=== PATIENT | female | born 1970 | race Caucasian/White ===

== ENCOUNTER 2016-09-30 12:48 | Inpatient (IN) | payer OTHER ==
[2016-09-30] MEDS: NS 0.9% 1000 ML* 2,000 ML IV ONE (15:22)
--- NOTE | 2016-09-30 15:54 | HP ---
H&P (Free Text) History and Physical: CRITICAL CARE MEDICINE DATE: 09/30/16 TIME: 1530 PRIMARY CARE PROVIDER: None REFERRING PROVIDER: Sydney Rios ([place]) REASON/CHIEF COMPLAINT: abd pain HISTORY OF PRESENT ILLNESS: 46 F with h/o anxiety, etoh abuse with prior abd pain aliments in the past (with CT scan abd 2013) presenting with [place] secondary to [place], vertigo, with poor po intake. Eval at [place] revealed High AG met acidosis without clear identification. Unable to perform serum osm and given her dynamics, [place] [facility], Na there 125, ph 7.4, HCO3 8, Cl 89, BUN 10, Cr 0.8, neg etoh level. Ua neg ketones, trace blood, sp g 1.004. Lipase 344. CT abd releatively benign. Placed on HCO3 gtt and transferred. Arrival she is stable. Awake, conversive. A bit shaky but states she feels better. morphine helped abd discomfort. hungry and able to drink water in front of me. REVIEW OF SYSTEMS: As per HPI. no etoh since friday. Steatohepatitis vs imaging history. PAST MEDICAL HISTORY: As per HPI. MEDICATIONS: Reviewed with her: Ativan 2 mg prn Effexor xr 150mg daily Clonidine 01mg daily Trazodone 100mg daily Wellbutrin 100mg daily ALLERGIES: NKDA SOCIAL HISTORY: Reviewed. h/o etoh (beer). doesn't work. FAMILY HISTORY: Noncontributory at present. PHYSICAL EXAM: Vital Signs: Reviewed. Neurologic: communicating. mild encephalopathy. [place] commands. Tremulous vs astrexis. No direct clonus. HEENT: mild icterus. mm dry Cardiovascular: Reg, S1, S2 Respiratory: clear bl Abdomen: overnight, soft; c/o tenderness to mid palpation, no r/g/r Extremities: warm Access: piv LABS: Reviewed. IMAGING: Reviewed. MEDICATIONS: Reviewed. ASSESSMENT: 46 F High AG metablic acidosis Need to eval serum osm for any gap discrepancies for alternative alcohols. She denies other ingestions. Renal function looks ok and would use crystalloid to wash out. F/u labs now on admission. pH was ok and may not need buffer as renal function well but may need some replacement. Hyponatremia associated - question polydipsia. PLAN: Neurologic: mild metabolic encephalpathy. should clear in time. will likely need her outpt meds back soon, but hold off today and just use prn ativan. Cardiovascular: Perfusing. Na/cl deficient. NS for now and f/u. Respiratory: tolerating without wob. O2 fine. Gastrointestinal: po diet. CT neg for any real acute pancreatitis. Lipase up in association with her acute volume depletion state. Can have po. Checking lipids , but otherwise just underlying fatty liver sec to chronic alcohol abuse. Renal/Metabolic: cr well. good uout thusfar. May again hae ingested additional etoh and check osmolarity but otherwise is tolerating fine with NS and may not need any antidotal or alternative needs other then fluids. etoh level neg. ketones neg. checking LA but likely neg. Glucose mildly up but not the ailment- No glucosuria. Infectious Disease: no infective burden. Hematology: stable numbers. hsq Endocrine: started on insulin gtt for concern for lipidemia and pancreatitis. can hold off now and check lipids. Musculoskeletal: oob. Psych/Social: pt expressed understanding. Supportive and preventative care as ordered. SUP: po VTE prophylaxis: heparin Disposition: ICU Code Status: Full Critical Care Time: 45min FMelissa Dunham DO
[2016-09-30 16:28] LABS: Red Cell Distribution Width 14 % (10.5-15)
[2016-09-30 16:39] LABS: Hematocrit 29 % (35-47); Mean Corpuscular HGB Conc 38 g/dl (31-36); Mean Corpuscular Hemoglobin 34 pg (27-31); Mean Corpuscular Volume 90 fL (80-97); Mean Platelet Volume 8 um3 (7.4-10.4); Red Blood Count 3.19 10^6/ul (4.0-5.4); White Blood Count 7.9 10^3/ul (3.5-10.8)
[2016-09-30 16:40] LABS: Comments Flag Yes
[2016-09-30 16:45] LABS: Albumin 3.8 g/dL (3.2-5.2); Calcium 8.2 mg/dL (8.6-10.3); EGFR African American 119.8 (>60); EGFR Non-African American 93.2 (>60); Globulin 2.8 g/dL (2-4); HDL Cholesterol 17.7 mg/dL; Magnesium 2.3 mg/dL (1.9-2.7); Phosphorus 2.5 mg/dL (2.5-5.0); Potassium 4.4 mmol/L (3.5-5.0); Total Bilirubin 1.6 mg/dL (0.2-1.0); Total Protein 6.6 g/dL (6.4-8.9)
[2016-09-30 17:15] LABS: BUN/Creatinine Ratio 11.8 (8-20)
[2016-09-30 17:33] LABS: Acetaminophen < 15 mcg/mL; Salicylate < 2.50 mg/dL (<30)
[2016-09-30] MEDS: NS 0.9% 1000 ML* 1,000 ML IV SCH ×2 (17:41→23:37)
[2016-09-30] MEDS: Morphine INJ* 2 MG/ML 1 ML SYRINGE IV PRN ×2 (18:37→22:02)
[2016-09-30] MEDS: Enoxaparin(*) 40 MG/0.4 ML SYR SUBCUT SCH (18:37)
[2016-09-30] MEDS: LORazepam INJ* 2 MG/ML 1 ML VIAL IV PUSH PRN (22:01)
[2016-09-30] MEDS: traZODone TAB* 100 MG PO PRN (23:37)
[2016-10-01] MEDS: Morphine INJ* 2 MG/ML 1 ML SYRINGE IV PRN ×5 (02:16→20:47)
[2016-10-01] MEDS: LORazepam INJ* 2 MG/ML 1 ML VIAL IV PUSH PRN ×3 (05:09→18:33)
[2016-10-01 05:19] LABS: BUN/Creatinine Ratio 10.8 (8-20); Blood Urea Nitrogen 7 mg/dL (6-24); CO2 Carbon Dioxide 23 mmol/L (22-32); Calcium 8.3 mg/dL (8.6-10.3); Chloride 97 mmol/L (101-111); EGFR African American 126.2 (>60); EGFR Non-African American 98.1 (>60); Glucose 79 mg/dL (70-100); Phosphorus 2.5 mg/dL (2.5-5.0); Sodium 130 mmol/L (133-145)
[2016-10-01 06:47] LABS: Magnesium 1.6 mg/dL (1.9-2.7)
[2016-10-01] MEDS ORDERED: Magnesium Sulfate 2 GM IV* 2 GM/50 ML BAG IVPB ONE (08:58)
[2016-10-01] MEDS ORDERED: Potassium Chlor TAB* 20 MEQ TAB.ER PO ONE ×2 (08:59→11:00)
[2016-10-01] MEDS ORDERED: NS 0.9% 1000 ML* 1,000 ML IV SCH (10:00)
--- NOTE | 2016-10-01 10:37 | PN ---
Progress Note - Progress Note Note: CRITICAL CARE MEDICINE DATE: 10/01/16 TIME: 935 SUBJECTIVE: Patient seen and examined. c/o llq discomfort. feels constipated. PHYSICAL EXAM: Vital Signs: Reviewed. Neurologic: communicating. better from encephalopathy. Less tremulous HEENT: mild icterus. mmm Cardiovascular: Reg, S1, S2 Respiratory: clear bl Abdomen: soft, no masses Extremities: warm Access: piv LABS: Reviewed. IMAGING: Reviewed. MEDICATIONS: Reviewed. ASSESSMENT: 46 F High AG metablic acidosis Hyponatremia associated - question polydipsia component or beer potomania. Pancreatitis associated with hypertriglyceridemia. Anxiety/depression PLAN: Neurologic: encephalpathy cleared. prn ativan. Cardiovascular: Perfusing. better vol status and can leave fluid today to avoid rebound. Respiratory: O2 fine. Gastrointestinal: abd pain more associated with metabolics and dehydration; +/- constipation. CT neg for any real acute pancreatitis. Lipase coming down and no real pancreatitis. can f/u clearance. able to carleen po fine. Numbers still indicative of etoh related steatosis. Renal/Metabolic: better balance. replace lytes. ns and k for now Infectious Disease: no infective burden. Hematology: stable numbers. hsq Endocrine: check tsh. gemfibrozil. no need for insulin gtt. Musculoskeletal: oob. ambulate. Psych/Social: pt expressed understanding. will add back effexor and wellbutrin. Supportive and preventative care as ordered. SUP: po VTE prophylaxis: lovenox Disposition: of for floor. needs another day or so. Code Status: Full Critical Care Time: 25min Arian Dunham DO
[2016-10-01] MEDS: Venlafaxine EXT RELEASE CAP* 75 MG PO SCH (11:01)
[2016-10-01] MEDS: Gemfibrozil TAB* 600 MG PO SCH ×2 (11:01→21:50)
[2016-10-01] MEDS: buPROPion TAB* 100 MG PO SCH (11:01)
[2016-10-01] MEDS: NS 0.9% w/ 40 Meq KCL 1000 ML* 1,000 ML IV SCH ×2 (11:03→21:50)
[2016-10-01] MEDS: Enoxaparin(*) 40 MG/0.4 ML SYR SUBCUT SCH (16:39)
[2016-10-01] MEDS: traZODone TAB* 100 MG PO PRN ×2 (20:47→21:50)
[2016-10-02] MEDS: LORazepam INJ* 2 MG/ML 1 ML VIAL IV PUSH PRN ×4 (00:54→20:54)
[2016-10-02] MEDS: Morphine INJ* 2 MG/ML 1 ML SYRINGE IV PRN ×2 (00:55→08:23)
[2016-10-02 06:52] LABS: Hematocrit 32 % (35-47); Hemoglobin 10.7 g/dl (12.0-16.0); Mean Corpuscular HGB Conc 34 g/dl (31-36); Mean Corpuscular Hemoglobin 31 pg (27-31); Mean Corpuscular Volume 91 fL (80-97); Mean Platelet Volume 8 um3 (7.4-10.4); Red Blood Count 3.45 10^6/ul (4.0-5.4); Red Cell Distribution Width 14 % (10.5-15); White Blood Count 9.9 10^3/ul (3.5-10.8)
[2016-10-02 07:10] LABS: BUN/Creatinine Ratio 6.5 (8-20); Calcium 8.9 mg/dL (8.6-10.3); EGFR African American 133.3 (>60); EGFR Non-African American 103.6 (>60); Magnesium 2.3 mg/dL (1.9-2.7); Potassium 4.3 mmol/L (3.5-5.0)
[2016-10-02] MEDS: Venlafaxine EXT RELEASE CAP* 75 MG PO SCH (08:24)
[2016-10-02] MEDS: Gemfibrozil TAB* 600 MG PO SCH ×2 (08:25→20:31)
[2016-10-02] MEDS: buPROPion TAB* 100 MG PO SCH (08:25)
[2016-10-02] MEDS ORDERED: Magnesium Hydroxide LIQ* 30 ML UDC PO PRN (10:05)
[2016-10-02] MEDS: oxyCODONE/Acetamin 5/325 MG* TAB PO PRN ×3 (11:38→20:32)
[2016-10-02] MEDS: Senna TAB PO SCH (12:49)
[2016-10-02] MEDS: Docusate CAP* 100 MG PO SCH ×2 (12:49→20:31)
[2016-10-02] MEDS: Polyethylene Glycol 3350* 17 GM PACKET PO SCH (12:49)
--- NOTE | 2016-10-02 16:11 | PN ---
Subjective Date of Service: 10/02/16 Interval History: Patient seen this morning. Reports pain seems to be improving, morphine is helping, willing to try oral alternative. Has been eating and this does not seem to worsen the pain. Has not had BM yet. Family History: Unchanged from Admission Social History: Unchanged from Admission Past Medical History: Unchanged from Admission Objective Active Medications: Bupropion HCl (Wellbutrin Sr Tab*) 100 mg PO DAILY [facility] Docusate Sodium (Colace Cap*) 100 mg PO BID KJ Enoxaparin Sodium (Lovenox(*)) 40 mg SUBCUT Q24H KJ Gemfibrozil (Lopid Tab*) 600 mg PO BID KJ Potassium Chloride/Sodium Chloride (Ns 0.9% W/ 40 Meq Kcl 1000 Ml*) 1,000 mls @ 100 mls/hr IV PER RATE KJ Lorazepam (Ativan Inj*) 1 mg IV PUSH Q6H PRN Magnesium Hydroxide (Milk Of Magnesia Liq*) 30 ml PO Q4H PRN Oxycodone/Acetaminophen (Percocet 5/325 Tab*) 1 tab PO Q4H PRN Polyethylene Glycol/Electrolytes (Miralax*) 17 gm PO DAILY KJ Senna (Senokot Tab*) 1 tab PO DAILY KJ Trazodone HCl (Desyrel Tab*) 100 mg PO BEDTIME PRN Venlafaxine HCl (Effexor Xr Cap*) 150 mg PO DAILY [facility] Vital Signs 10/01/16 10/01/16 10/01/16 16:19 17:19 18:33 Temperature Pulse Rate Respiratory 18 18 18 Rate Blood Pressure (mmHg) O2 Sat by Pulse Oximetry 10/02/16 10/02/16 10/02/16 01:55 07:07 08:23 Temperature 98.1 F Pulse Rate 75 Respiratory 16 16 12 Rate Blood Pressure 140/79 (mmHg) O2 Sat by Pulse 96 Oximetry 10/02/16 10/02/16 10/02/16 13:38 14:53 15:27 Temperature 98.3 F Pulse Rate 82 Respiratory 14 14 16 Rate Blood Pressure 138/89 (mmHg) O2 Sat by Pulse 97 Oximetry Oxygen Devices in Use Now: None Appearance: Middle-aged, F, laying in bed in NAD Eyes: No Scleral Icterus Ears/Nose/Mouth/Throat: Mucous Membranes Moist Neck: NL Appearance and Movements; NL JVP Respiratory: Symmetrical Chest Expansion and Respiratory Effort, Clear to Auscultation Cardiovascular: NL Sounds; No Murmurs; No JVD, RRR Abdominal: - - Soft, non-distended, mild TTP in periumbilical area, no rebound/ guarding, BS hypoactive Lymphatic: No Cervical Adenopathy Extremities: No Edema Skin: No Rash or Ulcers Neurological: Alert and Oriented x 3 Result Diagrams: 10/02/16 06:14 10/02/16 06:14 Microbiology and Other Data: Microbiology 10/01/16 21:57 Nasal Screen MRSA (PCR)(JIMMIE) - Final Nasal Mrsa Negative 09/30/16 15:00 Nasal Screen MRSA (PCR)(JIMMIE) - Final Nasal Mrsa Negative Assess/Plan/Problems-Billing Assessment: AGMA, hypertriglyceridemia associated pancreatitis, hyponatremia in a 46 yo F with hx of anxiety, depression, EtOH abuse - Patient Problems (1) Pancreatitis Current Visit: Yes Comment: 2/2 hypertriglyceridemia. Not much on CT imaging but some increase in lipase which has resolved. Low fat diet. Continue Gemfibrozil. Some of the abdominal pain may be due to consiptation, will start bowel regimen. (2) High anion gap metabolic acidosis Current Visit: Yes Comment: Resolved (3) Hyponatremia Current Visit: Yes Comment: Resolved (4) Depression Current Visit: Yes Comment: Continue Effexor and Wellbutrin (5) Alcohol abuse Current Visit: Yes Comment: Appreciate SW consult. Declines further treatment , attends AA infrequently (6) DVT prophylaxis Current Visit: Yes Comment: Lovenox SQ
[2016-10-02] MEDS: Enoxaparin(*) 40 MG/0.4 ML SYR SUBCUT SCH (16:15)
[2016-10-03] MEDS: traZODone TAB* 100 MG PO PRN (00:31)
[2016-10-03] MEDS: oxyCODONE/Acetamin 5/325 MG* TAB PO PRN ×2 (00:31→09:05)
[2016-10-03] MEDS ORDERED: Magnesium CITRATE* 300 ML BTL PO ONE (07:57)
[2016-10-03] MEDS ORDERED: buPROPion SR TAB.SR* 100 MG PO SCH (09:00)
[2016-10-03] MEDS: Venlafaxine EXT RELEASE CAP* 75 MG PO SCH (09:05)
[2016-10-03] MEDS: Docusate CAP* 100 MG PO SCH (09:05)
[2016-10-03] MEDS: Polyethylene Glycol 3350* 17 GM PACKET PO SCH (09:07)
[2016-10-03] MEDS: Senna TAB PO SCH (09:07)
[2016-10-03] MEDS: Gemfibrozil TAB* 600 MG PO SCH (09:07)
[2016-10-03] MEDS: LORazepam INJ* 2 MG/ML 1 ML VIAL IV PUSH PRN (09:42)
--- NOTE | 2016-10-03 09:50 | DCNOTE ---
Patient feeling better today. Pain improving although still no BM. Has been ambulating. Good PO intake. On exam, mild TTP in periumbilcal area, RRR, s1 and s2 present, no m/g/r, no LE edema Discharge home today, continue low-fat diet for now. F/U with PCP. Will continue Gemfibrozil as outpatient.
[2016-10-03 10:19] VITALS: BP 122/70
--- NOTE | 2016-10-04 05:12 | DS ---
DISCHARGE SUMMARY: DATE OF ADMISSION: 09/30/16 DATE OF DISCHARGE: 10/03/16 PRIMARY CARE PHYSICIAN: Dr. Anurag Gross. PRINCIPAL DISCHARGE DIAGNOSES: 1. Anion gap metabolic acidosis. 2. Hyponatremia. 3. Hypertriglyceridemia. 4. Biochemical pancreatitis. DISCHARGE MEDICATION REGIMEN: 1. Colace 100 mg by mouth 2 times daily. 2. Gemfibrozil 600 mg by mouth 2 times daily. 3. MiraLAX 17 g by mouth daily. 4. Senna 1 tablet by mouth daily. 5. Percocet 5/325, 1 tablet by mouth every 6 hours as needed for pain. 6. Effexor 150 mg by mouth daily. 7. Lorazepam 2 mg by mouth 2 times daily as needed for anxiety. 8. Wellbutrin 100 mg by mouth daily. 9. Trazodone 100 mg by mouth at bedtime. 10. Clonidine 0.1 mg by mouth 2 times daily. HISTORY OF PRESENT ILLNESS AND HOSPITAL SUMMARY: Please see the full history and physical by Dr. Gaetano Dunham for full details. Briefly, Ms. Gutierrez is a 46 -year- old female with past medical history of depression, anxiety, and alcohol abuse, who presented initially to [facility] with headache, vertigo and abdominal pain. The patient is found to have significantly high anion gap metabolic acidosis there with a bicarb of 8 as well as an elevated lipase. The patient was started on a bicarb drip and transferred to the ICU here at [facility]. The patient had a CT of the abdomen that did not show any signs of pancreatitis; however, showed some stool in the abdomen and some stool in the colon. The patient was also noted to be hyponatremic with sodium of 125. Etiology of the patient's metabolic acidosis was unclear. It was initially felt that she may have ingested another form of alcohol besides ethanol. The patient was fluid resuscitated and had resolution of her anion gap metabolic acidosis as well as with her sodium she may have had some element of beer potomania and perhaps was fairly dehydrated on her initial presentation. The patient's lipase trended down and normalized. She had mild hepatitis just likely due to alcohol use. The patient's abdominal pain improved over the course of the hospitalization; however, was still present on discharge. She will be continued on low fat diet. She was given an aggressive bowel management and will be discharged with this too, as well as she did not have a bowel movement in the hospital. She will continue on gemfibrozil, which was started for her hypertriglyceridemia which was found to be elevated at 3000. This may be the underlying etiology for her pancreatitis. She will continue on this medication in addition to her home medications and bowel regimen. She will need to follow up with her PCP as an outpatient. TIME SPENT: Total time spent on this discharge, 45 minutes. This is a summary of the hospitalization. Please see the full medical record for further details. CC: Dr. Anurag Gross* [id number]/CPS #: [id number] MTDD
== END 2016-10-03 13:15 | disposition home or self-care (01) | DRG 282 ==
LOC: ICU 14:51 → MED 10-01 11:46
PROVIDERS: ADMIT Internal Medicine Critical Care Medicine; ATTEND Hospitalist
DX: K85.90 Acute pancreatitis without necrosis or infection, unspecified (principal); G93.40 Encephalopathy, unspecified; E87.2 Acidosis; K70.0 Alcoholic fatty liver; K70.10 Alcoholic hepatitis without ascites; E87.1 Hypo-osmolality and hyponatremia; F41.9 Anxiety disorder, unspecified; F10.10 Alcohol abuse, uncomplicated; K59.00 Constipation, unspecified; E78.1 Pure hyperglyceridemia; F32.9 Major depressive disorder, single episode, unspecified; E86.0 Dehydration
CPT/HCPCS: 36415; 80048; 80053; 80061; 80329; 82140; 82330; 82803; 83605; 83690; 83735; 83930; 84100; 84443; 84478; 85025; 87641; A9270-GY; G0480; J1650; J2060; J2270

== ENCOUNTER 2017-04-17 16:09 | Emergency (ER) | payer OTHER ==
[2017-04-17] MEDS ORDERED: HYDROmorphone INJ* 1 MG/ML CARPUJECT SYRINGE IV SLOW PU ONE (19:38)
[2017-04-17] MEDS ORDERED: NS 0.9% 1000 ML* 1,000 ML IV ONE (19:38)
[2017-04-17] MEDS ORDERED: Ondansetron INJ* 2 MG/ML VIAL IV ONE (19:38)
[2017-04-17 20:04] LABS: Hematocrit 32 % (35-47); Hemoglobin 11.1 g/dl (12.0-16.0); Mean Corpuscular HGB Conc 35 g/dl (31-36); Mean Corpuscular Hemoglobin 33 pg (27-31); Mean Corpuscular Volume 94 fL (80-97); Mean Platelet Volume 7 um3 (7.4-10.4); Red Blood Count 3.38 10^6/ul (4.0-5.4); Red Cell Distribution Width 14 % (10.5-15); White Blood Count 8.5 10^3/ul (3.5-10.8)
[2017-04-17 20:21] LABS: ALT 21 U/L (7-52); AST 29 U/L (13-39); Albumin 4.3 g/dL (3.2-5.2); Alkaline Phosphatase 69 U/L (34-104); Anion Gap 6 mmol/L (2-11); Blood Urea Nitrogen 12 mg/dL (6-24); C Reactive Protein < 1.00 mg/L (< 5.00); CO2 Carbon Dioxide 26 mmol/L (22-32); Calcium 9.1 mg/dL (8.6-10.3); Chloride 102 mmol/L (101-111); EGFR African American 138.4 (>60); EGFR Non-African American 107.6 (>60); Globulin 3.1 g/dL (2-4); Glucose 100 mg/dL (70-100); Lipase 49 U/L (11.0-82.0); Potassium 3.4 mmol/L (3.5-5.0); Sodium 134 mmol/L (133-145); Total Protein 7.4 g/dL (6.4-8.9)
[2017-04-17] MEDS ORDERED: Pantoprazole IV* 40 MG IV ONE (20:26)
[2017-04-17 20:48] LABS: Urine Bilirubin Negative (Negative); Urine Glucose Negative (Negative); Urine Nitrite Negative (Negative)
--- NOTE | 2017-04-17 20:59 | ED ---
Gustabo Bradford Nilda, scribed for Berta Cristobal MD on 04/17/17 at 1932 . Abdominal Pain/Female - HPI Summary HPI Summary: This patient is a 46 year old F presenting to [facility] with a chief complaint of constant sharp epigastric pain since 1.5 week ago. The patient rates the pain 8/ 10 in severity. Symptoms aggravated and alleviated by nothing including Tramadol. Patient reports nausea and diarrhea (today). PMHx includes pancreatitis (August 2016). - History of Current Complaint Chief Complaint: EDAbdPain Stated Complaint: ABD PAIN Time Seen by Provider: 04/17/17 19:10 Hx Obtained From: Patient Onset/Duration: Lasting Weeks - 1.5 weeks, Still Present Timing: Constant Severity Currently: Severe Pain Intensity: 8 Pain Scale Used: 0-10 Numeric Location: Epigastric Radiates: No Character: Sharp Aggravating Factor(s): Nothing Alleviating Factor(s): Nothing Associated Signs and Symptoms: Positive: Nausea, Diarrhea Allergies/Adverse Reactions: Allergies Allergy/AdvReac Type Severity Reaction Status Date / Time No Known Allergies Allergy Verified 11/07/12 23:30 PMH/Surg Hx/FS Hx/Imm Hx Endocrine/Hematology History: Denies: Hx Anticoagulant Therapy, Hx Diabetes, Hx Thyroid Disease Cardiovascular History: Reports: Hx Hypertension Denies: Hx Pacemaker/ICD Respiratory History: Denies: Hx Asthma, Hx Chronic Obstructive Pulmonary Disease (COPD) GI History: Reports: Other GI Disorders History: Denies: Hx Renal Disease Musculoskeletal History: Reports: Hx Arthritis - right hip, Hx Gout Sensory History: Denies: Hx Contacts or Glasses, Hx Hearing Aid Opthamlomology History: Denies: Hx Contacts or Glasses Neurological History: Denies: Hx Dementia, Hx Seizures Psychiatric History: Reports: Hx Anxiety, Hx Depression, Hx Panic Disorder, Hx Post Traumatic Stress Disorder, Hx Substance Abuse Denies: Hx Eating Disorder, Hx of Violent Episodes Against Others - Surgical History Surgery Procedure, Year, and Place: right hip x2 - Immunization History Date of Tetanus Vaccine: unsure Date of Influenza Vaccine: fall 2012 Infectious Disease History: No Infectious Disease History: Denies: Hx Clostridium Difficile, Hx Hepatitis, Hx Human Immunodeficiency Virus (HIV), Hx of Known/Suspected MRSA, Hx Shingles, Hx Tuberculosis, History Other Infectious Disease, Traveled Outside the [place] in Last 30 Days - Family History Known Family History: Positive: Diabetes Negative: Hypertension - Social History Lives: With Family Alcohol Use: Daily Alcohol Amount: 1-2 beers daily Substance Use Type: Reports: None Smoking Status (MU): Never Smoked Tobacco Type: Cigarettes Have You Smoked in the Last Year: No Review of Systems Negative: Shortness Of Breath Positive: Abdominal Pain - sharp epigastric, Diarrhea, Nausea All Other Systems Reviewed And Are Negative: Yes Physical Exam Triage Information Reviewed: Yes Vital Signs On Initial Exam: Initial Vitals Temp Pulse Resp BP Pulse Ox 98.9 F 86 20 152/102 100 04/17/17 16:31 04/17/17 16:31 04/17/17 16:31 04/17/17 16:31 04/17/17 16:31 Vital Signs Reviewed: Yes Appearance: Positive: Well-Appearing, No Pain Distress Skin: Positive: Warm, Skin Color Reflects Adequate Perfusion, Dry Eyes: Positive: EOMI, PINA ENT: Positive: Pharynx normal, TMs normal Neck: Positive: Supple, Nontender Respiratory/Lung Sounds: Positive: Clear to Auscultation, Breath Sounds Present. Negative: Rales, Rhonchi, Wheezes Cardiovascular: Positive: RRR, Other - no gallop. Negative: Murmur, Rub Abdomen Description: Positive: Soft, Other: - no rebound; LUQ and epigastric tenderness.. Negative: Distended, Guarding Bowel Sounds: Positive: Present Musculoskeletal: Positive: Strength/ROM Intact. Negative: Edema Left, Edema Right Neurological: Positive: Sensory/Motor Intact, Alert, Oriented to Person Place, Time, CN Intact II-III Psychiatric: Positive: Affect/Mood Appropriate - [place] Coma Scale Coma Scale Total: 15 Diagnostics - Vital Signs Vital Signs Temp Pulse Resp BP Pulse Ox 04/17/17 18:42 97.9 F 97 16 147/87 100 04/17/17 16:31 98.9 F 86 20 152/102 100 - Laboratory Lab Results: Lab Results 04/17/17 04/17/17 04/17/17 Range/Units 19:58 19:58 20:32 WBC 8.5 (3.5-10.8) 10^3/ul RBC 3.38 L (4.0-5.4) 10^6/ul Hgb 11.1 L (12.0-16.0) g/dl Hct 32 L (35-47) % MCV 94 (80-97) fL MCH 33 H (27-31) pg MCHC 35 (31-36) g/dl RDW 14 (10.5-15) % Plt Count 286 (150-450) 10^3/ul MPV 7 L (7.4-10.4) um3 Neut % (Auto) 52.3 (38-83) % Lymph % (Auto) 35.7 (25-47) % [place] % (Auto) 8.9 (1-9) % Eos % (Auto) 2.2 (0-6) % Baso % (Auto) 0.9 (0-2) % Absolute Neuts (auto) 4.4 (1.5-7.7) 10^3/ul Absolute Lymphs (auto) 3.0 (1.0-4.8) 10^3/ul Absolute Monos (auto) 0.8 (0-0.8) 10^3/ul Absolute Eos (auto) 0.2 (0-0.6) 10^3/ul Absolute Basos (auto) 0.1 (0-0.2) 10^3/ul Absolute Nucleated RBC 0 10^3/ul Nucleated RBC % 0 Sodium 134 (133-145) mmol/L Potassium 3.4 L (3.5-5.0) mmol/L Chloride 102 (101-111) mmol/L Carbon Dioxide 26 (22-32) mmol/L Anion Gap 6 (2-11) mmol/L BUN 12 (6-24) mg/dL Creatinine 0.60 (0.51-0.95) mg/dL Est GFR ( Amer) 138.4 (>60) Est GFR (Non-Af Amer) 107.6 (>60) BUN/Creatinine Ratio 20.0 (8-20) Glucose 100 (70-100) mg/dL Calcium 9.1 (8.6-10.3) mg/dL Total Bilirubin 0.50 (0.2-1.0) mg/dL AST 29 (13-39) U/L ALT 21 (7-52) U/L Alkaline Phosphatase 69 (34-104) U/L C-Reactive Protein < 1.00 (< 5.00) mg/L Total Protein 7.4 (6.4-8.9) g/dL Albumin 4.3 (3.2-5.2) g/dL Globulin 3.1 (2-4) g/dL Albumin/Globulin Ratio 1.4 (1-3) Lipase 49 (11.0-82.0) U/L Urine Color Straw Urine Appearance Clear Urine pH 6.0 (5-9) Ur Specific [place] 1.003 L (1.010-1.030) Urine Protein Negative (Negative) Urine Ketones Negative (Negative) Urine Blood Negative (Negative) Urine Nitrate Negative (Negative) Urine Bilirubin Negative (Negative) Urine Urobilinogen Negative (Negative) Ur Leukocyte Esterase Negative (Negative) Urine Glucose Negative (Negative) Result Diagrams: 04/17/17 19:58 04/17/17 19:58 Lab Statement: Any lab studies that have been ordered have been reviewed, and results considered in the medical decision making process. Abdominal Pain Fem Course/Dx - Course Course Of Treatment: 46 yo female with history of pancreatitis here with luq pain after eating fatty fried food and having a beer pain has been there for a week. Pt's labs are normal she is being started on a ppi and given pain meds at home. She does describe some issues with alcohol but denies any issues with narcotic abuse but her she says does tend to hold the meds - Diagnoses Provider Diagnoses: Gastritis Discharge - Discharge Plan Condition: Stable Disposition: HOME Prescriptions: Pantoprazole Sodium [Protonix] 20 mg PO DAILY #14 tab The documentation as recorded by the Gustabo dixon Nilda accurately reflects the service I personally performed and the decisions made by me, Berta Cristobal MD.
[2017-04-17 21:16] VITALS: BP 140/84
== END 2017-04-17 21:42 | disposition home or self-care (01) ==
LOC: ED 16:09
DX: K29.70 Gastritis, unspecified, without bleeding (principal); F41.9 Anxiety disorder, unspecified; F32.9 Major depressive disorder, single episode, unspecified
CPT/HCPCS: 36415; 80053; 81003; 83690; 85025; 86140; 96360; 96374; 96375; 99284; J1170; J2405

== ENCOUNTER 2017-09-03 05:38 | Emergency (ER) | payer OTHER ==
[2017-09-03] MEDS ORDERED: LORazepam INJ* 2 MG/ML 1 ML VIAL ONE (05:49)
[2017-09-03] MEDS ORDERED: diPHENhydraMINE IV* 50 MG/ML 1 ml VIAL (BENADRYL) ONE (05:49)
[2017-09-03] MEDS ORDERED: Haloperidol INJ IV/IM* 5 MG/ML AMP ONE (05:49)
[2017-09-03 06:49] LABS: ABS Basophils 0.1 10^3/ul (0-0.2); ABS Eosinophils 0.2 10^3/ul (0-0.6); ABS Monocytes 0.6 10^3/ul (0-0.8); ABS Neutrophils 2.6 10^3/ul (1.5-7.7); ABS Nucleated RBC 0 10^3/ul; Eosinophil % 3.3 % (0-6); Hematocrit 38 % (35-47); Lymphocyte % 46.2 % (25-47); Mean Corpuscular HGB Conc 34 g/dl (31-36); Mean Corpuscular Hemoglobin 34 pg (27-31); Mean Corpuscular Volume 99 fL (80-97); Mean Platelet Volume 7 um3 (7.4-10.4); Nucleated Red Blood Cells % 0.1; Platelet Count 255 10^3/ul (150-450); Red Blood Count 3.84 10^6/ul (4.0-5.4); Red Cell Distribution Width 14 % (10.5-15); White Blood Count 6.6 10^3/ul (3.5-10.8)
--- NOTE | 2017-09-03 07:05 | ED ---
Aj Bradford Abhishek, scribed for Sakina Womack MD on 09/03/17 at 0610 . Substance Abuse/Use - HPI Summary HPI Summary: LEVEL 5 - CAVEAT: Altered Mental state The pt is a 47 y/o F with a chief complaint of substance abuse. The pt was not compliant and was restrained upon arrival to the [facility]. She is combative, agitated and in a very emotional state. Pt was seen "crying" and "laughing." The substance taken by the pt is unknown. - History Of Current Complaint Chief Complaint: EDSubstanceAbuse Stated Complaint: MHE Time Seen by Provider: 09/03/17 05:39 Hx From Patient Unobtainable Due To: Altered Mental Status Aggravating Factor(s): Nothing Alleviating Factor(s): Nothing Associated Signs And Symptoms: Hostile, Agitated, Other: - "crying and laughing " - Allergies/Home Medications Allergies/Adverse Reactions: Allergies Allergy/AdvReac Type Severity Reaction Status Date / Time No Known Allergies Allergy Verified 11/07/12 23:30 PMH/Surg Hx/FS Hx/Imm Hx Endocrine/Hematology History: Denies: Hx Anticoagulant Therapy, Hx Diabetes, Hx Thyroid Disease Cardiovascular History: Reports: Hx Hypertension Denies: Hx Pacemaker/ICD Respiratory History: Denies: Hx Asthma, Hx Chronic Obstructive Pulmonary Disease (COPD) GI History: Reports: Other GI Disorders History: Denies: Hx Renal Disease Musculoskeletal History: Reports: Hx Arthritis - right hip, Hx Gout Sensory History: Denies: Hx Contacts or Glasses, Hx Hearing Aid Opthamlomology History: Denies: Hx Contacts or Glasses Neurological History: Denies: Hx Dementia, Hx Seizures Psychiatric History: Reports: Hx Anxiety, Hx Depression, Hx Panic Disorder, Hx Post Traumatic Stress Disorder, Hx Substance Abuse Denies: Hx Eating Disorder, Hx of Violent Episodes Against Others - Surgical History Surgery Procedure, Year, and Place: right hip x2 - Immunization History Date of Tetanus Vaccine: unsure Date of Influenza Vaccine: fall 2012 Infectious Disease History: No Infectious Disease History: Denies: Hx Clostridium Difficile, Hx Hepatitis, Hx Human Immunodeficiency Virus (HIV), Hx of Known/Suspected MRSA, Hx Shingles, Hx Tuberculosis, History Other Infectious Disease, Traveled Outside the [place] in Last 30 Days - Family History Known Family History: Positive: Diabetes Negative: Hypertension - Social History Alcohol Use: Daily Alcohol Amount: 1-2 beers daily Substance Use Type: Reports: None Smoking Status (MU): Never Smoked Tobacco Type: Cigarettes Have You Smoked in the Last Year: No Review of Systems - ROS Summary Review of Systems Summary: LEVEL 5 CAVEAT Constitutional: Negative Eyes: Negative ENT: Negative Cardiovascular: Negative Respiratory: Negative Gastrointestinal: Negative Genitourinary: Negative Musculoskeletal: Negative Skin: Negative Neurological: Other - Altered Mental State: substance abuse (Unknown substance) Psychological: Other - Hostile; combative; emotional state All Other Systems Reviewed And Are Negative: Yes Physical Exam - Summary Physical Exam Summary: Patient's physical exam performed post-sedation VITAL SIGNS: Reviewed. GENERAL: ~Patient is a well-developed and nourished (FEMALE) who is lying comfortable in the stretcher. Patient is not in any acute respiratory distress. Pt is sleeping and is arousable HEAD AND FACE: No signs of trauma. No ecchymosis, hematomas or skull depressions. No sinus tenderness. EYES: PERRLA, EOMI x 2, No injected conjunctiva, no nystagmus. EARS: Hearing grossly intact. Ear canals and tympanic membranes are within normal limits. MOUTH: Oropharynx within normal limits. NECK: Supple, trachea is midline, no adenopathy, no JVD, no carotid bruit, no c- spine tenderness, neck with full ROM. CHEST: Symmetric, no tenderness at palpation LUNGS: Clear to auscultation bilaterally. No wheezing or crackles. CVS: Regular rate and rhythm, S1 and S2 present, no murmurs or gallops appreciated. ABDOMEN: Soft, non-tender. No signs of distention. No rebound no guarding, and no masses palpated. Bowel sounds are normal. EXTREMITIES: FROM in all major joints, no edema, no cyanosis or clubbing. NEURO: Unable to access because pt is sedated SKIN: Dry and warm Triage Information Reviewed: Yes Vital Signs On Initial Exam: Initial Vitals Temp Pulse Resp BP Pulse Ox 98.7 F 116 16 140/82 100 09/03/17 05:43 09/03/17 05:43 09/03/17 05:43 09/03/17 05:43 09/03/17 05:43 Vital Signs Reviewed: Yes Diagnostics - Vital Signs Vital Signs Temp Pulse Resp BP Pulse Ox 09/03/17 05:43 98.7 F 116 16 140/82 100 - Laboratory Result Diagrams: 09/03/17 06:10 Lab Statement: Any lab studies that have been ordered have been reviewed, and results considered in the medical decision making process. Course/Dx - Course Course Of Treatment: LEVEL 5 CAVEAT - Altered Mental State. The pt is a 47 F presenting to the [facility] with a chief complaint of substance abuse. Pt was sedated while in the [facility] and evaluation was performed post sedation due to the pt's combative behavior. The pt will be signed out to Dr. Vargas and the dx will be substance abuse. - Diagnoses Provider Diagnoses: Substance abuse Discharge - Discharge Plan Condition: Stable Disposition: OTHER Discharge Disposition Comment: Pt is signed out to Dr. Vargas, awaiting disposition. Referrals: Marlo Menchaca MD [Primary Care Provider] - The documentation as recorded by the Aj dixon Abhishek accurately reflects the service I personally performed and the decisions made by me, Sakina Womack MD.
[2017-09-03 08:04] LABS: EGFR Non-African American 81.6 (>60)
[2017-09-03] MEDS ORDERED: LORazepam INJ* 2 MG/ML 1 ML VIAL IV PUSH ONE (15:12)
[2017-09-03] MEDS ORDERED: LORazepam TAB(*) 1 MG PO ONE ×2 (15:18→18:12)
[2017-09-03] MEDS ORDERED: Potassium Chlor TAB* 20 MEQ TAB.ER PO ONE (18:14)
[2017-09-04] MEDS ORDERED: LORazepam TAB(*) 1 MG PO ONE (00:20)
[2017-09-04] MEDS ORDERED: LORazepam TAB(*) 1 MG ONE (00:23)
[2017-09-04 04:55] VITALS: BP 138/89
--- NOTE | 2017-09-04 06:28 | ED ---
Vadim Bradford Stephanie, scribed for Sakina Womack MD on 09/03/17 at 2022 . Progress - Progress Note Progress Note: The pt was a sign out from Dr. Vargas at shift change (19:00) pending ETOH metabolism and MHE. - Consult/PCP Time Called: 10:40 Course/Dx - Course Course Of Treatment: LEVEL 5 CAVEAT - Altered Mental State. The pt is a 47 F presenting to the [facility] with a chief complaint of substance abuse. Pt was sedated while in the [facility] and evaluation was performed post sedation due to the pt's combative behavior. The pt will be signed out to Dr. Vargas and the dx will be substance abuse. Condition: STABLE, Disposition: Discharge home - Diagnoses Provider Diagnoses: Alcohol intoxication, Mood disorder, Adjustment disorder The documentation as recorded by the Vadim dixon Stephanie accurately reflects the service I personally performed and the decisions made by me, Sakina Womack MD.
--- NOTE | 2017-09-04 08:23 | ED ---
Pankaj Bradford Angela, scribed for Nikolas Vargas MD on 09/03/17 at 0735 . Progress - Progress Note Progress Note: This pt was signed out by Dr. Womack, pending disposition, awaiting MHE. Pt is a 47 y/o female presenting to [facility] via EMS for substance abuse. On re- evaluation, pt is sleeping comfortably and is stable. She is in no distress. Physical Exam: GENERAL: Patient is a well-developed and nourished female who is lying comfortable in the stretcher. Patient is not in any acute respiratory distress. HEAD AND FACE: No signs of trauma. No ecchymosis, hematomas or skull depressions. No sinus tenderness. EYES: PERRLA, EOMI x 2, No injected conjunctiva, no nystagmus. EARS: Hearing grossly intact. Ear canals and tympanic membranes are within normal limits. MOUTH: Oropharynx within normal limits. NECK: Supple, trachea is midline, no adenopathy, no JVD, no carotid bruit, no c- spine tenderness, neck with full ROM. CHEST: Symmetric, no tenderness at palpation LUNGS: Clear to auscultation bilaterally. No wheezing or crackles. CVS: Regular rate and rhythm, S1 and S2 present, no murmurs or gallops appreciated. ABDOMEN: Soft, non-tender. No signs of distention. No rebound no guarding, and no masses palpated. Bowel sounds are normal. EXTREMITIES: FROM in all major joints, no edema, no cyanosis or clubbing. NEURO: Alert and oriented x 3. No acute neurological deficits. Speech is normal and follows commands. SKIN: Dry and warm Test results show potassium of 3.3. Toxicology shows serum alcohol of 531. In the ED course the pt was given potassium chloride and Ativan for anxiety. Pt remains stable. She will probably be medically cleared by 21:00 and will have a repeat alcohol level test. After pt is medically cleared she will have a mental health evaluation. She will be signed out to Dr. Womack, pending disposition, awaiting MHE. Condition: Stable Disposition: Other - signed out to Dr. Womack. Re-Evaluation - Re-Evaluation First Eval Re-Evaluation Time: 07:39 Comment: Pt is sleeping comfortably and is stable. She is in no distress. Course/Dx - Diagnoses Provider Diagnoses: Alcohol intoxication The documentation as recorded by the Pankaj dixon Angela accurately reflects the service I personally performed and the decisions made by me, Nikolas Vargas MD.
== END 2017-09-04 04:49 ==
LOC: ED 05:38
DX: F10.129 Alcohol abuse with intoxication, unspecified (principal); F39 Unspecified mood [affective] disorder; F43.20 Adjustment disorder, unspecified
CPT/HCPCS: 36415; 80053; 80320; 80329; 84443; 84702; 85025; 96374; 96375; 99285; A9270-GY; G0480; J1200; J1630; J2060

== ENCOUNTER 2017-12-21 14:39 | Inpatient (IN) | payer OTHER ==
[2017-12-21] MEDS ORDERED: Bupivacaine 0.25% SDV* 30 ML INJ ONE (15:09)
[2017-12-21] MEDS ORDERED: Lidocaine 2% PF * 5 ML VIAL ONE ×3 (15:10→15:29)
[2017-12-21] MEDS ORDERED: Bacitracin OINTMENT* 0.5% 0.5 oz TUBE ONE (16:11)
[2017-12-21 17:13] LABS: EGFR Non-African American 70.7 (>60)
[2017-12-21 17:31] LABS: ABS Basophils 0.1 10^3/ul (0-0.2); ABS Eosinophils 0.1 10^3/ul (0-0.6); ABS Lymphocytes 2.8 10^3/ul (1.0-4.8); ABS Monocytes 0.3 10^3/ul (0-0.8); ABS Neutrophils 3.6 10^3/ul (1.5-7.7); ABS Nucleated RBC 0 10^3/ul; Lymphocyte % 40.6 % (25-47); Nucleated Red Blood Cells % 0.1; Red Blood Count 3.78 10^6/ul (4.00-5.40); White Blood Count 6.9 10^3/ul (3.5-10.8)
[2017-12-21 17:32] LABS: Hematocrit 35 % (35-47); Mean Corpuscular Volume 93 fL (80-97); Platelet Count 238 10^3/ul (150-450); Red Cell Distribution Width 16 % (10.5-15)
[2017-12-21 17:33] LABS: Hemoglobin 11.8 g/dl (12.0-16.0); Mean Corpuscular HGB Conc 34 g/dl (31-36); Mean Corpuscular Hemoglobin 31 pg (27-31)
[2017-12-21] MEDS ORDERED: traMADol TAB* 50 MG PO ONE (21:08)
[2017-12-21] MEDS ORDERED: traZODone TAB* 50 MG TAB PO ONE (21:09)
[2017-12-21] MEDS ORDERED: Zolpidem TAB* 10 MG PO PRN (21:10)
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
[2017-12-21 22:34] LABS: Urine Appearance Clear; Urine Blood 1+ (Negative); Urine Color Yellow; Urine Ketones Negative (Negative); Urine Protein Negative (Negative); Urine Specific Gravity 1.011 (1.010-1.030); Urine Urobilinogen Negative (Negative)
[2017-12-22] MEDS ORDERED: traZODone TAB* 50 MG TAB PO PRN (03:17)
[2017-12-22] MEDS: Acetaminophen TAB* 325 MG PO PRN ×2 (05:05→09:43)
[2017-12-22] MEDS: Ibuprofen TAB* 400 MG PO PRN (05:54)
[2017-12-22] MEDS ORDERED: Venlafaxine EXT RELEASE CAP* 75 MG PO SCH (09:00)
[2017-12-22] MEDS: Gabapentin CAP(*) 300 MG PO SCH ×3 (09:08→21:25)
[2017-12-22] MEDS: cloNIDine TAB* 0.1 MG PO SCH ×2 (09:08→21:26)
[2017-12-22] MEDS: Gemfibrozil TAB* 600 MG PO SCH ×2 (09:08→21:26)
[2017-12-22] MEDS: Vitamin THERAPEUTIC TAB PO SCH (09:08)
[2017-12-22] MEDS: traMADol TAB* 50 MG PO PRN (16:22)
[2017-12-22] MEDS ORDERED: Gabapentin CAP(*) 400 MG PO SCH (21:00)
[2017-12-22] MEDS: Prazosin CAP* 1 MG PO SCH (21:25)
[2017-12-22] MEDS: Mirtazapine TAB* 15 MG PO SCH (21:26)
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
[2017-12-23 08:39] LABS: EGFR Non-African American 97.7 (>60)
[2017-12-23] MEDS: Venlafaxine EXT RELEASE CAP* 75 MG PO SCH (08:54)
[2017-12-23] MEDS: Gabapentin CAP(*) 300 MG PO SCH ×2 (08:54→21:38)
[2017-12-23] MEDS: Vitamin THERAPEUTIC TAB PO SCH (08:54)
[2017-12-23] MEDS: cloNIDine TAB* 0.1 MG PO SCH ×2 (08:54→21:37)
[2017-12-23] MEDS: Gemfibrozil TAB* 600 MG PO SCH ×2 (08:57→21:40)
[2017-12-23] MEDS: traMADol TAB* 50 MG PO PRN ×2 (12:44→18:48)
[2017-12-23] MEDS: Acetaminophen TAB* 325 MG PO PRN ×2 (12:45→17:02)
[2017-12-23] MEDS: clonazePAM TAB(*) 1 MG PO PRN ×2 (14:06→21:36)
[2017-12-23] MEDS: Al Hydrox/Mg Hydrox/Simet LIQ* 30 ML UDC PO PRN (14:07)
--- NOTE | 2017-12-23 16:28 | PN ---
Subjective - Subjective Date of Service: 12/23/17 Service Type: 47226 Hosp care 25 min moderate complexity Subjective: patient reports sleeping very well last night but feeling tired this morning. She denies withdrawal symptoms. She continues to endorse excessive guilt over her self injury. Under Cutter and Zarina Gan LMSW discussed concern regarding alcohol use and recommendation for inpatient substance use treatment. Patient admitted that she has been in denial regarding alcoholism. She vascillates between agreeing with recommendation and justifying alcohol use. Objective - Appearance Appearance: Well Developed/Nourished Dysmorphic Features: Yes Hygiene: Normal Grooming: Fairly Well Kept - Behavior Psychomotor Activities: Normal Exhibits Abnormal Movement: No - Attitude and Relatedness Attitude and Relatedness: Cooperative Eye Contact: Good - Speech Quality: Unpressured Latencies: Normal Quantity: Appropriate - Mood Patient's Decription of Mood: "tired" - Affect Observed Affect: Depressed Affect Consistent with: Dysphoria - Thought Process Patient's Thought Process: Coherent, Circumstantial Thought Content: No Passive Wish, No Suicidal Planning, No Homicidal Ideation, No Paranoid Ideation - Sensorium Experiencing Hallucinations: No, Sensorium is Clear Type of Hallucinations: Visual: No, Auditory: No, Command: No - Level of Consciousness Level of Consciousness: Alert Orientation: Yes Intact, Yes Orientated to Time, Yes Orientated to Place, Yes Orientated to Person - Impulse Control Impulse Control: Poor - Insight and Judgement Insight and Judgement: Poor - Group Participation Particating in Group Activities: Yes - Medication Management Medication Management Adherence: Yes Assessment - Assessment Merits Inpatient Hospitalization: For Immediate Safety, For Stabilization, For Ongoing Evaluation, Consolidate Improvements Inpatient DSM-V Dx: F39 Clinical Impression: 47yo white female, domiciled, unemployed who presented to ED via EMS with self- inflicted lacerations requiring sutures. She has an extensive trauma and alcohol use history. She merits hospitalization for immediate safety and stabilization. Plan - Plan Treatment Plan: Name: NANCY PACE Birthdate: 1970 [id number] continue acute intensive psychiatric treatment. may decrease to q30min observation and allow staff pass. complete BLANCA packet. consider referral to inpatient substance use treatment. Continued Medication Management: Start Medication Medications: Current Medications Acetaminophen (Tylenol Tab*) 650 mg PO Q4H PRN PRN Reason: PAIN or TEMP > 101 F Last Admin: 12/23/17 12:45 Dose: 650 mg Al Hydrox/Mg Hydrox/Simethicone (Maalox Plus*) 30 ml PO Q4H PRN PRN Reason: INDIGESTION Last Admin: 12/23/17 14:07 Dose: 30 ml Clonazepam (Klonopin Tab(*)) 1 mg PO TID PRN PRN Reason: ANXIETY Last Admin: 12/23/17 14:06 Dose: 1 mg Clonidine HCl (Catapres Tab*) 0.1 mg PO BID [facility] Last Admin: 12/23/17 08:54 Dose: 0.1 mg Gabapentin (Neurontin Cap(*)) 600 mg PO BID [facility] Last Admin: 12/23/17 08:54 Dose: 600 mg Gemfibrozil (Lopid Tab*) 600 mg PO BID [facility] Last Admin: 12/23/17 08:57 Dose: 600 mg Ibuprofen (Motrin Tab*) 400 mg PO Q6H PRN PRN Reason: PAIN Last Admin: 12/22/17 05:54 Dose: 400 mg Mirtazapine (Remeron Tab*) 15 mg PO BEDTIME [facility] Last Admin: 12/22/17 21:26 Dose: 15 mg Multivitamins (Theragran Tab*) 1 tab PO DAILY [facility] Last Admin: 12/23/17 08:54 Dose: 1 tab Prazosin HCl (Minipress Cap*) 1 mg PO BEDTIME [facility] Last Admin: 12/22/17 21:25 Dose: 1 mg Tramadol HCl (Ultram*) 50 mg PO Q6H PRN PRN Reason: PAIN Last Admin: 12/23/17 12:44 Dose: 50 mg Venlafaxine HCl (Effexor Xr Cap*) 225 mg PO DAILY [facility] Last Admin: 12/23/17 08:54 Dose: 225 mg - Discharge Plan Discharge Plan: Drug/Alcohol Rehab
[2017-12-23] MEDS: Ibuprofen TAB* 400 MG PO PRN (16:36)
[2017-12-23] MEDS: Mirtazapine TAB* 15 MG PO SCH (21:40)
[2017-12-23] MEDS: Prazosin CAP* 1 MG PO SCH (21:40)
[2017-12-24] MEDS: Vitamin THERAPEUTIC TAB PO SCH (08:58)
[2017-12-24] MEDS: cloNIDine TAB* 0.1 MG PO SCH ×2 (08:58→20:42)
[2017-12-24] MEDS: Gemfibrozil TAB* 600 MG PO SCH ×2 (08:58→21:53)
[2017-12-24] MEDS: Venlafaxine EXT RELEASE CAP* 75 MG PO SCH (08:59)
[2017-12-24] MEDS: Gabapentin CAP(*) 300 MG PO SCH ×2 (08:59→21:54)
[2017-12-24] MEDS: traMADol TAB* 50 MG PO PRN ×2 (09:23→16:30)
[2017-12-24] MEDS: clonazePAM TAB(*) 1 MG PO PRN ×2 (09:23→16:31)
[2017-12-24] MEDS: Ibuprofen TAB* 400 MG PO PRN ×2 (12:25→19:36)
[2017-12-24] MEDS: Acetaminophen TAB* 325 MG PO PRN (14:47)
--- NOTE | 2017-12-24 15:07 | PN ---
Subjective - Subjective Date of Service: 12/24/17 Service Type: 09732 Hosp care 25 min moderate complexity Subjective: Patient is cooperative and generally pleasant to be around. She states she "needs to start dealing with emotions instead of running." [place], relationship with her boyfriend and his mother. She expresses desire to continue treatment in this unit then be discharged home with outpatient treatment. She states that her recent self- injury is a reminder of why she should stop drinking alcohol. She is accepting of offer of looking into available outpatient substance use treatment options. She is very agreeable to trial of naltrexone for alcohol use d/o. Objective - Appearance Appearance: Well Developed/Nourished Dysmorphic Features: Yes Hygiene: Normal Grooming: Fairly Well Kept - Behavior Psychomotor Activities: Normal Exhibits Abnormal Movement: No - Attitude and Relatedness Attitude and Relatedness: Superficially Cooperative Eye Contact: Fair - Speech Quality: Unpressured Latencies: Normal Quantity: Appropriate - Mood Patient's Decription of Mood: "Fine" - Affect Observed Affect: Depressed Affect Consistent with: Dysphoria - Thought Process Patient's Thought Process: Coherent, Circumstantial Thought Content: No Passive Wish, No Suicidal Planning, No Homicidal Ideation, No Paranoid Ideation - Sensorium Experiencing Hallucinations: No, Sensorium is Clear Type of Hallucinations: Visual: No, Auditory: No, Command: No - Level of Consciousness Level of Consciousness: Alert Orientation: Yes Intact, Yes Orientated to Time, Yes Orientated to Place, Yes Orientated to Person - Impulse Control Impulse Control: Poor - Insight and Judgement Insight and Judgement: Poor - Group Participation Particating in Group Activities: Yes - Medication Management Medication Management Adherence: Yes Assessment - Assessment Merits Inpatient Hospitalization: For Immediate Safety, For Stabilization, For Ongoing Evaluation, Consolidate Improvements Inpatient DSM-V Dx: F39 Clinical Impression: 47yo white female, domiciled, unemployed who presented to ED via EMS with self- inflicted lacerations requiring sutures. She has an extensive trauma and alcohol use history. She merits hospitalization for immediate safety and stabilization. Plan - Plan Treatment Plan: Name: NANCY PACE Birthdate: 1970 [id number] continue acute intensive psychiatric treatment. may decrease to q30min observation and allow staff pass. complete BLANCA packet. consider referral to inpatient substance use treatment. Continued Medication Management: Start Medication Medications: Current Medications Acetaminophen (Tylenol Tab*) 650 mg PO Q4H PRN PRN Reason: PAIN or TEMP > 101 F Last Admin: 12/24/17 14:47 Dose: 650 mg Al Hydrox/Mg Hydrox/Simethicone (Maalox Plus*) 30 ml PO Q4H PRN PRN Reason: INDIGESTION Last Admin: 12/23/17 14:07 Dose: 30 ml Clonazepam (Klonopin Tab(*)) 1 mg PO TID PRN PRN Reason: ANXIETY Last Admin: 12/24/17 09:23 Dose: 1 mg Clonidine HCl (Catapres Tab*) 0.1 mg PO BID [facility] Last Admin: 12/24/17 08:58 Dose: 0.1 mg Gabapentin (Neurontin Cap(*)) 600 mg PO BID [facility] Last Admin: 12/24/17 08:59 Dose: 600 mg Gemfibrozil (Lopid Tab*) 600 mg PO BID [facility] Last Admin: 12/24/17 08:58 Dose: 600 mg Ibuprofen (Motrin Tab*) 400 mg PO Q6H PRN PRN Reason: PAIN Last Admin: 12/24/17 12:25 Dose: 400 mg Mirtazapine (Remeron Tab*) 15 mg PO BEDTIME [facility] Last Admin: 12/23/17 21:40 Dose: 15 mg Multivitamins (Theragran Tab*) 1 tab PO DAILY [facility] Last Admin: 12/24/17 08:58 Dose: 1 tab Prazosin HCl (Minipress Cap*) 1 mg PO BEDTIME [facility] Last Admin: 12/23/17 21:40 Dose: 1 mg Tramadol HCl (Ultram*) 50 mg PO Q6H PRN PRN Reason: PAIN Last Admin: 12/24/17 09:23 Dose: 50 mg Venlafaxine HCl (Effexor Xr Cap*) 225 mg PO DAILY [facility] Last Admin: 12/24/17 08:59 Dose: 225 mg - Discharge Plan Discharge Plan: Outpatient Follow Up Outpatient Program: [facility]
[2017-12-24] MEDS: Prazosin CAP* 1 MG PO SCH (20:39)
[2017-12-24] MEDS ORDERED: Naltrexone TAB* 50 MG TAB PO SCH (21:00)
[2017-12-24] MEDS: Mirtazapine TAB* 15 MG PO SCH (21:53)
[2017-12-25] MEDS ORDERED: clonazePAM TAB(*) 1 MG PO PRN (00:01)
[2017-12-25] MEDS: traMADol TAB* 50 MG PO PRN ×3 (08:23→20:17)
[2017-12-25] MEDS: Gabapentin CAP(*) 300 MG PO SCH ×2 (08:24→20:14)
[2017-12-25] MEDS: Venlafaxine EXT RELEASE CAP* 75 MG PO SCH (08:24)
[2017-12-25] MEDS: Vitamin THERAPEUTIC TAB PO SCH (08:24)
[2017-12-25] MEDS: cloNIDine TAB* 0.1 MG PO SCH ×2 (08:24→21:34)
[2017-12-25] MEDS: Gemfibrozil TAB* 600 MG PO SCH ×2 (08:38→20:15)
[2017-12-25] MEDS: Ibuprofen TAB* 400 MG PO PRN ×2 (10:32→19:39)
[2017-12-25] MEDS ORDERED: Ondansetron TAB* 4 MG PO PRN (10:34)
[2017-12-25] MEDS: Carisoprodol TAB* 350 MG PO PRN (10:42)
[2017-12-25] MEDS ORDERED: clonazePAM TAB(*) 1 MG PO ONE (11:00)
[2017-12-25] MEDS: clonazePAM TAB(*) 1 MG PO SCH ×2 (14:04→20:12)
--- NOTE | 2017-12-25 16:51 | PN ---
Subjective - Subjective Service Type: 62933 Hosp care 25 min moderate complexity Subjective: This morning, patient reported intense withdrawal effects: "feeling like crawling out of my skin," generalized pain, nausea and was observed vomiting. She was given a one-time dose of clonazepam and ondanestron with good effect. Patient joined milieu and reported relief from above symptoms. She continues to experience guilt and shame in regards to alcohol use and self-inflicted laceration. Cellars Supervisor phoned [facility] and obtained intake for outpatient CD program. Cellars Supervisor phoned patient's partner, Edgar, but there was no answer. Objective - Appearance Appearance: Well Developed/Nourished Dysmorphic Features: Yes Hygiene: Normal Grooming: Well Kept - Behavior Psychomotor Activities: Normal Exhibits Abnormal Movement: No - Attitude and Relatedness Attitude and Relatedness: Cooperative Eye Contact: Good - Speech Quality: Unpressured Latencies: Normal Quantity: Appropriate - Mood Patient's Decription of Mood: "Terrible" - Affect Observed Affect: Expansive Affect Consistent with: Dysphoria - Thought Process Patient's Thought Process: Coherent, Circumstantial Thought Content: No Passive Wish, No Suicidal Planning, No Homicidal Ideation, No Paranoid Ideation - Sensorium Experiencing Hallucinations: No, Sensorium is Clear Type of Hallucinations: Visual: No, Auditory: No, Command: No - Level of Consciousness Level of Consciousness: Alert Orientation: Yes Intact, Yes Orientated to Time, Yes Orientated to Place, Yes Orientated to Person - Impulse Control Impulse Control: Tenuous - Insight and Judgement Insight and Judgement: Fair - Group Participation Particating in Group Activities: Yes - Medication Management Medication Management Adherence: Yes Assessment - Assessment Merits Inpatient Hospitalization: For Immediate Safety, For Stabilization, Consolidate Improvements, For Discharge Planning Inpatient DSM-V Dx: F39 Clinical Impression: 47yo white female, domiciled, unemployed who presented to ED via EMS with self- inflicted lacerations requiring sutures. She has an extensive trauma and alcohol use history. She merits hospitalization for immediate safety and stabilization. Plan - Plan Treatment Plan: Name: NANCY PACE Birthdate: 1970 [id number] continue acute intensive psychiatric treatment. DC naltrexone. add ondansetron for nausea r/t withdrawal. continue clonazepam taper. add trazodone prn for sleep per patient request. continue to reach out to partner for discharge planning. Continued Medication Management: Different Medication Medications: Current Medications Acetaminophen (Tylenol Tab*) 650 mg PO Q4H PRN PRN Reason: PAIN or TEMP > 101 F Last Admin: 12/24/17 14:47 Dose: 650 mg Al Hydrox/Mg Hydrox/Simethicone (Maalox Plus*) 30 ml PO Q4H PRN PRN Reason: INDIGESTION Last Admin: 12/23/17 14:07 Dose: 30 ml Carisoprodol (Soma Tab*) 350 mg PO Q8H PRN PRN Reason: PAIN Last Admin: 12/25/17 10:42 Dose: 350 mg Clonazepam (Klonopin Tab(*)) 1 mg PO TID [facility] Last Admin: 12/25/17 14:04 Dose: 1 mg Clonidine HCl (Catapres Tab*) 0.1 mg PO BID [facility] Last Admin: 12/25/17 08:24 Dose: 0.1 mg Gabapentin (Neurontin Cap(*)) 600 mg PO BID [facility] Last Admin: 12/25/17 08:24 Dose: 600 mg Gemfibrozil (Lopid Tab*) 600 mg PO BID [facility] Last Admin: 12/25/17 08:38 Dose: 600 mg Ibuprofen (Motrin Tab*) 400 mg PO Q6H PRN PRN Reason: PAIN Last Admin: 12/25/17 10:32 Dose: 400 mg Mirtazapine (Remeron Tab*) 15 mg PO BEDTIME [facility] Last Admin: 12/24/17 21:53 Dose: 15 mg Multivitamins (Theragran Tab*) 1 tab PO DAILY [facility] Last Admin: 12/25/17 08:24 Dose: 1 tab Ondansetron HCl (Zofran Tab*) 4 mg PO Q6H PRN PRN Reason: NAUSEA Last Admin: 12/25/17 10:42 Dose: 4 mg Prazosin HCl (Minipress Cap*) 1 mg PO BEDTIME [facility] Last Admin: 12/24/17 20:39 Dose: 1 mg Tramadol HCl (Ultram*) 50 mg PO Q6H PRN PRN Reason: PAIN Last Admin: 12/25/17 14:04 Dose: 50 mg Venlafaxine HCl (Effexor Xr Cap*) 225 mg PO DAILY [facility] Last Admin: 12/25/17 08:24 Dose: 225 mg trazodone 100mg qhs prn insomnia - Discharge Plan Discharge Plan: Outpatient Follow Up
--- NOTE | 2017-12-25 17:29 | PN ---
MHU: Group Therapy Note - Service Type Service Type: 67597 Group Psychotherapy - Medication Education Group: Patient was attentive and participatory in group, and remained in good behavioral control. Patient expressed positive insights regarding relevant treatment interventions. Patient stated understanding of material discussed and had appropriate questions.
[2017-12-25] MEDS: Mirtazapine TAB* 15 MG PO SCH (20:16)
[2017-12-25] MEDS: Prazosin CAP* 1 MG PO SCH (20:17)
[2017-12-26] MEDS: Venlafaxine EXT RELEASE CAP* 75 MG PO SCH (08:33)
[2017-12-26] MEDS: clonazePAM TAB(*) 1 MG PO SCH ×2 (08:34→21:11)
[2017-12-26] MEDS: Gabapentin CAP(*) 300 MG PO SCH ×2 (08:34→21:11)
[2017-12-26] MEDS: cloNIDine TAB* 0.1 MG PO SCH ×2 (08:34→21:12)
[2017-12-26] MEDS: Vitamin THERAPEUTIC TAB PO SCH (08:34)
[2017-12-26] MEDS: traMADol TAB* 50 MG PO PRN ×3 (08:34→21:09)
[2017-12-26] MEDS: Gemfibrozil TAB* 600 MG PO SCH ×2 (09:50→21:12)
[2017-12-26] MEDS: Carisoprodol TAB* 350 MG PO PRN (09:53)
[2017-12-26] MEDS: Al Hydrox/Mg Hydrox/Simet LIQ* 30 ML UDC PO PRN (13:38)
[2017-12-26] MEDS: clonazePAM TAB(*) 0.5 MG PO SCH (13:38)
--- NOTE | 2017-12-26 16:22 | PN ---
Subjective - Subjective Date of Service: 12/26/17 Service Type: 04915 Hosp care 15 min low complexity Subjective: Patient reports much improvement in mood. She denies withdrawal symptoms. She states she had a positive phone call with her grandmother. She states that she and her boyfriend, Edgar, had a very positive visit last evening. Medical Technician informed her of brief discussion while he was entering unit and that he appears loving and supportive. Patient tearful and expressed gratitude for his support. She continues to endorse desire to taper benzodiazepine and pursue outpatient treatment after discharge. She is agreeable to PT consult due to hip pain. Objective - Appearance Appearance: Well Developed/Nourished Dysmorphic Features: Yes Hygiene: Normal Grooming: Well Kept - Behavior Psychomotor Activities: Normal Exhibits Abnormal Movement: No - Attitude and Relatedness Attitude and Relatedness: Cooperative Eye Contact: Good - Speech Quality: Unpressured Latencies: Normal Quantity: Appropriate - Mood Patient's Decription of Mood: "Good" - Affect Observed Affect: Good Affect Consistent with: Euthymia - Thought Process Patient's Thought Process: Coherent, Goal Directed Thought Content: No Passive Wish, No Suicidal Planning, No Homicidal Ideation, No Paranoid Ideation - Sensorium Experiencing Hallucinations: No, Sensorium is Clear Type of Hallucinations: Visual: No, Auditory: No, Command: No - Level of Consciousness Level of Consciousness: Alert Orientation: Yes Intact, Yes Orientated to Time, Yes Orientated to Place, Yes Orientated to Person - Impulse Control Impulse Control: Tenuous - Insight and Judgement Insight and Judgement: Fair - Group Participation Particating in Group Activities: Yes - Medication Management Medication Management Adherence: Yes Assessment - Assessment Merits Inpatient Hospitalization: For Immediate Safety, For Stabilization, To Initiate Treatment, Consolidate Improvements Inpatient DSM-V Dx: F39 Clinical Impression: 47yo white female, domiciled, unemployed who presented to ED via EMS with self- inflicted lacerations requiring sutures. She has an extensive trauma and alcohol use history. She merits hospitalization for immediate safety and stabilization while tapering from benzodiazpines. Plan - Plan Treatment Plan: Name: NANCY PACE Birthdate: 1970 [id number] continue acute intensive psychiatric treatment. continue current medications and taper use of clonazepam. PT consult for bilateral hip pain. discharge planning to include significant other and outpatient referrals. Continued Medication Management: Start Medication Medications: Current Medications Acetaminophen (Tylenol Tab*) 650 mg PO Q4H PRN PRN Reason: PAIN or TEMP > 101 F Last Admin: 12/24/17 14:47 Dose: 650 mg Al Hydrox/Mg Hydrox/Simethicone (Maalox Plus*) 30 ml PO Q4H PRN PRN Reason: INDIGESTION Last Admin: 12/26/17 13:38 Dose: 30 ml Bacitracin (Bacitracin Ointment*) 1 applic TOPICAL BID [facility] Carisoprodol (Soma Tab*) 350 mg PO Q8H PRN PRN Reason: PAIN Last Admin: 12/26/17 09:53 Dose: 350 mg Clonazepam (Klonopin Tab(*)) 0.5 mg PO 1400 [facility] Last Admin: 12/26/17 13:38 Dose: 0.5 mg Clonazepam (Klonopin Tab(*)) 1 mg PO BID [facility] Clonidine HCl (Catapres Tab*) 0.1 mg PO BID [facility] Last Admin: 12/26/17 08:34 Dose: 0.1 mg Gabapentin (Neurontin Cap(*)) 600 mg PO BID [facility] Last Admin: 12/26/17 08:34 Dose: 600 mg Gemfibrozil (Lopid Tab*) 600 mg PO BID [facility] Last Admin: 12/26/17 09:50 Dose: 600 mg Ibuprofen (Motrin Tab*) 400 mg PO Q6H PRN PRN Reason: PAIN Last Admin: 12/25/17 19:39 Dose: 400 mg Mirtazapine (Remeron Tab*) 15 mg PO BEDTIME [facility] Last Admin: 12/25/17 20:16 Dose: 15 mg Multivitamins (Theragran Tab*) 1 tab PO DAILY [facility] Last Admin: 12/26/17 08:34 Dose: 1 tab Ondansetron HCl (Zofran Tab*) 4 mg PO Q6H PRN PRN Reason: NAUSEA Last Admin: 12/25/17 10:42 Dose: 4 mg Prazosin HCl (Minipress Cap*) 1 mg PO BEDTIME [facility] Last Admin: 12/25/17 20:17 Dose: 1 mg Tramadol HCl (Ultram*) 50 mg PO Q8H PRN PRN Reason: PAIN Trazodone HCl (Desyrel Tab*) 100 mg PO BEDTIME PRN PRN Reason: INSOMNIA Venlafaxine HCl (Effexor Xr Cap*) 225 mg PO DAILY [facility] Last Admin: 12/26/17 08:33 Dose: 225 mg - Discharge Plan Discharge Plan: Outpatient Follow Up
[2017-12-26] MEDS: Mirtazapine TAB* 15 MG PO SCH (21:06)
[2017-12-26] MEDS: Bacitracin OINTMENT* 0.5% 0.5 oz TUBE TOPICAL SCH (21:11)
[2017-12-26] MEDS: Prazosin CAP* 1 MG PO SCH (21:58)
[2017-12-26] MEDS: traZODone TAB* 100 MG PO PRN (23:03)
[2017-12-27] MEDS: Venlafaxine EXT RELEASE CAP* 75 MG PO SCH (08:48)
[2017-12-27] MEDS: cloNIDine TAB* 0.1 MG PO SCH ×2 (08:48→23:03)
[2017-12-27] MEDS: Gemfibrozil TAB* 600 MG PO SCH ×2 (08:49→23:03)
[2017-12-27] MEDS: clonazePAM TAB(*) 1 MG PO SCH ×2 (08:49→20:41)
[2017-12-27] MEDS: traMADol TAB* 50 MG PO PRN ×2 (08:49→20:40)
[2017-12-27] MEDS: Gabapentin CAP(*) 300 MG PO SCH ×2 (08:50→23:03)
[2017-12-27] MEDS: Vitamin THERAPEUTIC TAB PO SCH (08:50)
[2017-12-27] MEDS: Bacitracin OINTMENT* 0.5% 0.5 oz TUBE TOPICAL SCH ×2 (09:59→23:04)
[2017-12-27] MEDS: clonazePAM TAB(*) 0.5 MG PO SCH (14:06)
[2017-12-27] MEDS: Carisoprodol TAB* 350 MG PO PRN (14:07)
[2017-12-27] MEDS: Ibuprofen TAB* 400 MG PO PRN (17:24)
[2017-12-27] MEDS: Acetaminophen TAB* 325 MG PO PRN (17:24)
[2017-12-27] MEDS: Prazosin CAP* 1 MG PO SCH (23:03)
[2017-12-27] MEDS: Mirtazapine TAB* 15 MG PO SCH (23:04)
[2017-12-27] MEDS: traZODone TAB* 100 MG PO PRN (23:05)
[2017-12-28] MEDS: Gabapentin CAP(*) 300 MG PO SCH ×2 (08:54→22:04)
[2017-12-28] MEDS: Vitamin THERAPEUTIC TAB PO SCH (08:54)
[2017-12-28] MEDS: Venlafaxine EXT RELEASE CAP* 75 MG PO SCH (08:55)
[2017-12-28] MEDS: Gemfibrozil TAB* 600 MG PO SCH ×2 (08:55→22:05)
[2017-12-28] MEDS: Bacitracin OINTMENT* 0.5% 0.5 oz TUBE TOPICAL SCH ×2 (08:56→22:06)
[2017-12-28] MEDS: clonazePAM TAB(*) 1 MG PO SCH ×2 (08:56→21:02)
[2017-12-28] MEDS: cloNIDine TAB* 0.1 MG PO SCH ×2 (08:56→22:04)
[2017-12-28] MEDS: traMADol TAB* 50 MG PO PRN ×2 (08:58→21:02)
[2017-12-28] MEDS: Carisoprodol TAB* 350 MG PO PRN (14:12)
[2017-12-28] MEDS: Ibuprofen TAB* 400 MG PO PRN (14:12)
[2017-12-28] MEDS: clonazePAM TAB(*) 0.5 MG PO SCH (14:13)
[2017-12-28] MEDS: Prazosin CAP* 1 MG PO SCH (22:05)
[2017-12-28] MEDS: Mirtazapine TAB* 15 MG PO SCH (22:05)
[2017-12-28] MEDS: traZODone TAB* 100 MG PO PRN (22:06)
[2017-12-29] MEDS ORDERED: clonazePAM TAB(*) 1 MG PO PRN (08:41)
[2017-12-29] MEDS ORDERED: traMADol TAB* 50 MG PO PRN (08:41)
[2017-12-29 08:55] VITALS: BP 117/65
[2017-12-29] MEDS: cloNIDine TAB* 0.1 MG PO SCH (09:05)
[2017-12-29] MEDS: Venlafaxine EXT RELEASE CAP* 75 MG PO SCH (09:05)
[2017-12-29] MEDS: Vitamin THERAPEUTIC TAB PO SCH (09:05)
[2017-12-29] MEDS: Gemfibrozil TAB* 600 MG PO SCH (09:05)
[2017-12-29] MEDS: Gabapentin CAP(*) 300 MG PO SCH (09:06)
[2017-12-29] MEDS: Bacitracin OINTMENT* 0.5% 0.5 oz TUBE TOPICAL SCH ×2 (09:55→10:03)
[2017-12-29] MEDS ORDERED: ValACYclovir (*) 1 GM TAB PO ONE (11:49)
--- NOTE | 2017-12-29 11:57 | PN ---
MHU: Group Therapy Note - Service Type Service Type: 98270 Group Psychotherapy - Cognitive Behavioral Group Therapy ( CBT):Patient was attentive and participatory in CBT programming this morning, and remained in good behavioral control. Patient expressed positive insights regarding relevant treatment interventions and goals.
--- NOTE | 2017-12-29 15:26 | CONS ---
PSYCHOLOGICAL REPORT: DATE OF CONSULT: 12/29/17 REASON FOR REFERRAL: Yadira was referred for personality testing to assist with diagnostic impression with concerns regarding possible hypomanic experiences. The patient also impresses as having significant posttraumatic stress syndrome type symptomatology as well. TEST ADMINISTERED: Yadira completed the [place] Multiphasic Personality Inventory-2 (MMPI-2) shortly after her admission. 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 She cites financial duress as they have not been successful in terms of business efforts to date on the farm, but have a lot of crops in the ground. She described how her boyfriend recently built a substantial greenhouse and they hope to be able to begin making money through their efforts between growing crops and raising animals but are not there yet. She describes encroaching problems secondary to financial duress, citing how they have difficulty keeping a working car on the road and she has become increasingly socially isolated due to limitations in what they can do for recreational interest. [place] live in [place] and she identifies as being somewhat socially isolated due to their locale as she has spent many of her adult years in larger metropolitan areas such as [place] , [facility] and [place], [place]. She describes moving in with her boyfriend, Edgar, after they met in [place], where he was able to move on to a family property near [place], [place]. 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 She describes how she had enjoyed the experience to great extent when younger, but has noticed encroaching difficulties with alcohol consumption as she ages. She describes how the lifestyle became very difficult typically leaving for work around 3 and completing a shift around midnight and then often going out socially during much of the evening. She cites how this has led to at times drinking problems and encroaching concerns as she ages. She also cites difficulties with a hip as restricting her ability to work productively in a competitive environment as well as limiting what she is able to accomplish on the farm. BEHAVIORAL OBSERVATIONS: Yadira is a 47-year-old woman who is living with her boyfriend of the past several years. They do not have any children. Yadira describes remote historical traumas including being a [place] of the [place] when she was young secondary to her mother's addictions and instability. She denied having any substantial contact with the biological father. Yadira did not elaborate upon her childhood experiences other than that she went through a great deal of chaos and separation from her mother and subsequent movement frequently. Presently, Yadira presents with positive affect and is future oriented. She spontaneously describes her interest in with their work on the farm and describes being hopeful of being able to eventually be financially successful with their efforts. She was spontaneous in speech both in individual conversation as well as in the group psychotherapy context, responding positively to educational interventions addressing depression and how to manage negative emotions. She is empathic with staff and peers and describes benefitting from her experience here. She was expressing gratitude for staff services and is determined to follow through with recommended followup treatment post discharge. TEST RESULTS: Yadira provides a fairly exaggerated endorsement style on this administration of the MMPI-2, having elevated all 3 of the emotional duress scales with an emphasis on situational problems as a driving force behind her current problems. She elevates the 2 situational stressor scales to a T score of 115 and of 95 on the latter. She subsequently elevates 6 of the 10 clinical indices with very profound elevations occurring on the relational scales ( paranoia = 100 and schizophrenia = 95). She also elevates the hypomania scale ( = 75). The depression scale is elevated to a similar degree. IMPRESSION AND RECOMMENDATIONS: Given her presentation and lack of presenting hypomanic difficulties, it is thought her clinical scales are more reflective of posttraumatic stress difficulties secondary to relational problems. Although her depression scale is elevated, it impresses as being manageable at this point in time. Continuing therapy should assess for possible hypomanic difficulties, but presently Yadira only endorses some periodic difficulties with sleep and does not endorse a forrester set of clinical symptoms that would rise to diagnostic level presently. Yadira seems to have been reacting to chronic emotional stress and exhausted her resources and ability to feel as though she could cope with her difficulties. Ongoing treatment should also address her sense of regret regarding current life situation and historical choices. As mentioned, she described feeling regretful that she has not remained in school and follow a professional tract and instead is struggling financially and is seeing limited possibilities secondary to her physical limitations and trying to make the farm a successful financial endeavor. Discussion also addressed importance of following up with medical treatments and possible physical therapies to help rehabilitate her hip, which might prove beneficial both in terms of function and in improving affect. [id number]/[facility] #: [id number] KLAUDIA
--- NOTE | 2017-12-30 11:46 | DS ---
CC: Cy Goldberg, [facility]; [facility], [place]; Dr. Renuka Rubio, [place]; Dr. Anurag Gross, [place] DISCHARGE SUMMARY: DATE OF ADMISSION: 12/21/17 DATE OF DISCHARGE: 12/29/17 SUPERVISING PSYCHIATRIST: Dr. Darnell Ferro. DISCHARGE DIAGNOSES: 1. Major depressive disorder. 2. Alcohol use disorder. CONDITION AT THE TIME OF DISCHARGE: Improved. The patient had made tremendous progress over the course of hospitalization, she has detoxed from alcohol and tapered significantly in regards to benzodiazepine use. She denies suicidal ideation. She has declined offer of referral to inpatient substance abuse treatment, but accepted offer for outpatient substance abuse treatment and has been referred to [facility] [place]. The patient has exhibited improved mood and affect. She denies suicidal ideation, HI, or . Today, she reports feeling "great" and is excited to be discharged and pursue continuing aftercare. MENTAL STATUS EXAM: The patient is a tall, thin-framed white female, who appears slightly younger than stated age. She is well groomed and dressed in her own casual clothing. The patient is cooperative and answers questions fully. She is alert and oriented x3. Her eye contact is good. Her mood is euthymic with bright affect. Thought process is logical and goal directed. Thought content is negative for SI, passive wish, or cravings to use alcohol. Insight and judgment are good at this time. Fund of knowledge is excellent. INSTRUCTIONS GIVEN TO THE PATIENT: A. Medications: 1. Clonazepam 1 mg one-half to 1 tab b.i.d. p.r.n. anxiety. 2. Clonidine 0.1 mg p.o. b.i.d. 3. Gabapentin 600 mg p.o. b.i.d. 4. Gemfibrozil 600 mg p.o. b.i.d. 5. Mirtazapine 15 mg p.o. q.h.s. 6. Prazosin 1 mg p.o. q.h.s. 7. Tramadol 50 mg p.o. b.i.d. p.r.n. pain, MDD 2 tabs. 8. Trazodone 100 mg p.o. q.h.s. p.r.n. insomnia. 9. Venlafaxine XR 225 mg p.o. daily. The above were electronically prescribed to [facility] in [place]. The patient received a month's supply with the exception of the controlled substances for which she received a week's worth supply. B. Diet: Low fat, low cholesterol. C. Activities: Ambulation as tolerated. Tobacco cessation is not applicable and there are no pending labs or diagnostic studies at the time of discharge. D. Followup care: The patient will follow up with her current outpatient therapist, Cy Goldberg, and has an appointment on 12/30/17, at 2 p.m. She will follow up with [facility] in [place], has an intake scheduled for 01/02/18, at 2:15 p.m. and she is instructed to follow up her primary care provider, Dr. Renuka Rubio, in [place]. This telegraphic typewriter mechanic called a followup appointment and was instructed that the office will call the patient with a followup appointment. HOSPITAL COURSE: Part-A. Reason for admission: The patient presented to the emergency department via EMS after her partner, Edgar, called 911. She had been drinking, and in a state of intoxication and desperation, she cut herself with a kitchen knife superficially on both forearms and more deeply on her abdomen requiring sutures. The patient reported an increase in depression and anxiety over the past few months. She also was experiencing significant stressors including 2 dogs that had to be euthanized and farm animals. She also expressed isolation due to her living situation along with financial strain due to unemployment. In the emergency room, the patient's alcohol level was 131, urine drug screen was only positive for benzodiazepines, which is consistent with the patient's report. CBC showed a slightly low RBC and hemoglobin. CMP was noteworthy for a low potassium, chloride, carbon dioxide. TSH was normal at 4.36. HCG was negative. Psychiatric treatment rendered: The patient was admitted to the adult behavioral services unit on 39 status. Her code status was full. She was placed on 15- minute checks for safety. Encouraged to participate in supportive milieu, individual sessions with staff and psychoeducational group. The patient completed an MMPI and this was forwarded by Dr. Christian Mccarthy, psychologist. Please see his report. Upon admission, the patient was receptive to suggestions for medication changes. She reported feeling overmedicated with current controlled substances. She also had not disclosed extensive alcohol use to the prescribing provider. The following blood work was added on to the patient's lab assessment: Lipid profile was not fasting, therefore, falsely elevated. We repeated this and obtained a fasting specimen. Hemoglobin A1c was 5.5. Triglycerides over 1000, cholesterol over 300. This information was shared with the patient and she was notified that alcohol use was pertinent along with other factors. When discussing this and other sequelae due to alcohol use, the patient identified that she has been drinking alcohol excessively including hiding her alcohol use from her partner and binging on a daily basis. We discussed that she has been to the emergency department multiple times for either mental health evaluation or physical problems and trend of high alcohol level was noted. The patient was agreeable to this information and receptive to therapeutic suggestion. During hospital admission, medication changes remained as follows: We stopped Ambien and trazodone due to likely worsening nightmares, decreased the gabapentin per the patient's request. She had not been taking Wellbutrin and, therefore, we did not reinstate this. We stopped Xanax and utilized clonazepam to start a benzodiazepine taper. The patient agreed to start mirtazapine and prazosin for sleep specifically to target PTSD symptoms. The patient tolerated these changes well with the exception of stopping trazodone. The patient requested to reinstate this; therefore, we did at a lower dose 100 mg. This with the combination of mirtazapine at 15 mg provided the patient with good effect. We discussed the use of naltrexone for alcohol use disorder. The patient was very much agreeing with this. She received 1 dose of naltrexone and due to her consistent use of tramadol, the patient experienced significant and quick withdrawal symptoms the night that she took the first dose of naltrexone. She reported generalized muscle aches, feeling like she wanted to jump out of her skin, pain all over her body. She was tearful and increasingly upset the next morning. While talking with this telegraphic typewriter mechanic, she became nauseous and vomited. We utilized one time extra dose of clonazepam, Zofran, and Soma to help the patient's relief of withdrawal symptoms. These all provided good effect. Psychoeducation done in regards to use of naltrexone with tramadol. The patient encouraged to discuss with her primary care provider an alternate pain medication should she want to utilize naltrexone in the future. As stated above, the patient was recommended to participate in inpatient substance use rehab. She declined citing that she would prefer to be home and she had disclosed that she had been inpatient at [facility] in [place] in 2014. Therefore, she had some hesitation in regards to go on inpatient treatment again. She accepted offer of intensive outpatient and the patient lives in [facility]. This telegraphic typewriter mechanic called the [facility], identified that she could have an intake there and continue to see her mental health therapist, Cy Goldberg. Over the course of admission, the patient was safe on all checks. She declined suicidal ideation. She reported that her self- injurious behavior was a reminder of her need for treatment. This was assessed daily by self and nursing staff and noted to be healing well. The patient tolerated beginning of taper of benzodiazepine. She was encouraged to use this sparingly after discharge and given 2 weeks' supply to take half tab to 1 tab up to twice daily, MDD 2 tabs. Also, during admission, telegraphic typewriter mechanic spoke briefly with the patient's partner when he was visiting her on the unit. He is very supportive and agreed with recommendation for inpatient treatment and stated understanding that that would be a voluntary option. He was notified the patient has accepted the offer of referral to outpatient substance use treatment. He was agreeable with the discharge plan and looked forward to have the patient home when she was stabilized. On day of discharge, as stated above, the patient was euthymic and in good spirit. She was excited for discharge and looking forward to pursuing mental health and chemical dependency recovery. We hope that Yadira does well and calls or return if she has any crisis or concern. BETTINA VALERO, [place] [id number]/CPS #: [id number] KLAUDIA
== END 2017-12-29 16:00 | disposition home or self-care (01) | DRG 754 ==
LOC: ED 14:39 → BSU 22:11
PROVIDERS: ADMIT Psychiatry & Neurology Psychiatry; ATTEND Psychiatry & Neurology Psychiatry
PROC: 0HQ7XZZ Repair Abdomen Skin, External Approach (ICD-10-PCS; principal; 2017-12-21)
PROC: GZHZZZZ Group Psychotherapy (ICD-10-PCS; 2017-12-25)
DX: F32.9 Major depressive disorder, single episode, unspecified (principal); X78.1XXA Intentional self-harm by knife, initial encounter; S31.010A Laceration without foreign body of lower back and pelvis without penetration into retroperitoneum, initial encounter; M10.9 Gout, unspecified; G62.9 Polyneuropathy, unspecified; F41.9 Anxiety disorder, unspecified; F39 Unspecified mood [affective] disorder; Y90.6 Blood alcohol level of 120-199 mg/100 ml; F19.90 Other psychoactive substance use, unspecified, uncomplicated; Y92.009 Unspecified place in unspecified non-institutional (private) residence as the place of occurrence of the external cause; Z87.891 Personal history of nicotine dependence; Z81.1 Family history of alcohol abuse and dependence; Z72.89 Other problems related to lifestyle
CPT/HCPCS: 36415; 80048; 80053; 80061; 80076; 80307; 80320; 80329; 81003; 81015; 83036; 83721; 84443; 84702; 85025; 87086; 90853; 96102; 99222; 99231; 99232; 99238; 99284; A9270-GY; G0480

== ENCOUNTER 2018-04-08 05:52 | Day surgery (SDC) | payer OTHER ==
--- NOTE | 2018-04-06 16:38 | HP ---
PREOPERATIVE HISTORY AND PHYSICAL: DATE OF ADMISSION: 04/08/18 ATTENDING PROVIDER: Zita Fisher MD * (DICTATED BY FRANCESCO DUBOIS) CHIEF COMPLAINT: Left hip pain. HISTORY OF PRESENT ILLNESS: Ms. Gutierrez is a 47-year-old female who has been followed by Dr. Fisher for bilateral hip pain. She had an MR arthrogram of both hips and did get some relief after an injection into the left hip. She is interested in surgical intervention now for correction of the problem. She presents for history and physical for her left hip arthroscopy today. PAST MEDICAL HISTORY: Anxiety. PAST SURGICAL HISTORY: Right hip bursectomy, right hip labral repair. She reports no complications with anesthesia. CURRENT MEDICATIONS: 1. Aleve 220 mg as needed for pain. 2. Venlafaxine HCl ER 75 mg 3 tabs p.o. daily. 3. Clonidine 0.1 mg 1 tab p.o. b.i.d. 4. Tramadol 50 mg 2 tabs p.o. t.i.d. p.r.n. 5. Ativan 1 mg b.i.d. p.r.n. 6. Zolpidem tartrate 10 mg 1 tab p.o. every evening p.r.n. 7. Trazodone 100 mg 1 tab p.o. q.h.s. p.r.n. 8. Gemfibrozil 600 mg p.o. b.i.d. 9. Gabapentin 300 mg 2 tabs b.i.d. ALLERGIES: No known drug allergies. FAMILY HISTORY: Positive for diabetes in her grandmother, cancer in her aunt. SOCIAL HISTORY: The patient lives with her spouse. 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 She quit smoking 7 years ago. She drinks 1 to 2 beers or glasses of wine per week. She exercises occasionally. REVIEW OF SYSTEMS: A 14-point review of systems was discussed with the patient and all systems were negative except discussed in the HPI. PHYSICAL EXAMINATION GENERAL: She is a well-developed, well-nourished, pleasant female, in no acute distress at rest. She is alert and oriented x3 with appropriate mood and affect. Gait: She ambulates with an antalgic gait. No obvious balance or coordination deficits. VITAL SIGNS: The patient is 5 feet 10 inches, 171 pounds. Blood pressure 152/ 92, pulse is 80, temperature 97.2. HEENT: Normocephalic, atraumatic. Hearing and vision are grossly intact. NECK: Her trachea is midline. RESPIRATORY: Lungs are clear to auscultation bilaterally. No wheezes, rales, or rhonchi. CARDIOVASCULAR: Regular rate and rhythm. No murmurs, rubs, or gallops. Normal S1, S2. ABDOMEN: Soft, nondistended, nontender. Normal bowel sounds. EXTREMITIES: Exam of the left hip: Skin is intact. There is no erythema or warmth. She is tender with flexion to 120 degrees. Positive FADIR test. Negative GOSIA test. Pain with passive abduction. Calf is soft and nontender. Sensation to light touch is intact distally. Brisk capillary refill. She has minimal tenderness about the trochanteric bursa. IMAGING: MRI of the left hip, arthrogram shows a labral tear with cam impingement. IMPRESSION: Left hip labral tear with cam impingement. PLAN: The patient is to undergo left hip arthroscopic labral repair with osteoplasty and psoas lengthening by Dr. Fisher on 04/08/18. The risks, benefits, and postoperative course were discussed with the patient at length and she would like to proceed. All of her questions were answered to her full satisfaction. She will follow up in the office 10 to 14 days postoperatively. FRANCESCO DUBOIS [id number]/[facility] #: [id number] KLAUDIA
[~2018-04-08 05:52] MED LIST: Buffered Lidocaine 0.9% SYRIN* 5 ML/SYR SYRINGE INTRADERM ONE
[2018-04-08] MEDS ORDERED: Dexamethasone IV* 4 MG/ML 1 ML (4 MG) IV SLOW PU ONE (06:00)
[2018-04-08] MEDS ORDERED: Famotidine IV* 10 MG/ML 2 ML (20 mg) IV ONE (06:00)
[2018-04-08] MEDS ORDERED: Buffered Lidocaine 0.9% SYRIN* 5 ML/SYR SYRINGE ONE (06:07)
[2018-04-08] MEDS ORDERED: Dexamethasone IV* 4 MG/ML 1 ML (4 MG) ONE (06:07)
[2018-04-08] MEDS ORDERED: Famotidine IV* 10 MG/ML 2 ML (20 mg) ONE (06:07)
[2018-04-08] MEDS ORDERED: ceFAZolin 2 GM PREMIX in ORs 2 GM/50 ML BAG IVPB ONE (06:07)
[2018-04-08] MEDS ORDERED: fentaNYL* 50 MCG/ML 2 ML VIAL (100 MCG VIAL) ONE ×5 (07:13→09:55)
[2018-04-08] MEDS ORDERED: Midazolam* 1 MG/ML 5 ML VIAL (5 MG) ONE (07:13)
[2018-04-08] MEDS ORDERED: Propofol* 10 MG/ML 20 ML BTL IV PUSH ONE (07:14)
[2018-04-08] MEDS ORDERED: Mivacurium Chloride* 20 MG/10 ML VIAL IV ONE (07:14)
[2018-04-08] MEDS ORDERED: Ropivacaine* 2 MG/ML 20 ML VIAL (0.2%) ONE (07:17)
[2018-04-08] MEDS ORDERED: Ketorolac INJ* 30 MG/ML 1 ML VIAL ONE ×2 (07:17→07:43)
[2018-04-08] MEDS ORDERED: Naloxone* 0.4 MG/ML 1 ML VIAL IV PRN (07:23)
[2018-04-08] MEDS ORDERED: DiMENhydriNATE IV* 50 MG/ML VIAL IV PUSH PRN (07:23)
[2018-04-08] MEDS ORDERED: HYDROcodone/ACETAMIN 5-325 MG* 1 TAB PO PRN (07:23)
[2018-04-08] MEDS ORDERED: Lidocaine 2% PF * 5 ML VIAL ONE (07:30)
[2018-04-08] MEDS ORDERED: Ondansetron INJ* 2 MG/ML VIAL ONE (09:14)
[2018-04-08] MEDS: fentaNYL* 50 MCG/ML 2 ML VIAL (100 MCG VIAL) IV PRN ×4 (09:45→10:05)
[2018-04-08] MEDS ORDERED: Morphine VIAL* 10 MG/ML 1 ML VIAL ONE (09:45)
[2018-04-08] MEDS ORDERED: oxyCODONE/Acetamin 5/325 MG* TAB ONE (09:47)
[2018-04-08] MEDS: oxyCODONE/Acetamin 5/325 MG* TAB PO PRN ×2 (09:48→09:49)
[2018-04-08] MEDS ORDERED: Morphine INJ* 2 MG/ML 1 ML SYRINGE (TWO MG - NEW SYRINGE VERSION) IV PRN (09:57)
[2018-04-08] MEDS ORDERED: Morphine VIAL* 4 MG/ML VIAL (1 ml vial) IV ONE (10:08)
[2018-04-08 12:01] VITALS: BP 147/83
--- NOTE | 2018-04-08 14:52 | RAD ---
INDICATION: Left hip arthroscopic labral repair, M 24.852 COMPARISONS: MRI dated March 06, 2018 TECHNIQUE: Fluoroscopy was provided for a surgical procedure. Total fluoroscopy time is: 59.7 seconds FINDINGS: Spot images demonstrate trochars overlying the left hip. IMPRESSION: FLUOROSCOPY WAS PROVIDED FOR A SURGICAL PROCEDURE CPT II Codes: G9500
--- NOTE | 2018-04-09 02:45 | OP ---
DATE OF OPERATION: 04/08/18 - [facility] DATE OF : 70 SURGEON: Zita Fisher MD MOTION PICTURE EQUIPMENT MACHINIST: FRANCESCO Michel. An commercial assistant was needed for the entirety of the case to help with retraction and was utilized throughout all portions of the case. ANESTHESIOLOGIST: Dr. Vega. ANESTHESIA: General anesthesia. 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 OPERATIVE PROCEDURE: 1. Left hip arthroscopy with labral debridement. 2. Pincer osteoplasty. 3. Cam osteoplasty. 4. Psoas lengthening. INDICATIONS: Yadira Gutierrez is a 47-year-old female, who has persistent hip pain that is refractory to conservative management. She does have other issues such as back issue, which was assessed and evaluated preoperatively by another surgeon. She has failed physical therapy. She has responded to injection. She does have some mild OA. We did discuss that she may have limited relief from this surgery. Risks and benefits were discussed at length including, but not limited to, bleeding; infection; damage to nerves, vessels, and surrounding structures; wound nonhealing; persistent pain; need for further surgery; scarring; stiffness; incomplete relief of symptoms; risk of anesthesia. COMPLICATIONS: None. ESTIMATED BLOOD LOSS: Minimal. TRACTION TIME: 48 minutes. IMPLANTS: None. DESCRIPTION OF PROCEDURE: The patient was greeted in the preoperative area by the attending surgeon. Correct extremity was marked and the consent was confirmed. The patient was brought back to the operating suite, where she was placed in supine position on the operating table. She had a previously placed thigh-high MIGUELITO stocking on the nonoperative leg. The patient underwent general anesthesia and endotracheal intubation, after which she was appropriately positioned in the Caicedo and Nephew traction bed with a large well-padded perineal post. The nonoperative side was placed in a Caicedo and Nephew traction bed and the operative side was placed into the dynamic leg pascual. Gentle traction was applied to the nonoperative side to balance the pelvis and then traction was applied to the operative side, which was placed in slight flexion, internal rotation, and abduction. The left hip was then prepped and draped in the usual sterile fashion beginning with chlorhexidine soap, scrub, and alcohol wipe. After miniature surgical pause, gross traction was applied to the operative extremity. Under sterile condition, an 18-gauge spinal needle was introduced to break the acetabular seal. Once this was done, traction was applied to the hip to distract the hip by 1.5 cm. This was appreciated using the C-arm. The traction was then taken down and the seal was broken. The hip was then prepped with a final prep of ChloraPrep. After appropriate surgical pause indicating side, site, procedure and administration of antibiotics, the traction was re-performed in the operative side and traction clock began. Again, total traction time was 48 minutes. First the anterolateral peritrochanteric portal was accessed using a spinal needle which was confirmed under fluoroscopy. The portal was then made. Cannulas were then introduced atraumatically into the joint. The mid anterior portal was then made in a similar fashion. Once the cannulae were placed, the 70-degree scope was then used to confirm that none violated the labrum, although her labrum did sublux into the joint. The pump was then set to 40 mmHg for constant stable pressure throughout the entirety of the case. At this point, the shaver was used to debride back of the flapped labrum and the capsulotomy was made using a greenville blade. Attention was directed to the labrum. Synovectomy and labral debridement was done using the full radius shaver. Electrocautery device was used to maintain hemostasis. There was abundant synovitis present as well. She had a thickened capsule as well. The rim of the acetabulum was carefully visualized. There was a small pincer overgrowth with a cross-over sign. The rim was exposed all the way to the AIIS. A 5-mm bur was then used to do rim trimming beginning superolaterally and then anteriorly to remove cross-over sign. There were some areas of grade 2 changes to the acetabulum, but no large full-thickness flaps. There were grade 1 and 2 changes to the femoral head. The labrum was not able to be repaired because of the poor quality of the tissue. The psoas was then visualized. There was abundant synovitis with thickened capsule about that. The decision was made preoperatively to do psoas lengthening. The synovitis was controlled with electrocautery device. The greenville blade as well as the electrocautery was used to lengthen the psoas tendon. Images were obtained. After the labral debridement and pincer osteoplasty and the psoas lengthening were completed, traction was taken down. The joint was examined and found to be fully reduced. Attention was directed to the small cam deformity. At this point, the femoral head and neck were visualized, capsulotomy was then T 'd to allow for exposure of the cam lesion. Preoperative templating was used as a guide for femoral neck osteoplasty. This was a [id number] cam lesion. The 5.5-mm bur was then used to do a cam resection which was done beginning superiorly to laterally and inferior to medially. This was done using C-arm to make sure as much elimination of the femoral sided impingement/ CAM lesion was possible. Femoral head and neck angle were normalized. Care was taken to prevent iatrogenic injury to the vessels. Post resection dynamic testing was done under visualization arthroscopically to make sure the cam was removed. At this point, meticulous hemostasis was obtained. Fluid was evacuated from the joint after a spinal needle was placed under arthroscopic visualization. Injectable Toradol and saline were placed in the joint. The wounds were copiously irrigated with sterile saline. The skin incisions were closed in layers of 2-0 Vicryl and 3-0 nylon. Portals were injected with 0.25% Marcaine plain. Sterile dressings were applied as well as Cryo/Cuff and MIGUELITO stockings. She was awoken from anesthesia and transferred to PACU in stable condition. POSTOPERATIVE PLAN: She will be partial weightbearing for 2 weeks with crutches. No hip flexion past 90 degrees. MIGUELITO stockings for 2 weeks. She will be discharged on pain medication as well as naproxen 500 mg p.o. b.i.d. for 30 days to prevent heterotopic ossification. DVT prophylaxis was considered, but deferred due to no previous personal or family history. I will see the patient back in 10 to 14 days to repeat x-ray including a Lockett lateral of the hip. [id number]/[facility] #: [id number] [facility] HEALTHDottie
== END 2018-04-08 11:50 | disposition home or self-care (01) ==
LOC: OR 05:52
PROVIDERS: ATTEND Orthopaedic Surgery
DX: S73.192A Other sprain of left hip, initial encounter (principal); M25.852 Other specified joint disorders, left hip; F41.9 Anxiety disorder, unspecified; I10 Essential (primary) hypertension; X58.XXXA Exposure to other specified factors, initial encounter; Y92.9 Unspecified place or not applicable
CPT/HCPCS: 76001; 81025; A9270-GY; J0690; J1100; J1885; J2250; J2270; J2405; J2704; J2795; J3010

== ENCOUNTER 2018-12-03 18:24 | Inpatient (IN) | payer OTHER ==
--- NOTE | 2018-12-03 18:39 | ED ---
Substance Abuse/Use - HPI Summary HPI Summary: Patient is a 48 y/o F presenting to ED via EMS for suicide attempt via medication overdose. Patient reports that she took a "handful of pills" around four hours ago today. Patient states that took around 15 tablets of Ambien and a "handful" of alprazolam tablets. She is unsure of the amount of alprazolam. Patient additionally took extra tramadol pills, but states she did not take "that many". Patient additionally has lacerations to left forearm and neck, bleeding is controlled. She claims that these lacerations are not from today. Patient notes that she drank three beers yesterday and two beers this morning. She states that she is depressed and is currently sleeping on the couch of her ex-boyfriend. Patient does not give any further story as to why she attempted to by suicide today. Pt does not report any fever, chills, erythema of eyes , sore throat, CP, SOB, cough, abdominal pain, N/V, dysuria, hematuria, myalgia , edema, rash, or dizziness. On triage, pain is rated 0/10, nothing is noted to aggravate/alleviate Sx. Home medications and allergies are reviewed. - History Of Current Complaint Chief Complaint: EDSuicidal Stated Complaint: MHE PER EMS Time Seen by Provider: 12/03/18 18:30 Hx Obtained From: Patient Onset/Duration of Drug/ETOH Abuse: Hours - four hours ago Ingestion History: Type/Name Of Drug - ambien and alprazolam Overdose Characteristics: Oral Severity Currently: None Character: Depressed Aggravating Factor(s): Nothing Alleviating Factor(s): Nothing Associated Signs And Symptoms: Negative, Other: - does not report any fever, chills, erythema of eyes, sore throat, CP, SOB, cough, abdominal pain, N/V, dysuria, hematuria, myalgia, edema, rash, or dizziness Related Hx: Suicidal - Allergies/Home Medications Allergies/Adverse Reactions: Allergies Allergy/AdvReac Type Severity Reaction Status Date / Time No Known Allergies Allergy Verified 04/08/18 06:15 PMH/Surg Hx/FS Hx/Imm Hx Endocrine/Hematology History: Reports: Hx Anemia - SLIGHT PER PATIENT Denies: Hx Anticoagulant Therapy, Hx Diabetes, Hx Thyroid Disease Cardiovascular History: Reports: Hx Hypercholesterolemia, Hx Hypertension - ON MEDICATION FOR Denies: Hx Pacemaker/ICD Respiratory History: Denies: Hx Asthma, Hx Chronic Obstructive Pulmonary Disease (COPD) GI History: Reports: Other GI Disorders - LIVER ENZYMES ELEVATED AT TIMES// CHRONIC PANCREATITIS-STATES NO PROB RECENT History: Denies: Hx Renal Disease Musculoskeletal History: Reports: Hx Arthritis - HIPS, Hx Bursitis - RIGHT HIP- HAD SURGERY FOR, Hx Gout Sensory History: Reports: Hx Contacts or Glasses - READING GLASSES Denies: Hx Hearing Aid Opthamlomology History: Reports: Hx Contacts or Glasses - READING GLASSES Neurological History: Reports: Hx Migraine - states that she can tap her right restorationist to alleviate Denies: Hx Dementia, Hx Seizures Psychiatric History: Reports: Hx Anxiety - ON MEDICATION FOR, Hx Depression - ON MEDICATION FOR, Hx Panic Disorder - ANXIETY, Hx Post Traumatic Stress Disorder, Hx Inpatient Treatment, Hx Community Mental Health Tx, Hx Substance Abuse Denies: Hx Eating Disorder, Hx Suicide Attempt - patient denies, Hx of Violent Episodes Against Others - Surgical History Surgery Procedure, Year, and Place: right hip x2. ANAL FISSURE. ECTOPIC . COLONOSCOPIES X 2- 2013 & 2018 FOR POLYPS Hx Anesthesia Reactions: No - Immunization History Date of Tetanus Vaccine: unsure Date of Influenza Vaccine: fall 2012 Infectious Disease History: No Infectious Disease History: Denies: Hx Clostridium Difficile, Hx Hepatitis, Hx Human Immunodeficiency Virus (HIV), Hx of Known/Suspected MRSA, Hx Shingles, Hx Tuberculosis, History Other Infectious Disease, Traveled Outside the [place] in Last 30 Days - Family History Known Family History: Positive: Diabetes Negative: Hypertension - Social History Alcohol Use: Weekly Alcohol Amount: 1 GLASS OF WINE WEEKLY Substance Use Type: Reports: Prescribed Substance Use Comment - Amount & Last Used: prescribed benzodiazapines Smoking Status (MU): Former Smoker Type: Cigarettes Amount Used/How Often: 2-7 CIGARETTES PER DAY OR NONE X OFF AND ON SOCIALLY ~15 YEARS AGO Have You Smoked in the Last Year: No Review of Systems Negative: Fever, Chills Negative: Erythema Negative: Sore Throat Negative: Chest Pain Negative: Shortness Of Breath, Cough Negative: Abdominal Pain, Vomiting, Nausea Negative: dysuria, hematuria Negative: Myalgia, Edema Negative: Rash Neurological: Other - NEGATIVE - DIZZINESS Psychological: Other - POSITIVE - OVERDOSE ATTEMPT Positive: Depressed All Other Systems Reviewed And Are Negative: Yes Physical Exam - Summary Physical Exam Summary: Constitutional: Well-developed, Well-nourished, Alert. (-) Distressed (+) Drowsy Skin: Warm, Dry; Patient has a 1 cm linear laceration to left forearm along with multiple abrasions HENT: Normocephalic; Atraumatic Eyes: Conjunctiva normal Neck: Musculoskeletal ROM normal neck. (-) JVD, (-) Stridor, (-) Tracheal deviation Cardio: Rhythm regular, rate normal, Heart sounds normal; Intact distal pulses; The pedal pulses are 2+ and symmetric. Radial pulses are 2+ and symmetric. (-) Murmur Pulmonary/Chest wall: Effort normal. (-) Respiratory distress, (-) Wheezes, (-) Rales Abd: Soft, (-) tenderness, (-) Distension, (-) Guarding, (-) Rebound Musculoskeletal: (-) Edema Lymph: (-) Cervical adenopathy Neuro: Alert, Oriented x3 Psych: Mood and affect Normal Triage Information Reviewed: Yes Vital Signs On Initial Exam: Initial Vitals Temp Pulse Resp BP Pulse Ox 98.3 F 74 18 118/81 93 12/03/18 18:29 12/03/18 18:29 12/03/18 18:29 12/03/18 18:29 12/03/18 18:29 Vital Signs Reviewed: Yes Procedures - Procedure Summary Procedure Summary: Patient has a 1 cm linear laceration to left forearm with no foreign body. Laceration was irrigated; patient was given chlorhexidine, 2 ml of 1% of lido. 3 4.0 ethilon sutures were applied, single layer with closure and no complications. - Laceration/Wound Repair 1 Location: upper extremity - left forearm Description: Linear Anesthesia: Local, 1.0%, Lido Length, Depth and Shape: 1 cm linear Laceration/Wound Explored: no foreign body removed Closure: Single Layer Suture Type: Nylon - ethilon 4.0 Number of Sutures: 3 Layer Closure?: Yes Sterile Dressing Applied?: Yes Diagnostics - Vital Signs Vital Signs Temp Pulse Resp BP Pulse Ox 12/03/18 18:29 98.3 F 74 18 118/81 93 - Laboratory Result Diagrams: 12/03/18 18:58 12/03/18 18:59 Lab Statement: Any lab studies that have been ordered have been reviewed, and results considered in the medical decision making process. - EKG 184 Cardiac Rate: NL - rate of 76 BPM EKG Rhythm: Sinus Rhythm Summary of EKG Findings: EKG showed sinus rhythm with rate of 76 BPM, QTc 457, no STEMI Re-Evaluation - Re-Evaluation First Eval Re-Evaluation Time: 19:16 Comment: Poison control was contacted, they recommend 12 hour monitoring of patient and activated charcoal. They caution about BLUNGER depression and suggest monitoring for elevated temp and serotonin syndrome Course/Dx - Course Course Of Treatment: Patient is a 48 y/o F presenting to ED via EMS for suicide attempt via medication overdose. Patient reports that she took a "handful of pills" around four hours ago today. Patient states that took around 15 tablets of ambien and a "handful" of alprazolam tablets. She is unsure of the amount of alprazolam. Patient additionally took extra tramadol pills, but states she did not take "that many". Patient additionally has lacerations to left forearm and neck, bleeding is controlled. She claims that these lacerations are not from today. Patient notes that she drank three beers yesterday and two beers this morning. She states that she is depressed and is currently sleeping on the couch of her ex-boyfriend. Patient does not give any further story as to why she attempted to by suicide today. On physical exam, Patient has a 1 cm linear laceration to left forearm along with multiple abrasions. Patient is drowsy. EKG showed sinus rhythm with rate of 76 BPM, QTc 457, no STEMI. Labs showed RBC 3.64, MCH 34, MPV 7.2, AST 43, TSH 0.42. UA showed 1+ blood, present squamous epith cells. Tox screen showed serum alcohol 291. Patient has a 1 cm linear laceration to left forearm with no foreign body. Laceration was irrigated ; patient was given chlorhexidine, 2 ml of 1% of lido. 3 4.0 ethilon sutures were applied, single layer with closure and no complications. Poison control was contacted, they recommend 12 hour monitoring of patient and activated charcoal. They caution about BLUNGER depression and suggest monitoring for elevated temp and serotonin syndrome. During ED course, patient received 75 gm charcoal. Patient's case was discussed with Dr. Elmore, Dr. Elmore accepts for admission. - Diagnoses Provider Diagnoses: Polysubstance overdose - Physician Notifications Discussed Care Of Patient With: Damion Elmore Time Discussed With Above Provider: 19:45 Instructed by Provider To: Other - Patient's case was discussed with Dr. Elmore , Dr. Elmore accepts for admission. - Critical Care Time Critical Care Time: 30-74 min - 60 minutes Discharge - Sign-Out/Discharge Documenting (check all that apply): Patient Departure - admit Patient Received Moderate/Deep Sedation with Procedure: No - Discharge Plan Condition: Good Disposition: ADMITTED TO [facility] Referrals: Renuka Rubio MD [Primary Care Provider] - - Attestation Statements Document Initiated by Scribe: Yes Documenting Scribe: MAGDALENO ANDRADE Provider For Whom Scribe is Documenting (Include Credential): ANTELMO NGUYEN MD Scribe Attestation: MAGDALENO Bradford, scribed for ANTELMO NGUYEN MD on 12/03/18 at 2206. Status of Scribe Document: Ready
[2018-12-03 19:06] LABS: ABS Basophils 0.1 10^3/ul (0-0.2); ABS Eosinophils 0.1 10^3/ul (0-0.6); ABS Lymphocytes 3.1 10^3/ul (1.0-4.8); ABS Monocytes 0.5 10^3/ul (0-0.8); ABS Neutrophils 2.9 10^3/ul (1.5-7.7); Eosinophil % 0.9 %; Hematocrit 35 % (35-47); Hemoglobin 12.3 g/dL (12.0-16.0); Lymphocyte % 46.8 %; Mean Corpuscular HGB Conc 35 g/dL (31-36); Mean Corpuscular Hemoglobin 34 pg (27-31); Mean Corpuscular Volume 96 fL (80-97); Mean Platelet Volume 7.2 fL (7.4-10.4); Nucleated Red Blood Cells % 0.2; Platelet Count 255 10^3/uL (150-450); Red Blood Count 3.64 10^6 /uL (3.70-4.87); Red Cell Distribution Width 14 % (10-15); White Blood Count 6.5 10^3/uL (3.5-10.8)
[2018-12-03 19:20] LABS: Albumin 4.1 g/dL (3.2-5.2); CO2 Carbon Dioxide 28 mmol/L (22-32); Calcium 9.2 mg/dL (8.6-10.3); Chloride 104 mmol/L (101-111); Sodium 140 mmol/L (135-145)
[2018-12-03 19:26] LABS: ALT 28 U/L (7-52); Albumin/Globulin Ratio 1.2 (1-3); Alkaline Phosphatase 81 U/L (34-104); BUN/Creatinine Ratio 9.8 (8-20); Blood Urea Nitrogen 6 mg/dL (6-24); EGFR African American 126.7 (>60); EGFR Non-African American 104.7 (>60); Globulin 3.3 g/dL (2-4); Glucose 82 mg/dL (70-100); Total Protein 7.4 g/dL (6.4-8.9)
[2018-12-03 19:31] LABS: AST 43 U/L (13-39); Anion Gap 8 mmol/L (2-11); Potassium 4.1 mmol/L (3.5-5.0)
[2018-12-03] MEDS ORDERED: Charcoal ACTIVATED* 25 GM/120 ML BTL PO ONE (19:36)
[2018-12-03 19:43] LABS: Alcohol 291 mg/dL (<10); Salicylate < 2.50 mg/dL (<30)
[2018-12-03 19:43] LABS: Urine Appearance Cloudy; Urine Bacteria Absent (Absent); Urine Bilirubin Negative (Negative); Urine Blood 1+ (Negative); Urine Color Straw; Urine Glucose Negative (Negative); Urine Ketones Negative (Negative); Urine Nitrite Negative (Negative); Urine Protein Negative (Negative); Urine Red Blood Cell Trace(0-2/hpf) (Absent); Urine Specific Gravity 1.005 (1.010-1.030); Urine Squamous Epithelial Cell Present (Absent); Urine Urobilinogen Negative (Negative); Urine White Blood Cell Trace(0-5/hpf) (Absent)
[2018-12-03 19:44] LABS: Acetaminophen < 15 mcg/mL
[2018-12-03 19:52] LABS: Urine Benzodiazepine Screen None Detected (None Detect); Urine Opiates Screen None Detected (None Detect)
[2018-12-03 19:55] LABS: TSH (Thyroid Stimulating Horm) 0.42 mcIU/mL (0.34-5.60)
[2018-12-03] MEDS ORDERED: Ondansetron INJ* 2 MG/ML VIAL IV PRN (21:50)
--- NOTE | 2018-12-04 00:13 | HP ---
HISTORY AND PHYSICAL: DATE OF ADMISSION: 12/03/18 PRIMARY CARE PHYSICIAN: Dr. Samra Rubio in [place]. PSYCHIATRIST: Dr. Anurag Gross in [place]. HEALTH CARE PROXY: Edgar Campbell. CODE STATUS: Full. SOURCE OF INFORMATION: History obtained from interview of the patient, review of past medical records and reliability is fair. CHIEF COMPLAINT: Suicide attempt with Ambien, Ativan, and Xanax. HISTORY OF PRESENT ILLNESS: This is a 48-year-old undomiciled woman for the last 5 months has been staying with friends, most recently with her friend for the last 3 days prior to admission who then kicked her out because of her "depression." She also notes that her ex-boyfriend "wants nothing to do with her" because of her depression and she "needed some place to go where people are feeling the same feelings." She notes she has a disability hearing on 12/23/18 which will "change my whole life" and give her "freedom." Today, she was with her boyfriend and she "wanted the pain to go away," but she also noted that she was too strong to kill herself. She took 3 medications she listed as lorazepam, Ambien, and the third I am unfamiliar with "zaralopam" which is likely a different medication that she is pronouncing incorrectly that I do not have from her medication reconciliation. It is also possible that she is reporting Ambien as Zolpidem instead of Ambien, but she does list 3 different medications including Ambien. She reports taking a "hand full" at 4 p.m. which is 6 hours prior to my interview. She chose these medications because they would "put her to sleep faster." She preformed cutting of her left wrist and her neck after because she thought it would not hurt after she fell asleep. She definitely additionally notes that she has not been drinking alcohol, but for the last 2 days she has been drinking heavily of an unclear amount that included beer and [employer]. I note in previous admissions to the unit, she has not been truthful with the amounts and duration of her active drinking. She denied current drinking in the setting of presenting to the emergency room several times previously with alcohol levels and detoxing. So it is unclear how much or how long she has been drinking at this time. In the emergency room, she received activated charcoal, was placed on a one-to-one, hospitalist was consulted for admission. The Poison Control recommended 12 hours of monitoring. PAST MEDICAL HISTORY: Does include alcohol abuse, chronic hip pain, lower extremity neuropathy, depression, anxiety, PTSD, pancreatitis, psoriasis, gout, HSV. She has had a right hip bursectomy and labral repair. She has had a left hip surgery as well. MEDICATIONS: Include: 1. Effexor 225 daily. 2. Trazodone 150 mg in the evening. 3. Ambien in the evening. 4. Prazosin. 5. Hydrochlorothiazide. 6. Clonidine 0.1 mg twice daily. 7. Tramadol 50 mg twice daily. 8. Gabapentin 300 mg prescribed 3 times a day, although she notes she takes it 1 to 2 times. 9. Valacyclovir, she notes she takes daily. 10. Lorazepam 2 mg twice daily. ALLERGIES: No known drug allergies. FAMILY HISTORY: Significant for depression. SOCIAL HISTORY: Incudes alcoholism. Denies any tobacco or other illicits. REVIEW OF SYSTEMS: As per HPI, otherwise all other systems negative. PHYSICAL EXAMINATION GENERAL: She is lying flat in bed. She is interactive. She is in no apparent distress. VITAL SIGNS: Blood pressure 131/85, heart rate is 86, respiratory rate is 16. She is 98% on 2 L. HEENT: Oropharynx is clear. She has moist mucous membranes. Sclerae anicteric. LUNGS: Clear. HEART: She has a regular rate and rhythm. ABDOMEN: Soft, nontender, nondistended. EXTREMITIES: Warm and well perfused. NEUROLOGIC: She is alert and oriented x3. Her cranial nerves are intact. Her left arm shows multiple cuts with one deeper laceration that has been repaired in the emergency room and her neck similarly shows multiple small lacerations, none deep enough to need suturing. Her affect is blunted and depressed with some psychomotor slowing, although she is interactive and pleasant. LABORATORY DATA: Labs reviewed. Notable for AST of 43, urine is benign. Her serum alcohol is 291. Notably her urine benzodiazepine screen is negative despite reporting that she was taking lorazepam at home and overdosed on lorazepam today purposely. Data reviewed, EKG: Normal sinus rhythm. Normal axis. QTc is 457. No ST or T - wave changes. ASSESSMENT AND PLAN: This is a 48-year-old female with past medical history of depression, anxiety, and posttraumatic stress disorder, presents with polysubstance overdose. 1. Polysubstance overdose in the setting of suicidal attempt associated with left arm and neck cutting. The patient will be placed on one-to-one overnight, psychiatric consultation in the morning. She will be maintained on telemetry. It is unclear exactly what she has taken. Therefore, there is concern for unknown consequences including serotonin syndrome and/or arrhythmias. I will place her on neurologic checks q.4 hours, although she has become more alert in the emergency room and has a lower threshold for increasing cognitive or respiratory depression at this point. Because of the nature of her presentation and unknown substance use, I am reticent to restart a majority of her medications, have careful attention to withdrawal symptoms in the next 24 hours if many are not restarted as indicated below. 2. Alcohol abuse. Unclear whether she will suffer withdrawal. I am not placing her on a WAM protocol at this point as I do not want her to receive additional benzodiazepines. 3. Chronic anxiety. Reportedly receives lorazepam at home. I am holding as indicated above. Again as noted above, no benzodiazepines in the urine screen. Careful attention to withdrawal if not restarted. 4. Depression. Similarly holding medications including Effexor and trazodone, restart tomorrow if stable. 5. Herpes simplex virus. The patient notes she takes valacyclovir daily. I am unclear why this would be, I am holding at this time until a formal medication reconciliation could be completed when her pharmacy is open. 6. Hypertension. Continue clonidine, holding hydrochlorothiazide. 7. DVT prophylaxis: Low risk. Rod gross. [id number]/[facility] #: [id number] [facility] HOSPITALDottie
[2018-12-04] MEDS: cloNIDine TAB* 0.1 MG PO SCH ×2 (08:18→20:16)
[2018-12-04] MEDS ORDERED: Pneumococcal *Vac Polyvalent 0.5 ML VIAL IM ONE (09:00)
[2018-12-04] MEDS ORDERED: Al Hydrox/Mg Hydrox/Simet LIQ* 30 ML UDC PO PRN (14:16)
[2018-12-04] MEDS ORDERED: LORazepam TAB(*) 1 MG PO ONE (17:18)
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
[2018-12-04] MEDS ORDERED: LORazepam TAB(*) 1 MG ONE (17:34)
[2018-12-04] MEDS: Acetaminophen TAB* 325 MG PO PRN (17:38)
--- NOTE | 2018-12-04 19:19 | PN ---
Subjective Date of Service: 12/04/18 Interval History: Pt is feeling anxious. She thinks she is withdrawing from benzodiazepines. She is very tearful and states her depression right now is very uncontrolled. Objective Active Medications: Acetaminophen (Tylenol Tab*) 650 mg PO Q4H PRN PRN Reason: FEVER/PAIN Last Admin: 12/04/18 17:38 Dose: 650 mg Al Hydrox/Mg Hydrox/Simethicone (Maalox Plus*) 30 ml PO Q4H PRN PRN Reason: INDIGESTION Clonidine HCl (Catapres Tab*) 0.1 mg PO BID KJ Last Admin: 12/04/18 08:18 Dose: 0.1 mg Gabapentin (Neurontin Cap(*)) 600 mg PO TID KJ Gemfibrozil (Lopid Tab*) 600 mg PO QAM [facility] Multivitamins (Theragran Tab*) 1 tab PO DAILY KJ Neomycin/Polymyxin/Bacitracin (Neosporin Top Oint Tube*) 1 applic TOPICAL BID KJ Prazosin HCl (Minipress Cap*) 1 mg PO BEDTIME KJ Trazodone HCl (Desyrel Tab*) 100 mg PO BEDTIME PRN PRN Reason: INSOMNIA Venlafaxine HCl (Effexor Xr Cap*) 225 mg PO QAM [facility] Vital Signs - 8 hr 12/04/18 12/04/18 12/04/18 11:50 15:26 17:35 Temperature 97.6 F 98.2 F Pulse Rate 82 94 Respiratory 14 20 16 Rate Blood Pressure 136/84 145/94 (mmHg) O2 Sat by Pulse 93 99 Oximetry 12/04/18 12/04/18 17:55 19:09 Temperature 98.8 F Pulse Rate 82 82 Respiratory 16 Rate Blood Pressure 170/100 162/98 (mmHg) O2 Sat by Pulse 100 Oximetry Oxygen Devices in Use Now: None Appearance: Middle aged female sitting on the edge of the bed, NAD Eyes: No Scleral Icterus Ears/Nose/Mouth/Throat: Mucous Membranes Moist Respiratory: Symmetrical Chest Expansion and Respiratory Effort, Clear to Auscultation Cardiovascular: NL Sounds; No Murmurs; No JVD, RRR, No Edema Abdominal: NL Sounds; No Tenderness; No Distention Extremities: No Clubbing, Cyanosis Skin: No Nodules or Sclerosis Neurological: Alert and Oriented x 3, - - tearful Result Diagrams: 12/03/18 18:58 12/03/18 18:59 Assess/Plan/Problems-Billing Ms Gutierrez is a 48 yo F who has a h/o depression who attempted suicide by overdose. - Patient Problems (1) Suicide attempt Current Visit: Yes Status: Acute Comment: Overdosed on several medications. Scratched neck and L arm during this attempt. She does have 3 small sutures in the L forearm. These can be removed in 10 days. The patient is stable for transfer to [facility] today. (2) DVT prophylaxis Current Visit: Yes Status: Acute Code(s): [id number] - SNOMED Code(s): 484331106 Comment: ambulation (3) Depression Current Visit: No Status: Acute Code(s): F32.9 - MAJOR DEPRESSIVE DISORDER, SINGLE EPISODE, UNSPECIFIED SNOMED Code(s): 92718880 Comment: Continue Effexor and Wellbutrin
[2018-12-04] MEDS: Neomycin/Polym/Bacit TOP OINT* 15 GM TOPICAL SCH (21:42)
[2018-12-04] MEDS: Prazosin CAP* 1 MG PO SCH (21:45)
[2018-12-04] MEDS: Gabapentin CAP(*) 300 MG PO SCH (21:45)
[2018-12-04] MEDS: traZODone TAB* 100 MG PO PRN (22:25)
[2018-12-05 06:29] LABS: HDL Cholesterol 34.2 mg/dL
[2018-12-05] MEDS: Gabapentin CAP(*) 300 MG PO SCH ×3 (08:35→20:20)
[2018-12-05] MEDS: Venlafaxine EXT RELEASE CAP* 75 MG PO SCH (08:35)
[2018-12-05] MEDS: Vitamin THERAPEUTIC TAB PO SCH (08:35)
[2018-12-05] MEDS: cloNIDine TAB* 0.1 MG PO SCH ×2 (08:35→20:20)
[2018-12-05] MEDS: Gemfibrozil TAB* 600 MG PO SCH (09:24)
[2018-12-05] MEDS: Acetaminophen TAB* 325 MG PO PRN ×2 (11:59→18:53)
[2018-12-05] MEDS: Neomycin/Polym/Bacit TOP OINT* 15 GM TOPICAL SCH ×2 (13:38→21:47)
[2018-12-05] MEDS: hydrOXYzine HCL TAB* 50 MG PO PRN (16:07)
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
[2018-12-05] MEDS: traZODone TAB* 100 MG PO PRN (21:42)
[2018-12-05] MEDS: Prazosin CAP* 1 MG PO SCH (21:42)
[2018-12-06] MEDS: hydrOXYzine HCL TAB* 50 MG PO PRN ×3 (03:17→18:18)
[2018-12-06] MEDS: Levothyroxine TAB* 50 MCG TAB PO SCH (06:45)
[2018-12-06] MEDS: Neomycin/Polym/Bacit TOP OINT* 15 GM TOPICAL SCH ×3 (06:46→22:08)
[2018-12-06] MEDS: Acetaminophen TAB* 325 MG PO PRN ×3 (08:14→18:20)
[2018-12-06] MEDS: Gabapentin CAP(*) 300 MG PO SCH ×3 (08:14→21:13)
[2018-12-06] MEDS: Gemfibrozil TAB* 600 MG PO SCH (08:15)
[2018-12-06] MEDS: Venlafaxine EXT RELEASE CAP* 75 MG PO SCH (08:15)
[2018-12-06] MEDS: Vitamin THERAPEUTIC TAB PO SCH (08:15)
[2018-12-06] MEDS: cloNIDine TAB* 0.1 MG PO SCH ×2 (08:15→21:13)
[2018-12-06] MEDS ORDERED: Diazepam TAB(*) 10 MG ONE (15:34)
[2018-12-06] MEDS ORDERED: Diazepam TAB(*) 10 MG PO ONE (15:45)
[2018-12-06] MEDS: Prazosin CAP* 1 MG PO SCH (21:14)
[2018-12-07] MEDS: hydrOXYzine HCL TAB* 50 MG PO PRN ×2 (00:50→08:15)
[2018-12-07] MEDS: traZODone TAB* 100 MG PO PRN ×2 (00:50→22:13)
[2018-12-07] MEDS: Neomycin/Polym/Bacit TOP OINT* 15 GM TOPICAL SCH ×2 (07:45→19:58)
[2018-12-07] MEDS: cloNIDine TAB* 0.1 MG PO SCH ×2 (08:14→21:26)
[2018-12-07] MEDS: Levothyroxine TAB* 50 MCG TAB PO SCH (08:15)
[2018-12-07] MEDS: Acetaminophen TAB* 325 MG PO PRN ×2 (08:15→14:54)
[2018-12-07] MEDS: Venlafaxine EXT RELEASE CAP* 75 MG PO SCH (08:15)
[2018-12-07] MEDS: Gemfibrozil TAB* 600 MG PO SCH (08:15)
[2018-12-07] MEDS: Gabapentin CAP(*) 300 MG PO SCH ×3 (08:15→21:44)
[2018-12-07] MEDS: Vitamin THERAPEUTIC TAB PO SCH (08:15)
[2018-12-07] MEDS ORDERED: LORazepam TAB(*) 1 MG PO ONE (14:01)
[2018-12-07] MEDS ORDERED: LORazepam TAB(*) 1 MG ONE (14:05)
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
[2018-12-07 16:24] LABS: ABS Lymphocytes 1.5 10^3/ul (1.0-4.8); ABS Monocytes 0.7 10^3/ul (0-0.8); ABS Neutrophils 6.5 10^3/ul (1.5-7.7); Eosinophil % 0.4 %; Hematocrit 35 % (35-47); Hemoglobin 12.4 g/dL (12.0-16.0); Lymphocyte % 17.3 %; Mean Corpuscular HGB Conc 35 g/dL (31-36); Mean Corpuscular Hemoglobin 34 pg (27-31); Mean Corpuscular Volume 97 fL (80-97); Mean Platelet Volume 7.5 fL (7.4-10.4); Nucleated Red Blood Cells % 0.1; Platelet Count 246 10^3/uL (150-450); Red Blood Count 3.65 10^6 /uL (3.70-4.87); Red Cell Distribution Width 14 % (10-15); White Blood Count 8.8 10^3/uL (3.5-10.8)
[2018-12-07] MEDS: clonazePAM TAB(*) 0.5 MG PO SCH ×2 (16:38→21:42)
[2018-12-07 17:08] LABS: Albumin 4.8 g/dL (3.2-5.2); Albumin/Globulin Ratio 1.3 (1-3); BUN/Creatinine Ratio 13.3 (8-20); Calcium 10.1 mg/dL (8.6-10.3); EGFR African American 99.8 (>60); EGFR Non-African American 82.5 (>60); Globulin 3.7 g/dL (2-4); Potassium 3.7 mmol/L (3.5-5.0); Total Bilirubin 0.6 mg/dL (0.2-1.0); Total Protein 8.5 g/dL (6.4-8.9)
--- NOTE | 2018-12-07 21:41 | PN ---
Progress Note - Progress Note Date of Service: 12/07/18 Note: Another CAT call this evening for similar event. Patient out in [place] area asymptomatic. [place] her tongue start to twitch and developed full body twitching lasting a few minutes. Patient was aware of it happening. No injury. No urinary incontinence. On my arrival symptoms resolved, patient alert and not post ictal appearing. C/O H/A, BP elevated. Clonidine due to be given now. Discussed with information assurance Psychiatrist who was not aware of the patient. Will do neuro checks q4 hours, seizure precations. Patient was started on scheduled clonazepam this afternoon after first CAT call. Do not think this is benzo withdraw. Suspect pseudoseizures. Labs earlier were unremarkable. F/U with Dr. Ferro in AM. Consider neuro consultation.
[2018-12-07] MEDS: Prazosin CAP* 1 MG PO SCH (21:45)
[2018-12-08] MEDS: Acetaminophen TAB* 325 MG PO PRN ×2 (00:05→07:59)
[2018-12-08] MEDS: hydrOXYzine HCL TAB* 50 MG PO PRN (02:50)
[2018-12-08] MEDS: Levothyroxine TAB* 50 MCG TAB PO SCH (07:03)
[2018-12-08] MEDS: cloNIDine TAB* 0.1 MG PO SCH ×2 (08:00→21:58)
[2018-12-08] MEDS: Gabapentin CAP(*) 300 MG PO SCH ×3 (08:00→21:58)
[2018-12-08] MEDS: clonazePAM TAB(*) 0.5 MG PO SCH ×3 (08:01→22:05)
[2018-12-08] MEDS: Venlafaxine EXT RELEASE CAP* 75 MG PO SCH (08:01)
[2018-12-08] MEDS: Gemfibrozil TAB* 600 MG PO SCH (08:02)
[2018-12-08] MEDS: Vitamin THERAPEUTIC TAB PO SCH (08:03)
[2018-12-08 11:55] LABS: Magnesium 2.2 mg/dL (1.9-2.7)
[2018-12-08] MEDS: Thiamine TAB* 100 MG TAB PO SCH (12:24)
[2018-12-08] MEDS: Neomycin/Polym/Bacit TOP OINT* 15 GM TOPICAL SCH ×2 (12:25→23:38)
--- NOTE | 2018-12-08 14:44 | PN ---
Subjective - Subjective Date of Service: 12/08/18 Service Type: 23273 Hosp care 35 min high complexity Subjective: Patient exhibited seizure activity during evening shift last evening and and CAT code was called. Patient reports poor sleep last night, r/t decrease in benzodiazepine dose that she typically takes. Patient reports understanding of likely benzodiazepine withdrawal and states "I had a feeling." She reports agrees to continue with benzo taper and to continue with non-controlled medications for anxiety. Patient being seen by neurologist, Dr Pathak, per consult request. Objective - General Observations Appearance: Neat Stature: WNL Posture: WNL Eye Contact: Average Behavior/Activity: WNL - Interaction Observations Attitude Towards Examiner: Cooperative, Anxious Stated Mood: Euthymic, Anxious Affect: Full Speech Pattern/Tone: Clear, Appropriate, Normal Volume Thought Process: Coherent, Goal Directed, Racing Perception: WNL Thought Content: Depressive, Self-Deprecatory Thought Process: Lethality: Passive Wish Hallucination Type: Denies Delusion Type: Denies - Cognitive Function Orientation: A&O x 4 Level of Consciousness: Alert Cognition: WNL Estimated Intelligence: Normal Insight: WNL Judgment Within Normal Limits: No Ability to Make Reasonable Decisions: Moderately Impaired - Medication Compliance Cooperative with Inpatient Medication Regimen: Yes - Group Participation Participates in Group Activities: Yes Assessment - Assessment Merits Inpatient Hospitalization: For Immediate Safety, For Stabilization 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 , homeless, white female with a history of alcohol and benzodiazepine abuse, prior suicide attempt, depression and anxiety transferred from the Hospitalist service following medical stabilization of a polydrug intentional, suicidal overdose on an unknown quantity of lorazepam and zolpidem. She has exhibited seizure activity in the absence of benzodiazepine and is being monitored for withdrawal. Plan - Plan Treatment Plan: Name: NANCY PACE Birthdate: 1970 [id number] Continue acute intensive psychiatric treatment. The patient has been resumed on gabapentin, venlafaxine XR, prazosin and clonidine. decrease clonazepam 0.25mg to TID due to benzodiazepine withdrawal; will taper prior to DC. increase hydroxyzine 100mg q6h prn anxiety. consider referral for inpatient substance use treatment, per patient consent. Medications: Current Medications Acetaminophen (Tylenol Tab*) 650 mg PO Q4H PRN PRN Reason: FEVER/PAIN Last Admin: 12/08/18 07:59 Dose: 650 mg Al Hydrox/Mg Hydrox/Simethicone (Maalox Plus*) 30 ml PO Q4H PRN PRN Reason: INDIGESTION Last Admin: 12/05/18 09:43 Dose: 30 ml Clonazepam (Klonopin Tab(*)) 0.25 mg PO QID [facility] Last Admin: 12/08/18 12:24 Dose: 0.25 mg Clonidine HCl (Catapres Tab*) 0.1 mg PO BID [facility] Last Admin: 12/08/18 08:00 Dose: 0.1 mg Gabapentin (Neurontin Cap(*)) 600 mg PO TID [facility] Last Admin: 12/08/18 14:08 Dose: 600 mg Gemfibrozil (Lopid Tab*) 600 mg PO QAM [facility] Last Admin: 12/08/18 08:02 Dose: Not Given Hydroxyzine HCl (Atarax Tab*) 50 mg PO Q6H PRN PRN Reason: ANXIETY Last Admin: 12/08/18 02:50 Dose: 50 mg Levothyroxine Sodium (Synthroid Tab*) 50 mcg PO DAILY@0600 [facility] Last Admin: 12/08/18 07:03 Dose: 50 mcg Multivitamins (Theragran Tab*) 1 tab PO DAILY [facility] Last Admin: 12/08/18 08:03 Dose: 1 tab Neomycin/Polymyxin/Bacitracin (Neosporin Top Oint Tube*) 1 applic TOPICAL BID [facility] Last Admin: 12/08/18 12:25 Dose: Not Given Prazosin HCl (Minipress Cap*) 1 mg PO BEDTIME [facility] Last Admin: 12/07/18 21:45 Dose: 1 mg Thiamine HCl (Vitamin B-1 Tab*) 200 mg PO DAILY [facility] Last Admin: 12/08/18 12:24 Dose: 200 mg Trazodone HCl (Desyrel Tab*) 200 mg PO BEDTIME PRN PRN Reason: INSOMNIA Venlafaxine HCl (Effexor Xr Cap*) 225 mg PO QAM [facility] Last Admin: 12/08/18 08:01 Dose: 225 mg - Discharge Plan Discharge Plan: Inpatient Hospitalization
--- NOTE | 2018-12-08 16:02 | EEG ---
ELECTROENCEPHALOGRAPHY: DATE OF STUDY: 12/08/18 DATE READ: 12/08/18 CLINICAL PROBLEM: Ms. Gutierrez is a 48-year-old female who had seizure-like activity yesterday. The EEG was requested to evaluate for epileptiform abnormalities. MEDICATIONS: 1. Acetaminophen. 2. Gabapentin. 3. Clonazepam. 4. Clonidine. 5. Levothyroxine. 6. Gemfibrozil. 7. Venlafaxine. 8. Prazosin. 9. Vitamin B1. 10. Theragran. 11. Maalox. 12. Hydroxyzine. 13. Trazodone. TIMIN:09 to 13:35. ORDERED BY: Avis Weber NP. CLINICAL STATE: Awake. REPORT: The background showed a normal anterior-posterior voltage gradient and a posterior-dominant rhythm, frequency of 9 Hz, which was symmetrical and showed normal regularity. There were no epilept iform abnormalities or electrographic seizures. Photic stimulation and hyperventilation were not per formed. EKG showed a normal sinus rhythm with a rate of 70 beats per minute. IMPRESSION: This is a normal awake EEG with no evidence of epileptiform abnormality or interhemisphe robbin asymmetry. This normal interictal EEG does not exclude or support the diagnosis of epilepsy. Cl inical correlation is recommended. [id number]/[facility] #: [id number]
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
[2018-12-08] MEDS: LORazepam PO 0-6 for WAM protocol PO SCH (19:30)
[2018-12-08] MEDS: Prazosin CAP* 1 MG PO SCH (21:57)
[2018-12-08] MEDS: traZODone TAB* 100 MG PO PRN (22:05)
[2018-12-09] MEDS: Levothyroxine TAB* 50 MCG TAB PO SCH (06:41)
[2018-12-09] MEDS: clonazePAM TAB(*) 0.5 MG PO SCH ×3 (08:27→22:01)
[2018-12-09] MEDS: Thiamine TAB* 100 MG TAB PO SCH (08:27)
[2018-12-09] MEDS: cloNIDine TAB* 0.1 MG PO SCH ×2 (08:27→22:02)
[2018-12-09] MEDS: Vitamin THERAPEUTIC TAB PO SCH (08:27)
[2018-12-09] MEDS: Gemfibrozil TAB* 600 MG PO SCH (08:27)
[2018-12-09] MEDS: Venlafaxine EXT RELEASE CAP* 75 MG PO SCH (08:27)
[2018-12-09] MEDS: Gabapentin CAP(*) 300 MG PO SCH ×3 (08:28→22:03)
[2018-12-09] MEDS: Acetaminophen TAB* 325 MG PO PRN (08:28)
[2018-12-09] MEDS: Neomycin/Polym/Bacit TOP OINT* 15 GM TOPICAL SCH ×2 (09:55→22:15)
--- NOTE | 2018-12-09 14:22 | PN ---
Subjective - Subjective Date of Service: 12/09/18 Service Type: [id number] Hosp care 15 min low complexity Subjective: Patient reports sleeping 7 hours last night and feeling rested. She reports concern that she is being judged by providers for being addicted, as if she were taking "street drugs." Pt encouraged to talk about negative self view and projection onto others. She identifies with shame and being critical of herself. She reports looking forward to meeting with advocacy center this afternoon. We discuss recommended course of benzodiazepine taper after discharge. Patient reports upcoming video call appt with Dr Gross on December 19 and desire to continue with him. Objective - General Observations Appearance: Neat Stature: WNL Posture: WNL Eye Contact: Average Behavior/Activity: WNL - Interaction Observations Attitude Towards Examiner: Cooperative, Anxious Stated Mood: Dysphoric, Anxious Affect: Labile Speech Pattern/Tone: Clear, Appropriate, Normal Volume Thought Process: Coherent, Racing Perception: WNL Thought Content: Depressive, Self-Deprecatory Hallucination Type: Denies Delusion Type: Denies - Cognitive Function Orientation: A&O x 4 Level of Consciousness: Alert Cognition: WNL Estimated Intelligence: Normal Insight: WNL Judgment Within Normal Limits: No Ability to Make Reasonable Decisions: Mildly Impaired - Medication Compliance Cooperative with Inpatient Medication Regimen: Yes - Group Participation Participates in Group Activities: Yes Assessment - Assessment Merits Inpatient Hospitalization: For Immediate Safety, For Stabilization, For Ongoing Evaluation, Pending Safe DC Plan 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 , homeless, white female with a history of alcohol and benzodiazepine abuse, prior suicide attempt, depression and anxiety transferred from the Hospitalist service following medical stabilization of a polydrug intentional, suicidal overdose on an unknown quantity of lorazepam and zolpidem. She has exhibited seizure activity in the absence of benzodiazepine and is being monitored for withdrawal. Plan - Plan Treatment Plan: Name: NANCY PACE Birthdate: 1970 [id number] Continue acute intensive psychiatric treatment. The patient has been resumed on gabapentin, venlafaxine XR, prazosin and clonidine. continue clonazepam 0.25mg TID and WAM protocol. continue hydroxyzine 100mg q6h prn anxiety. appreciate consult from neurologist, Dr Pathak. Medications: Current Medications Acetaminophen (Tylenol Tab*) 650 mg PO Q4H PRN PRN Reason: FEVER/PAIN Last Admin: 12/09/18 08:28 Dose: 650 mg Al Hydrox/Mg Hydrox/Simethicone (Maalox Plus*) 30 ml PO Q4H PRN PRN Reason: INDIGESTION Last Admin: 12/05/18 09:43 Dose: 30 ml Clonazepam (Klonopin Tab(*)) 0.25 mg PO TID [facility] Last Admin: 12/09/18 13:56 Dose: 0.25 mg Clonidine HCl (Catapres Tab*) 0.1 mg PO BID [facility] Last Admin: 12/09/18 08:27 Dose: 0.1 mg Gabapentin (Neurontin Cap(*)) 600 mg PO TID [facility] Last Admin: 12/09/18 13:56 Dose: 600 mg Gemfibrozil (Lopid Tab*) 600 mg PO QAM [facility] Last Admin: 12/09/18 08:27 Dose: Not Given Hydroxyzine HCl (Atarax Tab*) 100 mg PO Q6H PRN PRN Reason: ANXIETY Levothyroxine Sodium (Synthroid Tab*) 50 mcg PO DAILY@0600 [facility] Last Admin: 12/09/18 06:41 Dose: 50 mcg Lorazepam (Ativan Tab(*)) 0 - 6 mg PO .PER WAM PARAMETERS [facility]; Protocol Last Admin: 12/08/18 19:30 Dose: 2 mg Multivitamins (Theragran Tab*) 1 tab PO DAILY [facility] Last Admin: 12/09/18 08:27 Dose: 1 tab Neomycin/Polymyxin/Bacitracin (Neosporin Top Oint Tube*) 1 applic TOPICAL BID [facility] Last Admin: 12/09/18 09:55 Dose: Not Given Prazosin HCl (Minipress Cap*) 1 mg PO BEDTIME [facility] Last Admin: 12/08/18 21:57 Dose: 1 mg Thiamine HCl (Vitamin B-1 Tab*) 200 mg PO DAILY [facility] Last Admin: 12/09/18 08:27 Dose: 200 mg Trazodone HCl (Desyrel Tab*) 200 mg PO BEDTIME PRN PRN Reason: INSOMNIA Last Admin: 12/08/18 22:05 Dose: 200 mg Venlafaxine HCl (Effexor Xr Cap*) 225 mg PO QAM [facility] Last Admin: 12/09/18 08:27 Dose: 225 mg - Discharge Plan Discharge Plan: Inpatient Hospitalization
[2018-12-09] MEDS: LORazepam PO 0-6 for WAM protocol PO SCH (16:21)
[2018-12-09 17:06] LABS: Mono-Oligosaccharide/Di-Oligos 0.04 (0.00-0.10)
[2018-12-09] MEDS: Prazosin CAP* 1 MG PO SCH (22:03)
[2018-12-09] MEDS: traZODone TAB* 100 MG PO PRN (22:06)
[2018-12-10] MEDS: Acetaminophen TAB* 325 MG PO PRN ×2 (08:33→14:49)
[2018-12-10] MEDS: Gabapentin CAP(*) 300 MG PO SCH ×3 (08:34→21:57)
[2018-12-10] MEDS: Levothyroxine TAB* 50 MCG TAB PO SCH (08:34)
[2018-12-10] MEDS: cloNIDine TAB* 0.1 MG PO SCH ×2 (08:35→21:57)
[2018-12-10] MEDS: Venlafaxine EXT RELEASE CAP* 75 MG PO SCH (08:35)
[2018-12-10] MEDS: Thiamine TAB* 100 MG TAB PO SCH (08:36)
[2018-12-10] MEDS: clonazePAM TAB(*) 0.5 MG PO SCH ×3 (08:36→21:07)
[2018-12-10] MEDS: Vitamin THERAPEUTIC TAB PO SCH (08:36)
[2018-12-10] MEDS: Gemfibrozil TAB* 600 MG PO SCH (08:38)
[2018-12-10] MEDS: Neomycin/Polym/Bacit TOP OINT* 15 GM TOPICAL SCH ×2 (08:38→21:59)
[2018-12-10] MEDS: hydrOXYzine HCL TAB* 50 MG PO PRN (08:55)
[2018-12-10] MEDS: LORazepam PO 0-6 for WAM protocol PO SCH (12:13)
--- NOTE | 2018-12-10 14:36 | PN ---
Subjective - Subjective Date of Service: 12/10/18 Service Type: [id number] Hosp care 15 min low complexity Subjective: Patient reports continued distress regarding decreased use of benzodiazepine and states fear of having seizure activity. She is assured that she is currently on WAM protocol along with low dose clonazepam. Patient reports feeling hopeful that the advocacy center can assist her at discharge. Encouraged to consider other options, should it be necessary. Objective - General Observations Appearance: Neat Stature: WNL Posture: WNL Eye Contact: Average Behavior/Activity: WNL - Interaction Observations Attitude Towards Examiner: Cooperative, Anxious, Manipulative Stated Mood: Expansive, Anxious Affect: Full Speech Pattern/Tone: Clear, Appropriate, Normal Volume Thought Process: Circumstantial Perception: WNL Thought Content: Preoccupation/Ruminations, Self-Deprecatory Hallucination Type: Denies Delusion Type: Denies - Cognitive Function Orientation: A&O x 4 Level of Consciousness: Alert Cognition: WNL Estimated Intelligence: Normal Insight: Mostly Blames Others for Problems Judgment Within Normal Limits: No Ability to Make Reasonable Decisions: Moderately Impaired - Medication Compliance Cooperative with Inpatient Medication Regimen: Yes - Group Participation Participates in Group Activities: Yes Assessment - Assessment Merits Inpatient Hospitalization: For Immediate Safety, For Stabilization, For Discharge Planning, Pending Safe DC Plan 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 , homeless, white female with a history of alcohol and benzodiazepine abuse, prior suicide attempt, depression and anxiety transferred from the Hospitalist service following medical stabilization of a polydrug intentional, suicidal overdose on an unknown quantity of lorazepam and zolpidem. She has exhibited seizure activity in the absence of benzodiazepine and is being monitored for withdrawal. Plan - Plan Treatment Plan: Name: NANCY PACE Birthdate: 1970 [id number] Continue acute intensive psychiatric treatment. may decrease to q30min obs, allow staff pass and computer use. The patient has been resumed on gabapentin, venlafaxine XR, prazosin and clonidine. continue clonazepam 0.25mg TID and WAM protocol. continue hydroxyzine 100mg q6h prn anxiety. appreciate consult from neurologist, Dr Pathak. Medications: Current Medications Acetaminophen (Tylenol Tab*) 650 mg PO Q4H PRN PRN Reason: FEVER/PAIN Last Admin: 12/10/18 08:33 Dose: 650 mg Al Hydrox/Mg Hydrox/Simethicone (Maalox Plus*) 30 ml PO Q4H PRN PRN Reason: INDIGESTION Last Admin: 12/05/18 09:43 Dose: 30 ml Clonazepam (Klonopin Tab(*)) 0.25 mg PO TID [facility] Last Admin: 12/10/18 08:36 Dose: 0.25 mg Clonidine HCl (Catapres Tab*) 0.1 mg PO BID [facility] Last Admin: 12/10/18 08:35 Dose: 0.1 mg Gabapentin (Neurontin Cap(*)) 600 mg PO TID [facility] Last Admin: 12/10/18 08:34 Dose: 600 mg Gemfibrozil (Lopid Tab*) 600 mg PO QAM [facility] Last Admin: 12/10/18 08:38 Dose: Not Given Hydroxyzine HCl (Atarax Tab*) 100 mg PO Q6H PRN PRN Reason: ANXIETY Last Admin: 12/10/18 08:55 Dose: 100 mg Levothyroxine Sodium (Synthroid Tab*) 50 mcg PO DAILY@0600 [facility] Last Admin: 12/10/18 08:34 Dose: 50 mcg Lorazepam (Ativan Tab(*)) 0 - 6 mg PO .PER [place] PARAMETERS [facility]; Protocol Last Admin: 12/10/18 12:13 Dose: 2 mg Multivitamins (Theragran Tab*) 1 tab PO DAILY [facility] Last Admin: 12/10/18 08:36 Dose: 1 tab Neomycin/Polymyxin/Bacitracin (Neosporin Top Oint Tube*) 1 applic TOPICAL BID [facility] Last Admin: 12/10/18 08:38 Dose: Not Given Prazosin HCl (Minipress Cap*) 1 mg PO BEDTIME [facility] Last Admin: 12/09/18 22:03 Dose: 1 mg Thiamine HCl (Vitamin B-1 Tab*) 200 mg PO DAILY [facility] Last Admin: 12/10/18 08:36 Dose: 200 mg Trazodone HCl (Desyrel Tab*) 200 mg PO BEDTIME PRN PRN Reason: INSOMNIA Last Admin: 12/09/18 22:06 Dose: 200 mg Venlafaxine HCl (Effexor Xr Cap*) 225 mg PO QAM [facility] Last Admin: 12/10/18 08:35 Dose: 225 mg - Discharge Plan Discharge Plan: Inpatient Hospitalization
[2018-12-10] MEDS: Prazosin CAP* 1 MG PO SCH (21:57)
[2018-12-10] MEDS: traZODone TAB* 100 MG PO PRN (22:00)
[2018-12-11] MEDS: Acetaminophen TAB* 325 MG PO PRN (08:53)
[2018-12-11] MEDS: Vitamin THERAPEUTIC TAB PO SCH (08:54)
[2018-12-11] MEDS: Thiamine TAB* 100 MG TAB PO SCH (08:54)
[2018-12-11] MEDS: Gabapentin CAP(*) 300 MG PO SCH ×3 (08:54→21:53)
[2018-12-11] MEDS: cloNIDine TAB* 0.1 MG PO SCH ×2 (08:54→21:55)
[2018-12-11] MEDS: Venlafaxine EXT RELEASE CAP* 75 MG PO SCH (08:55)
[2018-12-11] MEDS: clonazePAM TAB(*) 0.5 MG PO SCH ×3 (08:55→21:52)
[2018-12-11] MEDS: Neomycin/Polym/Bacit TOP OINT* 15 GM TOPICAL SCH ×2 (09:28→23:09)
[2018-12-11] MEDS: Levothyroxine TAB* 50 MCG TAB PO SCH (09:29)
[2018-12-11] MEDS: Gemfibrozil TAB* 600 MG PO SCH (09:30)
[2018-12-11] MEDS: LORazepam PO 0-6 for WAM protocol PO SCH (10:13)
--- NOTE | 2018-12-11 12:00 | PN ---
BSU: Group Therapy Note - Service Type Service Type: [id number] Group Psychotherapy - Cognitive Behavioral Group Therapy ( CBT):Patient was attentive and participatory in CBT programming this morning, and remained in good behavioral control. Patient expressed positive insights regarding relevant treatment interventions and goals.
[2018-12-11] MEDS ORDERED: clonazePAM TAB(*) 0.5 MG PO ONE (15:46)
[2018-12-11] MEDS: traZODone TAB* 100 MG PO PRN (21:51)
[2018-12-11] MEDS: Prazosin CAP* 1 MG PO SCH (21:54)
[2018-12-12] MEDS: Levothyroxine TAB* 50 MCG TAB PO SCH (06:12)
[2018-12-12] MEDS: Acetaminophen TAB* 325 MG PO PRN (08:45)
[2018-12-12] MEDS: Thiamine TAB* 100 MG TAB PO SCH (08:46)
[2018-12-12] MEDS: Venlafaxine EXT RELEASE CAP* 75 MG PO SCH (08:46)
[2018-12-12] MEDS: Vitamin THERAPEUTIC TAB PO SCH (08:46)
[2018-12-12] MEDS: clonazePAM TAB(*) 0.5 MG PO SCH ×3 (08:46→20:57)
[2018-12-12] MEDS: cloNIDine TAB* 0.1 MG PO SCH ×2 (08:46→21:55)
[2018-12-12] MEDS: Gabapentin CAP(*) 300 MG PO SCH ×2 (08:47→21:53)
[2018-12-12] MEDS: Neomycin/Polym/Bacit TOP OINT* 15 GM TOPICAL SCH ×2 (08:50→22:52)
[2018-12-12] MEDS: Gemfibrozil TAB* 600 MG PO SCH (08:50)
[2018-12-12] MEDS: hydrOXYzine HCL TAB* 50 MG PO PRN ×2 (10:46→17:44)
[2018-12-12] MEDS: Prazosin CAP* 1 MG PO SCH (21:54)
[2018-12-12] MEDS: traZODone TAB* 100 MG PO PRN (21:57)
[2018-12-13] MEDS: Gabapentin CAP(*) 300 MG PO SCH ×4 (02:07→21:51)
[2018-12-13] MEDS: Levothyroxine TAB* 50 MCG TAB PO SCH (06:48)
[2018-12-13] MEDS: Vitamin THERAPEUTIC TAB PO SCH (09:15)
[2018-12-13] MEDS: Venlafaxine EXT RELEASE CAP* 75 MG PO SCH (09:15)
[2018-12-13] MEDS: Thiamine TAB* 100 MG TAB PO SCH (09:15)
[2018-12-13] MEDS: clonazePAM TAB(*) 0.5 MG PO SCH ×3 (09:17→20:57)
[2018-12-13] MEDS: cloNIDine TAB* 0.1 MG PO SCH ×2 (09:17→21:51)
[2018-12-13] MEDS: Gemfibrozil TAB* 600 MG PO SCH (09:20)
[2018-12-13] MEDS: Neomycin/Polym/Bacit TOP OINT* 15 GM TOPICAL SCH (09:20)
[2018-12-13] MEDS: hydrOXYzine HCL TAB* 50 MG PO PRN (16:31)
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
[2018-12-13] MEDS: Prazosin CAP* 1 MG PO SCH (21:51)
[2018-12-13] MEDS: traZODone TAB* 100 MG PO PRN (21:51)
[2018-12-14] MEDS: Neomycin/Polym/Bacit TOP OINT* 15 GM TOPICAL SCH ×3 (09:02→22:57)
[2018-12-14] MEDS: Gemfibrozil TAB* 600 MG PO SCH (09:03)
[2018-12-14] MEDS: clonazePAM TAB(*) 0.5 MG PO SCH ×3 (09:06→21:35)
[2018-12-14] MEDS: Gabapentin CAP(*) 300 MG PO SCH ×3 (09:06→21:36)
[2018-12-14] MEDS: cloNIDine TAB* 0.1 MG PO SCH ×2 (09:06→21:35)
[2018-12-14] MEDS: Thiamine TAB* 100 MG TAB PO SCH (09:07)
[2018-12-14] MEDS: Venlafaxine EXT RELEASE CAP* 75 MG PO SCH (09:07)
[2018-12-14] MEDS: Vitamin THERAPEUTIC TAB PO SCH (09:07)
[2018-12-14] MEDS: hydrOXYzine HCL TAB* 50 MG PO PRN (10:24)
--- NOTE | 2018-12-14 11:43 | PN ---
BSU: Group Therapy Note - Service Type Service Type: [id number] Group Psychotherapy - Cognitive Behavioral Group Therapy ( CBT):Patient was attentive and participatory in CBT programming this morning, and remained in good behavioral control. Patient expressed positive insights regarding relevant treatment interventions and goals.
--- NOTE | 2018-12-14 14:32 | PN ---
Subjective - Subjective Date of Service: 12/14/18 Service Type: 25201 Hosp care 15 min low complexity Subjective: Patient reports feeling "good" and hopeful. She reports anxiety level is tolerable. Patient reports awaiting to speak with focused factory manager of [employer] st[place]is through [facility]. She states she is eager to relocate to [facility]. Objective - General Observations Appearance: Neat Stature: WNL Posture: WNL Eye Contact: Average Behavior/Activity: WNL - Interaction Observations Attitude Towards Examiner: Cooperative Stated Mood: Euthymic Affect: Bright Speech Pattern/Tone: Clear, Appropriate, Normal Volume Thought Process: Coherent Perception: WNL Thought Content: WNL Hallucination Type: Denies Delusion Type: Denies - Cognitive Function Orientation: A&O x 4 Level of Consciousness: Alert Cognition: WNL Estimated Intelligence: Normal Insight: WNL Judgment Within Normal Limits: Yes - Medication Compliance Cooperative with Inpatient Medication Regimen: Yes - Group Participation Participates in Group Activities: Yes Assessment - Assessment Merits Inpatient Hospitalization: For Immediate Safety, For Discharge Planning, Pending Safe [place] Plan 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 , homeless, white female with a history of alcohol and benzodiazepine abuse, prior suicide attempt, depression and anxiety transferred from the Hospitalist service following medical stabilization of a polydrug intentional, suicidal overdose on an unknown quantity of lorazepam and zolpidem. She has exhibited seizure activity in the absence of benzodiazepine and is being monitored for withdrawal. Plan - Plan Treatment Plan: Name: NANCY PACE Birthdate: 1970 [id number] Continue acute intensive psychiatric treatment. may decrease to q30min obs, allow staff pass and computer use. The patient has been resumed on gabapentin, venlafaxine XR, prazosin and clonidine. Lorazepam was changed to clonazepam to start taper. continue medications, as ordered. Medications: Current Medications Acetaminophen (Tylenol Tab*) 650 mg PO Q4H PRN PRN Reason: FEVER/PAIN Last Admin: 12/12/18 08:45 Dose: 650 mg Al Hydrox/Mg Hydrox/Simethicone (Maalox Plus*) 30 ml PO Q4H PRN PRN Reason: INDIGESTION Last Admin: 12/05/18 09:43 Dose: 30 ml Clonazepam (Klonopin Tab(*)) 0.5 mg PO TID KJ Last Admin: 12/14/18 09:06 Dose: 0.5 mg Clonidine HCl (Catapres Tab*) 0.1 mg PO BID [facility] Last Admin: 12/14/18 09:06 Dose: 0.1 mg Gabapentin (Neurontin Cap(*)) 600 mg PO TID [facility] Last Admin: 12/14/18 09:06 Dose: 600 mg Gemfibrozil (Lopid Tab*) 600 mg PO QAM [facility] Last Admin: 12/14/18 09:03 Dose: Not Given Hydroxyzine HCl (Atarax Tab*) 100 mg PO Q6H PRN PRN Reason: ANXIETY Last Admin: 12/14/18 10:24 Dose: 100 mg Levothyroxine Sodium (Synthroid Tab*) 50 mcg PO DAILY@0600 [facility] Last Admin: 12/13/18 06:48 Dose: 50 mcg Multivitamins (Theragran Tab*) 1 tab PO DAILY [facility] Last Admin: 12/14/18 09:07 Dose: 1 tab Neomycin/Polymyxin/Bacitracin (Neosporin Top Oint Tube*) 1 applic TOPICAL BID [facility] Last Admin: 12/14/18 12:54 Dose: Not Given Prazosin HCl (Minipress Cap*) 1 mg PO BEDTIME [facility] Last Admin: 12/13/18 21:51 Dose: 1 mg Thiamine HCl (Vitamin B-1 Tab*) 200 mg PO DAILY [facility] Last Admin: 12/14/18 09:07 Dose: 200 mg Trazodone HCl (Desyrel Tab*) 200 mg PO BEDTIME PRN PRN Reason: INSOMNIA Last Admin: 12/13/18 21:51 Dose: 200 mg Venlafaxine HCl (Effexor Xr Cap*) 225 mg PO QAM [facility] Last Admin: 12/14/18 09:07 Dose: 225 mg - Discharge Plan Discharge Plan: Inpatient Hospitalization
[2018-12-14] MEDS: Levothyroxine TAB* 50 MCG TAB PO SCH (15:15)
[2018-12-14] MEDS: traZODone TAB* 100 MG PO PRN (21:34)
[2018-12-14] MEDS: Prazosin CAP* 1 MG PO SCH (21:35)
[2018-12-15] MEDS: Levothyroxine TAB* 50 MCG TAB PO SCH (07:47)
[2018-12-15] MEDS: Gabapentin CAP(*) 300 MG PO SCH ×3 (09:24→22:03)
[2018-12-15] MEDS: Thiamine TAB* 100 MG TAB PO SCH (09:25)
[2018-12-15] MEDS: Gemfibrozil TAB* 600 MG PO SCH ×2 (09:25→10:47)
[2018-12-15] MEDS: cloNIDine TAB* 0.1 MG PO SCH ×2 (09:25→22:03)
[2018-12-15] MEDS: Venlafaxine EXT RELEASE CAP* 75 MG PO SCH (09:25)
[2018-12-15] MEDS: Vitamin THERAPEUTIC TAB PO SCH (09:25)
[2018-12-15] MEDS: Neomycin/Polym/Bacit TOP OINT* 15 GM TOPICAL SCH ×2 (09:27→23:35)
[2018-12-15] MEDS: clonazePAM TAB(*) 0.5 MG PO SCH ×3 (09:27→21:01)
[2018-12-15] MEDS: Prazosin CAP* 1 MG PO SCH (22:03)
[2018-12-15] MEDS: traZODone TAB* 100 MG PO PRN (22:06)
[2018-12-16] MEDS: Levothyroxine TAB* 50 MCG TAB PO SCH (07:29)
--- NOTE | 2018-12-16 08:35 | DCNOTE ---
Subjective - Subjective Service Types: 31192 Hosp IN Day Mgmt simple under 30 min Discharge Date: 12/16/18 Subjective: Patient reports readiness for discharge. She denies SI or urges for self harm. She endorses hopefulness in regards to resource referrals in [facility]. Patient expresses disagreement with diagnoses related to prescription medication dependence and alcohol use, as she did not see these as problematic at time of admission. Objective - General Observations Appearance: Well Groomed Stature: WNL Posture: WNL Eye Contact: Average Behavior/Activity: WNL - Interaction Observations Attitude Towards Examiner: Cooperative Stated Mood: Euthymic Affect: Bright Speech Pattern/Tone: Clear, Appropriate, Normal Volume Thought Process: Coherent Perception: WNL Thought Content: WNL Hallucination Type: Denies Delusion Type: Denies - Cognitive Function Orientation: A&O x 4 Level of Consciousness: Alert Cognition: WNL Estimated Intelligence: Normal Insight: WNL Judgment Within Normal Limits: Yes - Medication Compliance Cooperative with Inpatient Medication Regimen: Yes - Group Participation Participates in Group Activities: Yes DC Assessment - Assessment Clinical Impression: 48 y.o. , homeless, white female with a history of alcohol and benzodiazepine abuse, prior suicide attempt, depression and anxiety transferred from the Hospitalist service following medical stabilization of a polydrug intentional, suicidal overdose on an unknown quantity of lorazepam and zolpidem. She has exhibited seizure activity in the absence of benzodiazepine and was monitored for withdrawal. She remains on low dose and can continue taper in the outpatient setting. Merits Inpatient Hospitalization: No Clear for Discharge: Adequate Clinical Respons, Acceptable Safety Profile Inpatient DSM-V Dx: F10.24 Discharge Planning - Discharge Planning Discharge Plan: Outpatient Follow Up Outpatient Program: [facility] Recommendations for Continuing Care: Medication Management, Psychotherapy, Substance Abuse Counseling, Primary Care Followup Medications: Current Medications Clonazepam (Klonopin Tab(*)) 0.5 mg PO TID [facility] Last Admin: 12/15/18 21:01 Dose: 0.5 mg Clonidine HCl (Catapres Tab*) 0.1 mg PO BID [facility] Last Admin: 12/15/18 22:03 Dose: 0.1 mg Gabapentin (Neurontin Cap(*)) 600 mg PO TID [facility] Last Admin: 12/15/18 22:03 Dose: 600 mg Gemfibrozil (Lopid Tab*) 600 mg PO QAM [facility] Last Admin: 12/15/18 10:47 Dose: Not Given Hydroxyzine HCl (Atarax Tab*) 100 mg PO Q6H PRN PRN Reason: ANXIETY Last Admin: 12/14/18 10:24 Dose: 100 mg Levothyroxine Sodium (Synthroid Tab*) 50 mcg PO DAILY@0600 [facility] Last Admin: 12/16/18 07:29 Dose: 50 mcg Prazosin HCl (Minipress Cap*) 1 mg PO BEDTIME KJ Last Admin: 12/15/18 22:03 Dose: 1 mg Trazodone HCl (Desyrel Tab*) 200 mg PO BEDTIME PRN PRN Reason: INSOMNIA Last Admin: 12/15/18 22:06 Dose: 200 mg Venlafaxine HCl (Effexor Xr Cap*) 225 mg PO QAM [facility] Last Admin: 12/15/18 09:25 Dose: 225 mg Discharge Planning: Prescriptions provided for discharge [x] Yes [] No Follow up care details as per social work arrangements. [facility] physician referral for primary care [facility] Patient response to discharge plan: [x] eager for discharge [x] agreeable with discharge plan [] ambivalent about discharge [] disagrees with discharge today
[2018-12-16] MEDS: clonazePAM TAB(*) 0.5 MG PO SCH (08:57)
[2018-12-16] MEDS: Thiamine TAB* 100 MG TAB PO SCH (08:57)
[2018-12-16] MEDS: Acetaminophen TAB* 325 MG PO PRN (08:57)
[2018-12-16] MEDS: Gabapentin CAP(*) 300 MG PO SCH (08:58)
[2018-12-16] MEDS: Vitamin THERAPEUTIC TAB PO SCH (08:58)
[2018-12-16] MEDS: Venlafaxine EXT RELEASE CAP* 75 MG PO SCH (08:58)
[2018-12-16] MEDS: cloNIDine TAB* 0.1 MG PO SCH (08:58)
[2018-12-16] MEDS: Gemfibrozil TAB* 600 MG PO SCH (09:06)
[2018-12-16] MEDS: Neomycin/Polym/Bacit TOP OINT* 15 GM TOPICAL SCH (09:06)
[2018-12-16 11:25] VITALS: BP 118/96
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
== END 2018-12-16 10:15 | disposition home or self-care (01) | DRG 775 ==
LOC: ED 18:24 → UNDOADMOB 21:50 → MEDTELE 21:50 → OBSVTOIN 21:50 → MEDTELE 12-04 17:10 → BSU 12-04 17:10
PROVIDERS: ADMIT Internal Medicine; ATTEND Psychiatry & Neurology Psychiatry
PROC: 0HQEXZZ Repair Left Lower Arm Skin, External Approach (ICD-10-PCS; principal; 2018-12-03)
PROC: 4A00X4Z Measurement of Central Nervous Electrical Activity, External Approach (ICD-10-PCS; 2018-12-08)
PROC: GZHZZZZ Group Psychotherapy (ICD-10-PCS; 2018-12-11)
DX: F10.24 Alcohol dependence with alcohol-induced mood disorder (principal); F32.2 Major depressive disorder, single episode, severe without psychotic features; F13.20 Sedative, hypnotic or anxiolytic dependence, uncomplicated; K86.1 Other chronic pancreatitis; T42.6X2A Poisoning by other antiepileptic and sedative-hypnotic drugs, intentional self-harm, initial encounter; T42.4X2A Poisoning by benzodiazepines, intentional self-harm, initial encounter; E78.00 Pure hypercholesterolemia, unspecified; I10 Essential (primary) hypertension; M10.9 Gout, unspecified; M16.0 Bilateral primary osteoarthritis of hip; S51.812A Laceration without foreign body of left forearm, initial encounter; X78.9XXA Intentional self-harm by unspecified sharp object, initial encounter; S11.91XA Laceration without foreign body of unspecified part of neck, initial encounter; T40.4X2A Poisoning by other synthetic narcotics, intentional self-harm, initial encounter; G43.909 Migraine, unspecified, not intractable, without status migrainosus; F41.9 Anxiety disorder, unspecified; G62.9 Polyneuropathy, unspecified; G89.29 Other chronic pain; M25.559 Pain in unspecified hip; F43.10 Post-traumatic stress disorder, unspecified; M54.5 Low back pain; L40.9 Psoriasis, unspecified; B00.9 Herpesviral infection, unspecified; Y90.8 Blood alcohol level of 240 mg/100 ml or more; S10.91XA Abrasion of unspecified part of neck, initial encounter; Z81.8 Family history of other mental and behavioral disorders; Y92.009 Unspecified place in unspecified non-institutional (private) residence as the place of occurrence of the external cause; Z83.3 Family history of diabetes mellitus; Z72.89 Other problems related to lifestyle; Z87.891 Personal history of nicotine dependence; Z23 Encounter for immunization; Z59.0 Homelessness
CPT/HCPCS: 36415; 80053; 80061; 80307; 80320; 80329; 81003; 81015; 82373; 83036; 83605; 83721; 83735; 84100; 84443; 85025; 87086; 90732; 90853; 93005; 95816; 99222; 99231; 99232; 99233; 99238; 99284; A9270-GY; G0480

== ENCOUNTER 2019-02-05 16:02 | Emergency (ER) | payer OTHER ==
--- NOTE | 2019-02-05 16:18 | ED ---
Psychiatric Complaint - HPI Summary HPI Summary: This pt is a 48 y/o female presenting to [facility] via EMS for a psychotic break today. EMS reports the pt [facility] when she started throwing things and having a psychotic episode. Pt today walked in to [facility] and was then referred to the ED. Per EMS pt reported she recently received a new medication from her doctor and had a reaction to it and this is why she became psychotic. Pt notes she has not been sleeping at night. She denies paranoia symptoms. Per EMS, pt has been acting erratic. This morning pt states she took her lorazepam. She notes she also took Valacyclovir. Pt has been admitted to the hospital for MH in the past. - History Of Current Complaint Chief Complaint: EDMentalHealth Time Seen by Provider: 02/05/19 16:05 Hx Obtained From: Patient Onset/Duration: Sudden Onset, Still Present Timing: Constant Severity Currently: Moderate Character: Manic Aggravating Factor(s): Nothing Alleviating Factor(s): Nothing Associated Signs And Symptoms: Positive: Sleep Disturbance Has Suicidal: Denies: Thoughts, With A Plan Has Homicidal: Denies: Thoughts, With A Plan - Allergies/Home Medications Allergies/Adverse Reactions: Allergies Allergy/AdvReac Type Severity Reaction Status Date / Time No Known Allergies Allergy Verified 04/08/18 06:15 Home Medications: Home Medications LORazepam TAB(*) [Ativan 0.5 MG TAB (*)] 0.5 mg PO Q5H PRN 02/05/19 [History Confirmed 02/05/19] Zolpidem TAB* [Ambien TAB*] 10 mg PO BEDTIME PRN 02/05/19 [History Confirmed 03/18] traMADol TAB* [Ultram*] 50 mg PO DAILY 02/05/19 [History Confirmed 02/05/19] PMH/Surg Hx/FS Hx/Imm Hx Endocrine/Hematology History: Reports: Hx Anemia - SLIGHT PER PATIENT Denies: Hx Anticoagulant Therapy, Hx Diabetes, Hx Thyroid Disease Cardiovascular History: Reports: Hx Hypercholesterolemia, Hx Hypertension - ON MEDICATION FOR Denies: Hx Pacemaker/ICD Respiratory History: Denies: Hx Asthma, Hx Chronic Obstructive Pulmonary Disease (COPD) GI History: Reports: Other GI Disorders - LIVER ENZYMES ELEVATED AT TIMES// CHRONIC PANCREATITIS-STATES NO PROB RECENT History: Denies: Hx Renal Disease Musculoskeletal History: Reports: Hx Arthritis - HIPS, Hx Bursitis - b/l hip surgeries, Hx Gout Sensory History: Reports: Hx Hearing Problem - tinnitus Denies: Hx Contacts or Glasses, Hx Hearing Aid Opthamlomology History: Denies: Hx Contacts or Glasses Neurological History: Reports: Hx Migraine - states that she can tap her right zoroastrianism to alleviate, Other Neuro Impairments/Disorders - 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 ANAL FISSURE. ECTOPIC . COLONOSCOPIES X 2- 2013 & 2018 FOR POLYPS Hx Anesthesia Reactions: No - Immunization History Date of Tetanus Vaccine: unsure Date of Influenza Vaccine: fall 2012 Infectious Disease History: Unable to Obtain/Confirm Infectious Disease History: Denies: Hx Clostridium Difficile, Hx Hepatitis, Hx Human Immunodeficiency Virus (HIV), Hx of Known/Suspected MRSA, Hx Shingles, Hx Tuberculosis, History Other Infectious Disease, Traveled Outside the [place] in Last 30 Days - Family History Known Family History: Positive: Diabetes Negative: Hypertension - Social History Alcohol Use: Occasionally Alcohol Amount: 1 GLASS OF WINE WEEKLY Substance Use Type: Reports: Prescribed Substance Use Comment - Amount & Last Used: prescribed benzodiazapines Smoking Status (MU): Former Smoker Type: Cigarettes Amount Used/How Often: 2-7 CIGARETTES PER DAY OR NONE X OFF AND ON SOCIALLY ~15 YEARS AGO Have You Smoked in the Last Year: No Review of Systems Negative: Fever, Chills Negative: Erythema Negative: Sore Throat Negative: Chest Pain Negative: Shortness Of Breath, Cough Negative: Abdominal Pain, Vomiting, Nausea Negative: dysuria, hematuria Negative: Myalgia, Edema Negative: Rash Neurological: Other - NEGATIVE: dizziness Psychological: Other - POSITIVE: psychosis All Other Systems Reviewed And Are Negative: Yes Physical Exam - Summary Physical Exam Summary: Constitutional: Well-developed, Well-nourished, Alert. (-) Distressed Skin: Warm, Dry HENT: Normocephalic; Atraumatic Eyes: Conjunctiva normal Neck: Musculoskeletal ROM normal neck. (-) JVD, (-) Stridor, (-) Tracheal deviation Cardio: Rhythm regular, rate normal, Heart sounds normal; Intact distal pulses; The pedal pulses are 2+ and symmetric. Radial pulses are 2+ and symmetric. (-) Murmur Pulmonary/Chest wall: Effort normal. (-) Respiratory distress, (-) Wheezes, (-) Rales Abd: Soft, (-) tenderness, (-) Distension, (-) Guarding, (-) Rebound Musculoskeletal: (-) Edema Lymph: (-) Cervical adenopathy Neuro: Alert, Oriented x3 Psych: Mood and affect Normal Triage Information Reviewed: Yes Vital Signs On Initial Exam: Initial Vitals Temp Pulse Resp BP Pulse Ox 98 F 110 14 137/83 95 02/05/19 16:05 02/05/19 16:05 02/05/19 16:05 02/05/19 16:05 02/05/19 16:05 Vital Signs Reviewed: Yes Diagnostics - Vital Signs Vital Signs Temp Pulse Resp BP Pulse Ox 02/05/19 16:05 98 F 110 14 137/83 95 - Laboratory Result Diagrams: 02/05/19 16:42 02/05/19 16:42 Lab Statement: Any lab studies that have been ordered have been reviewed, and results considered in the medical decision making process. Course/Dx - Course Assessment/Plan: Pt is a 48 y/o female presenting to [facility] via EMS for a psychotic break today. EMS reports the pt was [facility] when she started throwing things and having a psychotic episode. Pt today walked in to [facility] and was then referred to the ED. Per EMS pt reported she recently received a new medication from her doctor and had a reaction to it and this is why she became psychotic. Blood work remarkable for Hgb of 11, Hct of 31, potassium of 3.3, AST of 47, serum alcohol of 287. Patient will be sober and medically cleared around 01:00 on 02/06/19. Patient will be signed out to Dr. Womack pending medical clearance and subsequent mental health evaluation. - Differential Dx/Clinical Impression Provider Diagnosis: Alcohol intoxication Discharge ED - Sign-Out/Discharge Documenting (check all that apply): Sign-Out Patient Signing out patient TO: Sakina Womack - pending medical clearance and subsequent MHE Patient Received Moderate/Deep Sedation with Procedure: No - Discharge Plan Condition: Stable Disposition: HOME Patient Education Materials: Alcohol Intoxication (ED) Referrals: Renuka Rubio MD [Primary Care Provider] - Additional Instructions: Per completion of a mental health evaluation, you are cleared for release and do not require inpatient psychiatric hospitalization at this time. Please go to nearest emergency room or call 911 if safety concerns arise or condition worsens. Important Phone Numbers: [facility] Unit [phone] Suicide Prevention and Crisis Services........................ [phone] National Suicide Prevention Lifeline............................ [phone] (1139) [facility]....................... [phone] Alcoholics Anonymous............................................... [facility].............. [phone] [facility] Police.............................................. [phone] Substance Abuse Treatment Programs [facility] Alcohol and Drug [facility] [facility] - Billing Disposition and Condition Condition: STABLE Disposition: Home - Attestation Statements Document Initiated by Scribe: Yes Documenting Scribe: Marycarmen Lira Provider For Whom Scribe is Documenting (Include Credential): Wilmer Walker MD Scribe Attestation: Marycarmen Bradford, scribed for Wilmer Walker MD on 02/16/19 at 1432. Scribe Documentation Reviewed: Yes Provider Attestation: The documentation as recorded by the scribe, Marycarmen Lira accurately reflects the service I personally performed and the decisions made by me, Wilmer Walker MD Status of Scribe Document: Viewed
[2019-02-05 16:49] LABS: Urine Appearance Clear; Urine Bacteria Absent (Absent); Urine Bilirubin Negative (Negative); Urine Blood Negative (Negative); Urine Color Straw; Urine Glucose Negative (Negative); Urine Ketones Negative (Negative); Urine Nitrite Negative (Negative); Urine Protein Negative (Negative); Urine Red Blood Cell Absent (Absent); Urine Specific Gravity 1.001 (1.010-1.030); Urine Urobilinogen Negative (Negative); Urine White Blood Cell Trace(0-5/hpf) (Absent)
[2019-02-05 16:54] LABS: ABS Basophils 0.1 10^3/ul (0-0.2); ABS Eosinophils 0.1 10^3/ul (0-0.6); ABS Lymphocytes 2.6 10^3/ul (1.0-4.8); ABS Monocytes 0.9 10^3/ul (0-0.8); ABS Neutrophils 4.5 10^3/ul (1.5-7.7); Eosinophil % 1.4 %; Hematocrit 31 % (35-47); Lymphocyte % 32.1 %; Mean Corpuscular HGB Conc 36 g/dL (31-36); Mean Corpuscular Hemoglobin 34 pg (27-31); Mean Corpuscular Volume 96 fL (80-97); Mean Platelet Volume 7.5 fL (7.4-10.4); Nucleated Red Blood Cells % 0.1; Platelet Count 269 10^3/uL (150-450); Red Blood Count 3.21 10^6 /uL (3.70-4.87); Red Cell Distribution Width 14 % (10-15); White Blood Count 8.2 10^3/uL (3.5-10.8)
[2019-02-05 16:58] LABS: Urine Benzodiazepine Screen None Detected (None Detect); Urine Opiates Screen None Detected (None Detect)
[2019-02-05 17:12] LABS: ALT 35 U/L (7-52); AST 47 U/L (13-39); Albumin 4.7 g/dL (3.2-5.2); Albumin/Globulin Ratio 1.3 (1-3); Alkaline Phosphatase 107 U/L (34-104); Anion Gap 11 mmol/L (2-11); BUN/Creatinine Ratio 10.3 (8-20); Blood Urea Nitrogen 6 mg/dL (6-24); CO2 Carbon Dioxide 25 mmol/L (22-32); Calcium 9.2 mg/dL (8.6-10.3); Chloride 100 mmol/L (101-111); EGFR African American 134.3 (>60); Globulin 3.5 g/dL (2-4); Glucose 153 mg/dL (70-100); Potassium 3.3 mmol/L (3.5-5.0); Sodium 136 mmol/L (135-145); Total Protein 8.2 g/dL (6.4-8.9)
[2019-02-05 17:27] LABS: Acetaminophen < 15 mcg/mL; Alcohol 287 mg/dL (<10); Salicylate < 2.50 mg/dL (<30)
[2019-02-05 17:42] LABS: TSH (Thyroid Stimulating Horm) 0.48 mcIU/mL (0.34-5.60)
[2019-02-05] MEDS ORDERED: Haloperidol INJ IV/IM* 5 MG/ML AMP IM ONE (17:49)
--- OUTSIDE RECORDS SUMMARY | 2019-02-05 19:03 | XMS REPORT | Continuity of Care Document ---
:1970 External Reference #:[id number] Author Name Karen Casey Care Team Providers Name Role Phone Patient's Choice Primary Care Physician Unavailable Payers Date Identification Numbers Payment Provider Subscriber Policy Number: [id number] Obi Gutierrez Group Name: [id number] [address] PayID: [id number] [place] [address] Problems Active Problems Provider Date Closed fracture of phalanx of foot Agus Jenkins M.D. Onset: 12/16/2014 Other specific joint derangements of left Zita Fisher MD Onset: 02/03/2018 hip, not elsewhere classified Trochanteric bursitis Zita Fisher MD Onset: 02/17/2018 Arthropathy of pelvis Zita Fisher MD Onset: 02/17/2018 Lumbar radiculopathy Zita Fisher MD Onset: 01/07/2019 Family History Date Family Member(s) Observation Comments General Diabetes General Cancer Social History Type Date Description Comments Sex Unknown Lives With Boyfriend Lives With 1 dog Occupation [employer] Occupation [employer] ETOH Use Denies alcohol use Tobacco Use Start: Unknown End: Patient is a former smoker Unknown Smoking Status Reviewed: 01/07/19 Patient is a former smoker Exercise Type/Frequency Exercises rarely Allergies, Adverse Reactions, Alerts Description No Known Drug Allergies Medications Active Medications SIG Qnty Indications Ordering Provider Date Venlafaxine HCL ER Anurag Gross MD 75mg Caps ER 24HR Clonidine HCL Take One Tablet Unknown 0.1mg Tablets By Mouth Twice A Day Tramadol HCL Take Two Tablets Unknown 50mg Tablets By Mouth Three Times A Day as Needed For Pain Maximu Zolpidem Tartrate Take One Tablet Unknown 10mg By Mouth Every Tablets Evening as Needed Maximum Daily Dose Trazodone HCL Take One Tablet Unknown 100mg Tablets By Mouth AT Bedtime as Needed For Insomnia Gabapentin Take Two 600MG Unknown 300mg Capsules Capsules By Mouth Twice A Day Lorazepam take 1 bid Unknown 2mg Tablets Prosation Unknown Levothyroxine Sodium Take One Tablet Unknown 50mcg By Mouth Every Tablets Morning On An Empty Stomach Aleve 1 tab twice a day Unknown 220mg Capsules as needed History Medications Naproxen 1 by mouth twice 60tabs Zita Fisher MD 04/08/2018 - 500mg Tablets a day x 30 days 08/13/2018 post op Oxycodone-Acetaminoph 1 tabs by mouth 15tabs Zita Fisher MD 04/08/2018 - en every 4-6 hours 08/13/2018 5-325mg Tablets as needed for pain Wellbutrin SR 1 by mouth daily 30tabs Other Ordering 10/03/2016 - 100mg Provider 01/20/2018 Tablets ER 12HR Senna Lax 1 tab PO daily 30tabs Other Ordering 10/03/2016 - 8.6mg Tablets Provider 01/20/2018 Miralax 17 gm every day 527units Other Ordering 10/03/2016 - 3350NF Powder mixed w/ 8 oz Provider 01/20/2018 water/juice Gemfibrozil 1 by mouth twice 60tabs Other Ordering 10/03/2016 - 600mg a day Provider Unknown Tablets Colace 1 by mouth bid 60caps Other Ordering 10/03/2016 - 100mg Capsules Provider 01/20/2018 Venlafaxine HCL ER 1 by mouth every 30caps Other Ordering 10/03/2016 - day Provider 01/20/2018 150mg Caps ER 24HR Lorazepam 2 tabs bid and 90tabs Unknown 10/03/2016 - 1mg Tablets prn anxiety 01/20/2018 Oxycodone-Acetaminoph take 1 tab by Unknown - en mouth every 6 to 01/20/2018 5-325mg Tablets 8 hours as needed pain Clonidine HCL 1 by mouth twice Unknown - 0.1mg a day 01/20/2018 Tablets Venlafaxine HCL 1 by mouth every Unknown - 100mg day 10/08/2016 Tablets Gabapentin 1 bid Unknown - 100mg 10/08/2016 Capsules Trazodone HCL 1 by mouth every Unknown - 100mg night at bedtime 01/20/2018 Tablets Aleve 2 tablets as Unknown - 220mg Tablets needed for pain 08/13/2018 Clonazepam Take One Tablet Unknown - 1mg Tablets By Mouth Twice A 08/13/2018 Day as Needed Maximum Daily Dose 2 Gemfibrozil Take One Tablet Unknown - 600mg By Mouth Twice A 08/13/2018 Tablets Day Medications Administered in Office Medication SIG Qnty Indications Ordering Provider Date Triamcinolone (Kenalog) Zita Fisher MD 02/05/2018 Injection Vital Signs Date Vital Result Comment 01/07/2019 2:23pm Height 71 inches 5'11" Weight 180.00 lb Heart Rate 74 /min BP Systolic 140 mmHg BP Diastolic 80 mmHg Body Temperature 98.5 F Pain Level 8 BMI (Body Mass Index) 25.1 kg/m2 10/22/2018 11:26am Height 71 inches 5'11" Weight 180.00 lb Heart Rate 80 /min BP Systolic 148 mmHg BP Diastolic 90 mmHg Pain Level 3 BMI (Body Mass Index) 25.1 kg/m2 08/13/2018 12:52pm Height 71 inches 5'11" Weight 183.00 lb BP Systolic 130 mmHg BP Diastolic 78 mmHg Pain Level 6 BMI (Body Mass Index) 25.5 kg/m2 04/21/2018 2:02pm Height 71 inches 5'11" Weight 171.00 lb BP Systolic 130 mmHg BP Diastolic 78 mmHg Respiratory Rate 18 /min Body Temperature 97.2 F Pain Level 5 BMI (Body Mass Index) 23.8 kg/m2 04/03/2018 9:01am Height 71 inches 5'11" Weight 171.00 lb Heart Rate 80 /min BP Systolic 152 mmHg BP Diastolic 92 mmHg Respiratory Rate 18 /min Body Temperature 97.2 F Pain Level 6 BMI (Body Mass Index) 23.8 kg/m2 03/10/2018 11:25am Height 71 inches 5'11" Weight 171.00 lb BP Systolic 138 mmHg BP Diastolic 88 mmHg Respiratory Rate 18 /min Pain Level 8 BMI (Body Mass Index) 23.8 kg/m2 02/17/2018 11:17am Height 71 inches 5'11" Heart Rate 68 /min BP Systolic 110 mmHg BP Diastolic 86 mmHg Respiratory Rate 16 /min Body Temperature 97.2 F Pain Level 8 02/05/2018 2:46pm Height 71 inches 5'11" Weight 171.00 lb Heart Rate 76 /min BP Systolic Sitting 132 mmHg BP Diastolic Sitting 94 mmHg Respiratory Rate 16 /min Body Temperature 97.4 F Pain Level 6 BMI (Body Mass Index) 23.8 kg/m2 02/03/2018 2:28pm Height 71 inches 5'11" Weight 171.00 lb BP Systolic 130 mmHg BP Diastolic 70 mmHg Respiratory Rate 18 /min Pain Level 8 BMI (Body Mass Index) 23.8 kg/m2 01/21/2018 2:13pm Height 71 inches 5'11" Weight 171.00 lb BP Systolic 130 mmHg BP Diastolic 72 mmHg Respiratory Rate 18 /min Body Temperature 97.4 F Pain Level 8 BMI (Body Mass Index) 23.8 kg/m2 12/16/2014 1:09pm Height 71 inches 5'11" Weight 165.00 lb Heart Rate 80 /min BP Systolic Recheck 126 mmHg BP Diastolic Recheck 80 mmHg Respiratory Rate 16 /min Body Temperature 98.1 F Pain Level 7 BMI (Body Mass Index) 23.0 kg/m2 Procedures Date Code Description Status 04/08/2018 72421 Arthroscopy,Unlisted Procedure Completed 04/08/2018 86495 Arthroscopy,Unlisted Procedure Completed 04/08/2018 73315 Arthroscopy,Hip,Acetabuloplasty,Treatment Of Pincer Lesion Completed 04/08/2018 34102 Arthroscopy,Hip,Acetabuloplasty,Treatment Of Pincer Lesion Completed 04/08/2018 40801 Arthroscopy,Hip,W/Femoroplasty,Treatment Of Cam Lesion Completed 04/08/2018 10167 Arthroscopy,Hip,W/Femoroplasty,Treatment Of Cam Lesion Completed 02/05/2018 53639 Inj/Aspir Major JT Or Bursa W/ US Completed 12/16/2014 41080 FX Treatment Closed Phalanx Other Than Great Toe W/O Manip Completed Encounters Type Date Location Provider Dx Diagnosis Office Visit 12/04/2018 [facility] Jaz Martin, T14.91xA Suicide attempt, 9:38a Assoc,shaquille D.O. initial Hospitalists encounter X78.9xxA Intentional self-harm by unsp sharp object, init encntr F32.9 Major depressive disorder, single episode, unspecified Office Visit 12/03/2018 [facility] Damion T50.992A Poisoning by oth 9:38a Assshaquille jovel M.D. 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 left hip Z47.89 Encounter for other orthopedic aftercare Office Visit 08/13/2018 1:00p Orthopedic Zita Fisher M25.852 Other specified Services Of joint disorders, C.M.A. left hip M25.851 Other specified joint disorders, right hip Office Visit 03/10/2018 11:15a Orthopedic Zita Fisher M25.851 Other specified Services Of joint disorders, C.M.A. right hip M25.852 Other specified joint disorders, left hip Office Visit 02/17/2018 10:45a Koby Fisher, M24.852 Oth specific joint Services Of derangements of C.M.A. left hip, NEC M70.62 Trochanteric bursitis, left hip M25.851 Other specified joint disorders, right hip Office Visit 02/03/2018 2:30p Orthopedic Zita Fisher M24.852 Oth specific joint Services Of derangements of C.M.A. left hip, NEC M25.852 Other specified joint disorders, left hip Office Visit 01/21/2018 1:30p Orthopedic Manan Thompson, M70.62 Trochanteric Services Of [place] bursitis, left hip C.M.A. M25.552 Pain in left hip Office Visit 10/03/2016 3:03p [facility] Cesar Ring, E87.2 Acidosis Assoc, Hospitalists K85.90 Acute pancreatitis without necrosis or infection, unsp E78.1 Pure hyperglyceridemia F32.89 Other specified depressive episodes Office Visit 10/02/2016 3:02p [facility] Cesar Ring, E87.2 Acidosis Assoc, Hospitalists K85.90 Acute pancreatitis without necrosis or infection, unsp E78.1 Pure hyperglyceridemia F32.89 Other specified depressive episodes Office Visit 10/01/2016 3:02p [facility] Gaetano Whyte E87.2 Acidosis Assoc, Hospitalists Marissa Dunham G93.40 Encephalopathy, unspecified R41.0 Disorientation, unspecified F43.22 Adjustment disorder with anxiety Office Visit 09/30/2016 3:01p [facility] Gaetano Whyte E87.2 Acidosis Assoc, Hospitalists Marissa Dunham G93.40 Encephalopathy, unspecified R41.0 Disorientation, unspecified F43.22 Adjustment disorder with anxiety Plan of Treatment 01/07/2019 - Zita Fisher, MDM25.851 Other specified joint disorders, right hipReferral:Pain Clinic, Pain/Clinic/CTRM25.852 Other specified joint disorders , left hipM54.16 Radiculopathy, lumbar regionReferral:Elvi Pang MD, Physical Medicine/RehabFollow up:Follow up:
--- NOTE | 2019-02-06 03:59 | ED ---
Progress - Progress Note Progress Note: Receiving sign-out from Dr. Walker at 2200 pending MHE clearance and MHE. Patient cleared for MHE at 0100. MHE diagnosed the patient with alcohol intoxication and will keep her in flex until the morning where they will set up a consult with social work, per Dr. Ferro, Psychiatry. - Consult/PCP Time Called: 01:00 Course/Dx - Course Course Of Treatment: Receiving sign-out from Dr. Walker at 2200 pending MHE clearance and MHE. Patient cleared for MHE at 0100. MHE diagnosed the patient with alcohol intoxication and will keep her in flex until the morning where they will set up a consult with social work, per Dr. Ferro, Psychiatry. - Diagnoses Provider Diagnoses: Alcohol intoxication Discharge - Sign-Out/Discharge Documenting (check all that apply): Patient Departure - Discharge, per MHE. Patient Received Moderate/Deep Sedation with Procedure: No - Discharge Plan Condition: Stable Patient Education Materials: Alcohol Intoxication (ED) Referrals: Renuka Rubio MD [Primary Care Provider] - Additional Instructions: Per completion of a mental health evaluation, you are cleared for release and do not require inpatient psychiatric hospitalization at this time. Please go to nearest emergency room or call 911 if safety concerns arise or condition worsens. Important Phone Numbers: [facility] [phone] Suicide Prevention and Crisis Services........................ [phone] National Suicide Prevention Lifeline............................ 637-622-UYJC (6735) [facility]....................... [phone] Alcoholics Anonymous............................................... [phone] [facility].............. [phone] [facility] Police.............................................. Substance Abuse Treatment Programs [place] [facility] [phone] Alcohol and Drug [facility] - Attestation Statements Document Initiated by Scribe: Yes Documenting Scribe: Damion Sebastian Provider For Whom Scribe is Documenting (Include Credential): Sakina Womack MD Scribe Attestation: Damion Bradford, scribed for Sakina Womack MD on 02/06/19 at 0359. Status of Scribe Document: Ready
[2019-02-06] MEDS ORDERED: Gabapentin CAP(*) 300 MG PO ONE ×2 (04:23→08:30)
[2019-02-06] MEDS ORDERED: LORazepam TAB(*) 1 MG PO ONE ×2 (04:23→08:30)
--- NOTE | 2019-02-06 07:19 | ED ---
Progress - Progress Note Progress Note: Pt is a sign out from Dr. Womack @ the 69902/06/2019 shift change post MHE discharge and pending social consult. The pt will be admitted to [facility] after social consult @ 0930 for intermediate work. @ 1023 The pt refuses to be admitted to [facility] and says that she will stay somewhere else. The community health worker is agreeable with this decision. - Consult/PCP Time Called: 01:00 Course/Dx - Course Course Of Treatment: Receiving sign-out from Dr. Walker at 2200 pending MHE clearance and MHE. Patient cleared for MHE at 0100. MHE diagnosed the patient with alcohol intoxication and will keep her in flex until the morning where they will set up a consult with social work, per Dr. Ferro, Psychiatry. Pt will be signed out to Dr. Rojas @ the 69902/06/2019 shift change. Pt is a sign out from Dr. Womack @ the 69902/06/2019 shift change post MHE discharge and pending social consult. The pt will be admitted to [facility] after social consult @ 0930 for intermediate social work. @ 1023 The pt refuses to be admitted to [facility] and says that she will stay somewhere else. The community health worker is agreeable with this decision. - Diagnoses Provider Diagnoses: Alcohol intoxication Discharge - Sign-Out/Discharge Documenting (check all that apply): Patient Departure - discharge Patient Received Moderate/Deep Sedation with Procedure: No - Discharge Plan Condition: Stable Disposition: HOME Patient Education Materials: Alcohol Intoxication (ED) Referrals: Renuka Rubio MD [Primary Care Provider] - Additional Instructions: Per completion of a mental health evaluation, you are cleared for release and do not require inpatient psychiatric hospitalization at this time. Please go to nearest emergency room or call 911 if safety concerns arise or condition worsens. Important Phone Numbers: [facility] [phone] Suicide Prevention and Crisis Services........................ [phone] National Suicide Prevention Lifeline............................ [phone] (8312) [facility]....................... [phone] Alcoholics Anonymous............................................... [phone] [facility].............. [phone] [facility] Police.............................................. Substance Abuse Treatment Programs [place] [facility] [phone] Alcohol and Drug [facility] - Billing Disposition and Condition Condition: STABLE Disposition: Home - Attestation Statements Document Initiated by Evelia: Yes Documenting Scribe: Christian Garcia Provider For Whom Evelia is Documenting (Include Credential): Darryn Rojas MD Scribe Attestation: I, Christian Garcia, scribed for Darryn Rojas MD on 02/06/19 at 1209. Scribe Documentation Reviewed: Yes Provider Attestation: The documentation as recorded by the Christian dixon accurately reflects the service I personally performed and the decisions made by Bob resendiz Tudie-Ann MD Status of Scribe Document: Viewed
[2019-02-06] MEDS ORDERED: Venlafaxine EXT RELEASE CAP* 75 MG PO ONE (08:30)
[2019-02-06] MEDS ORDERED: cloNIDine TAB* 0.1 MG PO ONE (08:30)
--- NOTE | 2019-02-06 08:32 | PN ---
ED Psychiatric Progress Note Date of Service: 02/05/19 Subjective: This is a 48 year-old F who is pending admission to [facility] / transfer to another psychiatric facility / discharge to home / or being observed secondary to ETOH intoxication. Pt. examined in room 6 around 0820. She is resting comfortably. Objective: Vitals: Most recent vital signs documented below. General NAD, Alert and oriented x3. Laboratory: Current laboratory results documented below. Assessment: Alcohol abuse. Plan: Pending social organization professor consult. Morning medications ordered. Vital Signs Temp Pulse Resp BP Pulse Ox 98.8 F 100 20 147/82 96 02/06/19 08:26 02/06/19 08:26 02/06/19 08:26 02/06/19 08:26 02/06/19 08:26 Lab Results - Entire Visit 02/05/19 02/05/19 02/05/19 16:42 16:42 16:20 WBC 8.2 RBC 3.21 L Hgb 11.0 L Hct 31 L MCV 96 MCH 34 H MCHC 36 RDW 14 Plt Count 269 MPV 7.5 Neut % (Auto) 54.7 Lymph % (Auto) 32.1 Erath % (Auto) 10.9 Eos % (Auto) 1.4 Baso % (Auto) 0.9 Absolute Neuts (auto) 4.5 Absolute Lymphs (auto) 2.6 Absolute Monos (auto) 0.9 H Absolute Eos (auto) 0.1 Absolute Basos (auto) 0.1 Absolute Nucleated RBC 0.0 Nucleated RBC % 0.1 Sodium 136 Potassium 3.3 L Chloride 100 L Carbon Dioxide 25 Anion Gap 11 BUN 6 Creatinine 0.58 Est GFR ( Amer) 134.3 Est GFR (Non-Af Amer) 111.0 BUN/Creatinine Ratio 10.3 Glucose 153 H Calcium 9.2 Total Bilirubin 0.50 AST 47 H ALT 35 Alkaline Phosphatase 107 H Total Protein 8.2 Albumin 4.7 Globulin 3.5 Albumin/Globulin Ratio 1.3 TSH 0.48 Urine Color Urine Appearance Urine pH Ur Specific Marion Urine Protein Urine Ketones Urine Blood Urine Nitrate Urine Bilirubin Urine Urobilinogen Ur Leukocyte Esterase Urine WBC (Auto) Urine RBC (Auto) Urine Bacteria Urine Glucose Salicylates < 2.50 Urine Opiates Screen None detected Acetaminophen < 15 Ur Barbiturates Screen None detected Ur Phencyclidine Scrn None detected Ur Amphetamines Screen None detected U Benzodiazepines Scrn None detected Urine Cocaine Screen None detected U Cannabinoids Screen None detected Serum Alcohol 287 H 02/05/19 16:20 WBC RBC Hgb Hct MCV MCH MCHC RDW Plt Count MPV Neut % (Auto) Lymph % (Auto) Erath % (Auto) Eos % (Auto) Baso % (Auto) Absolute Neuts (auto) Absolute Lymphs (auto) Absolute Monos (auto) Absolute Eos (auto) Absolute Basos (auto) Absolute Nucleated RBC Nucleated RBC % Sodium Potassium Chloride Carbon Dioxide Anion Gap BUN Creatinine Est GFR ( Amer) Est GFR (Non-Af Amer) BUN/Creatinine Ratio Glucose Calcium Total Bilirubin AST ALT Alkaline Phosphatase Total Protein Albumin Globulin Albumin/Globulin Ratio TSH Urine Color Straw Urine Appearance Clear Urine pH 6.0 Ur Specific Marion 1.001 L Urine Protein Negative Urine Ketones Negative Urine Blood Negative Urine Nitrate Negative Urine Bilirubin Negative Urine Urobilinogen Negative Ur Leukocyte Esterase Trace A Urine WBC (Auto) Trace(0-5/hpf) Urine RBC (Auto) Absent Urine Bacteria Absent Urine Glucose Negative Salicylates Urine Opiates Screen Acetaminophen Ur Barbiturates Screen Ur Phencyclidine Scrn Ur Amphetamines Screen U Benzodiazepines Scrn Urine Cocaine Screen U Cannabinoids Screen Serum Alcohol
[2019-02-06 10:39] VITALS: BP 204/122
== END 2019-02-06 10:54 | disposition home or self-care (01) ==
LOC: ED 16:02
DX: F10.929 Alcohol use, unspecified with intoxication, unspecified (principal); D64.9 Anemia, unspecified; E78.00 Pure hypercholesterolemia, unspecified; I10 Essential (primary) hypertension; F41.9 Anxiety disorder, unspecified; F32.9 Major depressive disorder, single episode, unspecified; Z87.891 Personal history of nicotine dependence; Z79.899 Other long term (current) drug therapy
CPT/HCPCS: 36415; 80053; 80307; 80320; 80329; 81003; 81015; 84443; 85025; 87086; 96372; 99284; A9270-GY; G0480

== ENCOUNTER 2019-05-13 13:16 | Inpatient (IN) | payer OTHER ==
[2019-05-13 14:15] LABS: Urine Appearance Clear; Urine Bacteria Absent (Absent); Urine Bilirubin Negative (Negative); Urine Blood 2+ (Negative); Urine Color Straw; Urine Glucose Negative (Negative); Urine Ketones Negative (Negative); Urine Nitrite Negative (Negative); Urine Protein 1+(30 mg/dL) (Negative); Urine Red Blood Cell 1+(3-5/hpf) (Absent); Urine Specific Gravity 1.003 (1.010-1.030); Urine Squamous Epithelial Cell Present (Absent); Urine Urobilinogen Negative (Negative); Urine White Blood Cell Absent (Absent)
[2019-05-13 14:24] LABS: Urine Benzodiazepine Screen None Detected (None Detect); Urine Opiates Screen None Detected (None Detect)
[2019-05-13 14:27] LABS: ABS Basophils 0.1 10^3/ul (0-0.2); ABS Lymphocytes 1.1 10^3/ul (1.0-4.8); ABS Monocytes 0.9 10^3/ul (0-0.8); ABS Neutrophils 1.9 10^3/ul (1.5-7.7); Eosinophil % 0.3 %; Hematocrit 38 % (35-47); Mean Corpuscular HGB Conc 35 g/dL (31-36); Mean Corpuscular Hemoglobin 35 pg (27-31); Mean Corpuscular Volume 100 fL (80-97); Mean Platelet Volume 6.5 fL (7.4-10.4); Nucleated Red Blood Cells % 0.3; Platelet Count 173 10^3/uL (150-450); Red Blood Count 3.77 10^6 /uL (3.70-4.87); Red Cell Distribution Width 18 % (10-15)
[2019-05-13] MEDS ORDERED: Thiamine INJ* 100 MG, Folic Acid IV* 1 MG, Multiple Vitamin IV ADULT* 10 ML in NS 0.9% ... IV ONE (14:40)
[2019-05-13 14:43] LABS: Albumin 4.9 g/dL (3.2-5.2); Albumin/Globulin Ratio 1.2 (1-3); BUN/Creatinine Ratio 4.6 (8-20); Calcium 9.5 mg/dL (8.6-10.3); EGFR African American 117.7 (>60); EGFR Non-African American 97.3 (>60); Globulin 4.2 g/dL (2-4); Potassium 3.4 mmol/L (3.5-5.0); Total Bilirubin 0.6 mg/dL (0.2-1.0); Total Protein 9.1 g/dL (6.4-8.9)
--- NOTE | 2019-05-13 16:46 | ED ---
Substance Abuse/Use - HPI Summary HPI Summary: This patient is a 48-year-old female with history of alcohol abuse, suicidal attempt, polysubstance abuse and multi drug overdose attempts presenting to the ED with alcohol intoxication. Patient is requesting detox. She has an appointment tomorrow to go to [facility] treatment facility, however she is intoxicated and they will not accept her until she is sober. She denies any other drug use on this date. She is unsure when her last drug use was. She denies any suicidal or homicidal ideations. Patient states she typically drinks 6, 24 ounce 10% beers per day. Hx of detox seizures and has needed admissions and IV ativan. She states at this time she is currently in withdraw. Last seizure unknown. - History Of Current Complaint Chief Complaint: EDSubstanceAbuse Stated Complaint: SICK/INTOXICATED PER PT Time Seen by Provider: 05/13/19 14:01 Hx Obtained From: Patient ?: No Ingestion History: Type/Name Of Drug - alcohol, Amount Ingested - unknown Overdose Characteristics: Oral Timing Of Abuse: Daily Severity Initially: Severe Severity Currently: Severe Character: Depressed, Anxious Aggravating Factor(s): Nothing Alleviating Factor(s): Nothing Associated Signs And Symptoms: Social Withdrawal, Social Isolation Related Hx: Drug/Alcohol Last Used @ - 10 hours prior to arrival - Allergies/Home Medications Allergies/Adverse Reactions: Allergies Allergy/AdvReac Type Severity Reaction Status Date / Time No Known Allergies Allergy Verified 05/13/19 13:36 PMH/Surg Hx/FS Hx/Imm Hx Previously Healthy: Yes Endocrine/Hematology History: Reports: Hx Anemia - SLIGHT PER PATIENT Denies: Hx Anticoagulant Therapy, Hx Diabetes, Hx Thyroid Disease Cardiovascular History: Reports: Hx Hypercholesterolemia, Hx Hypertension - ON MEDICATION FOR Denies: Hx Pacemaker/ICD Respiratory History: Denies: Hx Asthma, Hx Chronic Obstructive Pulmonary Disease (COPD) GI History: Reports: Other GI Disorders - LIVER ENZYMES ELEVATED AT TIMES// CHRONIC PANCREATITIS-STATES NO PROB RECENT History: Denies: Hx Renal Disease Musculoskeletal History: Reports: Hx Arthritis - HIPS, Hx Bursitis - b/l hip surgeries, Hx Gout Sensory History: Reports: Hx Hearing Problem - tinnitus Denies: Hx Contacts or Glasses, Hx Hearing Aid Opthamlomology History: Denies: Hx Contacts or Glasses Neurological History: Reports: Hx Migraine - states that she can tap her right mu-ism to alleviate, Other Neuro Impairments/Disorders - 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 ANAL FISSURE. ECTOPIC . COLONOSCOPIES X 2- 2013 & 2018 FOR POLYPS Hx Anesthesia Reactions: No - Immunization History Date of Tetanus Vaccine: unsure Date of Influenza Vaccine: fall 2012 Hx Pertussis Vaccination: No Immunizations Up to Date: Yes Infectious Disease History: No Infectious Disease History: Denies: Hx Clostridium Difficile, Hx Hepatitis, Hx Human Immunodeficiency Virus (HIV), Hx of Known/Suspected MRSA, Hx Shingles, Hx Tuberculosis, History Other Infectious Disease, Traveled Outside the in Last 30 Days - Family History Known Family History: Positive: Diabetes Negative: Hypertension - Social History Occupation: Unemployed Lives: Alone Alcohol Use: Daily Alcohol Amount: several 10% beers daily Hx Substance Use: Yes Substance Use Type: Reports: Prescribed - overdose history of ativan Substance Use Comment - Amount & Last Used: prescribed benzodiazapines Hx Tobacco Use: Yes Smoking Status (MU): Former Smoker Type: Cigarettes Amount Used/How Often: 2-7 CIGARETTES PER DAY OR NONE X OFF AND ON SOCIALLY ~15 YEARS AGO Have You Smoked in the Last Year: No Review of Systems Negative: Fever, Chills, Fatigue, Skin Diaphoresis Negative: Chest Pain Negative: Shortness Of Breath, Cough Positive: Nausea. Negative: Abdominal Pain, Vomiting, Diarrhea Genitourinary: Negative Positive: no symptoms reported, see HPI Negative: Arthralgia, Myalgia Negative: Headache, Weakness, Numbness Positive: Anxious All Other Systems Reviewed And Are Negative: Yes Physical Exam Triage Information Reviewed: Yes Vital Signs On Initial Exam: Initial Vitals Temp Pulse Resp BP Pulse Ox 99.1 F 98 16 145/97 98 05/13/19 13:31 05/13/19 13:31 05/13/19 13:31 05/13/19 13:31 05/13/19 13:31 Vital Signs Reviewed: Yes Appearance: Positive: Pain Distress Skin: Positive: Skin Color Reflects Adequate Perfusion Head/Face: Positive: Normal Head/Face Inspection Eyes: Positive: EOMI, Conjunctiva Clear Neck: Positive: Supple, No Lymphadenopathy Respiratory/Lung Sounds: Positive: Clear to Auscultation Cardiovascular: Positive: RRR, Pulses are Symmetrical in both Upper and Lower Extremities Musculoskeletal: Positive: Strength/ROM Intact Neurological: Positive: Speech Normal Psychiatric: Positive: Affect/Mood Appropriate AVPU Assessment: Alert Diagnostics - Vital Signs Vital Signs Temp Pulse Resp BP Pulse Ox 05/13/19 16:09 12 136/95 05/13/19 16:00 18 05/13/19 15:39 15 144/104 05/13/19 15:10 16 154/99 05/13/19 14:39 7 145/97 05/13/19 14:09 93 10 163/111 96 05/13/19 13:31 99.1 F 98 16 145/97 98 - Laboratory Lab Results: Lab Results 05/13/19 05/13/19 05/13/19 Range/Units 13:42 13:42 14:20 WBC 4.0 (3.5-10.8) 10^3/uL RBC 3.77 (3.70-4.87) 10^6 /uL Hgb 13.0 (12.0-16.0) g/dL Hct 38 (35-47) % MCV 100 H (80-97) fL MCH 35 H (27-31) pg MCHC 35 (31-36) g/dL RDW 18 H (10-15) % Plt Count 173 (150-450) 10^3/uL MPV 6.5 L (7.4-10.4) fL Neut % (Auto) 47.7 % Lymph % (Auto) 27.0 % [place] % (Auto) 23.0 % Eos % (Auto) 0.3 % Baso % (Auto) 2.0 % Absolute Neuts (auto) 1.9 (1.5-7.7) 10^3/ul Absolute Lymphs (auto) 1.1 (1.0-4.8) 10^3/ul Absolute Monos (auto) 0.9 H (0-0.8) 10^3/ul Absolute Eos (auto) 0.0 (0-0.6) 10^3/ul Absolute Basos (auto) 0.1 (0-0.2) 10^3/ul Absolute Nucleated RBC 0.0 10^3/ul Nucleated RBC % 0.3 Sodium (135-145) mmol/L Potassium (3.5-5.0) mmol/L Chloride (101-111) mmol/L Carbon Dioxide (22-32) mmol/L Anion Gap (2-11) mmol/L BUN (6-24) mg/dL Creatinine (0.51-0.95) mg/dL Est GFR ( Amer) (>60) Est GFR (Non-Af Amer) (>60) BUN/Creatinine Ratio (8-20) Glucose (70-100) mg/dL Calcium (8.6-10.3) mg/dL Total Bilirubin (0.2-1.0) mg/dL AST (13-39) U/L ALT (7-52) U/L Alkaline Phosphatase (34-104) U/L Total Protein (6.4-8.9) g/dL Albumin (3.2-5.2) g/dL Globulin (2-4) g/dL Albumin/Globulin Ratio (1-3) Urine Color Straw Urine Appearance Clear Urine pH 6.0 (5-9) Ur Specific [place] 1.003 L (1.010-1.030) Urine Protein 1+(30 mg/dl) A (Negative) Urine Ketones Negative (Negative) Urine Blood 2+ A (Negative) Urine Nitrate Negative (Negative) Urine Bilirubin Negative (Negative) Urine Urobilinogen Negative (Negative) Ur Leukocyte Esterase Negative (Negative) Urine WBC (Auto) Absent (Absent) Urine RBC (Auto) 1+(3-5/hpf) A (Absent) Ur Squamous Epith Cells Present A (Absent) Urine Bacteria Absent (Absent) Urine Glucose Negative (Negative) Urine Opiates Screen None detected (None Detect) Ur Barbiturates Screen None detected (None Detect) Ur Phencyclidine Scrn None detected (None Detect) Ur Amphetamines Screen None detected (None Detect) U Benzodiazepines Scrn None detected (None Detect) Urine Cocaine Screen None detected (None Detect) U Cannabinoids Screen None detected (None Detect) Serum Alcohol (<10) mg/dL 05/13/19 Range/Units 14:20 WBC (3.5-10.8) 10^3/uL RBC (3.70-4.87) 10^6 /uL Hgb (12.0-16.0) g/dL Hct (35-47) % MCV (80-97) fL MCH (27-31) pg MCHC (31-36) g/dL RDW (10-15) % Plt Count (150-450) 10^3/uL MPV (7.4-10.4) fL Neut % (Auto) % Lymph % (Auto) % [place] % (Auto) % Eos % (Auto) % Baso % (Auto) % Absolute Neuts (auto) (1.5-7.7) 10^3/ul Absolute Lymphs (auto) (1.0-4.8) 10^3/ul Absolute Monos (auto) (0-0.8) 10^3/ul Absolute Eos (auto) (0-0.6) 10^3/ul Absolute Basos (auto) (0-0.2) 10^3/ul Absolute Nucleated RBC 10^3/ul Nucleated RBC % Sodium 139 (135-145) mmol/L Potassium 3.4 L (3.5-5.0) mmol/L Chloride 99 L (101-111) mmol/L Carbon Dioxide 21 L (22-32) mmol/L Anion Gap 19 H (2-11) mmol/L BUN 3 L (6-24) mg/dL Creatinine 0.65 (0.51-0.95) mg/dL Est GFR ( Amer) 117.7 (>60) Est GFR (Non-Af Amer) 97.3 (>60) BUN/Creatinine Ratio 4.6 L (8-20) Glucose 130 H (70-100) mg/dL Calcium 9.5 (8.6-10.3) mg/dL Total Bilirubin 0.60 (0.2-1.0) mg/dL AST 150 H (13-39) U/L ALT 103 H (7-52) U/L Alkaline Phosphatase 188 H (34-104) U/L Total Protein 9.1 H (6.4-8.9) g/dL Albumin 4.9 (3.2-5.2) g/dL Globulin 4.2 H (2-4) g/dL Albumin/Globulin Ratio 1.2 (1-3) Urine Color Urine Appearance Urine pH (5-9) Ur Specific [place] (1.010-1.030) Urine Protein (Negative) Urine Ketones (Negative) Urine Blood (Negative) Urine Nitrate (Negative) Urine Bilirubin (Negative) Urine Urobilinogen (Negative) Ur Leukocyte Esterase (Negative) Urine WBC (Auto) (Absent) Urine RBC (Auto) (Absent) Ur Squamous Epith Cells (Absent) Urine Bacteria (Absent) Urine Glucose (Negative) Urine Opiates Screen (None Detect) Ur Barbiturates Screen (None Detect) Ur Phencyclidine Scrn (None Detect) Ur Amphetamines Screen (None Detect) U Benzodiazepines Scrn (None Detect) Urine Cocaine Screen (None Detect) U Cannabinoids Screen (None Detect) Serum Alcohol 441 H* (<10) mg/dL Result Diagrams: 05/14/19 05:15 05/14/19 05:15 Lab Statement: Any lab studies that have been ordered have been reviewed, and results considered in the medical decision making process. Re-Evaluation - Re-Evaluation First Eval Re-Evaluation Time: 19:08 Change: Worse Comment: patient now complaining of chest pain, is reproducible, no fam hx of cardic disease. will get ekg and troponin Second Eval Re-Evaluation Time: 20:27 Comment: wam score now 8 and is at 300 alcohol. Course/Dx - Course Course Of Treatment: During this course of treatment, the patient is evaluated for alcohol intoxication and request for detox. Alcohol level is 441. Elevated liver enzymes. Patient appears anxious, but no other signs of detox on arrival. Patient continues to request ativan. Discussed with Dr. Walker. Called hospitalist service for admission d/t hx of seizures. At this point, we will await any detox symptoms in the ED and further assess the need for admission. Discussed with SAHARA Gannon who states [employer] and [facility] will accept if patient has a ride. Discussed situation with patients friend who is unable to give her a ride at this time. Called [facility]. Boby Gomez states they would offer counseling services unless patient has any medical need. Patient will stay in ED at this time and we will continue to monitor for WD activity. Banana bag given. Discussed situation with friend, Edgar, who is unable to come take her to detox at this time. WAM = 6. - Diagnoses Differential Diagnosis/HQI/PQRI: Positive: Alcohol Abuse, Alcohol Withdrawal, Anxiety, Delirium Tremens Provider Diagnoses: Alcohol withdrawal Discharge ED - Sign-Out/Discharge Documenting (check all that apply): Sign-Out Patient Signing out patient TO: Renuka Dubois All imaging exams completed and their final reports reviewed: No Studies - Discharge Plan Condition: Fair Disposition: ADMITTED TO [facility] - Billing Disposition and Condition Condition: FAIR Disposition: Admitted to [facility]
--- NOTE | 2019-05-13 18:04 | ED ---
Progress - EKG/XRAY/CT Comments: sinus tachycardia Re-Evaluation - Re-Evaluation First Eval Re-Evaluation Time: 19:08 Change: Worse Comment: patient now complaining of chest pain, is reproducible, no fam hx of cardic disease. will get ekg and troponin Second Eval Re-Evaluation Time: 20:27 Comment: wam score now 8 and is at 300 alcohol. Course/Dx - Course Course Of Treatment: During this course of treatment, the patient is evaluated for alcohol intoxication and request for detox. Alcohol level is 441. Elevated liver enzymes. Patient appears anxious, but no other signs of detox on arrival. Patient continues to request ativan. Discussed with Dr. Walker. Called hospitalist service for admission d/t hx of seizures. At this point, we will await any detox symptoms in the ED and further assess the need for admission. Discussed with SAHARA Gannon who states [facility] will accept if patient has a ride. Discussed situation with patients friend who is unable to give her a ride at this time. Called [facility]. Boby Gomez states they would offer counseling services unless patient has any medical need. Patient will stay in ED at this time and we will continue to monitor for WD activity. Banana bag given. Discussed situation with friend, Edgar, who is unable to come take her to detox at this time. WAM = 6. wam increased to 8 so will start giving ativan. troponin zero. ekg sinus tachycardia. discussed with dr garduno who agrees to admit. - Diagnoses Provider Diagnoses: Alcohol withdrawal Discharge ED - Sign-Out/Discharge Documenting (check all that apply): Receiving Sign-Out Receiving patient FROM: Nohemi Cornejo - Discharge Plan Referrals: No Primary Care Phys,NOPCP [Primary Care Provider] -
[2019-05-13] MEDS ORDERED: Ketorolac INJ* 30 MG/ML 1 ML VIAL IV PUSH ONE (19:08)
[2019-05-13] MEDS ORDERED: Lorazepam PYXIS KEY PRN (20:00)
[2019-05-13] MEDS: LORazepam INJ* 2 MG/ML 1 ML VIAL IV PUSH PRN ×3 (20:13→23:14)
[2019-05-13] MEDS: NS 0.9% 1000 ML** 1,000 ML IV SCH (22:16)
[2019-05-13] MEDS: Heparin VIAL(*) 5000 UNITS/ML VIAL (FIVE THOUSAND) SUBCUT SCH (23:01)
[2019-05-14] MEDS: LORazepam INJ* 2 MG/ML 1 ML VIAL IV PUSH PRN ×9 (01:03→19:36)
--- NOTE | 2019-05-14 03:17 | HP ---
History of Present Illness - History of Present Illness Reason for Visit: alcohol intoxication History of Present Illness: 49 yo female with history of alcoholism, withdrawal seizures and depresion presented today for detox. She would like to ultimately be discharged to a rehab facility, specifically [facility]. She has been drinking beers for a couple of months now. She feels depressed and overwhelmed but denies suicidal ideations. She has a hx of polysubstance abuse and denies any recent use. - Past Medical History Psych: Anxiety, Depression - Past Social History Smoke: No Alcohol: Heavy Drugs: Cocaine, Heroin Review of Systems - Measurements Intake and Output: Intake and Output Last 24 Hours 05/11/19 05/12/19 05/13/19 05/14/19 06:59 06:59 06:59 06:59 Intake Total 1000 Balance 1000 Weight 162 lb 3.2 oz Intake: IV Fluids 1000 - Review of Systems Constitutional Symptoms: Positive: Fatigue Dermatology: Negative: Normal, Rash, Skin Lesions, Cancer, Skin Lumps, Other HEENT: Negative: Normal, Change in Hearing, Vertigo, Dental Problems, Tinnitus, Sinus Problem, Other Eyes: Negative: Normal, Change in Vision, Double Vision, Eye Pain, Glaucoma, Cataract, Contacts or Glasses, Other Thyroid: Negative: Normal, Goiter, Thyroid Nodule, Cold Intolerance, Heat Intolerance , Sweatiness, Tremor, Frequent Defecation, Constipation, Palpitations, Primary Hypothyroidism, Primary Hyperthyroidism, Weight Loss, Weight Gain, Change in Skin/Hair, Change in Menstruation, Radiation Exposure, Other Pulmonary: Negative: Normal, Cough, Sputum, Hemoptysis, Wheezing, Respiratory Distress, Shortness of Breath, COPD, Asthma, Exercise Intolerance, Home Oxygen, Other Cardiology: Negative: Normal, Chest Pain, Shortness of Breath, Palpitations, Swelling of Ankles, Peripheral Vascular Dis, Edema, Faintness, Syncope, Claudication, Proximal NocturnalDyspnea, Orthopnoea, Other Gastroenterology: Negative: Normal, Abdominal Pain, Nausea, Vomiting, Anorexia, Indigestion, Difficulty Swallowing, Heartburn, Constipation, Diarrhea, Blood in Stools, Change in Bowel Habits, Haematemesis, Melena, Other Musculoskeletal: Negative: Joint Pain, Joint Stiffness, Arthritis, Osteoporosis, Low Back Pain , Sciatica, Joint Deformities, Kyphoscoliosis, Other Endocrinology: Negative: Normal, Thyroid Problems, Adrenal Problems, Gonadal Problems, Family Hx Endocrine Disorders, Obesity, Diabetes Mellitus, Hyperglycemia, Hx Hypoglycemia, Diabetic Foot Ulcers, Calluses, Hirsutism, Menstrual Abnormalities , Polydipsia, Polyuria, Gonadal Problems, Gynecomastia, Pituitary disease, Other Hematologic/Lymphatic: Negative: Anemia, Easy Bruising, Hx Leukemia, Hx Lymphoma, Use of Anticoagulant, Use of Antiplatelet Drugs, Other Neurology: Negative: Normal, Headache, Migraines, Change in Vision, Diplopia, Dizziness , Change in Balancing, Change in Coordination, Change in Memory, Change in Speech, Change in Sphincter Function, Change in Walking, Numbness\Paresthesiae, Unexplained Weakness, Hx of Stroke\TIA, Hx of Seizures, Other Psychiatry: Positive: Depressed Mood, Tearfulness Objective Active Medications: Heparin Sodium (Porcine) (Heparin Vial(*)) 5,000 units SUBCUT Q8HR [facility] Last Admin: 05/13/19 23:01 Dose: 5,000 units Sodium Chloride (Ns 0.9% 1000 Ml) 1,000 mls @ 125 mls/hr IV Q8H [facility] Last Admin: 05/13/19 22:16 Dose: 125 mls/hr Magnesium Sulfate/Dextrose (Magnesium Sulfate 1 Gm Iv*) 1 gm in 100 mls @ 200 mls/hr IV ONCE ONE Stop: 05/14/19 03:42 Lorazepam (Ativan Inj*) 0 - 4 mg IV PUSH Q2H PRN; Protocol PRN Reason: AGITATION Last Admin: 05/14/19 03:10 Dose: 2 mg Miscellaneous (Ativan Pyxis Cruz) 1 ea N/A .ATIVAN IV CRUZ PRN PRN Reason: PYXIS CRUZ Vital Signs - 8 hr 05/13/19 05/13/19 05/13/19 19:40 19:45 20:00 Temperature Pulse Rate 111 Respiratory 17 Rate Blood Pressure 142/96 159/97 (mmHg) O2 Sat by Pulse 98 Oximetry 05/13/19 05/13/19 05/13/19 20:10 20:13 20:40 Temperature Pulse Rate 100 Respiratory 17 24 17 Rate Blood Pressure 153/101 166/101 (mmHg) O2 Sat by Pulse 94 Oximetry 05/13/19 05/13/19 05/13/19 21:00 21:09 21:18 Temperature Pulse Rate 104 Respiratory 20 13 17 Rate Blood Pressure 147/103 (mmHg) O2 Sat by Pulse 90 Oximetry 05/13/19 05/13/19 05/13/19 21:39 22:00 22:45 Temperature 98.3 F Pulse Rate 123 130 Respiratory 12 18 17 Rate Blood Pressure 147/103 146/90 (mmHg) O2 Sat by Pulse 98 99 Oximetry 05/13/19 05/14/19 05/14/19 23:14 00:10 01:00 Temperature 98.4 F Pulse Rate 114 Respiratory 18 18 18 Rate Blood Pressure 157/94 (mmHg) O2 Sat by Pulse 96 Oximetry 05/14/19 05/14/19 05/14/19 01:03 02:05 03:10 Temperature Pulse Rate Respiratory 17 18 18 Rate Blood Pressure (mmHg) O2 Sat by Pulse Oximetry Oxygen Devices in Use Now: None, Nasal Cannula Appearance: anxious, tearful Eyes: No Scleral Icterus, PERRLA Neck: NL Appearance and Movements; NL JVP Respiratory: Symmetrical Chest Expansion and Respiratory Effort, Clear to Auscultation, Clear to Percussion Cardiovascular: NL Sounds; No Murmurs; No JVD, No Edema Abdominal: NL Sounds; No Tenderness; No Distention Lymphatic: No Cervical Adenopathy Skin: No Rash or Ulcers Neurological: Alert and Oriented x 3, NL Muscle Strength and Tone, - - tremors Result Diagrams: 05/13/19 14:20 05/13/19 14:20 Additional Lab and Data: Lab Results 05/13/19 05/13/19 05/13/19 Range/Units 13:42 13:42 14:20 WBC 4.0 (3.5-10.8) 10^3/uL RBC 3.77 (3.70-4.87) 10^6 /uL Hgb 13.0 (12.0-16.0) g/dL Hct 38 (35-47) % MCV 100 H (80-97) fL MCH 35 H (27-31) pg MCHC 35 (31-36) g/dL RDW 18 H (10-15) % Plt Count 173 (150-450) 10^3/uL MPV 6.5 L (7.4-10.4) fL Neut % (Auto) 47.7 % Lymph % (Auto) 27.0 % [place] % (Auto) 23.0 % Eos % (Auto) 0.3 % Baso % (Auto) 2.0 % Absolute Neuts (auto) 1.9 (1.5-7.7) 10^3/ul Absolute Lymphs (auto) 1.1 (1.0-4.8) 10^3/ul Absolute Monos (auto) 0.9 H (0-0.8) 10^3/ul Absolute Eos (auto) 0.0 (0-0.6) 10^3/ul Absolute Basos (auto) 0.1 (0-0.2) 10^3/ul Absolute Nucleated RBC 0.0 10^3/ul Nucleated RBC % 0.3 Sodium (135-145) mmol/L Potassium (3.5-5.0) mmol/L Chloride (101-111) mmol/L Carbon Dioxide (22-32) mmol/L Anion Gap (2-11) mmol/L BUN (6-24) mg/dL Creatinine (0.51-0.95) mg/dL Est GFR ( Amer) (>60) Est GFR (Non-Af Amer) (>60) BUN/Creatinine Ratio (8-20) Glucose (70-100) mg/dL Calcium (8.6-10.3) mg/dL Total Bilirubin (0.2-1.0) mg/dL AST (13-39) U/L ALT (7-52) U/L Alkaline Phosphatase (34-104) U/L Total Protein (6.4-8.9) g/dL Albumin (3.2-5.2) g/dL Globulin (2-4) g/dL Albumin/Globulin Ratio (1-3) Urine Color Straw Urine Appearance Clear Urine pH 6.0 (5-9) Ur Specific [place] 1.003 L (1.010-1.030) Urine Protein 1+(30 mg/dl) A (Negative) Urine Ketones Negative (Negative) Urine Blood 2+ A (Negative) Urine Nitrate Negative (Negative) Urine Bilirubin Negative (Negative) Urine Urobilinogen Negative (Negative) Ur Leukocyte Esterase Negative (Negative) Urine WBC (Auto) Absent (Absent) Urine RBC (Auto) 1+(3-5/hpf) A (Absent) Ur Squamous Epith Cells Present A (Absent) Urine Bacteria Absent (Absent) Urine Glucose Negative (Negative) Urine Opiates Screen None detected (None Detect) Ur Barbiturates Screen None detected (None Detect) Ur Phencyclidine Scrn None detected (None Detect) Ur Amphetamines Screen None detected (None Detect) U Benzodiazepines Scrn None detected (None Detect) Urine Cocaine Screen None detected (None Detect) U Cannabinoids Screen None detected (None Detect) Serum Alcohol (<10) mg/dL 05/13/19 Range/Units 14:20 WBC (3.5-10.8) 10^3/uL RBC (3.70-4.87) 10^6 /uL Hgb (12.0-16.0) g/dL Hct (35-47) % MCV (80-97) fL MCH (27-31) pg MCHC (31-36) g/dL RDW (10-15) % Plt Count (150-450) 10^3/uL MPV (7.4-10.4) fL Neut % (Auto) % Lymph % (Auto) % [place] % (Auto) % Eos % (Auto) % Baso % (Auto) % Absolute Neuts (auto) (1.5-7.7) 10^3/ul Absolute Lymphs (auto) (1.0-4.8) 10^3/ul Absolute Monos (auto) (0-0.8) 10^3/ul Absolute Eos (auto) (0-0.6) 10^3/ul Absolute Basos (auto) (0-0.2) 10^3/ul Absolute Nucleated RBC 10^3/ul Nucleated RBC % Sodium 139 (135-145) mmol/L Potassium 3.4 L (3.5-5.0) mmol/L Chloride 99 L (101-111) mmol/L Carbon Dioxide 21 L (22-32) mmol/L Anion Gap 19 H (2-11) mmol/L BUN 3 L (6-24) mg/dL Creatinine 0.65 (0.51-0.95) mg/dL Est GFR ( Amer) 117.7 (>60) Est GFR (Non-Af Amer) 97.3 (>60) BUN/Creatinine Ratio 4.6 L (8-20) Glucose 130 H (70-100) mg/dL Calcium 9.5 (8.6-10.3) mg/dL Total Bilirubin 0.60 (0.2-1.0) mg/dL AST 150 H (13-39) U/L ALT 103 H (7-52) U/L Alkaline Phosphatase 188 H (34-104) U/L Total Protein 9.1 H (6.4-8.9) g/dL Albumin 4.9 (3.2-5.2) g/dL Globulin 4.2 H (2-4) g/dL Albumin/Globulin Ratio 1.2 (1-3) Urine Color Urine Appearance Urine pH (5-9) Ur Specific [place] (1.010-1.030) Urine Protein (Negative) Urine Ketones (Negative) Urine Blood (Negative) Urine Nitrate (Negative) Urine Bilirubin (Negative) Urine Urobilinogen (Negative) Ur Leukocyte Esterase (Negative) Urine WBC (Auto) (Absent) Urine RBC (Auto) (Absent) Ur Squamous Epith Cells (Absent) Urine Bacteria (Absent) Urine Glucose (Negative) Urine Opiates Screen (None Detect) Ur Barbiturates Screen (None Detect) Ur Phencyclidine Scrn (None Detect) Ur Amphetamines Screen (None Detect) U Benzodiazepines Scrn (None Detect) Urine Cocaine Screen (None Detect) U Cannabinoids Screen (None Detect) Serum Alcohol 441 H* (<10) mg/dL Assess/Plan/Problems-Billing Assessment: - Patient Problems (1) Alcohol abuse Current Visit: No Status: Acute Code(s): F10.10 - ALCOHOL ABUSE, UNCOMPLICATED SNOMED Code(s): 99158476 Comment: here for withdrawal and ultimately to be discharged to a rehab center banana bag in the ED ROXANN KENNEY protocol hx of seizures social security assessor consult electrolyte replacements (2) Full code status Current Visit: Yes Status: Acute Code(s): Z78.9 - OTHER SPECIFIED HEALTH STATUS SNOMED Code(s): 350087980 (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
[2019-05-14] MEDS ORDERED: Magnesium Sulfate 1 GM IV* 1 GM/100 ML BAG IV ONE (04:00)
[2019-05-14] MEDS: Heparin VIAL(*) 5000 UNITS/ML VIAL (FIVE THOUSAND) SUBCUT SCH ×3 (05:22→21:05)
[2019-05-14 05:44] LABS: ABS Lymphocytes 0.7 10^3/ul (1.0-4.8); ABS Monocytes 0.5 10^3/ul (0-0.8); ABS Neutrophils 3.5 10^3/ul (1.5-7.7); Eosinophil % 0.2 %; Hematocrit 34 % (35-47); Hemoglobin 11.9 g/dL (12.0-16.0); Lymphocyte % 14.8 %; Mean Corpuscular HGB Conc 35 g/dL (31-36); Mean Corpuscular Hemoglobin 35 pg (27-31); Mean Corpuscular Volume 101 fL (80-97); Mean Platelet Volume 7.2 fL (7.4-10.4); Nucleated Red Blood Cells % 0.1; Platelet Count 142 10^3/uL (150-450); Red Blood Count 3.38 10^6 /uL (3.70-4.87); Red Cell Distribution Width 18 % (10-15); White Blood Count 4.7 10^3/uL (3.5-10.8)
[2019-05-14 06:00] LABS: Albumin 4.6 g/dL (3.2-5.2); Albumin/Globulin Ratio 1.2 (1-3); BUN/Creatinine Ratio 6.1 (8-20); EGFR African American 115.2 (>60); EGFR Non-African American 95.2 (>60); Globulin 3.7 g/dL (2-4); Total Bilirubin 1.2 mg/dL (0.2-1.0); Total Protein 8.3 g/dL (6.4-8.9)
[2019-05-14] MEDS ORDERED: Ondansetron INJ* 2 MG/ML VIAL IV ONE (06:00)
[2019-05-14] MEDS: NS 0.9% 1000 ML** 1,000 ML IV SCH ×2 (06:38→17:59)
--- NOTE | 2019-05-14 07:36 | PN ---
Objective Active Medications: Heparin Sodium (Porcine) (Heparin Vial(*)) 5,000 units SUBCUT Q8HR [facility] Last Admin: 05/14/19 05:22 Dose: 5,000 units Sodium Chloride (Ns 0.9% 1000 Ml) 1,000 mls @ 125 mls/hr IV Q8H [facility] Last Admin: 05/14/19 06:38 Dose: 125 mls/hr Lorazepam (Ativan Inj*) 0 - 4 mg IV PUSH Q2H PRN; Protocol PRN Reason: AGITATION Last Admin: 05/14/19 07:20 Dose: 2 mg Miscellaneous (Ativan Pyxis Cruz) 1 ea N/A .ATIVAN IV CRUZ PRN PRN Reason: PYXIS CRUZ Vital Signs - 8 hr 05/14/19 05/14/19 05/14/19 00:10 01:00 01:03 Temperature 98.4 F Pulse Rate 114 Respiratory 18 18 17 Rate Blood Pressure 157/94 (mmHg) O2 Sat by Pulse 96 Oximetry 05/14/19 05/14/19 05/14/19 02:05 03:04 03:10 Temperature 98 F Pulse Rate 124 Respiratory 18 18 18 Rate Blood Pressure 154/85 (mmHg) O2 Sat by Pulse 98 Oximetry 05/14/19 05/14/19 05/14/19 03:28 04:10 05:08 Temperature 98.4 F Pulse Rate 125 Respiratory 18 18 18 Rate Blood Pressure 161/107 (mmHg) O2 Sat by Pulse 99 Oximetry 05/14/19 05/14/19 05/14/19 05:20 06:39 07:08 Temperature 99 F Pulse Rate 125 Respiratory 17 18 22 Rate Blood Pressure 147/91 (mmHg) O2 Sat by Pulse 99 Oximetry 05/14/19 07:20 Temperature Pulse Rate Respiratory 20 Rate Blood Pressure (mmHg) O2 Sat by Pulse Oximetry Oxygen Devices in Use Now: None, Nasal Cannula Result Diagrams: 05/14/19 05:15 05/14/19 05:15 Additional Lab and Data: Lab Results 05/13/19 05/13/19 05/13/19 Range/Units 13:42 13:42 14:20 WBC 4.0 (3.5-10.8) 10^3/uL RBC 3.77 (3.70-4.87) 10^6 /uL Hgb 13.0 (12.0-16.0) g/dL Hct 38 (35-47) % MCV 100 H (80-97) fL MCH 35 H (27-31) pg MCHC 35 (31-36) g/dL RDW 18 H (10-15) % Plt Count 173 (150-450) 10^3/uL MPV 6.5 L (7.4-10.4) fL Neut % (Auto) 47.7 % Lymph % (Auto) 27.0 % [place] % (Auto) 23.0 % Eos % (Auto) 0.3 % Baso % (Auto) 2.0 % Absolute Neuts (auto) 1.9 (1.5-7.7) 10^3/ul Absolute Lymphs (auto) 1.1 (1.0-4.8) 10^3/ul Absolute Monos (auto) 0.9 H (0-0.8) 10^3/ul Absolute Eos (auto) 0.0 (0-0.6) 10^3/ul Absolute Basos (auto) 0.1 (0-0.2) 10^3/ul Absolute Nucleated RBC 0.0 10^3/ul Nucleated RBC % 0.3 Sodium (135-145) mmol/L Potassium (3.5-5.0) mmol/L Chloride (101-111) mmol/L Carbon Dioxide (22-32) mmol/L Anion Gap (2-11) mmol/L BUN (6-24) mg/dL Creatinine (0.51-0.95) mg/dL Est GFR ( Amer) (>60) Est GFR (Non-Af Amer) (>60) BUN/Creatinine Ratio (8-20) Glucose (70-100) mg/dL Calcium (8.6-10.3) mg/dL Total Bilirubin (0.2-1.0) mg/dL AST (13-39) U/L ALT (7-52) U/L Alkaline Phosphatase (34-104) U/L Total Protein (6.4-8.9) g/dL Albumin (3.2-5.2) g/dL Globulin (2-4) g/dL Albumin/Globulin Ratio (1-3) Urine Color Straw Urine Appearance Clear Urine pH 6.0 (5-9) Ur Specific [place] 1.003 L (1.010-1.030) Urine Protein 1+(30 mg/dl) A (Negative) Urine Ketones Negative (Negative) Urine Blood 2+ A (Negative) Urine Nitrate Negative (Negative) Urine Bilirubin Negative (Negative) Urine Urobilinogen Negative (Negative) Ur Leukocyte Esterase Negative (Negative) Urine WBC (Auto) Absent (Absent) Urine RBC (Auto) 1+(3-5/hpf) A (Absent) Ur Squamous Epith Cells Present A (Absent) Urine Bacteria Absent (Absent) Urine Glucose Negative (Negative) Urine Opiates Screen None detected (None Detect) Ur Barbiturates Screen None detected (None Detect) Ur Phencyclidine Scrn None detected (None Detect) Ur Amphetamines Screen None detected (None Detect) U Benzodiazepines Scrn None detected (None Detect) Urine Cocaine Screen None detected (None Detect) U Cannabinoids Screen None detected (None Detect) Serum Alcohol (<10) mg/dL 05/13/19 Range/Units 14:20 WBC (3.5-10.8) 10^3/uL RBC (3.70-4.87) 10^6 /uL Hgb (12.0-16.0) g/dL Hct (35-47) % MCV (80-97) fL MCH (27-31) pg MCHC (31-36) g/dL RDW (10-15) % Plt Count (150-450) 10^3/uL MPV (7.4-10.4) fL Neut % (Auto) % Lymph % (Auto) % [place] % (Auto) % Eos % (Auto) % Baso % (Auto) % Absolute Neuts (auto) (1.5-7.7) 10^3/ul Absolute Lymphs (auto) (1.0-4.8) 10^3/ul Absolute Monos (auto) (0-0.8) 10^3/ul Absolute Eos (auto) (0-0.6) 10^3/ul Absolute Basos (auto) (0-0.2) 10^3/ul Absolute Nucleated RBC 10^3/ul Nucleated RBC % Sodium 139 (135-145) mmol/L Potassium 3.4 L (3.5-5.0) mmol/L Chloride 99 L (101-111) mmol/L Carbon Dioxide 21 L (22-32) mmol/L Anion Gap 19 H (2-11) mmol/L BUN 3 L (6-24) mg/dL Creatinine 0.65 (0.51-0.95) mg/dL Est GFR ( Amer) 117.7 (>60) Est GFR (Non-Af Amer) 97.3 (>60) BUN/Creatinine Ratio 4.6 L (8-20) Glucose 130 H (70-100) mg/dL Calcium 9.5 (8.6-10.3) mg/dL Total Bilirubin 0.60 (0.2-1.0) mg/dL AST 150 H (13-39) U/L ALT 103 H (7-52) U/L Alkaline Phosphatase 188 H (34-104) U/L Total Protein 9.1 H (6.4-8.9) g/dL Albumin 4.9 (3.2-5.2) g/dL Globulin 4.2 H (2-4) g/dL Albumin/Globulin Ratio 1.2 (1-3) Urine Color Urine Appearance Urine pH (5-9) Ur Specific [place] (1.010-1.030) Urine Protein (Negative) Urine Ketones (Negative) Urine Blood (Negative) Urine Nitrate (Negative) Urine Bilirubin (Negative) Urine Urobilinogen (Negative) Ur Leukocyte Esterase (Negative) Urine WBC (Auto) (Absent) Urine RBC (Auto) (Absent) Ur Squamous Epith Cells (Absent) Urine Bacteria (Absent) Urine Glucose (Negative) Urine Opiates Screen (None Detect) Ur Barbiturates Screen (None Detect) Ur Phencyclidine Scrn (None Detect) Ur Amphetamines Screen (None Detect) U Benzodiazepines Scrn (None Detect) Urine Cocaine Screen (None Detect) U Cannabinoids Screen (None Detect) Serum Alcohol 441 H* (<10) mg/dL Assess/Plan/Problems-Billing Assessment:
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
[2019-05-14] MEDS ORDERED: Magnesium Sulfate 2 GM IV* 2 GM/50 ML BAG IVPB ONE (09:56)
[2019-05-14] MEDS ORDERED: diazePAM INJ* 5 MG/ML 2ML SYRINGE IV SCH (10:00)
[2019-05-14] MEDS ORDERED: Thiamine INJ* 100 MG/ML 2 ML VIAL IV SCH (10:00)
[2019-05-14] MEDS ORDERED: traZODone TAB* 100 MG PO PRN (10:02)
[2019-05-14] MEDS: Potassium Chlor TAB* 20 MEQ TAB.ER PO SCH ×2 (10:48→20:24)
[2019-05-14] MEDS: Folic Acid IV* 1 MG/0.2 ML SYRINGE IV SCH (10:49)
[2019-05-14] MEDS: Diazepam INJ CARPUJECT* 5 MG/ML IV SCH ×2 (10:57→19:26)
[2019-05-14] MEDS ORDERED: Ondansetron INJ* 2 MG/ML VIAL IV PRN (13:43)
[2019-05-14 14:16] LABS: ALT 117 U/L (7-52); Albumin 4.5 g/dL (3.2-5.2); Albumin/Globulin Ratio 1.3 (1-3); Alkaline Phosphatase 188 U/L (34-104); Amylase 59 U/L (29-103); Globulin 3.6 g/dL (2-4); Total Protein 8.1 g/dL (6.4-8.9)
[2019-05-14] MEDS: Thiamine IV 100 MG in NS 0.9% 50 ML Q24H IV SCH (15:48)
--- NOTE | 2019-05-14 16:14 | PN ---
Subjective Date of Service: 05/14/19 Interval History: HD 2 on 05/14 49 Y/O F with h/o alcohol use disorder, depression(with suicide attempt) presented with acute alcohol intoxication and in active withdrawal. Found to havehigh anion gap MA, transaminitis and microscopic hematuria. Scoring on WAM; responding to ativan and valium has tremor, palpitation and abdominal pain Objective Active Medications: Diazepam (Valium Carpuject*) 5 mg IV Q8H [facility] Stop: 05/15/19 02:01 Last Admin: 05/14/19 10:57 Dose: 5 mg Folic Acid (Folic Acid Iv 1 Mg*) 1 mg IV DAILY [facility] Last Admin: 05/14/19 10:49 Dose: 1 mg Heparin Sodium (Porcine) (Heparin Vial(*)) 5,000 units SUBCUT Q8HR [facility] Last Admin: 05/14/19 15:40 Dose: 5,000 units Sodium Chloride (Ns 0.9% 1000 Ml) 1,000 mls @ 125 mls/hr IV Q8H [facility] Last Admin: 05/14/19 06:38 Dose: 125 mls/hr Thiamine HCl 100 mg/ Sodium (Chloride) 51 mls @ 102 mls/hr IV Q24H [facility] Last Admin: 05/14/19 15:48 Dose: 102 mls/hr Lorazepam (Ativan Inj*) 0 - 4 mg IV PUSH Q2H PRN; Protocol PRN Reason: AGITATION Last Admin: 05/14/19 15:41 Dose: 1 mg Miscellaneous (Ativan Pyxis Kyle) 1 ea N/A .ATIVAN IV KYLE PRN PRN Reason: PYXIS KYLE Ondansetron HCl (Zofran Inj*) 4 mg IV Q6H PRN PRN Reason: NAUSEA Potassium Chloride (Klor Con Er Tab*) 40 meq PO BID [facility] Stop: 05/14/19 21:01 Last Admin: 05/14/19 10:48 Dose: 40 meq Trazodone HCl (Desyrel Tab*) 100 mg PO BEDTIME PRN PRN Reason: INSOMNIA Vital Signs - 8 hr 05/14/19 05/14/19 05/14/19 08:30 09:11 09:25 Temperature 98.2 F Pulse Rate 111 Respiratory 18 16 16 Rate Blood Pressure 160/100 (mmHg) O2 Sat by Pulse 99 Oximetry 05/14/19 05/14/19 05/14/19 10:57 11:00 11:23 Temperature 98.7 F Pulse Rate 114 Respiratory 18 20 16 Rate Blood Pressure 123/89 (mmHg) O2 Sat by Pulse 98 Oximetry 05/14/19 05/14/19 05/14/19 12:05 13:19 13:28 Temperature 97.9 F Pulse Rate 119 Respiratory 20 20 20 Rate Blood Pressure 158/102 (mmHg) O2 Sat by Pulse 99 Oximetry 05/14/19 05/14/19 05/14/19 13:37 13:44 15:15 Temperature 98.7 F Pulse Rate 111 Respiratory 20 20 20 Rate Blood Pressure 147/106 (mmHg) O2 Sat by Pulse 98 Oximetry 05/14/19 05/14/19 15:27 15:41 Temperature Pulse Rate Respiratory 18 16 Rate Blood Pressure (mmHg) O2 Sat by Pulse Oximetry Oxygen Devices in Use Now: None, Nasal Cannula Exam: Patient is lying on a bed with no acute respiratory distress. HEENT: Normocephalic and atraumatic Lungs: clear with no added sounds Heart: Rate is 110. S1/S2 heard with no murmur Abdomen: Soft, nondistended and nontender. Has bruise on hypogastric region Extremities: No swelling and cyanosis. Tremors on bilateral hands Neuro: Alert, oriented and coperative Result Diagrams: 05/14/19 05:15 05/14/19 05:15 Assess/Plan/Problems-Billing Assessment: 49 Y/O F with h/o alcohol use disorder, depression(with suicide attempt) presented with acute alcohol intoxication and in active withdrawal. Found to have high anion gap MA, transaminitis,microscopic hematuria and electrolyte abnormalities. - Patient Problems (1) High anion gap metabolic acidosis Current Visit: No Status: Acute Code(s): E87.2 - ACIDOSIS SNOMED Code(s): 10765381 Comment: -Resolved -could be from alcohol and from starvation ketoacidosis; however UA -ve for ketones -patient was not eating well in last few days. 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 (4) Depression Current Visit: Yes Status: Acute Code(s): F32.9 - MAJOR DEPRESSIVE DISORDER , SINGLE EPISODE, UNSPECIFIED SNOMED Code(s): 29323164 Comment: -Has history of depression and one suicide attempt which according to her was out of frustration -No active thought at present. -was on trazadone -used to be in benzos-had withdrawal seizure in past (5) Electrolyte abnormality Current Visit: Yes Status: Acute Code(s): E87.8 - OTH DISORDERS OF ELECTROLYTE AND FLUID BALANCE, NEC SNOMED Code(s): 158659118 Comment: -has low K and Mg -from alcohol and poor intake -repleting -will recheck tomorrow (6) Transaminitis Current Visit: Yes Status: Acute Code(s): R74.0 - NONSPEC ELEV OF LEVELS OF TRANSAMNS & LACTIC ACID DEHYDRGNSE SNOMED Code(s): 974879934 Comment: -High suspicion due to direct effects of ETOH intoxication -Continue to follow labs and consider other causes if does not resolve as ETOH withdrawal progresses (7) Microscopic hematuria Current Visit: Yes Status: Acute Code(s): R31.29 - OTHER MICROSCOPIC HEMATURIA SNOMED Code(s): 833130519 Comment: -abnormal UA - we will follow. (8) Substance use disorder Current Visit: Yes Status: Acute Code(s): F19.90 - OTHER PSYCHOACTIVE SUBSTANCE USE, UNSPECIFIED, UNCOMPLICATED SNOMED Code(s): 525726920 Comment: -has used cocaine and heroin in past (9) Anemia Current Visit: Yes Status: Acute Code(s): D64.9 - ANEMIA, UNSPECIFIED SNOMED Code(s): 356579442 Comment: -Macrocytic, hyperchromic High suspicion due to hemodilution following fluid administration - was not anemic on admission Consider that poor nutrition could also be a factor Continue to follow labs and consider other causes if does not resolve as ETOH withdrawal progresses (10) DVT prophylaxis Current Visit: No Status: Acute Code(s): RQP8247 - SNOMED Code(s): 760869758 Comment: -On heparin (11) Full code status Current Visit: Yes Status: Acute Code(s): Z78.9 - OTHER SPECIFIED HEALTH STATUS SNOMED Code(s): 769847517 Status and Disposition: Inpatient has got bed in [facility] in [place] Attending: Carissa Ross Attestation Documenting Resident: Roverto Anaya Supervising Physician: Carissa Ross Attending/Supervising Physician Comment: 49F PMH ETOH use d/o severe, PSA, anxiety, depression, hx of seizures in setting of benzo dependence and use d/o presented for inpatient detox, also with transaminitis and thrombocytopenia #ETOH/continue CIWA: Standing valium, will hold on librium until LFTS normalize #Transaminitis: Stable, CTM, likely all ETOH #Thrombocytopenia: Bone marrow suppression from EOTH #Mood d/o: Denies SI #DVT: Lovenox Plan for d/c to IP Rehab Attestation: This service has been performed in part by a resident under the direction of a teaching physician.I, Carissa Ross, performed the service, or was physically present during the critical, or kyle portions of the service, furnished by the resident. I participated in the management of the patient.
[2019-05-15] MEDS: NS 0.9% 1000 ML** 1,000 ML IV SCH ×2 (01:59→10:08)
[2019-05-15] MEDS: LORazepam INJ* 2 MG/ML 1 ML VIAL IV PUSH PRN ×8 (03:20→18:49)
[2019-05-15] MEDS: Heparin VIAL(*) 5000 UNITS/ML VIAL (FIVE THOUSAND) SUBCUT SCH ×3 (05:47→20:58)
--- NOTE | 2019-05-15 06:36 | PN ---
Subjective Date of Service: 05/15/19 Interval History: HD 3 on 05/15 49 Y/O F with h/o alcohol use disorder, depression(with suicide attempt) presented with acute alcohol intoxication and in active withdrawal. Found to have high anion gap MA, transaminitis and microscopic hematuria. Overnight-No acute events Vitals: stable; although hypertensive Has tremors, sweating and nausea Denies hallucinations and agitation Objective Active Medications: Folic Acid (Folic Acid Iv 1 Mg*) 1 mg IV DAILY [facility] Last Admin: 05/14/19 10:49 Dose: 1 mg Heparin Sodium (Porcine) (Heparin Vial(*)) 5,000 units SUBCUT Q8HR [facility] Last Admin: 05/15/19 05:47 Dose: 5,000 units Sodium Chloride (Ns 0.9% 1000 Ml) 1,000 mls @ 125 mls/hr IV Q8H [facility] Last Admin: 05/15/19 01:59 Dose: 125 mls/hr Thiamine HCl 100 mg/ Sodium (Chloride) 51 mls @ 102 mls/hr IV Q24H [facility] Last Admin: 05/14/19 15:48 Dose: 102 mls/hr Lorazepam (Ativan Inj*) 0 - 4 mg IV PUSH Q2H PRN; Protocol PRN Reason: AGITATION Last Admin: 05/15/19 05:57 Dose: 2 mg Miscellaneous (Ativan Pyxis Kyle) 1 ea N/A .ATIVAN IV KYLE PRN PRN Reason: PYXIS KYLE Ondansetron HCl (Zofran Inj*) 4 mg IV Q6H PRN PRN Reason: NAUSEA Trazodone HCl (Desyrel Tab*) 100 mg PO BEDTIME PRN PRN Reason: INSOMNIA Vital Signs - 8 hr 05/14/19 05/15/19 05/15/19 23:28 00:19 01:11 Temperature 98.2 F 98.2 F Pulse Rate 102 87 Respiratory 18 17 18 Rate Blood Pressure 160/93 146/87 (mmHg) O2 Sat by Pulse 98 96 Oximetry 05/15/19 05/15/19 05/15/19 03:06 03:15 03:20 Temperature 98.9 F Pulse Rate 104 104 Respiratory 19 19 Rate Blood Pressure 160/96 (mmHg) O2 Sat by Pulse 98 Oximetry 05/15/19 05/15/19 05/15/19 05:45 05:47 05:57 Temperature 98.2 F Pulse Rate 99 Respiratory 18 18 18 Rate Blood Pressure 156/107 (mmHg) O2 Sat by Pulse 99 Oximetry Oxygen Devices in Use Now: None, Nasal Cannula Exam: Patient is lying on a bed with no acute respiratory distress. HEENT: Normocephalic and atraumatic Lungs: clear with no added sounds Heart: Rate is 110. S1/S2 heard with no murmur Abdomen: Soft, nondistended and nontender. Has bruise on hypogastric region Extremities: No swelling and cyanosis. Tremors on bilateral hands Neuro: Alert, oriented and coperative Result Diagrams: 05/15/19 06:25 05/15/19 06:25 Assess/Plan/Problems-Billing Assessment: 49 Y/O F with h/o alcohol use disorder, depression(with suicide attempt) presented with acute alcohol intoxication and in active withdrawal. Found to have high anion gap MA, transaminitis,microscopic hematuria and electrolyte abnormalities. - Patient Problems (1) High anion gap metabolic acidosis Current Visit: No Status: Acute Code(s): E87.2 - ACIDOSIS SNOMED Code(s): 13359945 Comment: -Resolved -could be from alcohol and from starvation ketoacidosis; however UA -ve for ketones -patient was not eating well in last few days. - gaps closed (2) Alcohol withdrawal Current Visit: Yes Status: Acute Code(s): F10.239 - ALCOHOL DEPENDENCE WITH WITHDRAWAL, UNSPECIFIED SNOMED Code(s): 293692416 Comment: -High suspicion based upon CC, history, tox screen positive ETOH only and physical exam -[facility] assessment-scoring but responding well -On Seizure precautions -On IVF -On scheduled valium, PRN ativan and PRN ondansetron as above -On folic acid and thiamine -valium 5 mg BID today and once tomorrow then stop (3) Alcohol use disorder Current Visit: Yes Status: Acute Code(s): JCK1660 - SNOMED Code(s): 4458717 Comment: -Chronic condition -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 -was on trazadone -used to be in benzos-had withdrawal seizure in past -now on clonidine prn and gabapentin for anxiety (5) Electrolyte abnormality Current Visit: Yes Status: Acute Code(s): E87.8 - OTH DISORDERS OF ELECTROLYTE AND FLUID BALANCE, NEC SNOMED Code(s): 623158832 Comment: -has low K and Mg -from alcohol and poor intake -repleting -will recheck tomorrow (6) Transaminitis Current Visit: Yes Status: Acute Code(s): R74.0 - NONSPEC ELEV OF LEVELS OF TRANSAMNS & LACTIC ACID DEHYDRGNSE SNOMED Code(s): 199157067 Comment: -High suspicion due to direct effects of ETOH intoxication -Continue to follow labs and consider other causes if does not resolve as ETOH withdrawal progresses -Improving today (7) Microscopic hematuria Current Visit: Yes Status: Acute Code(s): R31.29 - OTHER MICROSCOPIC HEMATURIA SNOMED Code(s): 900044255 Comment: -abnormal UA - we will follow. (8) Substance use disorder Current Visit: Yes Status: Acute Code(s): F19.90 - OTHER PSYCHOACTIVE SUBSTANCE USE, UNSPECIFIED, UNCOMPLICATED SNOMED Code(s): 704321186 Comment: -has used cocaine and heroin in past (9) Anemia Current Visit: Yes Status: Acute Code(s): D64.9 - ANEMIA, UNSPECIFIED SNOMED Code(s): 756004105 Comment: -Macrocytic, hyperchromic High suspicion due to hemodilution following fluid administration - was not anemic on admission Consider that poor nutrition could also be a factor Continue to follow labs and consider other causes if does not resolve as ETOH withdrawal progresses (10) DVT prophylaxis Current Visit: No Status: Acute Code(s): AEV2616 - SNOMED Code(s): 200927178 Comment: -On heparin (11) Full code status Current Visit: Yes Status: Acute Code(s): Z78.9 - OTHER SPECIFIED HEALTH STATUS SNOMED Code(s): 003890560 Status and Disposition: Inpatient has got bed in [facility] in [place] Attending: Carissa Ross Attestation Documenting Resident: Roverto Anaya Supervising Physician: Carissa Ross Attending/Supervising Physician Comment: 49F PMH ETOH use d/o severe, PSA, anxiety, depression, hx of seizures in setting of benzo dependence and use d/o presented for inpatient detox, also with transaminitis and thrombocytopenia, now on day 2. Today focusing on anxiety, starting PRN clonidine and standing low dose Mahad as well as Lexapro in prep for weaning off benzo Attestation: This service has been performed in part by a resident under the direction of a teaching physician.I, Carissa Ross, performed the service, or was physically present during the critical, or kyle portions of the service, furnished by the resident. I participated in the management of the patient.
[2019-05-15 06:50] LABS: ABS Basophils 0.1 10^3/ul (0-0.2); ABS Eosinophils 0.1 10^3/ul (0-0.6); ABS Lymphocytes 0.5 10^3/ul (1.0-4.8); ABS Monocytes 0.3 10^3/ul (0-0.8); ABS Neutrophils 2.6 10^3/ul (1.5-7.7); Eosinophil % 1.7 %; Hematocrit 34 % (35-47); Hemoglobin 11.7 g/dL (12.0-16.0); Lymphocyte % 14.9 %; Mean Corpuscular HGB Conc 35 g/dL (31-36); Mean Corpuscular Hemoglobin 36 pg (27-31); Mean Corpuscular Volume 102 fL (80-97); Mean Platelet Volume 7.9 fL (7.4-10.4); Nucleated Red Blood Cells % 0.2; Platelet Count 111 10^3/uL (150-450); Red Blood Count 3.28 10^6 /uL (3.70-4.87); Red Cell Distribution Width 18 % (10-15); White Blood Count 3.6 10^3/uL (3.5-10.8)
[2019-05-15 07:04] LABS: Albumin 4.2 g/dL (3.2-5.2); Albumin/Globulin Ratio 1.2 (1-3); BUN/Creatinine Ratio 5.9 (8-20); Calcium 9.2 mg/dL (8.6-10.3); EGFR African American 155.1 (>60); EGFR Non-African American 128.2 (>60); Globulin 3.4 g/dL (2-4); Potassium 3.1 mmol/L (3.5-5.0); Total Bilirubin 1.1 mg/dL (0.2-1.0); Total Protein 7.6 g/dL (6.4-8.9)
--- NOTE | 2019-05-15 08:09 | PN ---
<KareemtimmyFareed - Last Filed: 05/15/19 12:45> Hospitalist Progress Note Date of Service: 05/15/19 A/IE: Yadira Gutierrez is a 49 year-old woman with a history of depression, alcohol use disorder and benzodiazepine withdrawal seizures who presents today requesting alcohol detoxification with discharge to a rehab facility, specifically [facility] in [place]. This is hospital day 2. Recent WAM scores have been 5 - 9. Bed has been reserved at [facility] for Friday. On telemetry. No significant overnight events. Slept reasonably well last night. Eating and drinking well. Complaining of sweaty palms, shaking, nausea as well as significant b/l hip (/ 10) and b/l foot (/) pain. Discussed plan to taper Valium and offered to add escitalopram for depression and anxiety, clonidine for anxiety and gabapentin for neuropathic pain and anxiety, patient understands and is amenable to plan. O: PE: 3 Temp Pulse Resp BP Pulse Ox 97.2 F 91 20 160/98 91 05/15/19 07:15 05/15/19 07:15 05/15/19 07:57 05/15/19 07:15 05/15/19 07:15 General: Resting in bed. Appears somewhat anxious though less than yesterday. Not in acute distress. Appears stated age. AAOx4. Pleasantly cooperates with interview and examination. HEENT: Head atrumatic, normocephalic. Hearing grossly normal. PERRLA. EOMI. Visual acuity grossly normal. Trachea midline. No JVD. Chest: Unlabored breathing with normal symmetric chest motion. Lungs clear bilaterally. Normal S1/S2. No rubs, clicks, gallops. Abdomen: Soft, non-tender, non-distended. Some devon-umbilical ecchymosis from heparin injection. Extremities: UE and LE distal CMS intact. Hands tremorous, though less than yesterday. Recent Labs: 3 05/15/19 05/15/19 06:25 06:25 WBC 3.6 RBC 3.28 L Hgb 11.7 L Hct 34 L MCV 102 H MCH 36 H MCHC 35 RDW 18 H Plt Count 111 L MPV 7.9 Neut % (Auto) 73.3 Lymph % (Auto) 14.9 Mcdonald % (Auto) 8.6 Eos % (Auto) 1.7 Baso % (Auto) 1.5 Absolute Neuts (auto) 2.6 Absolute Lymphs (auto) 0.5 L Absolute Monos (auto) 0.3 Absolute Eos (auto) 0.1 Absolute Basos (auto) 0.1 Absolute Nucleated RBC 0.0 Nucleated RBC % 0.2 Sodium 138 Potassium 3.1 L Chloride 104 Carbon Dioxide 25 Anion Gap 9 BUN 3 L Creatinine 0.51 Est GFR ( Amer) 155.1 Est GFR (Non-Af Amer) 128.2 BUN/Creatinine Ratio 5.9 L Glucose 94 Calcium 9.2 Total Bilirubin 1.10 H AST 181 H ALT 94 H Alkaline Phosphatase 165 H Total Protein 7.6 Albumin 4.2 Globulin 3.4 Albumin/Globulin Ratio 1.2 3 05/14/19 05/14/19 05:15 05:15 WBC 4.7 RBC 3.38 L Hgb 11.9 L Hct 34 L MCV 101 H MCH 35 H MCHC 35 RDW 18 H Plt Count 142 L MPV 7.2 L Neut % (Auto) 73.3 Lymph % (Auto) 14.8 Mcdonald % (Auto) 11.0 Eos % (Auto) 0.2 Baso % (Auto) 0.7 Absolute Neuts (auto) 3.5 Absolute Lymphs (auto) 0.7 L Absolute Monos (auto) 0.5 Absolute Eos (auto) 0.0 Absolute Basos (auto) 0.0 Absolute Nucleated RBC 0.0 Nucleated RBC % 0.1 Sodium 135 Potassium 3.0 L Chloride 98 L Carbon Dioxide 26 Anion Gap 11 BUN 4 L Creatinine 0.66 Est GFR ( Amer) 115.2 Est GFR (Non-Af Amer) 95.2 BUN/Creatinine Ratio 6.1 L Glucose 98 Calcium 9.0 Total Bilirubin 1.20 H AST 200 H ALT 100 H Alkaline Phosphatase 182 H Total Protein 8.3 Albumin 4.6 Globulin 3.7 Albumin/Globulin Ratio 1.2 3 05/14/19 13:44 INR (Anticoag Therapy) 1.00 3 05/14/19 13:44 Total Bilirubin 1.20 H Direct Bilirubin TNP Indirect Bilirubin TNP AST TNP ALT 117 H Alkaline Phosphatase 188 H Total Protein 8.1 Albumin 4.5 Globulin 3.6 Albumin/Globulin Ratio 1.3 Amylase 59 Lipase 188 H EKG (05/13/19): Sinus tachycardia.rate> 99 Abnormal inferior Q waves.Qs add to 80 mS in II III aVF - BORDERLINE ECG - ECG NEEDS E-SIGNING Current Medications: Clonidine HCl (Catapres Tab*) 0.1 mg PO BID PRN PRN Reason: ANXIETY Last Admin: 05/15/19 11:32 Dose: 0.1 mg Diazepam (Valium Carpuject*) 5 mg IV Q12H [facility] Stop: 05/15/19 21:01 Last Admin: 05/15/19 09:55 Dose: 5 mg Escitalopram Oxalate (Lexapro *) 5 mg PO DAILY [facility]; Protocol Folic Acid (Folic Acid Iv 1 Mg*) 1 mg IV DAILY [facility] Last Admin: 05/15/19 11:32 Dose: 1 mg Gabapentin (Neurontin Cap(*)) 100 mg PO TID [facility] Heparin Sodium (Porcine) (Heparin Vial(*)) 5,000 units SUBCUT Q8HR [facility] Last Admin: 05/15/19 05:47 Dose: 5,000 units Thiamine HCl 100 mg/ Sodium (Chloride) 51 mls @ 102 mls/hr IV Q24H [facility] Last Admin: 05/15/19 10:09 Dose: 102 mls/hr Lorazepam (Ativan Inj*) 0 - 4 mg IV PUSH Q2H PRN; Protocol PRN Reason: AGITATION Last Admin: 05/15/19 11:59 Dose: 2 mg Miscellaneous (Ativan Pyxis Cruz) 1 ea N/A .ATIVAN IV CRUZ PRN PRN Reason: PYXIS CRUZ Ondansetron HCl (Zofran Inj*) 4 mg IV Q6H PRN PRN Reason: NAUSEA Trazodone HCl (Desyrel Tab*) 100 mg PO BEDTIME PRN PRN Reason: INSOMNIA Recent Orders: 05/14/19 13:43 Ondansetron INJ* [Zofran INJ*] 4 mg IV Q6H PRN 05/15/19 Message to Nutrition & Dining [DENEENMESS] Routine 05/15/19 09:00 Diazepam INJ CARPUJECT* [Valium CARPUJECT*] 5 mg IV Q12H 05/15/19 11:03 cloNIDine TAB* [Catapres TAB*] 0.1 mg PO BID PRN 05/15/19 12:00 Escitalopram * [Lexapro *] 5 mg PO DAILY 05/15/19 14:00 Gabapentin CAP(*) [Neurontin CAP(*)] 100 mg PO TID A/I: 49 year-old woman with a history of depression, alcohol use disorder and alcohol withdrawal seizures who presents today requesting alcohol detoxification with discharge to a rehab facility, specifically [facility] P: Acute Alcohol Withdrawal: High suspicion based upon CC, history, tox screen positive ETOH only and physical exam WAM assessment / monitoring as per protocol Continue seizure precautions Stopped normal saline as is now eating / drinking well Continue scheduled valium, PRN ativan and PRN ondansetron as above, plan to taper valium Added Lexapro for depression and anxiety, clonidine for anxiety and gabapentin for anxiety and neuropathic pain as above Continue folic acid and thiamine as above Continue to follow labs and WAM scores and re-assess need for benzodiazepines Anion Gap Metabolic Acidosis: High suspicion due to direct effects of ETOH intoxication on electrolyte levels Consider starvation ketosis as a potential cause, however no ketones on UA Resolved with IVF and continued ETOH withdrawal Transaminitis: High suspicion due to direct effects of ETOH intoxication AST and ALT trending down from yesterday but still elevated Continue to follow labs and consider other causes if does not resolve as ETOH withdrawal progresses Hypokalemia: High suspicion due to both hemodilution following fluid administration and poor dietary intake - had not eaten for 2.5 weeks Good response to repletion, continued today Continue to follow labs and consider other causes if does not continue to resolve as ETOH withdrawal progresses Anemia: Macrocytic, hyperchromic High suspicion due to hemodilution following fluid administration - was not anemic on admission High suspicion due to bone marrow suppression from high serum ETOH Consider that poor nutrition could also be a factor Continue to follow labs and consider other causes if does not resolve as ETOH withdrawal progresses Thrombocytopenia: High suspicion due to hemodilution following fluid administration High suspicion due to bone marrow suppression from high serum ETOH Continue to follow labs and consider other causes if does not resolve as ETOH withdrawal progresses 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
[2019-05-15] MEDS ORDERED: Potassium Chlor TAB* 20 MEQ TAB.ER PO ONE (08:10)
[2019-05-15] MEDS: Diazepam INJ CARPUJECT* 5 MG/ML IV SCH ×2 (09:55→20:57)
[2019-05-15] MEDS: Thiamine IV 100 MG in NS 0.9% 50 ML Q24H IV SCH (10:09)
[2019-05-15] MEDS ORDERED: cloNIDine TAB* 0.1 MG PO PRN (10:40)
[2019-05-15] MEDS: Folic Acid IV* 1 MG/0.2 ML SYRINGE IV SCH (11:32)
[2019-05-15] MEDS: cloNIDine TAB* 0.1 MG PO PRN (11:32)
[2019-05-15] MEDS: Escitalopram * 5 MG TAB PO SCH (14:11)
[2019-05-15] MEDS: Gabapentin CAP(*) 100 MG PO SCH ×2 (16:25→20:57)
[2019-05-16] MEDS: LORazepam INJ* 2 MG/ML 1 ML VIAL IV PUSH PRN ×2 (03:40→08:03)
[2019-05-16] MEDS: Heparin VIAL(*) 5000 UNITS/ML VIAL (FIVE THOUSAND) SUBCUT SCH ×3 (05:27→21:08)
[2019-05-16 06:17] LABS: ABS Basophils 0.1 10^3/ul (0-0.2); ABS Eosinophils 0.1 10^3/ul (0-0.6); ABS Lymphocytes 0.8 10^3/ul (1.0-4.8); ABS Monocytes 0.4 10^3/ul (0-0.8); ABS Neutrophils 2.4 10^3/ul (1.5-7.7); Eosinophil % 3.6 %; Hematocrit 33 % (35-47); Hemoglobin 11.6 g/dL (12.0-16.0); Lymphocyte % 21.6 %; Mean Corpuscular HGB Conc 35 g/dL (31-36); Mean Corpuscular Hemoglobin 36 pg (27-31); Mean Corpuscular Volume 103 fL (80-97); Mean Platelet Volume 8.4 fL (7.4-10.4); Nucleated Red Blood Cells % 0.1; Platelet Count 126 10^3/uL (150-450); Red Blood Count 3.24 10^6 /uL (3.70-4.87); Red Cell Distribution Width 18 % (10-15); White Blood Count 3.8 10^3/uL (3.5-10.8)
[2019-05-16 06:33] LABS: Albumin 4.2 g/dL (3.2-5.2); Albumin/Globulin Ratio 1.1 (1-3); BUN/Creatinine Ratio 10.2 (8-20); Calcium 9.7 mg/dL (8.6-10.3); EGFR African American 162.4 (>60); EGFR Non-African American 134.2 (>60); Globulin 3.7 g/dL (2-4); Potassium 3.5 mmol/L (3.5-5.0); Total Bilirubin 0.9 mg/dL (0.2-1.0); Total Protein 7.9 g/dL (6.4-8.9)
[2019-05-16] MEDS: Escitalopram * 5 MG TAB PO SCH (08:01)
[2019-05-16] MEDS: cloNIDine TAB* 0.1 MG PO PRN (08:02)
[2019-05-16] MEDS: Gabapentin CAP(*) 100 MG PO SCH ×4 (08:02→21:08)
--- NOTE | 2019-05-16 08:08 | PN ---
Subjective Date of Service: 05/16/19 Interval History: HD 3 on 05/16 49F PMH ETOH use d/o severe, PSA, anxiety, depression, hx of seizures in setting of benzo dependence and use d/o presented for inpatient detox, also with transaminitis and thrombocytopenia 2/2 to ETOH use. Overnight still scoring WAM, though out of acute w/drawal phase at around 2PM today, likely all anxiety at this point, will move to q4 WAM and stop this evening, change all meds to PO This morning, she is anxious and tearful with poor insight into the underlying anxiety driving this process. She is perseverative on benzo. We discuss focusing on adjunct treatments in prep for d/c tomorrow or the next day depending on how quickly we can do the liver US. Objective Active Medications: Clonidine HCl (Catapres Tab*) 0.1 mg PO BID PRN PRN Reason: ANXIETY Last Admin: 05/15/19 11:32 Dose: 0.1 mg Escitalopram Oxalate (Lexapro *) 5 mg PO DAILY KJ; Protocol Last Admin: 05/15/19 14:11 Dose: 5 mg Folic Acid (Folic Acid Iv 1 Mg*) 1 mg IV DAILY KJ Last Admin: 05/15/19 11:32 Dose: 1 mg Gabapentin (Neurontin Cap(*)) 100 mg PO TID KJ Last Admin: 05/15/19 20:57 Dose: 100 mg Heparin Sodium (Porcine) (Heparin Vial(*)) 5,000 units SUBCUT Q8HR KJ Last Admin: 05/16/19 05:27 Dose: 5,000 units Thiamine HCl 100 mg/ Sodium (Chloride) 51 mls @ 102 mls/hr IV Q24H KJ Last Admin: 05/15/19 10:09 Dose: 102 mls/hr Lorazepam (Ativan Inj*) 0 - 4 mg IV PUSH Q2H PRN; Protocol PRN Reason: AGITATION Last Admin: 05/16/19 03:40 Dose: 2 mg Miscellaneous (Ativan Pyxis Cruz) 1 ea N/A .ATIVAN IV CRUZ PRN PRN Reason: PYXIS CRUZ Ondansetron HCl (Zofran Inj*) 4 mg IV Q6H PRN PRN Reason: NAUSEA Trazodone HCl (Desyrel Tab*) 100 mg PO BEDTIME PRN PRN Reason: INSOMNIA Vital Signs - 8 hr 05/16/19 05/16/19 05/16/19 00:03 00:04 01:20 Temperature 98.4 F Pulse Rate 91 Respiratory 17 17 16 Rate Blood Pressure 149/88 (mmHg) O2 Sat by Pulse 98 Oximetry 05/16/19 05/16/19 05/16/19 03:25 03:40 05:05 Temperature 98.8 F Pulse Rate 88 Respiratory 17 17 17 Rate Blood Pressure 154/98 (mmHg) O2 Sat by Pulse 98 Oximetry 05/16/19 05/16/19 05:10 07:25 Temperature 98.3 F Pulse Rate 85 Respiratory 16 20 Rate Blood Pressure 149/95 (mmHg) O2 Sat by Pulse 97 Oximetry Oxygen Devices in Use Now: None Appearance: Anxious woman in NAD, watching TV calmly, tremor while chatting with me Ears/Nose/Mouth/Throat: NL Teeth, Lips, Gums, Mucous Membranes Moist Neck: NL Appearance and Movements; NL JVP Respiratory: Symmetrical Chest Expansion and Respiratory Effort, Clear to Auscultation Cardiovascular: NL Sounds; No Murmurs; No JVD, RRR Abdominal: NL Sounds; No Tenderness; No Distention Lymphatic: No Cervical Adenopathy Extremities: No Edema Skin: No Rash or Ulcers Neurological: Alert and Oriented x 3 - Result Diagrams: 05/16/19 05:54 05/16/19 05:54 Assess/Plan/Problems-Billing Assessment: 49F PMH ETOH use d/o severe, PSA, anxiety, depression, hx of seizures in setting of benzo dependence and use d/o presented for inpatient detox, also with transaminitis and thrombocytopenia 2/2 to ETOH use. - Patient Problems (1) Alcohol withdrawal Current Visit: Yes Status: Acute Code(s): F10.239 - ALCOHOL DEPENDENCE WITH WITHDRAWAL, UNSPECIFIED SNOMED Code(s): 435234888 Comment: -BAL 441 (0.4) 05/13 at 2PM, safely metabolized to 0 by 05/14 7PM at ~.015 g/hr -Will reach 48 hour window of BAL 0 this evening around 7PM, stop WAM then, scores improved though remains subjective high 2/2 to underlying anxiety -Was on standing Valium TID 05/14, BID 05/15, Qday today 05/16-STOP -Stop IVF -Continue PRN Ativan for WAM until 7PM this evening, no e/o of DTs to extend the window to 96 hrs -Thiamine and folic acid (2) Alcohol use disorder Current Visit: Yes Status: Acute Code(s): IRL4608 - SNOMED Code(s): 1208779 Comment: -Severe, has bed at inpatient rehabilitation in [place], came for acute detox prior to admission. (3) Depression Current Visit: Yes Status: Acute Code(s): F32.9 - MAJOR DEPRESSIVE DISORDER , SINGLE EPISODE, UNSPECIFIED SNOMED Code(s): 64343317 Comment: -With associated anxiety -Has history of depression and suicide attempt -Start Escitalopram 5mg-titrate as able, offer Clonidine 0.2mg TID, Gabapentin standing and Hydroxyzine for anxiety (4) Transaminitis Current Visit: Yes Status: Acute Code(s): R74.0 - NONSPEC ELEV OF LEVELS OF TRANSAMNS & LACTIC ACID DEHYDRGNSE SNOMED Code(s): 640604203 Comment: -High suspicion due to direct effects of ETOH intoxication -Continue to follow labs, liver US 05/17 prior to d/c, hep panel and HIV sent given polysubstance abuse (5) Microscopic hematuria Current Visit: Yes Status: Acute Code(s): R31.29 - OTHER MICROSCOPIC HEMATURIA SNOMED Code(s): 904790246 Comment: -Can be followed as outpt (6) Substance use disorder Current Visit: Yes Status: Acute Code(s): F19.90 - OTHER PSYCHOACTIVE SUBSTANCE USE, UNSPECIFIED, UNCOMPLICATED SNOMED Code(s): 749227178 Comment: -Polysubstance abuse with cocaine, IVDU and notably benzo use d/o with seizure from benzo dependence in the past -Minimize benzo use out of the 48 hour period (7) Anemia Current Visit: Yes Status: Acute Code(s): D64.9 - ANEMIA, UNSPECIFIED SNOMED Code(s): 901973562 Comment: -Macrocytic pancytopenia c/w bone marrow suppression from ETOH (8) DVT prophylaxis Current Visit: No Status: Acute Code(s): AYH7802 - SNOMED Code(s): 853679192 Comment: -On heparin (9) Full code status Current Visit: Yes Status: Acute Code(s): Z78.9 - OTHER SPECIFIED HEALTH STATUS SNOMED Code(s): 641067938 Status and Disposition: Inpatient Hopeful d/c to inpatient rehab on Thursday 05/17 after liver US
[2019-05-16] MEDS ORDERED: cloNIDine TAB* 0.1 MG PO PRN (08:09)
[2019-05-16] MEDS: Folic Acid TAB* 1 MG PO SCH (08:46)
[2019-05-16] MEDS: Thiamine TAB* 100 MG TAB PO SCH (08:47)
[2019-05-16] MEDS ORDERED: LORazepam TAB(*) 1 MG PO SCH (09:00)
[2019-05-16] MEDS: hydrOXYzine HCL TAB* 25 MG PO PRN ×2 (12:14→21:14)
[2019-05-16] MEDS: cloNIDine TAB* 0.1 MG PO SCH ×2 (13:38→21:08)
[2019-05-16] MEDS: traZODone TAB* 100 MG PO SCH (21:08)
[2019-05-17] MEDS: hydrOXYzine HCL TAB* 25 MG PO PRN ×3 (04:56→22:00)
[2019-05-17] MEDS: Heparin VIAL(*) 5000 UNITS/ML VIAL (FIVE THOUSAND) SUBCUT SCH ×3 (04:56→22:00)
[2019-05-17 05:44] LABS: Albumin 4.3 g/dL (3.2-5.2); Albumin/Globulin Ratio 1.1 (1-3); BUN/Creatinine Ratio 15.8 (8-20); EGFR African American 136.4 (>60); EGFR Non-African American 112.7 (>60); Globulin 3.8 g/dL (2-4); Potassium 3.4 mmol/L (3.5-5.0); Total Bilirubin 0.8 mg/dL (0.2-1.0); Total Protein 8.1 g/dL (6.4-8.9)
[2019-05-17 06:11] LABS: Hepatitis B Surface Antigen Nonreactive (Nonreactive)
[2019-05-17 06:18] LABS: HIV 4th Generation Nonreactive (Nonreactive)
[2019-05-17 06:29] LABS: Hepatitis C Antibody Negative (Negative)
[2019-05-17] MEDS: Folic Acid TAB* 1 MG PO SCH (08:07)
[2019-05-17] MEDS: Escitalopram * 5 MG TAB PO SCH (08:07)
[2019-05-17] MEDS: cloNIDine TAB* 0.1 MG PO SCH ×3 (08:08→21:59)
[2019-05-17] MEDS: Gabapentin CAP(*) 100 MG PO SCH ×3 (08:09→22:00)
[2019-05-17] MEDS: Thiamine TAB* 100 MG TAB PO SCH (08:09)
[2019-05-17] MEDS: Potassium Chlor TAB* 20 MEQ TAB.ER PO SCH (08:09)
[2019-05-17 12:18] LABS: Magnesium 1.8 mg/dL (1.9-2.7)
--- NOTE | 2019-05-17 17:59 | PN ---
Subjective Date of Service: 05/17/19 Interval History: Patient still complained of severe anxiety happening frequently. She felt herself still in detox process, had sweating, tremor, generalized numbness. She is not confident to go to [facility] as they couldn't help with detox. She is also concerned about her mobility issue, as she felt she had difficulty walking. She is aware that her anxiety is driving the whole process leading to her alcohol use, but she has dependence on ativan instead of seeking other options. Objective Active Medications: Clonidine HCl (Catapres Tab*) 0.2 mg PO TID [facility] Last Admin: 05/17/19 13:31 Dose: 0.2 mg Escitalopram Oxalate (Lexapro *) 10 mg PO DAILY [facility]; Protocol Folic Acid (Folvite Tab*) 1 mg PO DAILY [facility] Last Admin: 05/17/19 08:07 Dose: 1 mg Gabapentin (Neurontin Cap(*)) 200 mg PO TID [facility] Last Admin: 05/17/19 13:31 Dose: 200 mg Heparin Sodium (Porcine) (Heparin Vial(*)) 5,000 units SUBCUT Q8HR [facility] Last Admin: 05/17/19 13:32 Dose: 5,000 units Hydroxyzine HCl (Atarax Tab*) 25 mg PO Q4H PRN PRN Reason: ANXIETY Last Admin: 05/17/19 09:52 Dose: 25 mg Magnesium Oxide (Magox 400 Tab*) 400 mg PO BID [facility] Stop: 05/20/19 20:59 Ondansetron HCl (Zofran Inj*) 4 mg IV Q6H PRN PRN Reason: NAUSEA Potassium Chloride (Klor Con Er Tab*) 20 meq PO DAILY [facility] Stop: 05/19/19 08:59 Last Admin: 05/17/19 08:09 Dose: 20 meq Thiamine HCl (Vitamin B-1 Tab*) 100 mg PO DAILY [facility] Last Admin: 05/17/19 08:09 Dose: 100 mg Trazodone HCl (Desyrel Tab*) 100 mg PO BEDTIME [facility] Last Admin: 05/16/19 21:08 Dose: 100 mg Vital Signs - 8 hr 05/17/19 05/17/19 11:15 13:31 Temperature 98.4 F Pulse Rate 79 Respiratory 16 18 Rate Blood Pressure 125/80 (mmHg) O2 Sat by Pulse 98 Oximetry Oxygen Devices in Use Now: None Exam: Appearance: Anxious woman in NAD, noted visible tremor Ears/Nose/Mouth/Throat: NL Teeth, Lips, Gums, Mucous Membranes Moist Neck: NL Appearance and Movements; NL JVP Respiratory: Symmetrical Chest Expansion and Respiratory Effort, Clear to Auscultation Cardiovascular: NL Sounds; No Murmurs; No JVD, RRR Abdominal: NL Sounds; No Tenderness; No Distention Lymphatic: No Cervical Adenopathy Extremities: No Edema Skin: No Rash or Ulcers Neurological: Alert and Oriented x 3 - , sensation intact Result Diagrams: 05/16/19 05:54 05/18/19 05:05 Assess/Plan/Problems-Billing Assessment: 49F PMH ETOH use d/o severe, PSA, anxiety, depression, hx of seizures in setting of benzo dependence and use d/o presented for inpatient detox, also with transaminitis and thrombocytopenia 2/2 to ETOH use. - Patient Problems (1) Alcohol withdrawal Current Visit: Yes Status: Acute Code(s): F10.239 - ALCOHOL DEPENDENCE WITH WITHDRAWAL, UNSPECIFIED SNOMED Code(s): 915141546 Comment: -BAL 441 (0.4) 05/13 at 2PM, safely metabolized to 0 by 05/14 7PM at ~.015 g/hr -Will reach 48 hour window of BAL 0 this evening around 7PM, stop WAM then, scores improved though remains subjective high 2/2 to underlying anxiety - off benzo now -Thiamine and folic acid - will check vitamin b12 in view of generalized numbness (2) Alcohol use disorder Current Visit: Yes Status: Acute Code(s): MVZ5244 - SNOMED Code(s): 0910890 Comment: -Severe, went to alcohol rehab in [place] before (3) Anemia Current Visit: Yes Status: Acute Code(s): D64.9 - ANEMIA, UNSPECIFIED SNOMED Code(s): 994164975 Comment: -Macrocytic pancytopenia c/w bone marrow suppression from ETOH (4) Transaminitis Current Visit: Yes Status: Acute Code(s): R74.0 - NONSPEC ELEV OF LEVELS OF TRANSAMNS & LACTIC ACID DEHYDRGNSE SNOMED Code(s): 185628418 Comment: -High suspicion due to direct effects of ETOH intoxication -Continue to follow labs, liver US 05/17 prior to d/c, hep panel and HIV sent given polysubstance abuse -liver us: hepatic steatosis (5) Depression Current Visit: Yes Status: Acute Code(s): F32.9 - MAJOR DEPRESSIVE DISORDER , SINGLE EPISODE, UNSPECIFIED SNOMED Code(s): 99627278 Comment: -With associated anxiety -Has history of depression and suicide attempt -Increase Escitalopram to 10mg, on Clonidine 0.2mg TID, Gabapentin standing and Hydroxyzine for anxiety (6) Microscopic hematuria Current Visit: Yes Status: Acute Code(s): R31.29 - OTHER MICROSCOPIC HEMATURIA SNOMED Code(s): 613555345 Comment: -Can be followed as outpt (7) Substance use disorder Current Visit: Yes Status: Acute Code(s): F19.90 - OTHER PSYCHOACTIVE SUBSTANCE USE, UNSPECIFIED, UNCOMPLICATED SNOMED Code(s): 621804919 Comment: -Polysubstance abuse with cocaine, IVDU and notably benzo use d/o with seizure from benzo dependence in the past -Minimize benzo use out of the 48 hour period (8) Full code status Current Visit: Yes Status: Acute Code(s): Z78.9 - OTHER SPECIFIED HEALTH STATUS SNOMED Code(s): 412256826 (9) DVT prophylaxis Current Visit: No Status: Acute Code(s): MKA5642 - SNOMED Code(s): 472345453 Comment: -On heparin Status and Disposition: Inpatient Hopeful d/c to inpatient rehab tomorrow Attestation Documenting Resident: Beatriz Mckeon Supervising Physician: Cuauhtemoc Morrison Attending/Supervising Physician Comment: Patient on day 4 of WA protocol, no further ativan given. Reports severe anxiety, trouble walking. Also has low K, low Mg. PT to assess. Electrolytes will be repleted. Can go to [facility] rehab tomorrow. Attestation: This service has been performed in part by a resident under the direction of a teaching physician.I, Cuauhtemoc Morrison, performed the service, or was physically present during the critical, or gill portions of the service, furnished by the resident. I participated in the management of the patient.
[2019-05-17] MEDS: Magnesium Oxide TAB* 400 MG PO SCH (22:00)
[2019-05-17] MEDS: traZODone TAB* 100 MG PO SCH (22:00)
[2019-05-18] MEDS: hydrOXYzine HCL TAB* 25 MG PO PRN ×2 (03:49→08:02)
[2019-05-18 05:39] LABS: Albumin 4.1 g/dL (3.2-5.2); Albumin/Globulin Ratio 1.2 (1-3); BUN/Creatinine Ratio 13.8 (8-20); Calcium 9.7 mg/dL (8.6-10.3); EGFR African American 133.7 (>60); EGFR Non-African American 110.5 (>60); Globulin 3.3 g/dL (2-4); Indirect Bilirubin 0.4 mg/dL (0.3-1.0); Magnesium 1.6 mg/dL (1.9-2.7); Potassium 3.5 mmol/L (3.5-5.0); Total Bilirubin 0.6 mg/dL (0.2-1.0); Total Protein 7.4 g/dL (6.4-8.9)
[2019-05-18] MEDS: Heparin VIAL(*) 5000 UNITS/ML VIAL (FIVE THOUSAND) SUBCUT SCH (06:04)
[2019-05-18] MEDS: Folic Acid TAB* 1 MG PO SCH (08:01)
[2019-05-18] MEDS: cloNIDine TAB* 0.1 MG PO SCH (08:01)
[2019-05-18] MEDS: Magnesium Oxide TAB* 400 MG PO SCH (08:01)
[2019-05-18] MEDS: Gabapentin CAP(*) 100 MG PO SCH (08:02)
[2019-05-18] MEDS: Thiamine TAB* 100 MG TAB PO SCH (08:03)
[2019-05-18] MEDS: Potassium Chlor TAB* 20 MEQ TAB.ER PO SCH (08:03)
[2019-05-18] MEDS ORDERED: Escitalopram * 10 MG TAB PO SCH (09:00)
[2019-05-18 09:56] VITALS: BP 132/89
[2019-05-18] MEDS ORDERED: Pneumococcal *Vac Polyvalent 0.5 ML VIAL IM ONE (10:00)
--- NOTE | 2019-05-18 19:58 | DS ---
CC: [facility] in [place]; Dr. Keshia Plummer at [facility] * DISCHARGE SUMMARY: DATE OF ADMISSION: 05/14/19 DATE OF DISCHARGE: 05/18/19 PRIMARY DIAGNOSIS: Alcohol withdrawal. SECONDARY DIAGNOSES: 1. History of benzodiazepine abuse with withdrawal seizures. 2. Anxiety. 3. Peripheral neuropathy. 4. Hypokalemia. 5. Thrombocytopenia related to alcohol abuse. 6. Alcoholic hepatitis. MEDICATIONS ON DISCHARGE: 1. Clonidine 0.2 mg p.o. t.i.d. 2. Lexapro 10 mg p.o. q.a.m. 3. Folic acid 1 mg p.o. q. day. 4. Gabapentin 200 mg p.o. t.i.d. 5. Thiamine 100 mg p.o. q. day. 6. Trazodone 100 mg p.o. q.h.s. HOSPITAL COURSE: The patient with recent treatment for benzodiazepine abuse and withdrawal seizures, presented to the hospital asking for detox. Due to history of withdrawal seizures on benzo, she was admitted for observation and Ativan protocol. She received high doses of Ativan on the first 3 days of admission due to scoring high on the WAM score probably due to tremors and anxiety. On day#4, she was taken off Ativan and did not have any further seizures. On admission, her serum alcohol level was 441. She had elevated AST and ALT on admission which peaked at an AST of 272 and an ALT of 117. She has elevated alkaline phosphatase as well around 188, which came down to 138 on discharge. The patient's bilirubin was 1.2 on admission and 0.6 on discharge. Other pertinent lab tests include lipase of 188, but she did not have any abdominal pain consistent with pancreatitis. She had normal white count, hemoglobin of 13.0 on admission and 11.6 on discharge, platelet count of 173 on admission and 126 on discharge. Ultrasound of the liver was performed on and this showed high normal gallbladder wall thickness at 3 mm, some gallbladder sludge, but no acute cholecystitis. There was possible hepatitic steatosis. The patient had a potassium of 3.4 on admission, this fell to as low as 3.0, but was 3.5 on discharge. Her magnesium was 1.8 on admission, 1.6 on discharge , but she was being supplemented with both magnesium and potassium. This should rechecked in a week and she should be continued on supplements of magnesium while she was in the rehab. The patient expressed some concern that she had trouble walking. The patient was assessed with physical therapy and she was able to walk independently within the confines of her home or within rehab, but may need some further physical therapy at home. DISPOSITION: To [facility] in [place]. ACTIVITY: As tolerated. DIET: Regular. STATUS: Inpatient. CONDITION: Stable. The patient was instructed to see primary care at [facility] after discharge from rehab. [id number]/[facility] #: [id number] KLAUDIA
== END 2019-05-18 11:15 | DRG 775 ==
LOC: ED 13:16 → MEDTELE 21:46
PROVIDERS: ADMIT Student in an Organized Health Care Education/Training Program; ATTEND Internal Medicine
DX: F10.239 Alcohol dependence with withdrawal, unspecified (principal); E87.2 Acidosis; E87.8 Other disorders of electrolyte and fluid balance, not elsewhere classified; D69.59 Other secondary thrombocytopenia; F10.24 Alcohol dependence with alcohol-induced mood disorder; G62.9 Polyneuropathy, unspecified; K70.10 Alcoholic hepatitis without ascites; K76.0 Fatty (change of) liver, not elsewhere classified; R74.0 Nonspecific elevation of levels of transaminase and lactic acid dehydrogenase [LDH]; Y90.8 Blood alcohol level of 240 mg/100 ml or more; R31.29 Other microscopic hematuria; F19.90 Other psychoactive substance use, unspecified, uncomplicated; F32.9 Major depressive disorder, single episode, unspecified; D64.9 Anemia, unspecified; I10 Essential (primary) hypertension; E87.6 Hypokalemia; Z91.5 Personal history of self-harm; Z86.69 Personal history of other diseases of the nervous system and sense organs; Z79.01 Long term (current) use of anticoagulants; Z79.899 Other long term (current) drug therapy; G47.00 Insomnia, unspecified
CPT/HCPCS: 36415; 76705; 80048; 80053; 80074; 80076; 80307; 80320; 81003; 81015; 82150; 82542; 82607; 83690; 83735; 84207; 84484; 85025; 85610; 87389; 90732; 93005; 96365; 96372; 99284; A9270-GY; G0480; J1644; J1885; J2060; J3360; J3411; J3475

== ENCOUNTER 2019-07-29 13:34 | Emergency (ER) | payer MEDICARE, MEDICAID ==
--- OUTSIDE RECORDS SUMMARY | 2019-07-29 13:51 | XMS REPORT | Continuity of Care Document ---
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 Onset: 12/16/2014 Other specific joint derangements of left Zita Fisher MD Onset: 02/03/2018 hip, not elsewhere classified Trochanteric bursitis Zita Fisher MD Onset: 02/17/2018 Arthropathy of pelvis iZta Fisher MD Onset: 02/17/2018 Lumbar radiculopathy Zita Fisher MD Onset: 01/07/2019 Social History Type Date Description Comments Sex Unknown ETOH Use Denies alcohol use Tobacco Use Start: Unknown End: Patient is a former smoker quit 2009 Unknown Smoking Status Reviewed: 06/29/19 Patient is a former smoker quit 2009 Exercise Type/Frequency Exercises rarely Allergies, Adverse Reactions, Alerts Description No Known Drug Allergies Medications Active Medications SIG Qnty Indications Ordering Date Provider Prosation 2 mg tablets, Unknown take 1 with Trazodone nightly Levothyroxine Sodium Take One Tablet Unknown By Mouth Every 50mcg Tablets Morning On An Empty Stomach Aleve 1 tab twice a day Unknown 220mg Capsules as needed Buprenorphine HCL 1 sl 4 times Unknown 2mg daily Tablets Sub Gabapentin take one tablet Unknown 600mg Tablets by mouth three times a day Clonidine HCL 1 by mouth three 90tabs Unknown 0.2mg times a day Tablets Hydroxyzine HCL 1 tablet by mouth Unknown 50mg three times daily Tablets Trazodone HCL 1 every at Unknown 150mg bedtime Tablets Escitalopram Oxalate 1 by mouth every Unknown 20mg day Tablets Multivitamin Women 1 by mouth every Unknown day Tablets Milk Thistle 1 by mouth every Unknown 140mg day Capsules Medications Administered in Office Medication SIG Qnty Indications Ordering Provider Date Triamcinolone (Kenalog) Zita Fisher MD 02/05/2018 Injection Immunizations Description No Information Available Vital Signs Date Vital Result Comment 06/29/2019 9:39am Height 71 inches 5'11" Weight 175.25 lb Heart Rate 95 /min BP Systolic 123 mmHg BP Diastolic 81 mmHg Body Temperature 96.7 F O2 % BldC Oximetry 96 % BMI (Body Mass Index) 24.4 kg/m2 01/07/2019 2:23pm Height 71 inches 5'11" Weight 180.00 lb Heart Rate 74 /min BP Systolic 140 mmHg BP Diastolic 80 mmHg Body Temperature 98.5 F Pain Level 8 BMI (Body Mass Index) 25.1 kg/m2 Results Description No Information Available Procedures Description No Information Available Medical Devices Description No Information Available Encounters Type Date Location Provider Dx Diagnosis Office Visit 05/18/2019 [facility] Cuauhtemoc Cotto F10.239 Alcohol dependence 10:02a shaquille Turner M.D.,FACP with withdrawal, Hospitalists unspecified F19.90 Other psychoactive substance use, unspecified, uncomplicated F41.9 Anxiety disorder, unspecified G90.09 Other idiopathic peripheral autonomic neuropathy E87.6 Hypokalemia D69.59 Other secondary thrombocytopenia K70.10 Alcoholic hepatitis without ascites Office Visit 05/17/2019 [facility] Cuauhtemoc Cotto F10.239 Alcohol 10:02a shaquille Turner M.D.,FACP dependence with Hospitalists withdrawal, unspecified R74.0 Nonspec elev of levels of transamns & lactic acid dehydrgnse F32.9 Major depressive disorder, single episode, unspecified R31.29 Other microscopic hematuria F19.90 Other psychoactive substance use, unspecified, uncomplicated Office Visit 05/16/2019 10:01a [facility] Carissa Ross, F10.239 Alcohol Assoc,pc dependence with Hospitalists withdrawal, unspecified F32.9 Major depressive disorder, single episode, unspecified R74.0 Nonspec elev of levels of transamns & lactic acid dehydrgnse R31.29 Other microscopic hematuria F19.90 Other psychoactive substance use, unspecified, uncomplicated D64.9 Anemia, unspecified Office Visit 05/15/2019 10:01a [facility] Carissa Ross MD E87.2 Acidosis Hospitalists F10.239 Alcohol dependence with withdrawal, unspecified F32.9 Major depressive disorder, single episode, unspecified E87.8 Oth disorders of electrolyte and fluid balance, NEC R74.0 Nonspec elev of levels of transamns & lactic acid dehydrgnse R31.29 Other microscopic hematuria D64.9 Anemia, unspecified Office Visit 2019 [facility] Marilyn F10.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 F32.89 Other specified depressive episodes Office Visit 01/07/2019 2:15p [facility] Zita Fisher, M25.851 Other specified at [facility] joint disorders, right hip M25.852 Other specified joint disorders, left hip M54.16 Radiculopathy, lumbar region Assessments Date Code Description Provider 06/29/2019 F41.9 Anxiety disorder, unspecified Keshia Senner, DO 06/29/2019 Z12.31 Encounter for screening mammogram for Keshia Senner, DO malignant neoplasm of breast 06/29/2019 M79.643 Pain in unspecified hand Keshia Senner, DO 05/18/2019 F10.239 Alcohol dependence with withdrawal, Cuauhtemoc Morrison M.D.,FACP unspecified 05/18/2019 F19.90 Other psychoactive substance use, Cuauhtemoc Morrison M.D., FACP unspecified, uncomplicated 05/18/2019 F41.9 Anxiety disorder, unspecified Cuauhtemoc Morrison M.D.,FACP 05/18/2019 G90.09 Other idiopathic peripheral autonomic Cuauhtemoc Morrison M.D.,FACP neuropathy 05/18/2019 E87.6 Hypokalemia Cuauhtemoc Morrison M.D.,FACP 05/18/2019 D69.59 Other secondary thrombocytopenia Cuauhtemoc Morrison M.D., FACP 05/18/2019 K70.10 Alcoholic hepatitis without ascites Cuauhtemoc Morrison M.D.,FACP 05/17/2019 F10.239 Alcohol dependence with withdrawal, Cuauhtemoc Morrison M.D.,FACP unspecified 05/17/2019 R74.0 Nonspecific elevation of levels of Cuauhtemoc Morrison M.D., FACP transaminase and lactic acid dehydrogenase [LDH] 05/17/2019 F32.9 Major depressive disorder, single Cuauhtemoc Morrison M.D., FACP episode, unspecified 05/17/2019 R31.29 Other microscopic hematuria Cuauhtemoc Morrison M.D.,FACP 05/17/2019 F19.90 Other psychoactive substance use, Cuauhtemoc Morrison M.D., FACP unspecified, uncomplicated 05/16/2019 F10.239 Alcohol dependence with withdrawal, Carissa Ross MD unspecified 05/16/2019 F32.9 Major depressive disorder, single Carissa Ross MD episode, unspecified 05/16/2019 R74.0 Nonspecific elevation of levels of Carissa Ross MD transaminase and lactic acid dehydrogenase [LDH] 05/16/2019 R31.29 Other microscopic hematuria Carissa Ross MD 05/16/2019 F19.90 Other psychoactive substance use, Carissa Ross MD unspecified, uncomplicated 05/16/2019 D64.9 Anemia, unspecified Carissa Ross MD 05/15/2019 E87.2 Acidosis Carissa Ross MD 05/15/2019 F10.239 Alcohol dependence with withdrawal, Carissa Ross MD unspecified 05/15/2019 F32.9 Major depressive disorder, single Carissa Ross MD episode, unspecified 05/15/2019 E87.8 Other disorders of electrolyte and Carissa Ross MD fluid balance, not elsewhere classified 05/15/2019 R74.0 Nonspecific elevation of levels of Carissa Ross MD transaminase and lactic acid dehydrogenase [LDH] 05/15/2019 R31.29 Other microscopic hematuria Carissa Ross MD 05/15/2019 D64.9 Anemia, unspecified Carissa Ross MD 2019 F10.24 Alcohol dependence with Marilyn Syed M.D. alcohol-induced mood disorder 2019 F32.89 Other specified depressive episodes Marilyn Syed M.D. 01/07/2019 M25.851 Other specified joint disorders, Zita Fisher MD right hip 01/07/2019 M25.852 Other specified joint disorders, left Zita Fisher MD hip 01/07/2019 M54.16 Radiculopathy, lumbar region Zita Fisher MD Plan of Treatment 06/29/2019 - Keshia Plummer DOF41.9 Anxiety disorder, unspecifiedComments:Our top priority is getting you established with a psychiatrist and a therapist.Referral:[facility], [facility]/MiulyzfneS29.31 Encounter for screening mammogram for malignant neoplasm of kskklsS28.643 Pain in unspecified handNew Labs:Rheumatoid Factor, Ordered: 06/29/19Cyclic Citrullinated Pep Igg, Ordered: 06/29/19Nuclear AB (Elizabeth) By Ifa Igg, Ordered: Anti Ssa/Ro, Ordered: 06/29/19Anti SSB LA, Ordered: 06/29/19TSH (Thyroid Stim Horm), Ordered: 06/29/19 Functional Status Description No Information Available Mental Status Description No Information Available Referrals Refer to Dr Reason for Referral Status Appt Date [facility] Created [address] [place] [address] [phone] Elvi Pang MD Sent 02/10/[address] [place] [address] [phone] Pain Clinic bilateral hip pain and sciatic pain. no surgical options Sent [address] [place] [address] [phone]
--- NOTE | 2019-07-29 15:46 | ED ---
Abdominal Pain/Female - HPI Summary HPI Summary: Patient is a 49 y/o F w/ Hx of pancreatitis who presents to [facility] with chief complaint of LUQ abdominal pain. She characterizes the pain as a dull burning sensation with intermittent sharpness. Dizziness and hot flashes are endorsed. Patient notes Hx of alcoholism and states that she had previously been in [facility] for rehab. She claims that she has been alcohol free for 1.5 months, until last week. Patient notes recent stress contributed to her relapse and states that her last drink was a beer at 0930 this morning, 07/29/19. She reports previous admission to ICU for her pancreatitis. Food consumption is noted to aggravate her Sx and patient states that she has a poor diet. Home medications and allergies are reviewed. - History of Current Complaint Chief Complaint: EDAbdPain Stated Complaint: ABD PAIN PER PT Time Seen by Provider: 07/29/19 15:40 Hx Obtained From: Patient Onset/Duration: Still Present Timing: Constant Severity Currently: Severe Pain Intensity: 8 Pain Scale Used: 0-10 Numeric Location: Discrete At: LUQ Character: Sharp, Dull, Burning Aggravating Factor(s): Food Associated Signs and Symptoms: Positive: Other: - dizziness, hot flashes Allergies/Adverse Reactions: Allergies Allergy/AdvReac Type Severity Reaction Status Date / Time No Known Allergies Allergy Verified 07/29/19 13:36 Home Medications: Home Medications Buprenorphine TAB* [Subutex TAB*] 2 mg SL QID 07/29/19 [History Confirmed ] Escitalopram * [Lexapro *] 20 mg PO DAILY 07/29/19 [History Confirmed 07/29/19] Levothyroxine TAB* [Synthroid TAB*] 50 mcg PO DAILY 07/29/19 [History Confirmed 07/29/19] hydrOXYzine HCL TAB* [Atarax TAB 50 MG *] 50 mg PO TID PRN 07/29/19 [History Confirmed 07/29/19] traZODone TAB* [Desyrel TAB*] 150 mg PO BEDTIME PRN 07/29/19 [History Confirmed 07/29/19] PMH/Surg Hx/FS Hx/Imm Hx Endocrine/Hematology History: Reports: Hx Anemia - SLIGHT PER PATIENT Denies: Hx Anticoagulant Therapy, Hx Diabetes, Hx Thyroid Disease Cardiovascular History: Reports: Hx Hypercholesterolemia, Hx Hypertension - ON MEDICATION FOR Denies: Hx Pacemaker/ICD, Hx Peripheral Vascular Disease Respiratory History: Denies: Hx Asthma, Hx Chronic Obstructive Pulmonary Disease (COPD) GI History: Reports: Other GI Disorders - LIVER ENZYMES ELEVATED AT TIMES// CHRONIC PANCREATITIS-STATES NO PROB RECENT History: Denies: Hx Renal Disease Musculoskeletal History: Reports: Hx Arthritis - HIPS, Hx Bursitis - b/l hip surgeries, Hx Gout Denies: Hx Osteoporosis Sensory History: Reports: Hx Hearing Problem - tinnitus Denies: Hx Cataracts, Hx Contacts or Glasses, Hx Glaucoma, Hx Hearing Aid Opthamlomology History: Denies: Hx Cataracts, Hx Contacts or Glasses, Hx Glaucoma Neurological History: Reports: Hx Migraine - states that she can tap her right advent to alleviate, Other Neuro Impairments/Disorders - 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 ANAL FISSURE. ECTOPIC . COLONOSCOPIES X 2- 2013 & 2018 FOR POLYPS Hx Anesthesia Reactions: No - Immunization History Date of Tetanus Vaccine: unsure Date of Influenza Vaccine: fall 2012 Infectious Disease History: No Infectious Disease History: Denies: Hx Clostridium Difficile, Hx Hepatitis, Hx Human Immunodeficiency Virus (HIV), Hx of Known/Suspected MRSA, Hx Shingles, Hx Tuberculosis, History Other Infectious Disease, Traveled Outside the [place] in Last 30 Days - Family History Known Family History: Positive: Diabetes Negative: Hypertension - Social History Alcohol Use: Daily Alcohol Amount: several 10% beers daily Hx Substance Use: Yes Substance Use Type: Reports: Prescribed - overdose history of ativan Substance Use Comment - Amount & Last Used: prescribed benzodiazapines Hx Tobacco Use: Yes Smoking Status (MU): Former Smoker Type: Cigarettes Amount Used/How Often: 2-7 CIGARETTES PER DAY OR NONE X OFF AND ON SOCIALLY ~15 YEARS AGO Have You Smoked in the Last Year: No Review of Systems Constitutional: Other - positive - dizziness, hot flashes Positive: Abdominal Pain All Other Systems Reviewed And Are Negative: Yes Physical Exam - Summary Physical Exam Summary: VITAL SIGNS: Reviewed. GENERAL: Patient is a well-developed and nourished female who is lying comfortable in the stretcher. Patient is not in any acute respiratory distress. She is anxious-appearing. HEAD AND FACE: No signs of trauma. No ecchymosis, hematomas or skull depressions. No sinus tenderness. EYES: PERRLA, EOMI x 2, No injected conjunctiva, no nystagmus. EARS: Hearing grossly intact. Ear canals and tympanic membranes are within normal limits. MOUTH: Oropharynx within normal limits. NECK: Supple, trachea is midline, no adenopathy, no JVD, no carotid bruit, no c- spine tenderness, neck with full ROM. CHEST: Symmetric, no tenderness at palpation. LUNGS: Clear to auscultation bilaterally. No wheezing or crackles. CVS: Regular rate and rhythm, S1 and S2 present, no murmurs or gallops appreciated. ABDOMEN: LUQ tenderness noted. Soft. No signs of distention. No rebound, no guarding, and no masses palpated. Bowel sounds are normal. EXTREMITIES: FROM in all major joints, no edema, no cyanosis or clubbing. NEURO: Alert and oriented x 3. No acute neurological deficits. Speech is normal and follows commands. SKIN: Dry and warm. Triage Information Reviewed: Yes Vital Signs On Initial Exam: Initial Vitals Temp Pulse Resp BP Pulse Ox 97.5 F 97 16 173/104 97 07/29/19 13:36 07/29/19 13:36 07/29/19 13:36 07/29/19 13:36 07/29/19 13:36 Vital Signs Reviewed: Yes Procedures - Sedation Patient Received Moderate/Deep Sedation with Procedure: No Diagnostics - Vital Signs Vital Signs Temp Pulse Resp BP Pulse Ox 07/29/19 15:25 98.2 F 90 17 165/91 95 07/29/19 13:36 97.5 F 97 16 173/104 97 - Laboratory Result Diagrams: 07/29/19 16:41 07/29/19 16:41 Lab Statement: Any lab studies that have been ordered have been reviewed, and results considered in the medical decision making process. - CT ABD/PEL CT CT Interpretation Completed By: Radiologist Summary of CT Findings: IMPRESSION: 1. The pancreas is unremarkable with no evidence for acute pancreatitis. 2. There may be a 1.3 cm left ovarian cyst. 3. No other acute CT pathology. THIS REPORT WAS REVIEWED BY ED PHYSICIAN. - EKG 1647 Summary of EKG Findings: EKG showed NSR with rate of 80 BPM, no ST elevations. Q waves in leads I, II, and aVF noted. EKG was reviewed and interpreted by ED physician. Re-Evaluation - Re-Evaluation First Eval Re-Evaluation Time: 18:12 Comment: I discussed all the findings and test results with the patient. Patient was instructed to return to the emergency room immediately if any of the symptoms return worsens. Plan of care was discussed with the patient and understands and agrees. All questions were answered at patient satisfaction. There were no further complaints or concerns. Lung exam before discharge: CTA B/ L. Good air exchange. No wheezing or crackles heard. CVS: S1 and S2 present. No murmurs appreciated. Patient is alert and oriented x 3. Patient is hemodynamically stable. Patient will be discharged home with follow up PCP in the next 2-3 days Abdominal Pain Fem Course/Dx - Course Course Of Treatment: Patient is a 49 y/o F w/ Hx of pancreatitis who presents to [facility] with chief complaint of LUQ abdominal pain. She characterizes the pain as a dull burning sensation with intermittent sharpness. Dizziness and hot flashes are endorsed. Patient notes Hx of alcoholism and states that she had previously been in [facility] for rehab. She claims that she has been alcohol free for 1.5 months, until last week. Patient notes recent stress contributed to her relapse and states that her last drink was a beer at 0930 this morning, . She reports previous admission to ICU for her pancreatitis. Food consumption is noted to aggravate her Sx and patient states that she has a poor diet. Home medications and allergies are reviewed. In the ED course the patient was placed in a monitoring analyst, IV access was obtained, IV fluids started. Blood test w/o a significant abnormality except for glucose of 103, magnesium 1.8, AST is 131, AST is 85. Troponin is 0.00. Amylase and lipase is normal limits. Urinalysis is negative for UTI. Abdominopelvic CT impression: the pancreas is unremarkable with no evidence for acute pancreatitis. There may be a 1.2 cm left ovarian cyst. No other acute CT findings. In the ED course the patient was given a banana bag. I discussed all the findings and test results with the patient. Patient was instructed to return to the emergency room immediately if any of the symptoms return worsens. Plan of care was discussed with the patient and understands and agrees. All questions were answered at patient satisfaction. There were no further complaints or concerns. Lung exam before discharge: CTA B/L. Good air exchange. No wheezing or crackles heard. CVS: S1 and S2 present. No murmurs appreciated. Patient is alert and oriented x 3. Patient is hemodynamically stable. Patient will be discharged home with follow up PCP in the next 2-3 days - Diagnoses Differential Diagnosis: Positive: Constipation, Diverticulitis, Pancreatitis Provider Diagnoses: Upper abdominal pain Discharge ED - Sign-Out/Discharge Documenting (check all that apply): Patient Departure - discharge - Discharge Plan Condition: Stable Disposition: HOME Patient Education Materials: Abdominal Pain (ED) Referrals: Keshia Plummer DO [Primary Care Provider] - 3 Days Additional Instructions: PLEASE RETURN TO ED FOR ANY NEW OR WORSENING SYMPTOMS. PLEASE FOLLOW UP WITH YOUR PRIMARY CARE PHYSICIAN WITHIN THREE DAYS. - Billing Disposition and Condition Condition: STABLE Disposition: Home - Attestation Statements Document Initiated by Scribe: Yes Documenting Scribe: MAGDALENO ANDRADE Provider For Whom Evelia is Documenting (Include Credential): CAMILLE RODRIGUEZ MD Scribe Attestation: MAGDALENO Bradford, scribed for CAMILLE RODRIGUEZ MD on 07/29/19 at 2137. Scribe Documentation Reviewed: Yes Provider Attestation: The documentation as recorded by the MAGDALENO dixon accurately reflects the service I personally performed and the decisions made by me, CAMILLE RODRIGUEZ MD Status of Scribe Document: Viewed
[2019-07-29] MEDS ORDERED: Thiamine INJ* 100 MG, Folic Acid IV* 1 MG, Multiple Vitamin IV ADULT* 10 ML in NS 0.9% ... IV ONE (16:31)
[2019-07-29 17:03] LABS: ABS Eosinophils 0.2 10^3/ul (0-0.6); ABS Lymphocytes 1.8 10^3/ul (1.0-4.8); ABS Monocytes 0.5 10^3/ul (0-0.8); ABS Neutrophils 2.9 10^3/ul (1.5-7.7); Eosinophil % 4.2 %; Hematocrit 39 % (35-47); Hemoglobin 13.7 g/dL (12.0-16.0); Lymphocyte % 32.7 %; Mean Corpuscular HGB Conc 36 g/dL (31-36); Mean Corpuscular Hemoglobin 34 pg (27-31); Mean Corpuscular Volume 96 fL (80-97); Mean Platelet Volume 7.8 fL (7.4-10.4); Nucleated Red Blood Cells % 0.1; Platelet Count 236 10^3/uL (150-450); Red Blood Count 3.99 10^6 /uL (3.70-4.87); Red Cell Distribution Width 14 % (10-15); White Blood Count 5.4 10^3/uL (3.5-10.8)
[2019-07-29 17:15] LABS: Activated Partial Thrombo Time 35.5 seconds (26.0-38.0); INR 1.01 (0.82-1.09)
[2019-07-29 17:23] LABS: Urine Appearance Clear; Urine Bilirubin Negative (Negative); Urine Blood Negative (Negative); Urine Color Straw; Urine Glucose Negative (Negative); Urine Ketones Negative (Negative); Urine Nitrite Negative (Negative); Urine Protein Negative (Negative); Urine Specific Gravity 1.003 (1.010-1.030); Urine Urobilinogen Negative (Negative)
[2019-07-29 17:26] LABS: Albumin 4.6 g/dL (3.2-5.2); Albumin/Globulin Ratio 1.3 (1-3); BUN/Creatinine Ratio 10.2 (8-20); C Reactive Protein 1.94 mg/L (<8.01); Calcium 9.8 mg/dL (8.6-10.3); EGFR African American 131.1 (>60); EGFR Non-African American 108.3 (>60); Globulin 3.6 g/dL (2-4); Magnesium 1.8 mg/dL (1.9-2.7); Total Bilirubin 0.5 mg/dL (0.2-1.0); Total Protein 8.2 g/dL (6.4-8.9)
[2019-07-29] MEDS ORDERED: Iohexol 300* (CONTRAST) 10 ML SDV IV ONE (17:29)
[2019-07-29] MEDS ORDERED: Thiamine TAB* 100 MG TAB PO ONE (18:14)
[2019-07-29] MEDS ORDERED: Folic Acid TAB* 1 MG PO ONE (18:14)
[2019-07-29 19:12] VITALS: BP 141/84
== END 2019-07-29 19:07 | disposition home or self-care (01) ==
LOC: ED 13:34
DX: R10.12 Left upper quadrant pain (principal); D64.9 Anemia, unspecified; E78.00 Pure hypercholesterolemia, unspecified; I10 Essential (primary) hypertension; F41.9 Anxiety disorder, unspecified; F32.9 Major depressive disorder, single episode, unspecified; Z87.891 Personal history of nicotine dependence; Z79.899 Other long term (current) drug therapy
CPT/HCPCS: 36415; 74177; 80053; 80320; 81003; 82150; 83605; 83690; 83735; 83880; 84484; 85025; 85610; 85730; 86140; 93005; 96365; 99282; A9270-GY; G0480; J3411; Q9967

== ENCOUNTER 2019-09-18 23:40 | Emergency (ER) | payer MEDICARE, MEDICAID ==
--- NOTE | 2019-09-18 23:54 | ED ---
Substance Abuse/Use - HPI Summary HPI Summary: Patient brought by ambulance for EtOH. Patient was found by [employer], stated she wanted help and that she wanted to go to the hospital. Patient is responsive when aroused verbally but somnolent. Denies any pain, symptoms or injury. Patient denies intent to harm herself, states she just drank too much. Has presented to the ED before for etoh abuse. - History Of Current Complaint Chief Complaint: EDSubstanceAbuse Stated Complaint: ETOH PER EMS Time Seen by Provider: 09/18/19 23:49 Hx Obtained From: Patient, EMS Overdose Characteristics: Oral Severity Initially: Moderate Severity Currently: Moderate Character: Other - somnolent Aggravating Factor(s): Nothing Alleviating Factor(s): Nothing Associated Signs And Symptoms: Negative - Allergies/Home Medications Allergies/Adverse Reactions: Allergies Allergy/AdvReac Type Severity Reaction Status Date / Time No Known Allergies Allergy Verified 09/19/19 07:19 Home Medications: Home Medications cloNIDine TAB* [Catapres 0.1 MG TAB*] 0.2 mg PO TID 30 Days #90 tab 05/18/19 [ Rx Confirmed 09/19/19] traZODone TAB* [Desyrel TAB*] 150 mg PO BEDTIME PRN 07/29/19 [History Confirmed 09/19/19] Escitalopram Oxalate [Lexapro 10 mg] 20 mg PO DAILY 08/16/19 [History Confirmed 09/19/19] Gabapentin 600 mg PO BID 08/16/19 [History Confirmed 09/19/19] hydrOXYzine HCL TAB* [Atarax 10 MG TAB*] 10 mg PO TID PRN 08/16/19 [History Confirmed 09/19/19] Buprenorphine HCl [Belbuca] 300 mcg BU BID 09/14/19 [History Confirmed 09/19/19] PMH/Surg Hx/FS Hx/Imm Hx Endocrine/Hematology History: Reports: Hx Anemia - SLIGHT PER PATIENT Denies: Hx Anticoagulant Therapy, Hx Diabetes, Hx Thyroid Disease Cardiovascular History: Reports: Hx Hypercholesterolemia, Hx Hypertension - ON MEDICATION FOR Denies: Hx Pacemaker/ICD, Hx Peripheral Vascular Disease Respiratory History: Denies: Hx Asthma, Hx Chronic Obstructive Pulmonary Disease (COPD) GI History: Reports: Other GI Disorders - LIVER ENZYMES ELEVATED AT TIMES// CHRONIC PANCREATITIS-STATES NO PROB RECENT History: Denies: Hx Renal Disease Musculoskeletal History: Reports: Hx Arthritis - HIPS, Hx Back Problems, Hx Bursitis - b/l hip surgeries, Hx Gout Denies: Hx Osteoporosis Sensory History: Reports: Hx Hearing Problem - tinnitus Denies: Hx Cataracts, Hx Contacts or Glasses, Hx Glaucoma, Hx Hearing Aid Opthamlomology History: Denies: Hx Cataracts, Hx Contacts or Glasses, Hx Glaucoma Neurological History: Reports: Other Neuro Impairments/Disorders - 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 Denies: Hx Dementia, Hx Headaches, Hx Seizures, Hx Transient Ischemic Attacks (TIA) Comment Only: Hx Migraine - states that she can tap her right denominational to alleviate Psychiatric History: Reports: Hx Anxiety - ON MEDICATION FOR, Hx Depression - ON MEDICATION FOR, Hx Panic Disorder - ANXIETY, Hx Post Traumatic Stress Disorder, Hx Inpatient Treatment, Hx Community Mental Health Tx, Hx Suicide Attempt - 2 known, Hx Substance Abuse, Other Psychiatric Issues/Disorders - Drug and Alcohol Abuse Denies: Hx Eating Disorder, Hx of Violent Episodes Against Others - Surgical History Surgery Procedure, Year, and Place: right hip x2, L hip x1. ANAL FISSURE. ECTOPIC . COLONOSCOPIES X 2- 2013 & 2018 FOR POLYPS Hx Anesthesia Reactions: No - Immunization History Date of Tetanus Vaccine: unsure Date of Influenza Vaccine: fall 2012 Infectious Disease History: No Infectious Disease History: Reports: Hx Hepatitis Denies: Hx Clostridium Difficile, Hx Human Immunodeficiency Virus (HIV), Hx of Known/Suspected MRSA, Hx Shingles, Hx Tuberculosis, History Other Infectious Disease, Traveled Outside the [place] in Last 30 Days - Family History Known Family History: Positive: Diabetes Negative: Hypertension - Social History Alcohol Use: None Alcohol Amount: several 10% beers daily Hx Substance Use: Yes Substance Use Type: Reports: None Substance Use Comment - Amount & Last Used: prescribed benzodiazapines Hx Tobacco Use: Yes Smoking Status (MU): Former Smoker Type: Cigarettes Amount Used/How Often: 2-7 CIGARETTES PER DAY OR NONE X OFF AND ON SOCIALLY ~15 YEARS AGO Have You Smoked in the Last Year: No Review of Systems Constitutional: Negative Eyes: Negative ENT: Negative Cardiovascular: Negative Respiratory: Negative Gastrointestinal: Negative Genitourinary: Negative Musculoskeletal: Negative Skin: Negative Neurological/Mental Status: Negative Psychological: Other All Other Systems Reviewed And Are Negative: Yes Physical Exam - Summary Physical Exam Summary: Patient is somnolent but verbally arousable when called by name, responds appropriately. No evidence of trauma noted on physical exam to head, face, mouth, neck, back, chest, abdomen, 4 extremities. Patient able to move all 4 extremities actively without indication of pain. No pain with palpation of abdomen, neck, back, chest. Triage Information Reviewed: Yes Vital Signs On Initial Exam: Initial Vitals Temp Pulse Resp BP Pulse Ox 96.8 F 53 20 146/89 97 09/18/19 23:47 09/18/19 23:47 09/18/19 23:47 09/18/19 23:47 09/18/19 23:47 Vital Signs Reviewed: Yes Appearance: Positive: Well-Appearing Skin: Positive: Warm Head/Face: Positive: Normal Head/Face Inspection Eyes: Positive: Normal Dental: Negative: Dental Fracture @, Bleeding Neck: Positive: Supple Respiratory/Lung Sounds: Positive: Clear to Auscultation Cardiovascular: Positive: Normal Abdomen Description: Positive: Nontender Musculoskeletal: Positive: Normal Neurological: Positive: Normal Psychiatric: Positive: Normal AVPU Assessment: Verbal (Reponds To) - [place] Coma Scale Best Eye Response: 3 - To Speech Best Motor Response: 6 - Obeys Commands Procedures - Sedation Patient Received Moderate/Deep Sedation with Procedure: No Diagnostics - Vital Signs Vital Signs Temp Pulse Resp BP Pulse Ox 09/18/19 23:47 96.8 F 53 20 146/89 97 - Laboratory Result Diagrams: 09/18/19 00:20 09/18/19 00:20 Lab Statement: Any lab studies that have been ordered have been reviewed, and results considered in the medical decision making process. Course/Dx - Course Course Of Treatment: Patient brought by ambulance for EtOH. Patient was found by [employer], stated she wanted help and that she wanted to go to the hospital. Patient is responsive when aroused verbally but somnolent. Denies any pain, symptoms or injury. Patient denies intent to harm herself, states she just drank too much. Patient bradycardic with heart rate in the low 50s. No prior history of same. Vital signs otherwise within normal limits. Patient quickly became more responsive, answering questions. Denies any pain, injury or symptoms. Lactic 3.4. EtOH 495. Labs otherwise unremarkable. EKG sinus rhythm, heart rate of 68, normal P axis, borderline prolonged QT interval. 2 L normal saline administered. Patient O2 sats started to drop into the high 80s, patient was placed on [place] 2L oxygen while she slept. Patient continues to respond appropriately when aroused. - Diagnoses Provider Diagnoses: ETOH abuse, Elevated lactic acid level Discharge ED - Sign-Out/Discharge Documenting (check all that apply): Sign-Out Patient Signing out patient TO: Kumar Golden - Discharge Plan Condition: Stable Disposition: HOME Patient Education Materials: Alcohol Intoxication (ED) Referrals: Keshia Plummer DO [Primary Care Provider] - Additional Instructions: Return to ED with new or worsening symptoms. - Billing Disposition and Condition Condition: STABLE Disposition: Home
[2019-09-19 00:51] LABS: Hematocrit 36 % (35-47); Hemoglobin 12.6 g/dL (12.0-16.0); Mean Corpuscular HGB Conc 35 g/dL (31-36); Mean Corpuscular Hemoglobin 31 pg (27-31); Mean Corpuscular Volume 88 fL (80-97); Mean Platelet Volume 6.6 fL (7.4-10.4); Platelet Count 199 10^3/uL (150-450); Red Blood Count 4.04 10^6 /uL (3.70-4.87); Red Cell Distribution Width 13 % (10-15); White Blood Count 5.3 10^3/uL (3.5-10.8)
[2019-09-19 01:19] LABS: Acetaminophen < 15 mcg/mL; Salicylate < 2.50 mg/dL (<30)
[2019-09-19 01:20] LABS: ALT 41 U/L (7-52); AST 50 U/L (13-39); Albumin/Globulin Ratio 1.3 (1-3); Alkaline Phosphatase 93 U/L (34-104); Anion Gap 9 mmol/L (2-11); BUN/Creatinine Ratio 21.6 (8-20); Blood Urea Nitrogen 16 mg/dL (6-24); CO2 Carbon Dioxide 27 mmol/L (22-32); Calcium 8.4 mg/dL (8.6-10.3); Chloride 105 mmol/L (101-111); EGFR African American 100.9 (>60); EGFR Non-African American 83.4 (>60); Globulin 3.2 g/dL (2-4); Glucose 108 mg/dL (70-100); Potassium 3.6 mmol/L (3.5-5.0); Sodium 141 mmol/L (135-145); Total Protein 7.2 g/dL (6.4-8.9)
[2019-09-19 01:23] LABS: ABS Eosinophils 0.1 10^3/ul (0-0.6); ABS Lymphocytes 2.9 10^3/ul (1.0-4.8); ABS Monocytes 0.3 10^3/ul (0-0.8); ABS Neutrophils 1.9 10^3/ul (1.5-7.7); Eosinophil % 1.6 %; Lymphocyte % 55.5 %; Nucleated Red Blood Cells % 0.1
[2019-09-19 01:26] LABS: HCG Pregnancy < 0.60 mIU/mL
[2019-09-19 01:41] LABS: Urine Benzodiazepine Screen None Detected (None Detect); Urine Opiates Screen None Detected (None Detect)
[2019-09-19 01:43] LABS: Alcohol 495 mg/dL (<10)
[2019-09-19] MEDS ORDERED: NS 0.9% 1000 ML** 2,000 ML IV ONE (01:47)
[2019-09-19 02:03] LABS: Urine Appearance Clear; Urine Bilirubin Negative (Negative); Urine Blood Negative (Negative); Urine Color Colorless; Urine Glucose Negative (Negative); Urine Ketones Negative (Negative); Urine Nitrite Negative (Negative); Urine Protein Negative (Negative); Urine Specific Gravity 1.003 (1.010-1.030); Urine Urobilinogen Negative (Negative)
[2019-09-19 02:04] LABS: Magnesium 1.9 mg/dL (1.9-2.7)
--- OUTSIDE RECORDS SUMMARY | 2019-09-19 02:04 | XMS REPORT | Continuity of Care Document ---
:1970 External Reference #:[id number] Author Name Kodak Tobin MD (transmitted by agent of provider Latesha Whyte) Address [address] [place] [id number] Care Team Providers Name Role Phone Racheal Lindo NP-C - Family Care Team Information Media Production Manager Keshia Plummer DO - Hospitalist Care Team Information Media Production Manager Problems Active Problems Provider Date Closed fracture [...] smoker quit 2009 Unknown Smoking Status Reviewed: 09/09/19 Patient is a former smoker quit 2009 Exercise Type/Frequency Exercises rarely Allergies, Adverse Reactions, Alerts Description No Known Drug Allergies Medications Active Medications SIG Qnty Indications Ordering Date Provider Belbuca Q12 2units Keshia Plummer, 08/19/2019 150mcg Film DO Gabapentin take two tabs 120tabs Daniel Sutherland MD 08/19/2019 600mg Tablets three times a day Levothyroxine Sodium take one tablet 90tabs Keshia Plummer, by mouth every DO 50mcg Tablets morning on an empty stomach Aleve 1 tab twice a Unknown 220mg Capsules day as needed Clonidine HCL 1 by mouth three 270tabs Daniel Sutherland MD 0.2mg times a day Tablets Hydroxyzine HCL 1 tablet by 270tabs Daniel Sutherland MD 50mg mouth three Tablets times daily Trazodone HCL 1 every at 90tabs Daniel Sutherland MD 150mg bedtime Tablets Escitalopram Oxalate 1 by mouth every 90tabs Daniel Sutherland MD 20mg day Tablets Multivitamin Women 1 by mouth every Unknown day Tablets Milk Thistle 1 by mouth every Unknown 140mg day Capsules Vitamin C 1 by mouth every Unknown 500mg Capsules day Vitamin B Complex 1 by mouth every Unknown day Tablets Cushing 3 500 take one Unknown 500mg capsule/tablet Capsules daily by mouth Liver & Kidney Unknown Cleanser 250-75mg Capsules Fiber Adult Gummies 2 gummies by Unknown 2gm mouth every day Chewtabs Calcium 500+D 1 by mouth every Unknown day [id number] Tablets Medications Administered in Office Medication SIG Qnty Indications Ordering Provider Date Triamcinolone (Kenalog) Zita Fisher MD 02/05/2018 Injection Immunizations Description No Information Available Vital Signs Date Vital Result Comment 09/09/2019 1:19pm Height 71 inches 5'11" Weight 180.00 lb Heart Rate 57 /min BP Systolic 128 mmHg BP Diastolic 70 mmHg Body Temperature 96.7 F Pain Level 6 O2 % BldC Oximetry 98 % BMI (Body Mass Index) 25.1 kg/m2 08/19/2019 3:48pm Height 71 inches 5'11" Weight 179.00 lb Heart Rate 84 /min BP Systolic Sitting 137 mmHg BP Diastolic Sitting 86 mmHg Body Temperature 97.6 F O2 % BldC Oximetry 95 % BMI (Body Mass Index) 25.0 kg/m2 Results Test Acquired Date Facility Test Result H/L Range Note Laboratory test 09/13/2019 [facility] Total Protein 16 mg/dL 1, [address] [place] [address] [phone] Creatinine Random Urine 111.36 mg/dL 3 Urine Microalbumin 09/13/2019 [facility] Ur Microalbumin < 15.[address] (mg/L) mg/[place] [address] [phone] Urine Creatinine 111.36 mg/dL Urine Microalbumin/Creatinine TNP <31 4 Urine Culture And 09/09/2019 [facility] Urine Culture SEE RESULT [address] [place] [address] [phone] Hepatitis C Antibody 09/09/2019 [facility] HCV Index 0.04 s/c [address] [place] [address] [phone] Hepatitis C Antibody Negative Negative Laboratory test 09/09/2019 [facility] Creatine 114 U/L Normal 10-[address] Kinase(CK) [place] [address] [phone] Complement C3 116 mg/dL 75 - 175 6 Complement C4 22 mg/dL 14 - 40 7 Hepatitis B Core AB Total Negative Negative 8 Hepatitis B Kay AB Titer Immune Immune CBC Auto 09/09/2019 [facility] White Blood 8.2 10^3/uL Normal 3.5-10.[address] [place] [address] [phone] Red Blood Count 3.95 10^6/uL Normal 3.70-4.87 Hemoglobin 12.4 g/dL Normal 12.0-16.0 Hematocrit 36 % Normal 35-47 Mean Corpuscular Volume 90 fL Normal 80-97 Mean Corpuscular Hemoglobin 31 pg Normal 27-31 Mean Corpuscular HGB Conc 35 g/dL Normal 31-36 Red Cell Distribution Width 13 % Normal 10-15 Platelet Count 337 10^3/uL Normal 150-450 Mean Platelet Volume 7.6 fL Normal 7.4-10.4 Abs Neutrophils 3.6 10^3/uL Normal 1.5-7.7 Abs Lymphocytes 3.3 10^3/uL Normal 1.0-4.8 Abs Monocytes 1.0 10^3/uL High 0-0.8 Abs Eosinophils 0.3 10^3/uL Normal 0-0.6 Abs Basophils 0.1 10^3/uL Normal 0-0.2 Abs Nucleated RBC 0.0 10^3/uL Granulocyte % 43.4 % Lymphocyte % 40.2 % Monocyte % 12.1 % Eosinophil % 3.5 % Basophil % 0.8 % Nucleated Red Blood Cells % 0.0 Urinalysis Profile 09/09/2019 [facility] Urine Color Yellow [address] [place] [address] [phone] Urine Appearance Cloudy Urine Specific [place] 1.003 Low 1.010-1.030 Urine pH 5.0 Normal 5-9 Urine Urobilinogen Negative Negative Urine Ketones Negative Negative Urine Protein Negative Negative 9 Urine Leukocytes Negative Negative Urine Blood Negative Negative Urine Nitrite Negative Negative Urine Bilirubin Negative Negative Urine Glucose Negative Negative Urine White Blood Cell Absent Absent Urine Red Blood Cell Trace(0-2/hpf) Absent Urine Bacteria 1+ Abnormal Absent Urine Squamous Epithelial Cell Present Abnormal Absent Iron & Iron Binding 09/09/2019 [facility] Iron 135 g/dL Normal 50-212 Capacity [facility] [place] [address] [phone] Unsaturated Iron Binding < 352 g/dL Total Iron Binding Capacity 367 g/dL Normal 250-450 Transferrin 262 mg/dL Normal 203-362 % Iron Saturation 37 % Normal 15-55 Laboratory test 09/09/2019 [facility] Ferritin 178.7 Normal 11 -307 finding [facility] ng/[place] [address] [phone] Liver Function 09/09/2019 [facility] Total Protein 7.3 g/dL Normal 6.4-8.9 Panel [facility] [place] [address] [phone] Albumin 4.3 g/dL Normal 3.2-5.2 Globulin 3.0 g/dL Normal 2-4 Albumin/Globulin Ratio 1.4 Normal 1-3 Total Bilirubin 0.40 mg/dL Normal 0.2-1.0 Direct Bilirubin 0.10 mg/dL Normal 0.03-0.18 Indirect Bilirubin 0.3 mg/dL Normal 0.3-1.0 Alkaline Phosphatase 73 U/L Normal 34-104 Alt 55 U/L High 7-52 Ast 52 U/L High 13-39 Laboratory test 09/09/2019 [facility] Anti Double <12.3 IU/mL 10 finding [facility] [place] [address] [phone] Smooth Muscle Antibody Negative Negative 11 GGTP 45 U/L Normal 9-64.0 Jazmín Igg AB Reflex 09/09/2019 [facility] SS-A/Ro Antibody <0.2 U [address] [place] [address] [phone] SS-B/La Antibody <0.2 U 13 Sm (Caicedo) IgG Antibody 0.2 U 14 [employer] Antibody, IgG <0.2 U 15 Scl-70 (Scleroderma) Antibody <0.2 U 16 Natasha-1 Antibody <0.2 U 17 Comp Metabolic 09/09/2019 [facility] Sodium 136 mmol/L Normal 135-[address] [place] [address] [phone] Potassium 4.1 mmol/L Normal 3.5-5.0 Chloride 102 mmol/L Normal 101-111 Co2 Carbon Dioxide 26 mmol/L Normal 22-32 Anion Gap 8 mmol/L Normal 2-11 Glucose 96 mg/dL Normal 70-100 Blood Urea Nitrogen 16 mg/dL Normal 6-24 Creatinine 0.67 mg/dL Normal 0.51-0.95 BUN/Creatinine Ratio 23.9 High 8-20 Calcium 10.0 mg/dL Normal 8.6-10.3 Total Protein 7.4 g/dL Normal 6.4-8.9 Albumin 4.4 g/dL Normal 3.2-5.2 Globulin 3.0 g/dL Normal 2-4 Albumin/Globulin Ratio 1.5 Normal 1-3 Total Bilirubin 0.40 mg/dL Normal 0.2-1.0 Alkaline Phosphatase 83 U/L Normal 34-104 Alt 55 U/L High 7-52 Ast 54 U/L High 13-39 Egfr Non- 93.6 >60 Egfr 113.2 >60 18 Fentanyl 08/16/2019 [facility] Norfentanyl Negative 19 Confirmation, Urine [address] Level ng/mL [place], [place] [id number] [phone] Fentanyl Level Negative ng/mL 20 Fentanyl Interp Negative. 21 Drug Screen 08/16/2019 [facility] Urine None Detected None Urine Pain [address] [place] [address] Screen [phone] Urine Hydrocodone Screen None Detected None Detect Urine Oxycodone Screen None Detected None Detect Urine Fentanyl Screen Presumptive Posi <SEE NOTE> Abnormal None Detect 22 Urine Methadone Screen None Detected None Detect Urine Buprenorphine Screen Presumptive Posi <SEE NOTE> Abnormal None Detect 23 Urine Amphetamine Screen None Detected None Detect Urine Benzodiazepine Screen None Detected None Detect Urine Cannabinoids Screen None Detected None Detect Urine Cocaine Screen None Detected None Detect Urine Opiates Screen None Detected None Detect Urine Phencyclidine Screen None Detected None Detect 24 CBC Auto 07/29/2019 [facility] White Blood 5.4 10^3/uL Normal 3.5-10.[address] [place] [address] [phone] Red Blood Count 3.99 10^6/uL Normal 3.70-4.87 Hemoglobin 13.7 g/dL Normal 12.0-16.0 Hematocrit 39 % Normal 35-47 Mean Corpuscular Volume 96 fL Normal 80-97 Mean Corpuscular Hemoglobin 34 pg High 27-31 Mean Corpuscular HGB Conc 36 g/dL Normal 31-36 Red Cell Distribution Width 14 % Normal 10-15 Platelet Count 236 10^3/uL Normal 150-450 Mean Platelet Volume 7.8 fL Normal 7.4-10.4 Abs Neutrophils 2.9 10^3/uL Normal 1.5-7.7 Abs Lymphocytes 1.8 10^3/uL Normal 1.0-4.8 Abs Monocytes 0.5 10^3/uL Normal 0-0.8 Abs Eosinophils 0.2 10^3/uL Normal 0-0.6 Abs Basophils 0.0 10^3/uL Normal 0-0.2 Abs Nucleated RBC 0.0 10^3/uL Granulocyte % 53.8 % Lymphocyte % 32.7 % Monocyte % 8.5 % Eosinophil % 4.2 % Basophil % 0.8 % Nucleated Red Blood Cells % 0.1 Inr/Protime 07/29/2019 [facility] Inr 1.01 Normal 0.82-1.[address] [place] [address] [phone] Laboratory test 07/29/2019 [facility] Partial 35.5 Normal 26.0 -38.[address] [address] Time PTT [phone] B-Type Natriuretic Peptide BNP 23 pg/mL <=100 Lactic Acid 1.3 mmol/L Normal 0.5-2.0 26 Urinalysis Profile 07/29/2019 [facility] Urine Color Straw [address] [place] [address] [phone] Urine Appearance Clear Urine Specific [place] 1.003 Low 1.010-1.030 Urine pH 5.0 Normal 5-9 Urine Urobilinogen Negative Negative Urine Ketones Negative Negative Urine Protein Negative Negative Urine Leukocytes Negative Negative Urine Blood Negative Negative Urine Nitrite Negative Negative Urine Bilirubin Negative Negative Urine Glucose Negative Negative Comp Metabolic 07/29/2019 [facility] Sodium 137 mmol/L Normal 135-[address] [place] [address] [phone] Potassium 4.0 mmol/L Normal 3.5-5.0 Chloride 102 mmol/L Normal 101-111 Co2 Carbon Dioxide 24 mmol/L Normal 22-32 Anion Gap 11 mmol/L Normal 2-11 Glucose 103 mg/dL High 70-100 Blood Urea Nitrogen 6 mg/dL Normal 6-24 Creatinine 0.59 mg/dL Normal 0.51-0.95 BUN/Creatinine Ratio 10.2 Normal 8-20 Calcium 9.8 mg/dL Normal 8.6-10.3 Total Protein 8.2 g/dL Normal 6.4-8.9 Albumin 4.6 g/dL Normal 3.2-5.2 Globulin 3.6 g/dL Normal 2-4 Albumin/Globulin Ratio 1.3 Normal 1-3 Total Bilirubin 0.50 mg/dL Normal 0.2-1.0 Alkaline Phosphatase 94 U/L Normal 34-104 Alt 85 U/L High 7-52 Ast 131 U/L High 13-39 Egfr Non- 108.3 >60 Egfr 131.1 >60 27 Laboratory test 07/29/2019 [facility] Magnesium 1.8 mg/dL Low 1.9-2.[address] [place] [address] [phone] Amylase 58 U/L Normal 29-103 Lipase 34 U/L Normal 11.0-82.0 Troponin-I (TnI) 0.00 ng/mL <0.03 28 C Reactive Protein 1.94 mg/L Normal <8.01 Alcohol 16 mg/dL High <10 Laboratory test 07/23/2019 [facility] Rheumatoid < 10 IU/mL Normal <[address] [place] [address] [phone] Cyclic Citrullinated Pep Igg <15.6 U 29 Nuclear AB 07/23/2019 [facility] Nuclear Ab Positive 1:320 Abnormal 30 (Rashid) By If[employer] [address] (Rashid) by [employer], [place] [address] IgG [phone] Rashid Titer: 1:320 Rashid Pattern: Speckled 31 Laboratory test finding 07/23/2019 [facility] Anti Ssa/Ro <0.2 U [address] [place] [address] [phone] Anti SSB LA <0.2 U 33 TSH (Thyroid Stim Horm) 2.15 mcIU/mL Normal 0.34-5.60 1 [id number] 2 [id number] 3 [id number] 4 Unable to calculate due to low microalbumin 5 SEE RESULT BELOW Name: NANCY PACE Breana : [address]: Kodak Tobin MD Acct: [id number] Unit: [id number] AGE: 49 Location: [facility] Re09/09/19 SEX: F Status: REG REF SPEC: [id number] ANGELICA: 09/09/19-[address]: Kodak Tobin MD REQ: [id number] RECD: 09/09/19-144 STATUS: COMP _ SOURCE: URINE SPDESC: ORDERED: Urine Culture Procedure Result Reported Site Urine Culture Final 09/11/19- 0759 ML No Growth (<1,000 CFU/mL) * ML - [facility] . END OF REPORT DEPARTMENT OF PATHOLOGY, [address] [place] [address] Pal Read M.D. Director CLIA # [id number] 6 Test Performed by: [place] [address] Hat And Cap Opener: Srinivas Daniel M.D. Ph.D.; CLIA# [id number] 7 Test Performed by: [place] [address] [employer] And Cap Opener: Srinivas Daniel M.D. Ph.D.; CLIA# [id number] 8 Test Performed by: [place] [address] [employer] And Cap Opener: Srinivas Daniel M.D. Ph.D.; CLIA# [id number] 9 CORRECTED REPORT --- Corrected on 09/10/19 1438 --- Urine Protein previously reported as: 3+(>=500 mg/dL) An 10 REFERENCE VALUE <30.0 (Negative) Test Performed by: [place] [address] [employer] And Cap Opener: Srinivas Daniel M.D. Ph.D.; CLIA# [id number] 11 ADDITIONAL INFORMATION This test was developed and its performance characteristics determined by [facility] in a manner consistent with CLIA requirements. This test has not been cleared or approved by the U.S. Food and Drug Administration. Test Performed by: [facility] [employer] [facility] [place] [address] Hat And Cap Opener: Srinivas Daniel M.D. Ph.D.; CLIA# [id number] 12 REFERENCE VALUE <1.0 (Negative) 13 REFERENCE VALUE <1.0 (Negative) 14 REFERENCE VALUE <1.0 (Negative) 15 REFERENCE VALUE <1.0 (Negative) 16 REFERENCE VALUE <1.0 (Negative) 17 REFERENCE VALUE <1.0 (Negative) Test Performed by: [facility] [employer] [facility] [place] [address] Hat And Cap Opener: Srinivas Daniel M.D. Ph.D.; CLIA# [id number] 18 Because ethnic data is not always readily available, this report includes an eGFR for both -Americans and non- Americans. The National Kidney Disease Education Program (NKDEP) does not endorse the use of the MDRD equation for patients that are not between the ages of 18 and 70, are , have extremes of body size, muscle mass, or nutritional status, or are non- or non-. According to the National Kidney Foundation, irrespective of diagnosis, the stage of the disease is based on the level of kidney function: Stage Description GFR(mL/min/1.73 m(2)) 1 Kidney damage with normal or decreased GFR 90 2 Kidney damage with mild decrease in GFR 60-89 3 Moderate decrease in GFR 30-59 4 Severe decrease in GFR 15-29 5 Kidney failure <15 (or dialysis) 19 REFERENCE VALUE Cutoff: 1.0 20 REFERENCE VALUE Cutoff: 0.2 21 ADDITIONAL INFORMATION This test was developed and its performance characteristics determined by [facility] in a manner consistent with CLIA requirements. This test has not been cleared or approved by the U.S. Food and Drug Administration. Test Performed by: [facility] [employer] [facility] [address] [place] [address] [employer] And Cap Opener: Srinivas Daniel M.D. Ph.D.; CLIA# [id number] 22 Presumptive Positive Presumptive positive results are unconfirmed. 23 Presumptive Positive Presumptive positive results are unconfirmed. 24 The specimen was tested at the listed cutoffs: Drug Class Test level (ng/mL) Hydrocodone 300 Oxycodone 100 Fentanyl 1 Methadone 150 Buprenorphine 5 Amphetamines 500 Barbiturates 200 Benzodiazepines 200 Cocaine 150 Cannabinoids 50 Opiates 300 PCP 25 Specimen was received without chain of custody. Results should be used for medical purposes only. 25 Standard intensity warfarin therapeutic range: 2.0-3.0 High intensity warfarin therapeutic range: 2.5-3.5 26 [facility] Severe Sepsis and Septic Shock Management Bundle Measure requires all lactic acids initially measuring >2.0 mmol/L be repeated. 27 Because ethnic data is not always readily available, this report includes an eGFR for both -Americans and non- Americans. The National Kidney Disease Education Program (NKDEP) does not endorse the use of the MDRD equation for patients that are not between the ages of 18 and 70, are , have extremes of body size, muscle mass, or nutritional status, or are non- or non-. According to the National Kidney Foundation, irrespective of diagnosis, the stage of the disease is based on the level of kidney function: Stage Description GFR(mL/min/1.73 m(2)) 1 Kidney damage with normal or decreased GFR 90 2 Kidney damage with mild decrease in GFR 60-89 3 Moderate decrease in GFR 30-59 4 Severe decrease in GFR 15-29 5 Kidney failure <15 (or dialysis) 28 Troponin-I testing on Plasma Separator Tubes (PST) has a known false positive rate of 0.20-0.40%. All positive troponins reflex immediately to secondary confirmatory testing. Using the PAYMILL 800 Access Immunoassay systems, the 99th percentile upper reference limit was demonstrated to be < 0.03 ng/mL. 29 REFERENCE VALUE <20.0 (Negative) Test Performed by: [place] [address] [employer] And [employer] Opener: Srinivas Daniel M.D. Ph.D.; CLIA# [id number] 30 REFERENCE VALUE <1:80 (Negative) 31 Test Performed by: [facility] [place] [address] [employer] And [employer] Opener: Srinivas Daniel M.D. Ph.D.; CLIA# [id number] 32 REFERENCE VALUE <1.0 (Negative) Test Performed by: [facility] [place] [address] [employer] Opener: Srinivas Daniel M.D. Ph.D.; CLIA# [id number] 33 REFERENCE VALUE <1.0 (Negative) Test Performed by: [place] [address] [employer] And [employer] Opener: Srinivas Daniel M.D. Ph.D.; CLIA# [id number] Procedures Date Code Description Status 08/26/2019 97430286 Mammogram Completed 05/17/2019 45527 EKG, Interpretation Only Completed Medical Devices Description No Information Available Encounters Type Date Location Provider Dx Diagnosis Office Visit 09/09/2019 Rheumatology Kodak Tobin, R74.0 Nonspec elev of 1:00p [facility] levels of Ccmob transamns & lactic acid dehydrgnse R76.0 Raised antibody titer M18.0 Bilateral primary osteoarth of first carpometacarp joints M25.559 Pain in unspecified hip M79.7 Fibromyalgia F43.10 Post-traumatic stress disorder, unspecified Office Visit 08/19/2019 4:00p [facility] Internal Keshia Senner, Z12.83 Encounter for Medicine - Suite DO screening for R malignant neoplasm of skin M13.89 Other specified arthritis, multiple sites F10.21 Alcohol dependence, in remission Office Visit 06/29/2019 9:40a [facility] Internal Keshia F41.9 Anxiety disorder , Medicine - Suite Senner, DO unspecified R Z12.31 Encntr screen mammogram for malignant neoplasm of breast M79.643 Pain in unspecified hand Z00.00 Encntr for general adult medical exam w/o abnormal findings F10.10 Alcohol abuse, uncomplicated Office Visit 05/18/2019 [facility] Cuauhtemoc Cotto F10.239 Alcohol 10:02a Assocshaquille M.D.,FACP dependence with Hospitalists withdrawal, unspecified F19.90 Other psychoactive substance use, unspecified, uncomplicated F41.9 Anxiety disorder, unspecified G90.09 Other idiopathic peripheral autonomic neuropathy E87.6 Hypokalemia D69.59 Other secondary thrombocytopenia K70.10 Alcoholic hepatitis without ascites Office Visit 05/17/2019 [facility] Cuauhtemoc Cotto F10.239 Alcohol 10:02a shaquille Turner M.D.,FACP dependence with Hospitalists withdrawal, unspecified R74.0 Nonspec elev of levels of transamns & lactic acid dehydrgnse F32.9 Major depressive disorder, single episode, unspecified R31.29 Other microscopic hematuria F19.90 Other psychoactive substance use, unspecified, uncomplicated Office Visit 05/16/2019 10:01a [facility] Carissa Ross, F10.239 Alcohol Assocshaquille MD dependence with Hospitalists withdrawal, unspecified F32.9 Major depressive disorder, single episode, unspecified R74.0 Nonspec elev of levels of transamns & lactic acid dehydrgnse R31.29 Other microscopic hematuria F19.90 Other psychoactive substance use, unspecified, uncomplicated D64.9 Anemia, unspecified Office Visit 05/15/2019 10:01a [facility] shaquille Turner MD E87.2 Acidosis Hospitalists F10.239 Alcohol dependence with withdrawal, unspecified F32.9 Major depressive disorder, single episode, unspecified E87.8 Oth disorders of electrolyte and fluid balance, NEC R74.0 Nonspec elev of levels of transamns & lactic acid dehydrgnse R31.29 Other microscopic hematuria D64.9 Anemia, unspecified Office Visit 2019 [facility] F10.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 F32.89 Other specified depressive episodes Assessments Date Code Description Provider 09/09/2019 R74.0 Nonspecific elevation of levels of Kodak Tobin MD transaminase and lactic acid dehydrogenase [LDH] 09/09/2019 R76.0 Raised antibody titer Kodak Tobin MD 09/09/2019 M18.0 Bilateral primary osteoarthritis of Kodak Tobin MD first carpometacarpal joints 09/09/2019 M25.559 Pain in unspecified hip Kodak Tobin MD 09/09/2019 M79.7 Fibromyalgia Kodak Tobin MD 09/09/2019 F43.10 Post-traumatic stress disorder, Kodak Tobin MD unspecified 08/19/2019 Z12.83 Encounter for screening for malignant Keshia Senner, DO neoplasm of skin 08/19/2019 M13.89 Other specified arthritis, multiple Keshia Senner, DO sites 08/19/2019 F10.21 Alcohol dependence, in remission Keshia Senner, DO 06/29/2019 F41.9 Anxiety disorder, unspecified Keshia Senner, DO 06/29/2019 Z12.31 Encounter for screening mammogram for Keshia Senner, DO malignant neoplasm of breast 06/29/2019 M79.643 Pain in unspecified hand Keshia Senner, DO 06/29/2019 Z00.00 Encounter for general adult medical Keshia Senner, DO examination without abnormal findings 06/29/2019 F10.10 Alcohol abuse, uncomplicated Keshia Senner, DO 05/18/2019 F10.239 Alcohol dependence [...] hepatitis without ascites Cuauhtemoc Morrison M.D.,FACP 05/17/2019 Z13.6 Encounter for screening for Singh Colbert M.D. cardiovascular disorders 05/17/2019 F10.239 Alcohol dependence with withdrawal, Cuauhtemoc [...] Other specified depressive episodes Marilyn Syed M.D. Plan of Treatment Future Appointment(s):11/05/2019 3:00 pm - Kodak [facility] 10:15 am - Reid Cope MD at [facility] Meedftmsvbh08/12/2020 - Kodak Tobin, MDR74.0 Nonspecific elevation of levels of transaminase and lactic acid dehydrogenase [LDH]Comments:Patient noted to most recently have elevated AST/ALT as well as elevated alcohol level on labs. Willrepeat testing as ordered to ensure this is liver in etiology (likely) and also obtain hepatitis serologies as well as autoimmune hepatitis antibodies.R76.0 Raised antibody titerComments:No evidence for inflammatory arthritis on today's exam. Will look for more specific RASHID-associated antibodies. We discussed that a positive RASHID reading alone does not indicate an autoimmune disease.Theprevalence of ANAs in healthy individuals is about 3-15 percent. The production of these autoantibodies is strongly age-dependent, and increases to 10-37 percent in healthy persons over the age of 65. Even healthy people with viral infections can have a positive RASHID, albeit for a short time.- See moreat: [email or web address]/I-Am-[email or web address]-[email or web address] /[email or web address]- [email or web address] up:f/u 2 mhydntX38.0 Bilateral primary osteoarthritis of first carpometacarpal jointsNew Therapy:Occupational TherapyComments:Her [facility] pain / tenderness is due to osteoarthritis--referral to OT placed. No inflammation noted.M25.559 Pain in unspecified hipComments:CAM impingement on MRIFor Fibromyalgia type symptoms might consider PCP to change Escitalopram for Effexor or Cymbalta (titrate up to 75mg or 60mg respectively)Recommend over time addressing PTSD iuxnjxfsJ41.7 FibromyalgiaComments:I discusssed with the patient that fibromyalgia is a common health problem that causes widespread pain and tenderness (sensitivity to touch). The pain and tenderness tends to come and go, and move about the body. It is often associated with chronic fatigue and may be associated with sleep problems.Research shows that the most effective treatment for fibromyalgia is physical exercise. Physical exercise should be used in addition to medical treatment. Patients benefit most from aerobic exercises. Other body- based therapies including Jose Chi and yoga can ease fibromyalgia symptoms; the patient expressed understanding.F43.10 Post-traumatic stress disorder, unspecifiedComments:PTSD causes hard to treat, severe fibromyalgia. Discussed need to continue treating this via therapy. Functional Status Description No Information Available Mental Status Description No Information Available Referrals Refer to Reason for Referral Status Appt Date Coleen Membreno MD Sent 09/24/2019 [address] [place] [place] [address] [place] [id number] [phone] Valentin Spivey MD Sent 09/09/2019 [address] [facility] [place] [address] [place] [address] [phone] Les Blum DO Sent [address] [place] [address] [phone] Raji Antonio MD Sent [address] [place] [address] [phone] [facility] Created [address] [place] [address] [phone]
--- OUTSIDE RECORDS SUMMARY | 2019-09-19 02:04 | XMS REPORT | Continuity of Care Document ---
:1970 External Reference #:[id number] Author Name Keshia Plummer DO (transmitted by agent of provider Arlene Ying) Address [address] [place] [id number] Care Team Providers Name Role Phone Racheal Lindo NP-C - Family Care Team Information Sports Announcer Keshia Plummer DO - Hospitalist Care Team Information Sports Announcer [phone] Problems Active Problems Provider Date Closed fracture [...] smoker quit 2009 Unknown Smoking Status Reviewed: 08/19/19 Patient is a former smoker quit 2009 Exercise Type/Frequency Exercises rarely Allergies, Adverse Reactions, Alerts Description No Known Drug Allergies Medications Active Medications SIG Qnty Indications Ordering Date Provider Belbuca Q12 2units Keshia Plummer, 08/19/2019 150mcg Film DO Gabapentin take two tabs 120tabs Keshia Plummer, 08/19/2019 600mg Tablets three times a DO day Levothyroxine Sodium take one tablet 90tabs [...] 1 by mouth every Unknown day Tablets [place] 3 500 take one Unknown 500mg capsule/tablet Capsules daily by mouth Liver & Kidney Unknown Cleanser 250-75mg Capsules Fiber Adult Gummies 2 gummies by Unknown 2gm mouth every day Chewtabs Calcium 500+D 1 by mouth every Unknown day [id number] Tablets Medications Administered in Office Medication SIG Qnty Indications Ordering Provider Date Triamcinolone (Kenalog) Zita Fisher MD 02/05/2018 Injection Immunizations Description No Information Available Vital Signs Date Vital Result Comment 08/19/2019 3:48pm Height 71 inches 5'11" Weight 179.00 lb Heart Rate 84 /min BP Systolic Sitting 137 mmHg BP Diastolic Sitting 86 mmHg Body Temperature 97.6 F O2 % BldC Oximetry 95 % BMI (Body Mass Index) 25.0 kg/m2 06/29/2019 9:39am Height 71 inches 5'11" Weight 175.25 lb Heart Rate 95 /min BP Systolic 123 mmHg BP Diastolic 81 mmHg Body Temperature 96.7 F O2 % BldC Oximetry 96 % BMI (Body Mass Index) 24.4 kg/m2 Results Test Acquired Date Facility Test Result H/L Range Note Drug Screen 08/16/2019 [facility] Urine None None Urine Pain [address] [place] [address] Screen [phone] Urine Hydrocodone Screen None Detected None Detect Urine Oxycodone Screen None Detected None Detect Urine Fentanyl Screen Presumptive Posi <SEE NOTE> Abnormal None Detect 1 Urine Methadone Screen None Detected None Detect Urine Buprenorphine Screen Presumptive Posi <SEE NOTE> Abnormal None Detect 2 Urine Amphetamine Screen None Detected None Detect Urine Benzodiazepine Screen None Detected None Detect Urine Cannabinoids Screen None Detected None Detect Urine Cocaine Screen None Detected None Detect Urine Opiates Screen None Detected None Detect Urine Phencyclidine Screen None Detected None Detect 3 CBC Auto 07/29/2019 [facility] White Blood 5.4 10^3/uL Normal 3.5-10.[address] Count [place], [place] [id number] [phone] Red Blood Count 3.99 10^6/uL Normal 3.70-4.87 [...] Cells % 0.1 Inr/Protime 07/29/2019 [facility] Inr 1.01 Normal 0.82-1.[address] [place], [place] [id number] [phone] Laboratory test 07/29/2019 [facility] Partial 35.5 Normal 26.0 -38.[address] [address] Time PTT [phone] B-Type Natriuretic Peptide BNP 23 pg/mL <=100 Lactic Acid 1.3 mmol/L Normal 0.5-2.0 5 Urinalysis Profile 07/29/2019 [facility] Urine Color Straw [address] [place] [address] [phone] Urine Appearance Clear Urine Specific [place] 1.003 Low 1.010-1.030 Urine pH 5.0 Normal 5-9 Urine Urobilinogen Negative Negative Urine Ketones Negative Negative Urine Protein Negative Negative Urine Leukocytes Negative Negative Urine Blood Negative Negative Urine Nitrite Negative Negative Urine Bilirubin Negative Negative Urine Glucose Negative Negative Comp Metabolic 07/29/2019 [facility] Sodium 137 mmol/L Normal 135-145 Panel [address] [place] [address] [phone] Potassium 4.0 mmol/L Normal 3.5-5.0 Chloride 102 [...] Egfr Non- 108.3 >60 Egfr 131.1 >60 6 Laboratory test 07/29/2019 [facility] Magnesium 1.8 mg/dL Low 1.9-2.7 finding [address] [place] [address] [phone] Amylase 58 U/L Normal 29-103 Lipase 34 U/L Normal 11.0-82.0 Troponin-I (TnI) 0.00 ng/mL <0.03 7 C Reactive Protein 1.94 mg/L Normal <8.01 Alcohol 16 mg/dL High <10 Laboratory test 07/23/2019 [facility] Rheumatoid < 10 IU/mL Normal <[address] [place] [address] [phone] Cyclic Citrullinated Pep Igg <15.6 U 8 Nuclear AB 07/23/2019 [facility] Nuclear Ab Positive 1:320 Abnormal 9 (Elizabeth) By [address] (Elizabeth) by [address], [place] [address] IgG [phone] Elizabeth Titer: 1:320 Elizabeth Pattern: Speckled 10 Laboratory test finding 07/23/2019 [facility] Anti Ssa/Ro <0.[address] [place] [address] [phone] Anti SSB LA <0.2 U 12 TSH (Thyroid Stim Horm) 2.15 mcIU/mL Normal 0.34-5.60 1 Presumptive Positive Presumptive positive results are unconfirmed. 2 Presumptive Positive Presumptive positive results are unconfirmed. 3 The specimen was tested at the listed cutoffs: Drug Class Test level (ng/mL) Hydrocodone 300 Oxycodone 100 Fentanyl 1 Methadone 150 Buprenorphine 5 Amphetamines 500 Barbiturates 200 Benzodiazepines 200 Cocaine 150 Cannabinoids 50 Opiates 300 PCP 25 Specimen was received without chain of custody. Results should be used for medical purposes only. 4 Standard intensity warfarin therapeutic range: 2.0-3.0 High intensity warfarin therapeutic range: 2.5-3.5 5 [facility] Severe Sepsis and Septic Shock Management Bundle Measure requires all lactic acids initially measuring >2.0 mmol/L be repeated. 6 Because ethnic data is not always readily [...] 15-29 5 Kidney failure <15 (or dialysis) 7 Troponin-I testing on Plasma Separator Tubes (PST) has a known false positive rate of 0.20-0.40%. All positive troponins reflex immediately to secondary confirmatory testing. Using the [employer] DxI 800 Access Immunoassay systems, the 99th percentile upper reference limit was demonstrated to be < 0.03 ng/mL. 8 REFERENCE VALUE <20.0 (Negative) Test Performed by: [place] [address] Manager Of Software Development: Srinivas Daniel M.D. Ph.D.; CLIA# [id number] 9 REFERENCE VALUE <1:80 (Negative) 10 Test Performed by: [place] [address] Manager Of Software Development: Srinivas Daniel M.D. Ph.D.; CLIA# [id number] 11 REFERENCE VALUE <1.0 (Negative) Test Performed by: [place] [address] Manager Of Software Development: Srinivas Daniel M.D. Ph.D.; CLIA# [id number] 12 REFERENCE VALUE <1.0 (Negative) Test Performed by: [facility] [address] [place] [address] Manager Of Software Development: Srinivas Daniel M.D. Ph.D.; CLIA# [id number] Procedures Date Code Description Status 05/17/2019 59863 EKG, Interpretation Only Completed Medical Devices Description No Information Available Encounters Type Date Location Provider Dx Diagnosis Office Visit 06/29/2019 [facility] Internal Keshia Plummer, F41.9 Anxiety disorder, 9:40a Medicine - Suite DO unspecified R Z12.31 Encntr screen mammogram for malignant neoplasm of breast M79.643 Pain in unspecified hand Z00.00 Encntr for general adult medical exam w/o abnormal findings F10.10 Alcohol abuse, uncomplicated Office Visit 05/18/2019 [facility] Cuauhtemoc Cotto F10.239 Alcohol 10:02a Assshaquille jovel M.D.,FACP dependence with Hospitalists withdrawal, unspecified F19.90 Other psychoactive substance use, unspecified, uncomplicated F41.9 Anxiety disorder, unspecified G90.09 Other idiopathic peripheral autonomic neuropathy E87.6 Hypokalemia D69.59 Other secondary thrombocytopenia K70.10 Alcoholic hepatitis without ascites Office Visit 05/17/2019 [facility] Cuauhtemoc Cotto F10.239 Alcohol 10:02a Assshaquille jovel M.D.,FACP dependence with Hospitalists withdrawal, unspecified R74.0 Nonspec elev of levels of transamns & lactic acid dehydrgnse F32.9 Major depressive disorder, single episode, unspecified R31.29 Other microscopic hematuria F19.90 Other psychoactive substance use, unspecified, uncomplicated Office Visit 05/16/2019 10:01a [facility] Carissa Dill, F10.239 Alcohol Assoc,shaquille MD dependence with Hospitalists withdrawal, unspecified F32.9 Major depressive disorder, single episode, unspecified R74.0 Nonspec elev of levels of transamns & lactic acid dehydrgnse R31.29 Other microscopic hematuria F19.90 Other psychoactive substance use, unspecified, uncomplicated D64.9 Anemia, unspecified Office Visit 05/15/2019 10:01a [facility] Assoc,shaquille Ross MD E87.2 Acidosis Hospitalists F10.239 Alcohol dependence with withdrawal, unspecified F32.9 Major depressive disorder, single episode, unspecified E87.8 Oth disorders of electrolyte and fluid balance, NEC R74.0 Nonspec elev of levels of transamns & lactic acid dehydrgnse R31.29 Other microscopic hematuria D64.9 Anemia, unspecified Office Visit 2019 [facility] Marilyn F10.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 Plan of Treatment Future Appointment(s):09/09/2019 1:00 pm - Kodak Tobin MD at [facility]08/19/2019 - Keshia Plummer DOZ12.83 Encounter for screening for malignant neoplasm of skinReferral:Coleen Membreno MD, OpigkimoemoY70.89 Other specified arthritis, multiple sitesComments:Go to see Dr. TobinF10.21 Alcohol dependence, in remission Functional Status Description No Information Available Mental Status Description No Information Available Referrals Refer to Dr Reason for Referral Status Appt Date Coleen Membreno MD Created [address] [facility], [place] [address] [phone] Valentin Spivey MD Sent 09/09/2019 [address] [facility] [place] [address] [phone] Les Blum DO Sent [address] [place] [address] [phone] Raji Antonio MD Sent [address] [place] [address] [phone] [facility] Created [address] [place] [address] [phone]
--- OUTSIDE RECORDS SUMMARY | 2019-09-19 02:04 | XMS REPORT | Continuity of Care Document ---
:1970 External Reference #:[id number] Author Name Kodak Tobin MD (transmitted by agent of provider Linda Laughlin) Address [address] [place] [phone] Care Team Providers Name Role Phone Racheal Lindo NP-C - Family Care Team Information Accounts Clerk [phone] Keshia Plummer DO - Hospitalist Care Team Information Accounts Clerk Problems Active Problems Provider Date Closed fracture [...] Ordering Date Provider Belbuca Q12 2units Keshia Pulmmer, 08/19/2019 150mcg Film DO Gabapentin take two [...] 1 by mouth every Unknown day Tablets [place] 3 500 take one Unknown 500mg capsule/tablet Capsules daily by mouth Liver & Kidney Unknown Cleanser 250-75mg Capsules Fiber Adult Gummies 2 gummies by Unknown 2gm mouth every day Chewtabs Calcium 500+D 1 by mouth every Unknown day [id number] Tablets Medications Administered in Office Medication SIG [...] Result H/L Range Note Drug Screen 08/16/2019 [facility] Urine None None Urine Pain [address] [place] [address] Screen [phone] Urine Hydrocodone Screen None Detected None Detect [...] Phencyclidine Screen None Detected None Detect 3 Fentanyl 08/16/2019 [facility] Norfentanyl Negative 4 Confirmation, Urine [address] Level ng/[place] [address] [phone] Fentanyl Level Negative ng/mL 5 Fentanyl Interp Negative. 6 CBC Auto 07/29/2019 [facility] White Blood 5.4 10^3/uL Normal 3.5-10.[address] [place] [address] [phone] Red Blood Count 3.99 10^6/uL Normal 3.70-4.87 [...] Red Blood Cells % 0.1 Inr/Protime 07/29/2019 [facility] Inr 1.01 Normal 0.82-1.[address] [place] [address] [phone] Laboratory test 07/29/2019 [facility] Partial 35.5 Normal 26.0 -38.[address] [address] Time PTT [phone] B-Type Natriuretic Peptide BNP 23 pg/mL <=100 Lactic Acid 1.3 mmol/L Normal 0.5-2.0 8 Urinalysis Profile 07/29/2019 [facility] Urine Color Straw [address] [place] [address] [phone] Urine Appearance Clear Urine Specific [place] 1.003 Low 1.010-1.030 Urine pH 5.0 Normal 5-9 Urine Urobilinogen Negative Negative Urine Ketones Negative Negative Urine Protein Negative Negative Urine Leukocytes Negative Negative Urine Blood Negative Negative Urine Nitrite Negative Negative Urine Bilirubin Negative Negative Urine Glucose Negative Negative Comp Metabolic 07/29/2019 [facility] Sodium 137 mmol/L Normal 135-[address] [place] [address] [phone] Potassium 4.0 mmol/L Normal 3.5-5.0 Chloride 102 [...] Egfr Non- 108.3 >60 Egfr 131.1 >60 9 Laboratory test 07/29/2019 [facility] Magnesium 1.8 mg/dL Low 1.9-2.[address] [place], [place] [address] [phone] Amylase 58 U/L Normal 29-103 Lipase 34 U/L Normal 11.0-82.0 Troponin-I (TnI) 0.00 ng/mL <0.03 10 C Reactive Protein 1.94 mg/L Normal <8.01 Alcohol 16 mg/dL High <10 Laboratory test 07/23/2019 [facility] Rheumatoid < 10 IU/mL Normal <[address] [place] [address] [phone] Cyclic Citrullinated Pep Igg <15.6 U 11 Nuclear AB 07/23/2019 [facility] Nuclear Ab Positive 1:320 Abnormal 12 (Elizabeth) By [address] (Elizabeth) by [employer], [place] [address] IgG [phone] Elizabeth Titer: 1:320 Elizabeth Pattern: Speckled 13 Laboratory test finding 07/23/2019 [facility] Anti Ssa/Ro <0.2 U [address] [place] [address] [phone] Anti SSB LA <0.2 U 15 TSH (Thyroid Stim Horm) 2.15 mcIU/mL Normal [...] be used for medical purposes only. 4 REFERENCE VALUE Cutoff: 1.0 5 REFERENCE VALUE Cutoff: 0.2 6 ADDITIONAL INFORMATION This test was developed and its performance characteristics determined by [facility] in a manner consistent with CLIA requirements. This test has not been cleared or approved by the U.S. Food and Drug Administration. Test Performed by: [facility] [address] [place] [address] Textile Supervisor: Srinivas Daniel M.D. Ph.D.; CLIA# [id number] 7 Standard intensity warfarin therapeutic range: 2.0-3.0 High intensity warfarin therapeutic range: 2.5-3.5 8 [facility] Severe Sepsis and Septic Shock Management Bundle Measure requires all lactic acids initially measuring >2.0 mmol/L be repeated. 9 Because ethnic data is not always readily [...] 15-29 5 Kidney failure <15 (or dialysis) 10 Troponin-I testing on Plasma Separator Tubes (PST) has a known false positive rate of 0.20-0.40%. All positive troponins reflex immediately to secondary confirmatory testing. Using the [employer] 800 Access Immunoassay systems, the 99th percentile upper reference limit was demonstrated to be < 0.03 ng/mL. 11 REFERENCE VALUE <20.0 (Negative) Test Performed by: [place] [address] Textile Supervisor: Srinivas Daniel M.D. Ph.D.; CLIA# [id number] 12 REFERENCE VALUE <1:80 (Negative) 13 Test Performed by: [place] [address] Textile Supervisor: Srinivas Daniel M.D. Ph.D.; CLIA# [id number] 14 REFERENCE VALUE <1.0 (Negative) Test Performed by: [place] [address] Textile Supervisor: Srinivas Daniel M.D. Ph.D.; CLIA# [id number] 15 REFERENCE VALUE <1.0 (Negative) Test Performed by: [place] [address] Textile Supervisor: Srinivas Daniel M.D. Ph.D.; CLIA# [id number] Procedures Date Code Description Status 08/26/2019 [id number] Mammogram Completed 05/17/2019 02192 EKG, Interpretation Only Completed Medical Devices Description No Information Available Encounters Type Date Location Provider Dx Diagnosis Office Visit 08/19/2019 [facility] Internal Keshia Plummer, Z12.83 Encounter for 4:00p Medicine - Suite DO screening for R malignant neoplasm of skin M13.89 Other specified arthritis, multiple sites F10.21 Alcohol dependence, in remission Office Visit 06/29/2019 9:40a [facility] [address] Internal Keshia F41.9 Anxiety disorder , Medicine - Suite [place], DO unspecified R Z12.31 Encntr screen mammogram for malignant neoplasm of breast M79.643 Pain in unspecified hand Z00.00 Encntr for general adult medical exam w/o abnormal findings F10.10 Alcohol abuse, uncomplicated [facility] 10:02a Assoc,shaquille Morrison M.D.,FACP dependence with Hospitalists withdrawal, unspecified F19.90 Other psychoactive substance use, unspecified, uncomplicated F41.9 Anxiety disorder, unspecified G90.09 Other idiopathic peripheral autonomic neuropathy E87.6 Hypokalemia D69.59 Other secondary thrombocytopenia K70.10 Alcoholic hepatitis without ascites [facility] F[facility].239 Alcohol 10:02a Assocshaquille M.D.,FACP dependence with Hospitalists withdrawal, unspecified R74.0 Nonspec elev of levels of transamns & lactic acid dehydrgnse F32.9 Major depressive disorder, single episode, unspecified R31.29 Other microscopic hematuria F19.90 Other psychoactive substance use, unspecified, uncomplicated Office Visit 05/16/2019 10:01a [facility] Carissa Ross, F10.239 Alcohol Assoc,shaquille HE dependence with Hospitalists withdrawal, unspecified F32.9 Major depressive disorder, single episode, unspecified R74.0 Nonspec elev of levels of transamns & lactic acid dehydrgnse R31.29 Other microscopic hematuria F19.90 Other psychoactive substance use, unspecified, uncomplicated D64.9 Anemia, unspecified Office Visit 05/15/2019 10:01a [facility] Assoc,shaquille Ross MD E87.2 Acidosis Hospitalists F10.239 Alcohol dependence with withdrawal, unspecified F32.9 Major depressive disorder, single episode, unspecified E87.8 Oth disorders of electrolyte and fluid balance, NEC R74.0 Nonspec elev of levels of transamns & lactic acid dehydrgnse R31.29 Other microscopic hematuria D64.9 Anemia, unspecified Office Visit 2019 [facility] F10.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 [...] elevation of levels of Cuauhtemoc Morrison M.D., [facility] transaminase and lactic acid dehydrogenase [LDH] [...] Marilyn Syed M.D. Plan of Treatment Future Appointment(s):09/24/2019 10:15 am - Reid Cope MD at [facility] [address] Ansuvdihcaq74/12/2020 - Kodak Tobin, MDR74.0 Nonspecific elevation of levels of transaminase and lactic acid dehydrogenase [LDH]R76.0 Raised antibody titerFollow up:f/u 2 fvcldzW96.0 Bilateral primary osteoarthritis of first carpometacarpal jointsNew Xrays:Hand Bilateral, Ordered: 09/09/19New Therapy: Occupational MuvvvqrT83.559 Pain in unspecified hipComments:CAM impingement on MRIFor Fibromyalgia type symptoms might consider PCP to change Escitalopram for Effexor or Cymbalta (titrate up to 75mg or 60mg respectively)Recommend over time addressing PTSD uwomethuT76.7 SiexeukpistfI76.10 Post-traumatic stress disorder, unspecified Functional Status Description No Information Available Mental Status Description No Information Available Referrals Refer to Reason for Referral Status Appt Date Coleen Membreno MD Sent 09/24/2019 [address] [facility], [place] [address] [phone] Valentin Spivey MD Sent 09/09/[address] [facility] [place] [address] [phone] Les Blum DO Sent [address] [place] [address] [phone] Raji Antonio MD Sent [address] [place] [address] [phone] [facility] Created [address] [place] [address] [phone]
--- NOTE | 2019-09-19 02:29 | ED ---
Progress - Progress Note Progress Note: Patient is received as a sign out from Dr. Rai at 0230 on 09/19/2019 shift change pending sobriety. Home Medications Medication Instructions Recorded Confirmed Type cloNIDine TAB* [Catapres 0.1 MG 0.2 mg PO TID 30 Days #90 tab 05/18/19 09/14/19 Rx TAB*] traZODone TAB* [Desyrel TAB*] 150 mg PO BEDTIME PRN 07/29/19 09/14/19 History Escitalopram Oxalate [Lexapro 10 10 mg PO DAILY 08/16/19 09/14/19 History mg] Gabapentin 600 mg PO BID 08/16/19 09/14/19 History hydrOXYzine HCL TAB* [Atarax 10 MG 10 mg PO TID PRN 08/16/19 09/14/19 History TAB*] Buprenorphine HCl [Belbuca] 300 mcg BU BID 09/14/19 09/14/19 History 0700: Patient has been signed out to Dr. Campbell at 0700 on 09/19/2019 shift change pending sobriety. Course/Dx - Course Course Of Treatment: Patient brought by ambulance for EtOH. Patient was found by [employer], stated she wanted help and that she wanted to go to the hospital. Patient is responsive when aroused verbally but somnolent. Denies any pain, symptoms or injury. Patient denies intent to harm herself, states she just drank too much. Patient bradycardic with heart rate in the low 50s. No prior history of same. Vital signs otherwise within normal limits. Patient quickly became more responsive, answering questions. Denies any pain, injury or symptoms. Lactic 3.4. EtOH 495. Labs otherwise unremarkable. EKG sinus rhythm, heart rate of 68, normal P axis, borderline prolonged QT interval. 2 L normal saline administered. Patient O2 sats started to drop into the high 80s, patient was placed on NC 2L oxygen while she slept. Patient continues to respond appropriately when aroused.Patient is received as a sign out from Dr. Rai at 0230 on 09/19/2019 shift change pending sobriety. 0700: Patient has been signed out to Dr. Campbell at 0700 on 09/19/2019 shift change pending sobriety. - Diagnoses Provider Diagnoses: ETOH abuse, Elevated lactic acid level Discharge ED - Discharge Plan Condition: Stable Disposition: HOME Patient Education Materials: Alcohol Intoxication (ED) Referrals: Keshia Plummer DO [Primary Care Provider] - Additional Instructions: Return to ED with new or worsening symptoms. - Attestation Statements Document Initiated by Scribe: Yes
--- NOTE | 2019-09-19 11:58 | ED ---
Progress - Progress Note Progress Note: Receiving sign-out from Dr. Golden at shift change at 0700 pending sobriety. Patient became sober and was ready to go home. Plan for discharge was discussed with the patient and she was agreeable with this plan. Course/Dx - Course Course Of Treatment: Patient brought by ambulance for EtOH. Patient was found by [employer], stated she wanted help and that she wanted to go to the hospital. Patient is responsive when aroused verbally but somnolent. Denies any pain, symptoms or injury. Patient denies intent to harm herself, states she just drank too much. Patient bradycardic with heart rate in the low 50s. No prior history of same. Vital signs otherwise within normal limits. Patient quickly became more responsive, answering questions. Denies any pain, injury or symptoms. Lactic 3.4. EtOH 495. Labs otherwise unremarkable. EKG sinus rhythm, heart rate of 68, normal P axis, borderline prolonged QT interval. 2 L normal saline administered. Patient O2 sats started to drop into the high 80s, patient was placed on NC 2L oxygen while she slept. Patient continues to respond appropriately when aroused.Patient is received as a sign out from Dr. Rai at 0230 on 09/19/2019 shift change pending sobriety. Ms. Gutierrez slept comfortably here until about 1300 hrs. At that point she was up and a bit anxious about her circumstances. She was given her normal daily medications and was ambulating about the department without any difficulty. She was clinically sober and went home on the bus. She could not recall the events of the evening before and was concerned about that. At one point she considered a SANE exam and was offered 1. Ultimately she chose not to. - Diagnoses Provider Diagnoses: ETOH abuse, Elevated lactic acid level Discharge ED - Sign-Out/Discharge Documenting (check all that apply): Patient Departure - Discharge - Discharge Plan Condition: Stable Disposition: HOME Patient Education Materials: Alcohol Intoxication (ED) Referrals: Keshia Plummer DO [Primary Care Provider] - Additional Instructions: Return to ED with new or worsening symptoms. - Billing Disposition and Condition Condition: STABLE Disposition: Home - Attestation Statements Document Initiated by Scribe: Yes Documenting Scribe: Damion Sebastian Provider For Whom Scribe is Documenting (Include Credential): Andrea Campbell MD Scribe Attestation: I, Damion Sebastian, scribed for Andrea Campbell MD on 09/19/19 at 1709. Scribe Documentation Reviewed: Yes Provider Attestation: The documentation as recorded by the zack, Damion Sebastian accurately reflects the service I personally performed and the decisions made by me, Andrea Campbell MD Status of Scribtara Document: Viewed
[2019-09-19] MEDS ORDERED: LORazepam TAB(*) 1 MG PO ONE (12:03)
[2019-09-19] MEDS ORDERED: Gabapentin CAP(*) 300 MG PO ONE (12:03)
[2019-09-19] MEDS ORDERED: hydrOXYzine HCL TAB* 10 MG PO ONE (12:06)
[2019-09-19] MEDS ORDERED: cloNIDine TAB* 0.1 MG PO ONE (12:06)
[2019-09-19] MEDS ORDERED: Escitalopram * 10 MG TAB PO SCH (13:00)
[2019-09-19 13:29] VITALS: BP 141/97
== END 2019-09-19 13:29 | disposition home or self-care (01) ==
LOC: ED 23:40
DX: F10.129 Alcohol abuse with intoxication, unspecified (principal); Y90.8 Blood alcohol level of 240 mg/100 ml or more; E78.00 Pure hypercholesterolemia, unspecified; I10 Essential (primary) hypertension; R74.0 Nonspecific elevation of levels of transaminase and lactic acid dehydrogenase [LDH]; Z79.899 Other long term (current) drug therapy; Z87.891 Personal history of nicotine dependence
CPT/HCPCS: 36415; 80053; 80307; 80320; 80329; 81003; 83605; 83690; 83735; 84702; 85025; 93005; 96360; 96361; 99284; A9270-GY; G0480

== ENCOUNTER 2019-09-25 23:12 | Inpatient (IN) | payer MEDICARE, MEDICAID ==
[2019-09-26 00:23] LABS: ABS Lymphocytes 1.7 10^3/ul (1.0-4.8); ABS Monocytes 0.9 10^3/ul (0-0.8); ABS Neutrophils 8.2 10^3/ul (1.5-7.7); Eosinophil % 0.1 %; Hematocrit 32 % (35-47); Hemoglobin 10.9 g/dL (12.0-16.0); Lymphocyte % 15.6 %; Mean Corpuscular HGB Conc 35 g/dL (31-36); Mean Corpuscular Hemoglobin 31 pg (27-31); Mean Corpuscular Volume 89 fL (80-97); Mean Platelet Volume 7.6 fL (7.4-10.4); Platelet Count 215 10^3/uL (150-450); Red Blood Count 3.53 10^6 /uL (3.70-4.87); Red Cell Distribution Width 13 % (10-15); White Blood Count 10.9 10^3/uL (3.5-10.8)
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
[2019-09-26 00:39] LABS: Acetaminophen < 15 mcg/mL; Alcohol < 10 mg/dL (<10); Salicylate < 2.50 mg/dL (<30)
[2019-09-26 00:40] LABS: ALT 58 U/L (7-52); AST 86 U/L (13-39); Albumin 4.5 g/dL (3.2-5.2); Albumin/Globulin Ratio 1.2 (1-3); Alkaline Phosphatase 97 U/L (34-104); BUN/Creatinine Ratio 23.9 (8-20); Blood Urea Nitrogen 16 mg/dL (6-24); CO2 Carbon Dioxide 31 mmol/L (22-32); Chloride 95 mmol/L (101-111); EGFR African American 113.2 (>60); EGFR Non-African American 93.6 (>60); Globulin 3.7 g/dL (2-4); Glucose 124 mg/dL (70-100); Sodium 137 mmol/L (135-145); Total Protein 8.2 g/dL (6.4-8.9)
[2019-09-26 00:47] LABS: HCG Pregnancy < 0.60 mIU/mL
[2019-09-26 00:53] LABS: Anion Gap 11 mmol/L (2-11); Potassium 2.6 mmol/L (3.5-5.0)
[2019-09-26] MEDS ORDERED: Potassium Chlor TAB* 20 MEQ TAB.ER PO ONE ×2 (00:53→06:22)
[2019-09-26 00:54] LABS: TSH (Thyroid Stimulating Horm) 0.73 mcIU/mL (0.34-5.60)
[2019-09-26 02:48] LABS: Urine Appearance Cloudy; Urine Bilirubin Negative (Negative); Urine Blood Negative (Negative); Urine Color Yellow; Urine Glucose Negative (Negative); Urine Ketones Trace (Negative); Urine Nitrite Negative (Negative); Urine Protein Negative (Negative); Urine Specific Gravity 1.024 (1.010-1.030); Urine Urobilinogen Negative (Negative)
[2019-09-26 02:58] LABS: Urine Bacteria 1+ (Absent); Urine Red Blood Cell 2+(6-10/hpf) (Absent); Urine Squamous Epithelial Cell Present (Absent); Urine White Blood Cell 3+(>20/hpf) (Absent)
[2019-09-26 03:09] LABS: Urine Benzodiazepine Screen None Detected (None Detect); Urine Opiates Screen None Detected (None Detect)
[2019-09-26] MEDS ORDERED: LORazepam TAB(*) 1 MG PO ONE (03:43)
--- NOTE | 2019-09-26 07:16 | ED ---
Progress - Progress Note Progress Note: Patient received as a sign out from Dr. Ward at 0700 shift change pending MHE by Dr. Ferro and dispo. At [address] Ferro agreed to admit the patient with a diagnosis of involuntary amphetamine induced psychotic disorder. (579) Re-Evaluation - Re-Evaluation First Eval Re-Evaluation Time: 00:00 Comment: Patient is medically clear for MHE. Second Eval Re-Evaluation Time: 07:26 Comment: Patient is sleeping comfortably and hemodynamically stable. Third Eval Re-Evaluation Time: 10:50 Comment: After MHE by Dr. Ferro, patient was diagnosed with involuntary amphetamine induced psychotic disorder. Course/Dx - Course Course Of Treatment: 49-year-old female presents for mental health evaluation under police order for delusions. Patient appears to be psychotic upon arrival. Pressure speech tangential thinking. Also has delusions. Agitated. Physical exam otherwise within normal limits. Workup demonstrates a low potassium which is replaced with po potassium. Urine demonstrates amphetamines. No prescriptions for amphetamines admitted or on chart. Patient seen by mental health. Per Dr. Ferro, he requested patient be given Ativan 2 mg. Reevaluate in the morning. Vision sign out at change of shift with that plan. Patient received potassium for hypokalemia. Patient given Ativan per Dr. Ferro's request. Dr. Ferro evaluated patient and he recommends for the patient admitted to his services. - Diagnoses Provider Diagnoses: Psychosis - Provider Notifications Time Discussed With Above Provider: 03:40 Instructed by Provider To: Other - Ligia Givens and Dr. Ferro have evaluated the patient's case. Dr. Ferro requests the patient be given 2mg Ativan and be placed on a hold until he can see her in the morning. At [address] Ferro, patient was diagnosed with involuntary amphetamine induced psychotic disorder and accepted for admission. Discharge ED - Sign-Out/Discharge Documenting (check all that apply): Patient Departure - admit - Discharge Plan Condition: Stable Disposition: ADMITTED TO [facility] - Billing Disposition and Condition Condition: STABLE Disposition: Admitted to [facility] - Attestation Statements Document Initiated by Scribe: Yes Documenting Scribe: Selvin Schmidt Provider For Whom Scribe is Documenting (Include Credential): Nikolas Vargas MD Scribe Attestation: ISelvin, scribed for Nikolas Vargas MD on 09/26/19 at 1845. Scribe Documentation Reviewed: Yes Provider Attestation: The documentation as recorded by the Selvin dixon accurately reflects the service I personally performed and the decisions made by , Nikolas Vargas MD Status of Scribe Document: Viewed
[2019-09-26 10:29] LABS: BUN/Creatinine Ratio 18.6 (8-20); Calcium 9.5 mg/dL (8.6-10.3); EGFR African American 131.1 (>60); EGFR Non-African American 108.3 (>60); Potassium 3.2 mmol/L (3.5-5.0)
[2019-09-26] MEDS ORDERED: Al Hydrox/Mg Hydrox/Simet LIQ* 30 ML UDC PO PRN (10:54)
[2019-09-26] MEDS ORDERED: Acetaminophen TAB* 325 MG PO PRN (10:54)
[2019-09-26] MEDS: cloNIDine TAB* 0.1 MG PO SCH ×2 (12:31→21:17)
[2019-09-26] MEDS: Gabapentin CAP(*) 400 MG PO SCH ×2 (12:32→21:16)
[2019-09-26] MEDS: Thiamine TAB* 100 MG TAB PO SCH (12:32)
[2019-09-26] MEDS: Folic Acid TAB* 1 MG PO SCH (12:32)
[2019-09-26] MEDS: Buprenorphine TAB* 2 MG TAB.SL SL SCH (12:43)
[2019-09-26] MEDS: Multivitamins/Minerals TAB PO SCH (12:44)
[2019-09-26] MEDS: Levothyroxine TAB* 50 MCG TAB PO SCH (12:44)
[2019-09-26] MEDS ORDERED: LORazepam TAB(*) 1 MG PO SCH (13:00)
[2019-09-26] MEDS: risperiDONE TAB* 2 MG PO SCH (21:15)
[2019-09-26] MEDS: traZODone TAB* 50 MG TAB PO PRN (21:18)
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
[2019-09-27 08:59] LABS: HDL Cholesterol 55.3 mg/dL
[2019-09-27] MEDS: Thiamine TAB* 100 MG TAB PO SCH (09:20)
[2019-09-27] MEDS: Potassium Chlor TAB* 20 MEQ TAB.ER PO SCH (09:20)
[2019-09-27] MEDS: Folic Acid TAB* 1 MG PO SCH (09:20)
[2019-09-27] MEDS: Multivitamins/Minerals TAB PO SCH (09:20)
[2019-09-27] MEDS: Escitalopram * 10 MG TAB PO SCH (09:21)
[2019-09-27] MEDS: cloNIDine TAB* 0.1 MG PO SCH ×3 (09:21→20:18)
[2019-09-27] MEDS: Levothyroxine TAB* 50 MCG TAB PO SCH (09:21)
[2019-09-27] MEDS: Gabapentin CAP(*) 400 MG PO SCH ×3 (09:22→20:17)
[2019-09-27] MEDS: Buprenorphine TAB* 2 MG TAB.SL SL SCH (09:23)
[2019-09-27] MEDS: Benzocaine (DENTAL) 10%* TOP.GEL TOPICAL PRN ×5 (09:29→21:51)
--- NOTE | 2019-09-27 11:00 | PN ---
Subjective - Subjective Date of Service: 09/27/19 Service Type: [id number] Hosp care 25 min moderate complexity Subjective: Patient is well related and able to recall thought content and processes prior to admission. She states she had been abstinent from alcohol and other substances from May to approximately a week ago. She states she was drinking primarily daily and experienced VH on days when she didn't. She inhaled methamphetamine on a later day which worsened VH and paranoid delusions. She states she is eager to return to [facility], as she had not participated since last february. She is agreeable to start outpatient treatment [facility]. She states she was attending AA and creating sober supports prior to relapse and is proud of the progress she made. She reports concern about sores on bilat sides of tongue due to known history of genital HSV. She states she generally takes valtrex and is agreeable to restart. Automatic [employer] Operator reached out to Infectious Disease practitioner who recommends the above. No further consult necessary unless no improvement with valtrex. Patient notified. Objective - General Observations Appearance: Well Groomed Stature: WNL Posture: WNL Eye Contact: Average Behavior/Activity: WNL - Interaction Observations Attitude Towards Examiner: Cooperative, Ingratiating Stated Mood: Euthymic Affect: Bright Speech Pattern/Tone: Clear, Normal Volume, Excessive Thought Process: Coherent, Circumstantial Perception: WNL Thought Content: WNL Hallucination Type: Denies Delusion Type: Denies - Cognitive Function Orientation: A&O x 4 Level of Consciousness: Alert Cognition: WNL Estimated Intelligence: Normal Insight: WNL Judgment Within Normal Limits: No Ability to Make Reasonable Decisions: Moderately Impaired - Medication Compliance Cooperative with Inpatient Medication Regimen: Yes - Group Participation Participates in Group Activities: Yes Assessment - Assessment Merits Inpatient Hospitalization: For Immediate Safety, For Stabilization, For Discharge Planning Inpatient DSM-V Dx: F15.159 Clinical Impression: 49yo wf, domiciled, on disability with hx of polysubstance abuse and PTSD who presented to ED with psychotic and paranoid delusions after use of methamphetamine and alcohol. She merits hospitalization for immediate safety and stabilization. Plan - Plan Treatment Plan: Name: NANCY PACE Birthdate: 1970 [id number] continue acute intensive psychiatric treatment. may decrease to q30min and allow staff pass per RN discretion. continue WAM protocol. Add valtrex for HSV. continue other medications, as ordered. discharge planning to include [facility] and [facility]. Continued Medication Management: Start Medication Medications: Current Medications Acetaminophen (Tylenol Tab*) 650 mg PO Q4H PRN PRN Reason: for pain; or Temp >101 F Al Hydrox/Mg Hydrox/Simethicone (Maalox Plus*) 30 ml PO Q4H PRN PRN Reason: INDIGESTION Benzocaine (Orajel 10%*) 1 applic TOPICAL QID PRN PRN Reason: MOUTH PAIN Last Admin: 09/27/19 09:29 Dose: 1 applic Buprenorphine HCl (Subutex Tab*) 2 mg SL DAILY [facility] Last Admin: 09/27/19 09:23 Dose: 2 mg Clonidine HCl (Catapres Tab*) 0.2 mg PO TID [facility] Last Admin: 09/27/19 09:21 Dose: 0.2 mg Escitalopram Oxalate (Lexapro *) 20 mg PO DAILY [facility] Last Admin: 09/27/19 09:21 Dose: 20 mg Folic Acid (Folvite Tab*) 1 mg PO DAILY [facility] Last Admin: 09/27/19 09:20 Dose: 1 mg Gabapentin (Neurontin Cap(*)) 1,200 mg PO TID [facility] Last Admin: 09/27/19 09:22 Dose: 1,200 mg Levothyroxine Sodium (Synthroid Tab*) 50 mcg PO DAILY@0600 [facility] Last Admin: 09/27/19 09:21 Dose: 50 mcg Lorazepam (Ativan Tab(*)) 0 - [address] [facility] PROTOCOL [facility]; Protocol Multivitamins/Minerals (Theragran/Minerals Tab*) 1 tab PO DAILY [facility] Last Admin: 09/27/19 09:20 Dose: 1 tab Potassium Chloride (Klor Con Er Tab*) 20 meq PO DAILY [facility] Last Admin: 09/27/19 09:20 Dose: 20 meq Risperidone (Risperdal*) 2 mg PO BEDTIME [facility] Last Admin: 09/26/19 21:15 Dose: 2 mg Thiamine HCl (Vitamin B-1 Tab*) 100 mg PO DAILY [facility] Last Admin: 09/27/19 09:20 Dose: 100 mg Trazodone HCl (Desyrel Tab*) 150 mg PO BEDTIME PRN PRN Reason: SLEEP Last Admin: 03/29/20 21:18 Dose: 150 mg - Discharge Plan Discharge Plan: Inpatient Hospitalization Outpatient Program: [facility]elsi Malik [facility]
[2019-09-27] MEDS: ValACYclovir (*) 1 GM TAB PO SCH ×2 (13:56→20:17)
[2019-09-27 14:19] LABS: Calcium 9.7 mg/dL (8.6-10.3); EGFR African American 126.1 (>60); EGFR Non-African American 104.2 (>60); Potassium 3.4 mmol/L (3.5-5.0)
[2019-09-27] MEDS: risperiDONE TAB* 2 MG PO SCH (20:18)
[2019-09-27] MEDS: traZODone TAB* 50 MG TAB PO PRN (21:16)
[2019-09-28] MEDS: Levothyroxine TAB* 50 MCG TAB PO SCH (09:00)
[2019-09-28] MEDS: Folic Acid TAB* 1 MG PO SCH (09:00)
[2019-09-28] MEDS: Escitalopram * 10 MG TAB PO SCH (09:00)
[2019-09-28] MEDS: Gabapentin CAP(*) 400 MG PO SCH ×2 (09:00→13:01)
[2019-09-28] MEDS: cloNIDine TAB* 0.1 MG PO SCH ×2 (09:00→13:01)
[2019-09-28] MEDS: Potassium Chlor TAB* 20 MEQ TAB.ER PO SCH (09:01)
[2019-09-28] MEDS: ValACYclovir (*) 1 GM TAB PO SCH (09:01)
[2019-09-28] MEDS: Thiamine TAB* 100 MG TAB PO SCH (09:01)
[2019-09-28] MEDS: Multivitamins/Minerals TAB PO SCH (09:01)
[2019-09-28] MEDS: Buprenorphine TAB* 2 MG TAB.SL SL SCH (09:48)
[2019-09-28 11:00] VITALS: BP 144/86
[2019-09-28] MEDS: Magic M W2 Ben/Maal/Nyst/Lido* 240 ML MOUTHWASH (alt formulation) SWISH SPIT SCH ×2 (13:02→13:05)
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
== END 2019-09-28 13:25 | disposition home or self-care (01) | DRG 897 ==
LOC: ED 23:12 → BSU 09-26 10:54
PROVIDERS: ADMIT Psychiatry & Neurology Psychiatry; ATTEND Psychiatry & Neurology Psychiatry
DX: F15.159 Other stimulant abuse with stimulant-induced psychotic disorder, unspecified (principal); F43.10 Post-traumatic stress disorder, unspecified; A60.00 Herpesviral infection of urogenital system, unspecified; I10 Essential (primary) hypertension; G62.9 Polyneuropathy, unspecified; E03.9 Hypothyroidism, unspecified; F41.1 Generalized anxiety disorder; F32.9 Major depressive disorder, single episode, unspecified; Z79.899 Other long term (current) drug therapy
CPT/HCPCS: 36415; 80048; 80053; 80061; 80307; 80320; 80329; 81003; 81015; 83036; 83735; 84443; 84702; 85025; 87077; 87086; 87186; 99222; 99232; 99284; A9270-GY; G0480

== ENCOUNTER 2020-01-07 16:16 | Inpatient (IN) ==
[2020-01-07] MEDS ORDERED: NS 0.9% 1000 ml BAG 1,000 ML IV ONE (16:27)
[2020-01-07] MEDS ORDERED: Thiamine 100 MG/ML 2 ml VIAL 100 MG, Folic Acid 1 MG, Multiple Vitamin IV ADULT 10 ML i... IV ONE (16:43)
[2020-01-07] MEDS ORDERED: Ondansetron 4 mg VIAL 2 MG/ML 2 ml VIAL IV ONE (16:43)
[2020-01-07 17:53] LABS: ABS Basophils 0.1 10^3/ul (0-0.2); ABS Monocytes 0.5 10^3/ul (0-0.8); ABS Neutrophils 2.3 10^3/ul (1.5-7.7); Eosinophil % 0.9 %; Hematocrit 38 % (35-47); Hemoglobin 13.5 g/dL (12.0-16.0); Lymphocyte % 26.8 %; Mean Corpuscular HGB Conc 35 g/dL (31-36); Mean Corpuscular Hemoglobin 35 pg (27-31); Mean Corpuscular Volume 99 fL (80-97); Nucleated Red Blood Cells % 0.2; Platelet Count 116 10^3/uL (150-450); Red Blood Count 3.85 10^6 /uL (3.70-4.87); Red Cell Distribution Width 13 % (10-15); White Blood Count 3.9 10^3/uL (3.5-10.8)
[2020-01-07 17:54] LABS: Urine Appearance Clear; Urine Bilirubin Negative (Negative); Urine Blood 1+ (Negative); Urine Color Yellow; Urine Glucose Negative (Negative); Urine Ketones 1+ (Negative); Urine Nitrite Negative (Negative); Urine Protein 1+(30 mg/dL) (Negative); Urine Specific Gravity 1.004 (1.010-1.030); Urine Urobilinogen Negative (Negative)
[2020-01-07 18:01] LABS: Activated Partial Thrombo Time 28.5 seconds (26.0-38.0); INR 1.03 (0.82-1.09)
[2020-01-07 18:07] LABS: Urine Bacteria Absent (Absent); Urine Red Blood Cell Absent (Absent); Urine Squamous Epithelial Cell Present (Absent); Urine White Blood Cell Absent (Absent)
[2020-01-07 18:10] LABS: Ammonia 54 mcmol/L (16-53)
[2020-01-07 18:12] LABS: ALT 123 U/L (7-52); AST 252 U/L (13-39); Albumin 4.8 g/dL (3.2-5.2); Albumin/Globulin Ratio 1.3 (1-3); Alkaline Phosphatase 107 U/L (34-104); Amylase 36 U/L (29-103); Anion Gap 18 mmol/L (2-11); BUN/Creatinine Ratio 13.3 (8-20); Blood Urea Nitrogen 8 mg/dL (6-24); C Reactive Protein < 1.00 mg/L (<8.01); CO2 Carbon Dioxide 23 mmol/L (22-32); Calcium 9.1 mg/dL (8.6-10.3); Chloride 96 mmol/L (101-111); EGFR African American 128.6 (>60); EGFR Non-African American 106.3 (>60); Globulin 3.7 g/dL (2-4); Glucose 97 mg/dL (70-100); Lipase 54 U/L (11.0-82.0); Magnesium 1.9 mg/dL (1.9-2.7); Potassium 3.6 mmol/L (3.5-5.0); Sodium 137 mmol/L (135-145); Total Protein 8.5 g/dL (6.4-8.9)
[2020-01-07 18:15] LABS: BNP 16 pg/mL (<=100)
[2020-01-07 18:17] LABS: HCG Pregnancy < 0.60 mIU/mL
[2020-01-07 18:47] LABS: Alcohol, S 391 mg/dL (<10)
[2020-01-07] MEDS ORDERED: Buprenorphine 2 mg SL TAB SL ONE (18:51)
[2020-01-07] MEDS ORDERED: Nicotine PATCH 21 MG/24 HR PATCH TRANSDERM ONE (20:45)
[2020-01-08] MEDS ORDERED: LORazepam 2 mg VIAL 1 ml IV PUSH SCH (08:00)
[2020-01-08] MEDS ORDERED: Ondansetron 4 mg VIAL 2 MG/ML 2 ml VIAL IV ONE (08:00)
[2020-01-08] MEDS ORDERED: Lorazepam PYXIS KEY PRN ×2 (08:01→14:37)
[2020-01-08] MEDS ORDERED: Al Hydrox/Mg Hydrox/Simet LIQ 30 ML UDC PO PRN (09:36)
[2020-01-08] MEDS ORDERED: Buprenorp/Nalox 2-0.5 mg SL TB SL SCH (10:00)
[2020-01-08 11:47] LABS: Albumin 4.5 g/dL (3.2-5.2); Albumin/Globulin Ratio 1.4 (1-3); Calcium 8.9 mg/dL (8.6-10.3); EGFR African American 158.7 (>60); EGFR Non-African American 131.1 (>60); Globulin 3.3 g/dL (2-4); Potassium 3.4 mmol/L (3.5-5.0); Total Bilirubin 1.2 mg/dL (0.2-1.0); Total Protein 7.8 g/dL (6.4-8.9)
[2020-01-08] MEDS ORDERED: Nicotine PATCH 21 MG/24 HR PATCH ONE (14:13)
[2020-01-08] MEDS: Ondansetron 4 mg VIAL 2 MG/ML 2 ml VIAL IV PRN ×2 (14:49→20:30)
[2020-01-08] MEDS: LORazepam 2 mg VIAL 1 ml IV PUSH SCH ×4 (14:49→22:55)
[2020-01-08] MEDS: Multivitamins/Minerals TAB PO SCH (14:49)
[2020-01-08] MEDS: Buprenorp/Nalox 2-0.5 mg SL TB SL SCH (22:03)
[2020-01-09] MEDS: LORazepam 2 mg VIAL 1 ml IV PUSH SCH ×4 (00:55→21:04)
[2020-01-09] MEDS: Nicotine PATCH 21 MG/24 HR PATCH TRANSDERM SCH (07:57)
[2020-01-09] MEDS: Multivitamins/Minerals TAB PO SCH (07:58)
[2020-01-09] MEDS: Buprenorp/Nalox 2-0.5 mg SL TB SL SCH ×2 (07:58→21:01)
[2020-01-09] MEDS ORDERED: Multivitamins/Minerals TAB PO SCH (09:00)
[2020-01-09] MEDS: Heparin 5000 UNITS/ML 1 mL VIAL SUBCUT SCH ×2 (14:10→21:02)
[2020-01-09] MEDS: Ondansetron 4 mg VIAL 2 MG/ML 2 ml VIAL IV PRN ×2 (14:27→18:19)
[2020-01-10] MEDS: Heparin 5000 UNITS/ML 1 mL VIAL SUBCUT SCH ×3 (06:06→21:46)
[2020-01-10] MEDS: Nicotine PATCH 21 MG/24 HR PATCH TRANSDERM SCH (08:22)
[2020-01-10] MEDS: Multivitamins/Minerals TAB PO SCH (08:23)
[2020-01-10] MEDS: Buprenorp/Nalox 2-0.5 mg SL TB SL SCH ×2 (08:24→21:46)
[2020-01-10] MEDS: LORazepam 2 mg VIAL 1 ml IV PUSH SCH ×2 (11:35→15:39)
[2020-01-11] MEDS: LORazepam 2 mg VIAL 1 ml IV PUSH SCH ×2 (04:24→15:17)
[2020-01-11] MEDS: Heparin 5000 UNITS/ML 1 mL VIAL SUBCUT SCH ×3 (05:28→21:22)
[2020-01-11] MEDS: Buprenorp/Nalox 2-0.5 mg SL TB SL SCH ×2 (08:44→21:21)
[2020-01-11] MEDS: Multivitamins/Minerals TAB PO SCH (08:44)
[2020-01-11] MEDS: Nicotine PATCH 21 MG/24 HR PATCH TRANSDERM SCH (08:44)
[2020-01-12] MEDS: Heparin 5000 UNITS/ML 1 mL VIAL SUBCUT SCH (05:52)
[2020-01-12 07:50] VITALS: BP 127/81
[2020-01-12] MEDS: Multivitamins/Minerals TAB PO SCH (08:46)
[2020-01-12] MEDS: Buprenorp/Nalox 2-0.5 mg SL TB SL SCH (08:50)
[2020-01-12] MEDS: Nicotine PATCH 21 MG/24 HR PATCH TRANSDERM SCH (08:51)
[2020-01-12 09:46] LABS: Albumin 4.4 g/dL (3.2-5.2); Albumin/Globulin Ratio 1.3 (1-3); BUN/Creatinine Ratio 14.3 (8-20); Calcium 9.9 mg/dL (8.6-10.3); EGFR African American 139.2 (>60); EGFR Non-African American 115.1 (>60); Globulin 3.5 g/dL (2-4); Indirect Bilirubin 0.4 mg/dL (0.3-1.0); Potassium 3.4 mmol/L (3.5-5.0); Total Bilirubin 0.6 mg/dL (0.2-1.0); Total Protein 7.9 g/dL (6.4-8.9)
== END 2020-01-12 10:00 | DRG 897 ==
LOC: ED 16:16 → MED 01-08 10:13
PROVIDERS: ADMIT Internal Medicine; ATTEND Internal Medicine

== ENCOUNTER 2024-05-07 09:37 | Observation (INO) ==
[~2024-05-07 09:37] MED LIST changes: -Buffered Lidocaine 0.9% SYRIN* 5 ML/SYR SYRINGE INTRADERM ONE; +Naloxone 0.4 mg VIAL 0.4 mg/ml 1 ml VIAL IV PRN; +Ondansetron 4 mg VIAL 2 MG/ML 2 ml VIAL IV PRN; +ROPIVACAINE 5 MG/ML 30 ML BTL (0.5%) ONE; +fentaNYL 100 mcg/2 ml 50 MCG/ML VIAL IV PRN
[2024-05-07] MEDS ORDERED: ceFAZolin 2 GM PREMIX 2 GM/50 ML BAG ONE (09:58)
[2024-05-07] MEDS ORDERED: Famotidine IV 10 MG/ML 2 ml VIAL (20 mg) ONE (09:58)
[2024-05-07] MEDS ORDERED: Tranexamic Acid 1 GM/100ML BAG 2,000 MG/200 ML BAG IV ONE (09:59)
[2024-05-07 10:16] LABS: Rapid COVID-19 Molecular Undetected (Undetected)
[2024-05-07 10:24] LABS: Hematocrit 34.3 % (35-45); Hemoglobin 11.8 g/dL (11.5-14.3); Mean Corpuscular Hemoglobin 32.1 pg (27-33); Mean Corpuscular Hgb Conc 34.2 g/dL (31-36); Mean Platelet Volume 7.4 fL (7.5-11.2); Platelet Count 353 10^3/uL (150-450); Red Blood Count 3.66 10^6/uL (3.63-4.92); White Blood Count 9.9 10^3/uL (3.8-11.8)
[2024-05-07] MEDS: Famotidine IV 10 MG/ML 2 ml VIAL (20 mg) IV ONE (10:29)
[2024-05-07] MEDS: Buffered Lidocaine 1% SYRIN 1 ml INTRADERM ONE (10:29)
[2024-05-07] MEDS: Lactated Ringers 1000 ml BAG 1,000 ML IV SCH ×2 (10:30→18:20)
[2024-05-07 10:36] LABS: INR 0.92 (0.85-1.14)
[2024-05-07 10:45] LABS: Calcium 9.3 mg/dL (8.6-10.3); Creatinine, Serum 0.68 mg/dL (0.51-0.95); Potassium 4.1 mmol/L (3.5-5.0); eGFR CKD-EPI 104.1 (>60)
[2024-05-07] MEDS ORDERED: Lidocaine 2% PF 5 ML VIAL ONE (11:07)
[2024-05-07] MEDS ORDERED: Propofol 10 mg/ml 100 ML BTL 1,000 MG/100 ML BTL ONE (12:43)
[2024-05-07] MEDS ORDERED: Midazolam 2 mg/2 ml VIAL 1 mg/ml 2 ml VIAL (2 mg) ONE ×2 (12:51→13:18)
[2024-05-07] MEDS ORDERED: fentaNYL 100 mcg/2 ml 50 MCG/ML VIAL ONE (12:56)
[2024-05-07] MEDS ORDERED: Glycopyrrolate IV 0.2 MG/ML 1 ML VIAL ONE (13:31)
[2024-05-07] MEDS ORDERED: Dexamethasone IV 4 MG/ML VIAL 1 ml VIAL ONE (13:36)
[2024-05-07] MEDS ORDERED: Ondansetron 4 mg VIAL 2 MG/ML 2 ml VIAL ONE (13:36)
[2024-05-07] MEDS ORDERED: Acetaminophen IV 1 GM/100ML 1,000 MG/100 ML BAG IV ONE (13:43)
[2024-05-07] MEDS ORDERED: HYDROmorphone 0.5 MG/0.5 ML SYRINGE ONE (15:39)
[2024-05-07] MEDS ORDERED: Lactulose 30 ml UDC PO PRN (15:45)
[2024-05-07] MEDS ORDERED: Magnesium Hydroxide LIQ 30 ML UDC PO PRN (15:45)
[2024-05-07] MEDS ORDERED: Calcium Carb (TUMS) 500 mg CHEW TAB PO PRN (15:45)
[2024-05-07] MEDS ORDERED: Ondansetron ODT 4 mg TAB 4 MG TAB PO PRN (15:45)
[2024-05-07] MEDS ORDERED: Ondansetron 4 mg VIAL 2 MG/ML 2 ml VIAL IV PRN (15:45)
[2024-05-07] MEDS: Morphine 2 MG/ML SYRINGE IV PRN (18:26)
[2024-05-07] MEDS: ceFAZolin 2 GM PREMIX 2 GM/50 ML BAG IV SCH (21:13)
[2024-05-07] MEDS: Magnesium Hydroxide LIQ 30 ML UDC PO SCH (21:37)
[2024-05-08 06:41] LABS: Calcium 9.4 mg/dL (8.6-10.3); Creatinine, Serum 0.69 mg/dL (0.51-0.95); Potassium 4.5 mmol/L (3.5-5.0); eGFR CKD-EPI 103.7 (>60)
[2024-05-08 07:22] LABS: Hematocrit 33.4 % (35-45); Hemoglobin 11.4 g/dL (11.5-14.3); Platelet Count 362 10^3/uL (150-450)
[2024-05-08] MEDS: Vitamin THERAPEUTIC TAB PO SCH (08:39)
[2024-05-08] MEDS: Venlafaxine XR 75 mg PO SCH (08:39)
[2024-05-08] MEDS: COVID VAC 24-25 (12+) (Moderna) Syringe 0.5 mL IM ONE (12:50)
[2024-05-08 13:31] VITALS: BP 138/76
== END 2024-05-08 14:25 | disposition home or self-care (01) ==
LOC: SSU 09:37 → OR 09:37
PROVIDERS: ADMIT Orthopaedic Surgery Adult Reconstructive Orthopaedic Surgery; ATTEND Orthopaedic Surgery Adult Reconstructive Orthopaedic Surgery